=== PATIENT | female | born 1965 | race African-American/Black ===

== ENCOUNTER 2016-04-24 17:46 | Inpatient (IN) ==
[2016-04-24] MEDS ORDERED: methylPREDNISolone SOD SUC 125 MG/2 ML VIAL ONE (19:14)
[2016-04-24] MEDS ORDERED: MORPHINE 2 MG/1 ML SYRINGE IV STA (19:46)
[2016-04-24] MEDS ORDERED: cefTRIAXone 1,000 MG in SODIUM CHLORIDE 0.9% 100 ML IV STA (19:46)
[2016-04-24] MEDS ORDERED: methylPREDNISolone SOD SUC 125 MG/2 ML VIAL IV STA (19:46)
[2016-04-24] MEDS ORDERED: FUROSEMIDE 100 MG/10 ML VIAL IV STA (19:46)
[2016-04-24] MEDS ORDERED: ONDANSETRON 4 MG/2 ML VIAL IV STA (19:46)
--- NOTE | 2016-04-24 19:50 | Emergency Department Note ---
Henrique Velazquez [place], am scribing for, and in the presence of, Carlo Panda MD 19:44. Farzad Velazquez Charles R, MD, personally performed the services described in this documentation, ascribed by Levon Duenas in my presence, and it is both accurate and complete [id number] . Arrival - Arrival Chief Complaint: Shortness of Breath Stated Complaint: cough congestion wheezing ED Nursing Triage Note: Onset of SOB and wheezing today. Produtive cough. Mode of Arrival: Ambulatory Limitations: No Limitations Source: Patient Time Seen by Provider: 04/24/16 19:29 - History of Present Illness HPI Narrative: Pt is a 51 y/o black female presenting to the ED with c/o SOB and wheezing that onset suddenly over the course of 2 days. Pt states she does use home oxygen. She has had fever and emesis containing white frothy substance. Her PCP is Dr. Shin. She is currently taking Lasix . Pt denies chills, diarrhea, abdominal pain, back pain, and chest pain. Her PMHx consist of asthma, bronchitis, HTN, and sarcoidosis. Consistency: constant Severity: moderate Allergies/Adverse Reactions: Allergies Allergy/AdvReac Type Severity Reaction Status Date / Time No Known Allergies Allergy Verified 07/20/14 09:05 Home Medications: Home Medications Medication Instructions Recorded Confirmed Type Budesonide/Formoterol 160-4.5 2 puff INH DAILY 12/17/15 04/24/16 History [Symbicort 160-4.5] Eszopiclone [Lunesta] 3 mg PO BEDTIME 12/17/15 04/24/16 History Fluticasone/Salmeterol 500-50 1 puff INH BID 12/17/15 04/24/16 History [Advair 500-50] Furosemide Tab [Lasix Tab] 20 mg PO BID DIURETIC 12/17/15 04/24/16 History Gabapentin Cap/Tab [Neurontin 600 mg PO QID 12/17/15 04/24/16 History Cap/Tab] HYDROcodone/ACETAMIN 10-325 [[place] 1 tablet PO QID 12/17/15 04/24/16 History 10-325] Ibuprofen Tab [Motrin Tab] 800 mg PO TID 12/17/15 04/24/16 History Levalbuterol Neb [Xopenex Neb] 1.25 mg RESP TX QID 12/17/15 04/24/16 History Meloxicam [Mobic] 15 mg PO DAILY 12/17/15 04/24/16 History Methotrexate Tab 17.5 mg PO TH 12/17/15 04/24/16 History Montelukast Tab [Singulair Tab] 10 mg PO DAILY 12/17/15 04/24/16 History Norethindrone [Ortho Micronor] 0.35 mg PO DAILY 12/17/15 04/24/16 History Paroxetine HCl [Paxil] 30 mg PO BID 12/17/15 04/24/16 History Promethazine Tab [Phenergan Tab] 25 mg PO Q6H 12/17/15 04/24/16 History Tizanidine HCl [Zanaflex] 4 mg PO QID 12/17/15 04/24/16 History Verapamil HCl [Verapamil Tab] 120 mg PO TID 12/17/15 04/24/16 History buPROPion XL [Wellbutrin Xl] 300 mg PO DAILY 12/17/15 04/24/16 History clonazePAM [Klonopin] 1 mg PO TID 12/17/15 04/24/16 History traMADol TAB [Ultram] 50 mg PO BID 12/17/15 04/24/16 History Review of System - Review of System 12 point system: reviewed and no additional remarkable complaints except as stated - Review of System Constitutional: Present: fever. Absent: chills, weakness Eyes: Absent: vision change Head/Ears/Nose/Throat: Absent: earache, nasal drainage, sore throat Respiratory: Present: cough (prodcuctive ), respiratory distress (mild ), wheezing Cardiovascular: Present: dyspnea on exertion. Absent: chest pain, syncope Gastrointestinal: Absent: abdominal pain, nausea, vomiting, diarrhea Genitourinary female: Absent: dysuria Musculoskeletal: Absent: arm pain, back pain, leg pain, neck pain Skin: Absent: rash Neurological: Absent: headache, weakness, confusion, abnormal gait, vertigo Psychiatric: Absent: anxiety Endocrine: Absent: fatigue Hematological/Lymphatic: Absent: easy bleeding Allergic/Immunologic: Absent: facial swelling Medical,Surgical,& Family Hx - Medical History Cardio: History of: Hypertension Respiratory: History of: Asthma, Bronchitis, Respiratory Problems (sarcoidosis) Musculoskeletal: History of: Back/Neck Problems (chronic back pain) Other: History of: Miscellaneous Medical Problems (Sarcoid) - Social History Smoking Status: Never smoker Frequency of Alcohol Use: None Type of Drug Use: None Exam Vital Signs: Vital Signs Temperature 98.7 F 04/24/16 18:20 Pulse Rate 103 H 04/24/16 19:19 Respiratory Rate 34 H 04/24/16 20:23 Blood Pressure 144/99 04/24/16 18:20 O2 Sat by Pulse Oximetry 98 04/24/16 19:19 - General General appearance: alert, in distress (mild respiratory distress ) - Head Head exam: Present: atraumatic, normocephalic, normal inspection - Eye Eye exam: Present: normal appearance, PERRL, EOMI - ENT ENT exam: Present: normal exam, normal oropharynx, mucous membranes moist, TM's normal bilaterally, normal external ear exam - Neck Neck exam: Present: normal inspection, full ROM, trachea midline. Absent: tenderness - Chest Chest inspection: Present: normal inspection, symmetric chest wall rise. Absent : tenderness - Respiratory Respiratory exam: Present: accessory muscle use, rales (bilaterally), respiratory distress (mild ), wheezes (bilaterally ) - Cardiovascular Cardiovascular exam: Present: regular rate, normal rhythm, normal heart sounds - Abdominal Exam Abdominal exam: Present: soft, normal bowel sounds. Absent: distention, tenderness - Extremities Exam Extremities exam: Present: normal inspection, full ROM, normal capillary refill , pedal edema (+2 pitting ). Absent: tenderness, calf tenderness - Back Exam Back exam: Present: normal inspection, full ROM. Absent: tenderness - Neurological Exam Neurological exam: Present: alert, oriented X3, CN II-XII intact, normal gait, reflexes normal - Psychiatric Psychiatric exam: Present: normal affect, normal mood - Skin Skin exam: Present: warm, dry, intact, normal color. Absent: rash Course - Reevaluation(s) Reevaluation #1: Patient still wheezing in both sides her chest but better Time: 21:07 - Consultations Consultation #1: Dr. Maldonado will admit patient Time: 21:03 Results - Labs CBC & BMP: 04/24/16 19:55 04/24/16 19:55 Disposition Clinical Impression: Asthma with exacerbation Case discussed with: patient, patient's family Disposition: Still a Patient Condition: Guarded Time of Disposition: 21:08
[2016-04-24] MEDS ORDERED: FUROSEMIDE 40 MG/4 ML VIAL ONE (19:56)
[2016-04-24] MEDS ORDERED: ONDANSETRON 4 MG/2 ML VIAL ONE (19:56)
[2016-04-24] MEDS ORDERED: MORPHINE 2 MG/1 ML SYRINGE ONE (19:57)
[2016-04-24] MEDS ORDERED: cefTRIAXone 1,000 MG VIAL ONE (19:57)
[2016-04-24] MEDS ORDERED: FUROSEMIDE 20 MG/2 ML VIAL ONE (19:57)
[2016-04-24] MEDS ORDERED: ALBUTEROL/IPRATROPIUM 3 ML NEB RESP TX STA (19:58)
[2016-04-24] MEDS ORDERED: ALBUTEROL 2.5 MG/3 ML NEB RESP TX SCH (20:00)
--- NOTE | 2016-04-24 20:10 | XRay Report ---
Exam: XR chest 1V portable Date: 04/24/2016 7:47 PM Indication: Shortness of breath Comparison: 08/03/2015 Technical:AP semierect portable Findings: The heart is normal in size. Calcified nodes scarring are present in the perihilar regions with ASVD. No obvious consolidating infiltrate or effusion. Small cortical anchor screw right humeral head. No obvious pneumothorax. Impression: 1. Calcified nodes in the perihilar regions 2. Mild scarring in the perihilar regions and right midlung zone 3. Previous cortical anchor screw over the right humeral head suggests prior rotator cuff surgery PROCEDURE INTERPRETED AT [facility] DEPARTMENT OF RADIOLOGY Final Report Signed by: Dr. Dimas Vidal
[2016-04-24 20:11] LABS: Basophils % 0.9 % (0.0-0.8); Eosinophils # 0.1 10*3/uL (0.0-0.87); Eosinophils % 1.8 % (0.00-10.9); Hematocrit 37.8 VOL% (35.7-47.0); Hemoglobin 11.7 GM/DL (12.0-16.0); Immature Granulocytes % 0.2 %; Immature Granulocytes Absolute 0.01 #; Lymphocytes # 1.1 10*3/uL (1.4-4.0); Lymphocytes % 25.7 % (21.3-54.2); Mean Corpuscular Hemoglobin 29 PG (27-34); Mean Corpuscular Volume 92.2 FL (87-102); Mean Platelet Volume 9.3 FL (9.6-12.0); Monocytes # 0.5 10*3/uL (0.11-0.8); Monocytes % 10.4 % (1.7-12.7); Neutrophils # 2.7 10*3/uL (1.4-7.4); Platelet Count 222 10*3/uL (130-400); Red Cell Distribution Width 13.7 % (9.3-17.3); White Blood Count 4.4 10*3/uL (4.5-13.71)
[2016-04-24 20:23] LABS: Apearance,Urine CLOUDY (Clear); Bacteria,Urine Few /HPF (Few); Bilirubin,Urine Negative (Negative); Blood, Urine Negative (Negative); Glucose,Urine (UA) Negative (Negative); Ketones,Urine Negative (Negative); Mucus,Urine Few /LPF (Occasional); Nitrite,Urine Negative (Negative); Protein,Urine Negative; RBC,Urine 1 /HPF (0-4); Squamous Epithelial Cell,Urine Few /HPF (0-10); Urine Color Yellow (Yellow); Urine Specific Gravity 1.008 (1.001-1.035); Urine Urobilinogen < 2.0 EU/DL (0.2-1.0); WBC,Urine 4 /HPF (0-6)
[2016-04-24 20:24] LABS: ABG Base Excess 0.9 MMOL/L (-2.5-2.5); ABG HCO3 25.3 MMOL/L (20-26); ABG Oxygen Saturation 99.7 % (95-100); ABG PCO2 42.9 MM HG (35-48); ABG PH 7.392 (7.35-7.45); ABG TCO2 22.9 MMOL/L (23-27); Allen Test Positive
[2016-04-24 20:24] LABS: D-Dimer 1.9 MG/L FEU; INR 1.2; PT Patient Result 12.6 SECS
[2016-04-24 20:40] LABS: Alanine Aminotransferase 22 U/L (13-56); Alkaline Phosphatase 87 U/L (45-117); Aspartate Amino Transferase 20 U/L (0-37); Bilirubin,Total < 0.39 MG/DL (0.2-1.0); Blood Urea Nitrogen 4 MG/DL (7-18); Calcium 8.3 MG/DL (8.5-10.1); Glucose 87 MG/DL (74-106); Osmolality,Calculated 281.8 MOS/KG (273-304); Sodium 144 MMOL/L (136-145); Total Protein 7.4 G/DL (6.4-8.3); Troponin I Only < 0.015 NG/ML (0.00-0.045)
--- NOTE | 2016-04-24 20:41 | EKG Report ---
Stationary ECG Study [facility] ER Test Date: 04/24/2016 8:40:15 PM Pat Name: HAKEEM BURDICK Department: Room: Gender: F Occupational Ther: SR : 1965 Requested by: Carlo Stewart Order Number: [id number] Mary MD: YANETH SOLER Intervals [place] Rate: 110 P: 63 [place]: 154 QRS: 66 QRSD: 90 T: 44 QT: 272 QTc: 337 Interpretive Statements SINUS TACHYCARDIA NONSPECIFIC T-WAVE ABNORMALITY ABNORMAL RHYTHM ECG Electronically Signed On 04-26-16 09:45:51 PROGRAM PROJECT ANALYST by YANETH SOLER [email or web address]
[2016-04-24] MEDS ORDERED: POTASSIUM CHLORIDE 20 MEQ TABLET PO STA (20:43)
[2016-04-24] MEDS ORDERED: POTASSIUM CHLORIDE 20 MEQ TABLET PO ONE (21:42)
--- NOTE | 2016-04-24 22:00 | Hospitalist History & Physical ---
Assessment and Plan (1) Asthma with exacerbation Status: Acute Assessment and plan: The patient is minimal hospital with acute shortness of breath and wheezing. She'll be hospitalized and given IV steroid and inhaled beta agonist breathing therapy. We will obtain pulmonary consultation the morning. We will check Doppler of lower extremities to rule out deep vein thrombosis. We will continue the patient's usual home medications. Current Visit: Yes Qualifiers: Asthma severity: moderate persistent Qualified Code(s): J45.41 - Moderate persistent asthma with (acute) exacerbation (2) Sarcoidosis of lung Status: Acute Current Visit: Yes (3) Chronic back pain greater than 3 months duration Status: Acute Current Visit: Yes History of Present Illness Chief complaint: shortness of breath History of present illness: Ms. Weston is a 51 year old female with history of sarcoidosis and asthma. The patient was last admitted to the hospital for shortness of breath about [address] Torres. The patient is treated by Dr. López with injections and oral medication for back pain. The patient states that she was in her usual state of health until about 48 hours ago when she had acute onset of shortness of breath associated with wheezing. The patient's symptom is moderate, continuous, and had minimal improvement in the emergency room with standard treatment. She has not had sputum production. She has not had fever. The patient has not had angina. The patient's previous sleep test 4 years ago revealed significant episodes of hypoxemia which were not associated with obstruction. The patient has diagnosis of sarcoidosis and also asthma. She is now admitted to hospital with wheezing and shortness of breath. Home Medications Medication Instructions Recorded Confirmed Type Budesonide/Formoterol 160-4.5 2 puff INH DAILY 12/17/15 04/24/16 History [Symbicort 160-4.5] Eszopiclone [Lunesta] 3 mg PO BEDTIME 12/17/15 04/24/16 History Fluticasone/Salmeterol 500-50 1 puff INH BID 12/17/15 04/24/16 History [Advair 500-50] Furosemide Tab [Lasix Tab] 20 mg PO BID DIURETIC 12/17/15 04/24/16 History Gabapentin Cap/Tab [Neurontin 600 mg PO QID 12/17/15 04/24/16 History Cap/Tab] HYDROcodone/ACETAMIN 10-325 [[place] 1 tablet PO QID 12/17/15 04/24/16 History 10-325] Ibuprofen Tab [Motrin Tab] 800 mg PO TID 12/17/15 04/24/16 History Levalbuterol Neb [Xopenex Neb] 1.25 mg RESP TX QID 12/17/15 04/24/16 History Meloxicam [Mobic] 15 mg PO DAILY 12/17/15 04/24/16 History Methotrexate Tab 17.5 mg PO TH 12/17/15 04/24/16 History Montelukast Tab [Singulair Tab] 10 mg PO DAILY 12/17/15 04/24/16 History Norethindrone [Ortho Micronor] 0.35 mg PO DAILY 12/17/15 04/24/16 History Paroxetine HCl [Paxil] 30 mg PO BID 12/17/15 04/24/16 History Promethazine Tab [Phenergan Tab] 25 mg PO Q6H 12/17/15 04/24/16 History Tizanidine HCl [Zanaflex] 4 mg PO QID 12/17/15 04/24/16 History Verapamil HCl [Verapamil Tab] 120 mg PO TID 12/17/15 04/24/16 History buPROPion XL [Wellbutrin Xl] 300 mg PO DAILY 12/17/15 04/24/16 History clonazePAM [Klonopin] 1 mg PO TID 12/17/15 04/24/16 History traMADol TAB [Ultram] 50 mg PO BID 12/17/15 04/24/16 History Allergies Allergy/AdvReac Type Severity Reaction Status Date / Time No Known Allergies Allergy Verified 07/20/14 09:05 Medical,Surgical,& Family Hx - Medical History Cardio: History of: Hypertension Respiratory: History of: Asthma, Bronchitis, Respiratory Problems (sarcoidosis) Musculoskeletal: History of: Back/Neck Problems (chronic back pain) Other: History of: Miscellaneous Medical Problems (Sarcoid) - Family History Family History: Reports;: Family Hypertension - Social History Smoking Status: Never smoker Frequency of Alcohol Use: None Type of Drug Use: None Marital Status: Lives With:: Alone Functional capacity: independent ambulation 12 point system: reviewed and no additional remarkable complaints except as stated Exam - Constitutional Vitals: Period Temp Pulse Resp BP Sys/Valerio Pulse Ox Last 24 Hr 98.7 F 103-109 20-34 144/99 95-98 Exam: Constitutional System: Moderate distress on account of wheezing and dyspnea. No tremulousness. The patient has significant morbid obesity Head: Normocephalic, atraumatic. Ears, Nose and Throat System: No evidence of Otitis or Mastoiditis. No epistaxis or discharge Eyes System: Pupils equal, round, and reactive. Extraocular muscles intact. Neck: Supple, without adenopathy, No jugular venous distention. No thyromegaly , neck mass, or prior surgery apparent. Respiratory System: Chest moderate wheezing to auscultation. Cardiovascular System: Heart with regular rate and rhythm. No murmur. GI System: Abdomen soft, nontender. Normoactive bowel sounds present. Musculoskeletal System: limbs with trace pedal edema. Full distal pulses. Neurological System: No discernable sensory deficit. No aphasia Psychiatric System: Conversation is rational Results - Labs CBC & BMP: 04/24/16 19:55 04/24/16 19:55 Lab Results: I have reviewed the past 24 hour labs - Diagnostic Findings Procedure: Chest x-ray: image reviewed by me (no infiltrate apparent)
--- NOTE | 2016-04-24 22:42 | Ultrasound Report ---
Exam: US venous doppler LE BI Indication: Dyspnea Date: 04/24/2016 10:04 PM Findings: Grayscale color flow duplex/Doppler imaging and spectral analysis waveform imaging was performed with real-time ultrasound with image stored and captured. The right common femoral, superficial femoral, popliteal saphenous veins are patent with normal augmentation and compression. There is no evidence of popliteal or Granados's cyst. Normal wave form analysis present. Normal color flow The left common femoral, superficial femoral, popliteal saphenous veins are patent with normal augmentation and compression. There is no evidence of popliteal or Granados's cyst. Normal wave form analysis present. Normal color flow Impression: 1. No DVT PROCEDURE INTERPRETED AT [facility] DEPARTMENT OF RADIOLOGY Final Report Signed by: Dr. Dimas Vidal
[2016-04-24] MEDS ORDERED: ALBUTEROL 2.5 MG/3 ML NEB RESP TX PRN (23:20)
[2016-04-24] MEDS ORDERED: ESZOPICLONE 1 MG TABLET PO SCH (23:20)
[2016-04-25] MEDS: ALBUTEROL 2.5 MG/3 ML NEB RESP TX SCH ×4 (00:01→19:36)
[2016-04-25] MEDS: SODIUM CHLORIDE 0.9% 1,000 ML IV SCH ×2 (00:15→14:22)
[2016-04-25] MEDS: traMADol 50 MG TABLET PO SCH ×3 (00:16→21:37)
[2016-04-25] MEDS: POTASSIUM CHLORIDE 20 MEQ TABLET PO SCH ×3 (00:16→06:31)
[2016-04-25] MEDS: PROMETHAZINE 25 MG TABLET PO SCH ×4 (00:16→17:57)
[2016-04-25] MEDS: ENOXAPARIN 40 MG/0.4 ML SYRINGE SUBCUT SCH (00:17)
[2016-04-25] MEDS ORDERED: INFLUENZA VIRUS VACCINE 0.5 ML SYRINGE IM ONE (00:59)
[2016-04-25] MEDS: ZALEPLON 5 MG CAPSULE PO SCH ×2 (02:23→21:40)
[2016-04-25] MEDS: methylPREDNISolone SOD SUC 125 MG/2 ML VIAL IV SCH ×3 (03:05→17:57)
[2016-04-25 06:17] LABS: Basophils % 0.2 % (0.0-0.8); Hematocrit 37.1 VOL% (35.7-47.0); Hemoglobin 11.3 GM/DL (12.0-16.0); Immature Granulocytes % 0.2 %; Immature Granulocytes Absolute 0.01 #; Lymphocytes # 0.5 10*3/uL (1.4-4.0); Lymphocytes % 11.5 % (21.3-54.2); Mean Corpuscular HGB Conc 30.5 GM/DL (32-36); Mean Corpuscular Hemoglobin 28 PG (27-34); Mean Platelet Volume 9.3 FL (9.6-12.0); Monocytes % 0.7 % (1.7-12.7); Neutrophils # 3.6 10*3/uL (1.4-7.4); Neutrophils % 87.4 % (38.7-73.9); Platelet Count 208 10*3/uL (130-400); Red Blood Count 3.99 10*6/uL (3.8-5.5); Red Cell Distribution Width 13.9 % (9.3-17.3); White Blood Count 4.2 10*3/uL (4.5-13.71)
[2016-04-25 06:45] LABS: Hypochromasia 1+; Platelet Estimate Normal
[2016-04-25 06:53] LABS: Blood Urea Nitrogen 5 MG/DL (7-18); Calcium 8.4 MG/DL (8.5-10.1); Glucose 213 MG/DL (74-106); Magnesium 2.2 MG/DL (1.8-2.4); Osmolality,Calculated 290.7 MOS/KG (273-304); Potassium 3.9 MMOL/L (3.5-5.1); Sodium 145 MMOL/L (136-145); Troponin I Only < 0.015 NG/ML (0.00-0.045)
[2016-04-25] MEDS: LEVALBUTEROL 1.25 MG/3 ML NEB RESP TX SCH ×4 (07:19→19:36)
--- NOTE | 2016-04-25 07:22 | XRay Report ---
Portable chest. Indication: Shortness of breath. Dyspnea. Comparison: April 24, 2016. The heart is normal in size. There is uncoiling of the thoracic aorta. Bullous disease is suggested at the right lung apex. Interstitial fibrotic changes are noted bilaterally. The hilar regions are prominent bilaterally. When compared to yesterday's exam, no significant interval change. When compared to more remote exams, the hilar prominence remains stable. Lung volumes are decreasing and fibrotic changes are increasing. Impression: Progressive chronic lung changes. PROCEDURE INTERPRETED AT [facility] DEPARTMENT OF RADIOLOGY Final Report Signed by: Dr. Bel Page
--- NOTE | 2016-04-25 08:48 | EKG Report ---
Stationary ECG Study [facility] Test Date: 04/25/2016 8:47:30 AM Pat Name: HAKEEM BURDICK Department: Room: 538 Gender: F [employer] Member: : 1965 Requested by: Adelso Maldonado Order Number: [id number] Reading MD: YANETH SOLER Intervals [place] Rate: 99 P: 63 AL: 156 QRS: 77 QRSD: 88 T: 55 QT: 359 QTc: 415 Interpretive Statements SINUS RHYTHM LOW QRS VOLTAGE IN PRECORDIAL LEADS Electronically Signed On 04-26-16 09:50:29 TABLE RUNNER by YANETH SOLER [id number]
[2016-04-25] MEDS ORDERED: NORETHINDRONE 0.35 MG PO SCH (09:00)
--- NOTE | 2016-04-25 09:01 | Pulmonology Consult Note ---
Assessment and Plan (1) Asthma with exacerbation Status: Acute Assessment and plan: The patient has probably developed a URI and comes in with an asthma exacerbation. She looks reasonably comfortable after starting treatment. Current Visit: Yes Qualifiers: Asthma severity: moderate persistent Qualified Code(s): J45.41 - Moderate persistent asthma with (acute) exacerbation (2) Chronic back pain greater than 3 months duration Status: Acute Assessment and plan: She apparently has some chronic back pain problems. She is followed by the pain clinic. Current Visit: Yes (3) Sarcoidosis of lung Status: Acute Assessment and plan: Her chest x-ray does suggest some chronic interstitial lung disease. Current Visit: Yes History of Present Illness Chief complaint: shortness of breath History of present illness: Ms. Weston is a 51 year old black female that came in because of shortness of breath and asthma exacerbation. I have seen her in the past but has been quite some time. She has a history of sarcoid and asthma and apparently has been on methotrexate. She has inhalers at home but says she only uses them as needed. She says she's not had any recent flareups. She felt like she had a cold and some sinus congestion and then started coughing and wheezing. She has been started on IV antibiotics and steroids. Home Medications Medication Instructions Recorded Confirmed Type Budesonide/Formoterol 160-4.5 2 puff INH DAILY 12/17/15 04/24/16 History [Symbicort 160-4.5] Eszopiclone [Lunesta] 3 mg PO BEDTIME 12/17/15 04/24/16 History Fluticasone/Salmeterol 500-50 1 puff INH BID 12/17/15 04/24/16 History [Advair 500-50] Furosemide Tab [Lasix Tab] 20 mg PO BID DIURETIC 12/17/15 04/24/16 History Gabapentin Cap/Tab [Neurontin 600 mg PO QID 12/17/15 04/24/16 History Cap/Tab] HYDROcodone/ACETAMIN 10-325 [[place] 1 tablet PO QID 12/17/15 04/24/16 History 10-325] Ibuprofen Tab [Motrin Tab] 800 mg PO TID 12/17/15 04/24/16 History Levalbuterol Neb [Xopenex Neb] 1.25 mg RESP TX QID 12/17/15 04/24/16 History Meloxicam [Mobic] 15 mg PO DAILY 12/17/15 04/24/16 History Methotrexate Tab 17.5 mg PO TH 12/17/15 04/24/16 History Montelukast Tab [Singulair Tab] 10 mg PO DAILY 12/17/15 04/24/16 History Norethindrone [Ortho Micronor] 0.35 mg PO DAILY 12/17/15 04/24/16 History Paroxetine HCl [Paxil] 30 mg PO BID 12/17/15 04/24/16 History Promethazine Tab [Phenergan Tab] 25 mg PO Q6H 12/17/15 04/24/16 History Tizanidine HCl [Zanaflex] 4 mg PO QID 12/17/15 04/24/16 History Verapamil HCl [Verapamil Tab] 120 mg PO TID 12/17/15 04/24/16 History buPROPion XL [Wellbutrin Xl] 300 mg PO DAILY 12/17/15 04/24/16 History clonazePAM [Klonopin] 1 mg PO TID 12/17/15 04/24/16 History traMADol TAB [Ultram] 50 mg PO BID 12/17/15 04/24/16 History Allergies Allergy/AdvReac Type Severity Reaction Status Date / Time No Known Allergies Allergy Verified 07/20/14 09:05 - Constitutional Constitutional: Present: fatigue, weight gain. Absent: chills, fever(s) - EENT Eyes: Absent: loss of vision Ears: Absent: decreased hearing Nose, mouth and throat: Absent: dysphagia, headache(s), sinus pressure - Cardiovascular Cardiovascular: Present: dyspnea. Absent: chest pain at rest, edema, orthopnea , palpitations, PND - Respiratory Respiratory: Present: cough, dyspnea, wheezing, change in phlegm color. Absent : hemoptysis, pain on inspiration - Gastrointestinal Gastrointestinal: Absent: abdominal pain, change in bowel habits, dysphagia, nausea, vomiting - Genitourinary Genitourinary: Absent: dysuria, hematuria, urinary frequency - Musculoskeletal Musculoskeletal: Present: arthralgias - Neurological Neurological: Absent: abnormal speech, confusion, focal weakness Exam (Pulmonay) H&P - Constitutional Vitals: Period Temp Pulse Resp BP Sys/Valerio Pulse Ox Last 24 Hr 97.1 F-97.8 F 98-115 18-22 129-160/73-94 93-100 General appearance: no acute distress, over weight - Head Head exam: Present: normal inspection, normocephalic - Eye Eye exam: Present: EOMI. Absent: scleral icterus Pupils: Present: ZOEY - ENT ENT exam: Present: normal exam - Neck Neck exam: Present: normal inspection, other (she does have swelling of the back of her neck consistent with cushingoid features.). Absent: lymphadenopathy , thyromegaly - Respiratory Respiratory exam: Present: rales, rhonchi, other (she has fairly good breath sounds bilaterally with mild rales and rhonchi.). Absent: accessory muscle use - Cardiovascular Cardiovascular exam: Present: regular rate and rhythm. Absent: gallop, systolic murmur - GI/Abdominal GI/Abdominal exam: Present: normal bowel sounds, soft. Absent: organomegaly, tenderness - Extremities Exam Extremities exam: Absent: calf tenderness, edema - Neurological Exam Neurological exam: Present: alert, oriented X3, CN II-XII intact - Psychiatric Psychiatric exam: Present: normal affect - Skin Skin exam: Present: warm, dry Medical,Surgical,& Family Hx - Medical History Cardio: History of: Hypertension HEENT: History of: Ear Problem (inner pain) Respiratory: History of: Asthma, Bronchitis, Respiratory Problems (sarcoidosis) Musculoskeletal: History of: Back/Neck Problems (chronic back pain) Other: History of: Miscellaneous Medical Problems (Sarcoid) - Family History Family History: Reports;: Family Hypertension - Social History Smoking Status: Never smoker Frequency of Alcohol Use: None Type of Drug Use: None Results - Labs CBC & BMP: 04/25/16 06:09 04/25/16 06:09 Labs: Her ABGs show PO2 224 with a PCO2 of 42 and a pH is 7.39 on 50% O2. - Diagnostic Findings Procedure: Chest x-ray: image reviewed by me, report reviewed by me (chest x- ray does show bilateral hilar calcification and mild interstitial infiltrates.) Quality Measures - Stroke Symptom Onset Unknown: No
[2016-04-25] MEDS: PANTOPRAZOLE 40 MG TABLET PO SCH (09:12)
[2016-04-25] MEDS: FUROSEMIDE 20 MG TABLET PO SCH ×2 (09:12→14:21)
[2016-04-25] MEDS: IBUPROFEN 800 MG TABLET PO SCH ×3 (09:12→21:38)
[2016-04-25] MEDS: PARoxetine 20 MG TABLET PO SCH ×2 (09:12→21:38)
[2016-04-25] MEDS: tiZANidine 4 MG TABLET PO SCH ×4 (09:12→21:38)
[2016-04-25] MEDS: MELOXICAM 7.5 MG TABLET PO SCH (09:12)
[2016-04-25] MEDS: clonazePAM 0.5 MG TABLET PO SCH ×3 (09:12→21:37)
[2016-04-25] MEDS: FLUTICASONE/SALMETEROL 500-50 DISKUS 14 DOSE INH SCH ×2 (09:12→21:39)
[2016-04-25] MEDS: MONTELUKAST 10 MG TABLET PO SCH (09:12)
[2016-04-25] MEDS: GABAPENTIN 600 MG TABLET PO SCH ×4 (09:12→21:38)
[2016-04-25] MEDS: BUDESONIDE/FORMOTEROL 160-4.5 INHALER 6 GM INH SCH (09:14)
[2016-04-25] MEDS: VERAPAMIL 120 MG TABLET PO SCH ×3 (09:14→21:38)
--- NOTE | 2016-04-25 10:41 | Hospitalist Progress Note ---
Assessment and Plan (1) Asthma with exacerbation Status: Acute Assessment and plan: The patient is admitted to hospital with acute shortness of breath and wheezing. She'll be hospitalized and given IV steroid and inhaled beta agonist breathing therapy. Antibiotic is admitted now . Brian's consult is greatly appreciated. We will check Doppler of lower extremities to rule out deep vein thrombosis. We will continue the patient's usual home medications. Current Visit: Yes Qualifiers: Asthma severity: moderate persistent Qualified Code(s): J45.41 - Moderate persistent asthma with (acute) exacerbation (2) Sarcoidosis of lung Status: Acute Current Visit: Yes (3) Chronic back pain greater than 3 months duration Status: Acute Current Visit: Yes Hospitalist: Subjective Interval history: The patient is resting quietly in bed today. She has mild respiratory distress but less than in the emergency room last night. The patient has more cough and last night but less upper airway congestion and less wheezing Exam - Constitutional Vitals: Period Temp Pulse Resp BP Sys/Valerio Pulse Ox Last 24 Hr 97.1 F-97.8 F 98-115 18-22 129-160/73-94 93-100 Exam: Constitutional System: Mild distress on account of wheezing and dyspnea. No tremulousness. The patient has significant morbid obesity Head: Normocephalic, atraumatic. Ears, Nose and Throat System: No evidence of Otitis or Mastoiditis. No epistaxis or discharge Eyes System: Pupils equal, round, and reactive. Extraocular muscles intact. Neck: Supple, without adenopathy, No jugular venous distention. No thyromegaly , neck mass, or prior surgery apparent. Respiratory System: Chest mild wheezing to auscultation. The patient has upper airway congestion with coughing Cardiovascular System: Heart with regular rate and rhythm. No murmur. GI System: Abdomen soft, nontender. Normoactive bowel sounds present. Musculoskeletal System: limbs with trace pedal edema. Full distal pulses. Neurological System: No discernable sensory deficit. No aphasia Psychiatric System: Conversation is rational Results - Labs CBC & BMP: 04/25/16 06:09 04/25/16 06:09 Lab Results: I have reviewed the past 24 hour labs Quality Measures - Stroke Symptom Onset Unknown: No
[2016-04-25] MEDS: cefTRIAXone 1,000 MG in SODIUM CHLORIDE 0.9% 100 ML IV SCH (21:37)
[2016-04-26] MEDS: ALBUTEROL 2.5 MG/3 ML NEB RESP TX SCH ×4 (00:15→20:15)
[2016-04-26] MEDS: PROMETHAZINE 25 MG TABLET PO SCH ×5 (00:27→22:40)
[2016-04-26] MEDS: ENOXAPARIN 40 MG/0.4 ML SYRINGE SUBCUT SCH ×2 (00:27→22:40)
[2016-04-26] MEDS: SODIUM CHLORIDE 0.9% 1,000 ML IV SCH ×2 (02:28→16:08)
[2016-04-26] MEDS: methylPREDNISolone SOD SUC 125 MG/2 ML VIAL IV SCH ×3 (02:28→18:06)
[2016-04-26] MEDS: MORPHINE 2 MG/1 ML SYRINGE IV PRN ×2 (02:32→06:46)
--- NOTE | 2016-04-26 06:59 | Physician Query Form ---
CLICK EDIT DOCUMENT TO SELECT QUERY ANSWER --> OK --> SIGN Clairsa Curry RN, CCDS Certified Clinical Fitter [employer] W) [phone] (f) [phone] [email or web address]: Make your selection(s) from the choices in EACH section by typing an "x" and enter comments in the comment section. Please use your independent medical judgment in providing your response. This request does not imply that any particular answer is desired or expected. CLINICAL INDICATORS: (Providers should not edit this section) The medical record indicates that the patient was admitted with asthma exacerbation, HX of sarcoidosis, respirations of 34#, "accessory muscle use, rales (bilaterally), respiratory distress (mild ), wheezes (bilaterally )", " does use home oxygen", and the patient was placed on 2 liters per NC. Based on the above, could you clarify the appropriate diagnosis, if significant , that supports the above abnormalities and additional evaluation, monitoring, and/or treatment rendered: (X ) patient is being monitored or treated for chronic respiratory failure ( ) patient is not being monitored or treated for chronic respiratory failure ( ) Other, please specify: ( ) Clinically unable to determine COMMENTS: Use of terms such as suspected, likely, or probable (associated with a specific diagnosis that is being evaluated, monitored, or treated as if it exists) are acceptable and can be restated in the discharge summary if not ruled out. MTDD
[2016-04-26] MEDS: LEVALBUTEROL 1.25 MG/3 ML NEB RESP TX SCH ×4 (07:28→20:15)
[2016-04-26] MEDS: GABAPENTIN 600 MG TABLET PO SCH ×4 (09:49→22:37)
[2016-04-26] MEDS: clonazePAM 0.5 MG TABLET PO SCH ×3 (09:49→22:36)
[2016-04-26] MEDS: PARoxetine 20 MG TABLET PO SCH ×2 (09:49→22:37)
[2016-04-26] MEDS: MELOXICAM 7.5 MG TABLET PO SCH (09:49)
[2016-04-26] MEDS: MONTELUKAST 10 MG TABLET PO SCH (09:50)
[2016-04-26] MEDS: tiZANidine 4 MG TABLET PO SCH ×4 (09:50→22:38)
[2016-04-26] MEDS: IBUPROFEN 800 MG TABLET PO SCH ×3 (09:50→22:37)
[2016-04-26] MEDS: traMADol 50 MG TABLET PO SCH ×2 (09:50→22:37)
[2016-04-26] MEDS: FUROSEMIDE 20 MG TABLET PO SCH ×2 (09:50→16:05)
[2016-04-26] MEDS: VERAPAMIL 120 MG TABLET PO SCH ×3 (09:50→22:38)
[2016-04-26] MEDS: BUDESONIDE/FORMOTEROL 160-4.5 INHALER 6 GM INH SCH (09:51)
[2016-04-26] MEDS: FLUTICASONE/SALMETEROL 500-50 DISKUS 14 DOSE INH SCH ×2 (09:51→22:38)
[2016-04-26] MEDS: PANTOPRAZOLE 40 MG TABLET PO SCH (09:52)
--- NOTE | 2016-04-26 10:59 | Pulmonology Progress Note ---
Pulmonary - PN: Subj Interval history: Patient is a 51-year-old black lady that has a history of sarcoidosis and mild interstitial fibrosis. She also has some chronic asthma. She has been on methotrexate for significant arthritis. She has been off prednisone for quite some time. She comes in now for a flareup of her breathing. She been coughing up some thick sputum and wheezing more than usual. She is comfortable on low- flow oxygen. She says she feels a little better today. Exam (Progress Note) - Constitutional Vitals: Period Temp Pulse Resp BP Sys/Valerio Pulse Ox Last 24 Hr 96.8 F-98.0 F 79-108 16-25 106-158/60-88 95-100 Exam: General appearance: no acute distress, over weight, she looks comfortable sitting up in bed. - Head Head exam: Present: normal inspection, normocephalic - Eye Eye exam: Present: EOMI. Absent: scleral icterus Pupils: Present: ZOEY - ENT ENT exam: Present: normal exam - Neck Neck exam: Present: normal inspection, other (she does have swelling of the back of her neck consistent with cushingoid features.). Absent: lymphadenopathy , thyromegaly - Respiratory Respiratory exam: Present: She has good breath sounds bilaterally with some slight inspiratory crackles in the bases. She still has some mild wheezing. - Cardiovascular Cardiovascular exam: Present: regular rate and rhythm. Absent: gallop, systolic murmur - GI/Abdominal GI/Abdominal exam: Present: normal bowel sounds, soft. Absent: organomegaly, tenderness - Extremities Exam Extremities exam: Absent: calf tenderness, edema - Neurological Exam Neurological exam: Present: alert, oriented X3, CN II-XII intact - Psychiatric Psychiatric exam: Present: normal affect - Skin Skin exam: Present: warm, dry Results - Labs CBC & BMP: 04/25/16 06:09 04/25/16 06:09 Assessment and Plan (1) Asthma with exacerbation Status: Acute Assessment and plan: The patient has probably developed a URI and comes in with an asthma exacerbation. She looks reasonably comfortable after starting treatment. She looks like she is feeling better and tolerating her treatment okay. Current Visit: Yes Qualifiers: Asthma severity: moderate persistent Qualified Code(s): J45.41 - Moderate persistent asthma with (acute) exacerbation (2) Chronic back pain greater than 3 months duration Status: Acute Assessment and plan: She apparently has some chronic back pain problems. She is followed by the pain clinic. Current Visit: Yes (3) Sarcoidosis of lung Status: Acute Assessment and plan: Her chest x-ray does suggest some chronic interstitial lung disease. Her sarcoid has not been very active in the past recent years. Current Visit: Yes
--- NOTE | 2016-04-26 11:10 | Hospitalist Progress Note ---
Assessment and Plan (1) Asthma with exacerbation Status: Acute Assessment and plan: The patient is admitted to hospital with acute shortness of breath and wheezing. She'll be hospitalized and given IV steroid and inhaled beta agonist breathing therapy. The patient's asthma is persistent and likely on account of her upper respiratory viral infection. We will continue present care for now and anticipate improvement over the next couple of days. Current Visit: Yes Qualifiers: Asthma severity: moderate persistent Qualified Code(s): J45.41 - Moderate persistent asthma with (acute) exacerbation (2) Sarcoidosis of lung Status: Acute Current Visit: Yes (3) Chronic back pain greater than 3 months duration Status: Acute Current Visit: Yes Hospitalist: Subjective Interval history: The patient is comfortable on present care. She still has moderate wheezing and moderate air trapping. I coordinate care with Dr. Torres and agree with his findings concerning the patient's upper respiratory tract infection Exam - Constitutional Vitals: Period Temp Pulse Resp BP Sys/Valerio Pulse Ox Last 24 Hr 97.0 F-98.0 F 79-108 16-25 106-158/60-88 95-100 Exam: Constitutional System: Mild distress on account of wheezing and dyspnea. No tremulousness. The patient has significant morbid obesity Head: Normocephalic, atraumatic. Ears, Nose and Throat System: No evidence of Otitis or Mastoiditis. No epistaxis or discharge Eyes System: Pupils equal, round, and reactive. Extraocular muscles intact. Neck: Supple, without adenopathy, No jugular venous distention. No thyromegaly , neck mass, or prior surgery apparent. Respiratory System: Chest mild wheezing to auscultation. The patient has upper airway congestion with coughing Cardiovascular System: Heart with regular rate and rhythm. No murmur. GI System: Abdomen soft, nontender. Normoactive bowel sounds present. Musculoskeletal System: limbs with trace pedal edema. Full distal pulses. Neurological System: No discernable sensory deficit. No aphasia Psychiatric System: Conversation is rational Results - Labs CBC & BMP: 04/25/16 06:09 04/25/16 06:09 Lab Results: I have reviewed the past 24 hour labs Quality Measures - Stroke Symptom Onset Unknown: No
[2016-04-26] MEDS: ZALEPLON 5 MG CAPSULE PO SCH (22:37)
[2016-04-26] MEDS: METHOTREXATE 2.5 MG TABLET PO SCH (22:39)
[2016-04-26] MEDS: cefTRIAXone 1,000 MG in SODIUM CHLORIDE 0.9% 100 ML IV SCH (22:39)
[2016-04-27] MEDS: ALBUTEROL 2.5 MG/3 ML NEB RESP TX SCH ×4 (00:16→20:12)
[2016-04-27] MEDS: methylPREDNISolone SOD SUC 125 MG/2 ML VIAL IV SCH ×3 (03:47→18:14)
[2016-04-27] MEDS: MORPHINE 2 MG/1 ML SYRINGE IV PRN ×4 (03:47→23:13)
[2016-04-27] MEDS: SODIUM CHLORIDE 0.9% 1,000 ML IV SCH ×2 (05:41→18:14)
[2016-04-27] MEDS: PROMETHAZINE 25 MG TABLET PO SCH ×4 (05:41→23:11)
[2016-04-27] MEDS: LEVALBUTEROL 1.25 MG/3 ML NEB RESP TX SCH ×4 (07:12→20:12)
[2016-04-27] MEDS: GABAPENTIN 600 MG TABLET PO SCH ×4 (08:37→20:58)
[2016-04-27] MEDS: tiZANidine 4 MG TABLET PO SCH ×4 (08:37→21:02)
[2016-04-27] MEDS: PANTOPRAZOLE 40 MG TABLET PO SCH (08:37)
[2016-04-27] MEDS: MELOXICAM 7.5 MG TABLET PO SCH (08:37)
[2016-04-27] MEDS: traMADol 50 MG TABLET PO SCH ×2 (08:38→21:01)
[2016-04-27] MEDS: MONTELUKAST 10 MG TABLET PO SCH (08:38)
[2016-04-27] MEDS: PARoxetine 20 MG TABLET PO SCH ×2 (08:38→20:59)
[2016-04-27] MEDS: IBUPROFEN 800 MG TABLET PO SCH ×3 (08:38→20:57)
[2016-04-27] MEDS: clonazePAM 0.5 MG TABLET PO SCH ×3 (08:39→20:56)
[2016-04-27] MEDS: FUROSEMIDE 20 MG TABLET PO SCH ×2 (08:39→16:22)
[2016-04-27] MEDS: VERAPAMIL 120 MG TABLET PO SCH ×3 (08:39→20:55)
[2016-04-27] MEDS: BUDESONIDE/FORMOTEROL 160-4.5 INHALER 6 GM INH SCH (08:40)
[2016-04-27] MEDS: FLUTICASONE/SALMETEROL 500-50 DISKUS 14 DOSE INH SCH ×2 (08:40→20:55)
--- NOTE | 2016-04-27 09:39 | Pulmonology Progress Note ---
Pulmonary - PN: Subj Interval history: Patient is a 51-year-old black lady that has a history of sarcoidosis and mild interstitial fibrosis. She also has some chronic asthma. She has been on methotrexate for significant arthritis. She has been off prednisone for quite some time. She comes in now for a flareup of her breathing. She been coughing up some thick sputum and wheezing more than usual. She feels like her breathing is better but she still having some cough. She had a fairly good night. She still has minimal wheeze on exam. She is better and should be able to go home in a day or 2. Exam (Progress Note) - Constitutional Vitals: Period Temp Pulse Resp BP Sys/Valerio Pulse Ox Last 24 Hr 97.3 F-98.2 F 77-110 16-20 133-143/69-87 96-99 Exam: General appearance: no acute distress, over weight, she looks comfortable sitting up in bed. - Head Head exam: Present: normal inspection, normocephalic - Eye Eye exam: Present: EOMI. Absent: scleral icterus Pupils: Present: ZOEY - ENT ENT exam: Present: normal exam - Neck Neck exam: Present: normal inspection, other (she does have swelling of the back of her neck consistent with cushingoid features.). Absent: lymphadenopathy , thyromegaly - Respiratory Respiratory exam: Present: She has fairly good breath sounds bilaterally with very mild wheezing on expiration. - Cardiovascular Cardiovascular exam: Present: regular rate and rhythm. Absent: gallop, systolic murmur - GI/Abdominal GI/Abdominal exam: Present: normal bowel sounds, soft. Absent: organomegaly, tenderness - Extremities Exam Extremities exam: Absent: calf tenderness, edema - Neurological Exam Neurological exam: Present: alert, oriented X3, CN II-XII intact - Psychiatric Psychiatric exam: Present: normal affect - Skin Skin exam: Present: warm, dry Results - Labs CBC & BMP: 04/25/16 06:09 04/25/16 06:09 Assessment and Plan (1) Asthma with exacerbation Status: Acute Assessment and plan: The patient has probably developed a URI and comes in with an asthma exacerbation. She looks reasonably comfortable after starting treatment. She continues to improve and is having less shortness of breath. She still has some coughing spells. She still has mild wheezing. She seems to be tolerating therapy. Hopefully she can go home in a day or 2. Current Visit: Yes Qualifiers: Asthma severity: moderate persistent Qualified Code(s): J45.41 - Moderate persistent asthma with (acute) exacerbation (2) Chronic back pain greater than 3 months duration Status: Acute Assessment and plan: She apparently has some chronic back pain problems. She is followed by the pain clinic. Current Visit: Yes (3) Sarcoidosis of lung Status: Acute Assessment and plan: Her chest x-ray does suggest some chronic interstitial lung disease. Her sarcoid has been very inactive lately. Current Visit: Yes
--- NOTE | 2016-04-27 17:48 | Hospitalist Progress Note ---
Assessment and Plan (1) Asthma with exacerbation Status: Acute Assessment and plan: The patient is admitted to hospital with acute shortness of breath and wheezing. She'll be hospitalized and given IV steroid and inhaled beta agonist breathing therapy. The patient's asthma is persistent and likely on account of her upper respiratory viral infection. We will continue present care for now and anticipate improvement over the next couple of days. Current Visit: Yes Qualifiers: Asthma severity: moderate persistent Qualified Code(s): J45.41 - Moderate persistent asthma with (acute) exacerbation (2) Sarcoidosis of lung Status: Acute Current Visit: Yes (3) Chronic back pain greater than 3 months duration Status: Acute Current Visit: Yes Hospitalist: Subjective Interval history: The patient is making incremental progress. At the time I arrived for her assessment the patient was having significant wheezing. Exam - Constitutional Vitals: Period Temp Pulse Resp BP Sys/Valerio Pulse Ox Last 24 Hr 97.3 F-97.9 F 85-104 16-101 133-143/74-87 88-100 Exam: Constitutional System: Mild distress on account of wheezing and dyspnea. No tremulousness. The patient has significant morbid obesity Head: Normocephalic, atraumatic. Ears, Nose and Throat System: No evidence of Otitis or Mastoiditis. No epistaxis or discharge Eyes System: Pupils equal, round, and reactive. Extraocular muscles intact. Neck: Supple, without adenopathy, No jugular venous distention. No thyromegaly , neck mass, or prior surgery apparent. Respiratory System: Chest mild wheezing to auscultation. The patient has upper airway congestion with coughing Cardiovascular System: Heart with regular rate and rhythm. No murmur. GI System: Abdomen soft, nontender. Normoactive bowel sounds present. Musculoskeletal System: limbs with trace pedal edema. Full distal pulses. Neurological System: No discernable sensory deficit. No aphasia Psychiatric System: Conversation is rational Results - Labs CBC & BMP: 04/25/16 06:09 04/25/16 06:09 Lab Results: I have reviewed the past 24 hour labs Quality Measures - Stroke Symptom Onset Unknown: No
[2016-04-27] MEDS: ZALEPLON 5 MG CAPSULE PO SCH (21:01)
[2016-04-27] MEDS: cefTRIAXone 1,000 MG in SODIUM CHLORIDE 0.9% 100 ML IV SCH (21:03)
[2016-04-27] MEDS: ENOXAPARIN 40 MG/0.4 ML SYRINGE SUBCUT SCH (23:11)
[2016-04-28] MEDS: ALBUTEROL 2.5 MG/3 ML NEB RESP TX SCH ×4 (01:01→19:57)
[2016-04-28] MEDS: methylPREDNISolone SOD SUC 125 MG/2 ML VIAL IV SCH ×3 (03:52→18:15)
[2016-04-28] MEDS: MORPHINE 2 MG/1 ML SYRINGE IV PRN ×3 (03:58→18:15)
[2016-04-28] MEDS: LEVALBUTEROL 1.25 MG/3 ML NEB RESP TX SCH ×4 (07:14→19:58)
[2016-04-28] MEDS: PROMETHAZINE 25 MG TABLET PO SCH ×3 (07:27→16:47)
[2016-04-28] MEDS: SODIUM CHLORIDE 0.9% 1,000 ML IV SCH (07:29)
[2016-04-28] MEDS: IBUPROFEN 800 MG TABLET PO SCH ×3 (09:05→20:42)
[2016-04-28] MEDS: MELOXICAM 7.5 MG TABLET PO SCH (09:05)
[2016-04-28] MEDS: FUROSEMIDE 20 MG TABLET PO SCH ×2 (09:06→16:46)
[2016-04-28] MEDS: traMADol 50 MG TABLET PO SCH ×2 (09:06→20:41)
[2016-04-28] MEDS: PARoxetine 20 MG TABLET PO SCH ×2 (09:06→20:41)
[2016-04-28] MEDS: PANTOPRAZOLE 40 MG TABLET PO SCH (09:06)
[2016-04-28] MEDS: tiZANidine 4 MG TABLET PO SCH ×4 (09:06→20:42)
[2016-04-28] MEDS: GABAPENTIN 600 MG TABLET PO SCH ×4 (09:06→20:41)
[2016-04-28] MEDS: clonazePAM 0.5 MG TABLET PO SCH ×3 (09:07→20:41)
[2016-04-28] MEDS: MONTELUKAST 10 MG TABLET PO SCH (09:07)
[2016-04-28] MEDS: VERAPAMIL 120 MG TABLET PO SCH ×3 (09:07→20:41)
[2016-04-28] MEDS: BUDESONIDE/FORMOTEROL 160-4.5 INHALER 6 GM INH SCH (09:08)
[2016-04-28] MEDS: FLUTICASONE/SALMETEROL 500-50 DISKUS 14 DOSE INH SCH ×2 (09:08→20:42)
--- NOTE | 2016-04-28 10:07 | Pulmonology Progress Note ---
Pulmonary - PN: Subj Interval history: This 51-year-old white female has asthma with acute bronchitis and bronchospasm. She feels a little better but still wheezing a good bit. She is continuing with bronchodilators antibiotics and steroids. Exam (Progress Note) - Constitutional Vitals: Period Temp Pulse Resp BP Sys/Valerio Pulse Ox Last 24 Hr 97.6 F-98.8 F 85-104 18-101 128-165/74-100 88-100 Exam: She is alert oriented. Vital signs normal. He was react to light throat clear neck supple no bruits. Chest reveals some expiratory wheezes bilaterally. She' s not tight. Heart normal rate rhythm no murmurs or rubs no gallops. Abdomen soft nontender no masses. Extremities no clubbing cyanosis or edema. Calves nontender. Results - Labs CBC & BMP: 04/25/16 06:09 04/25/16 06:09 Lab Results: I have reviewed the past 24 hour labs Assessment and Plan (1) Asthma with exacerbation Status: Acute Assessment and plan: She is better with current medications. I do not think we can taper steroids yet though it she is still having some wheezing. Current Visit: Yes Qualifiers: Asthma severity: moderate persistent Qualified Code(s): J45.41 - Moderate persistent asthma with (acute) exacerbation (2) Sarcoidosis of lung Status: Acute Assessment and plan: This appears to be stable. Current Visit: Yes
--- NOTE | 2016-04-28 17:47 | Hospitalist Progress Note ---
Assessment and Plan (1) Asthma with exacerbation Status: Acute Assessment and plan: The patient is admitted to hospital with acute shortness of breath and wheezing. She'll be hospitalized and given IV steroid and inhaled beta agonist breathing therapy. The patient's asthma is persistent and likely on account of her upper respiratory viral infection. We will continue present care for now and anticipate improvement over the next couple of days. Current Visit: Yes Qualifiers: Asthma severity: moderate persistent Qualified Code(s): J45.41 - Moderate persistent asthma with (acute) exacerbation (2) Sarcoidosis of lung Status: Acute Current Visit: Yes (3) Chronic back pain greater than 3 months duration Status: Acute Current Visit: Yes Hospitalist: Subjective Interval history: The patient has shortness of breath and wheezing today. She is making incremental progress but not yet ready for discharge. The patient's appetite is good. She does not have any fever. Exam - Constitutional Vitals: Period Temp Pulse Resp BP Sys/Valerio Pulse Ox Last 24 Hr 96.6 F-98.8 F 85-110 16-24 128-165/80-100 90-100 Exam: Constitutional System: Mild distress on account of wheezing and dyspnea. No tremulousness. The patient has significant morbid obesity Head: Normocephalic, atraumatic. Ears, Nose and Throat System: No evidence of Otitis or Mastoiditis. No epistaxis or discharge Eyes System: Pupils equal, round, and reactive. Extraocular muscles intact. Neck: Supple, without adenopathy, No jugular venous distention. No thyromegaly , neck mass, or prior surgery apparent. Respiratory System: Chest mild wheezing to auscultation. The patient has upper airway congestion with coughing Cardiovascular System: Heart with regular rate and rhythm. No murmur. GI System: Abdomen soft, nontender. Normoactive bowel sounds present. Musculoskeletal System: limbs with trace pedal edema. Full distal pulses. Neurological System: No discernable sensory deficit. No aphasia Psychiatric System: Conversation is rational Results - Labs CBC & BMP: 04/25/16 06:09 04/25/16 06:09 Lab Results: I have reviewed the past 24 hour labs Quality Measures - Stroke Symptom Onset Unknown: No
[2016-04-28] MEDS: ZALEPLON 5 MG CAPSULE PO SCH (20:41)
[2016-04-28] MEDS: cefTRIAXone 1,000 MG in SODIUM CHLORIDE 0.9% 100 ML IV SCH (20:42)
[2016-04-29] MEDS: PROMETHAZINE 25 MG TABLET PO SCH ×4 (00:18→16:55)
[2016-04-29] MEDS: ENOXAPARIN 40 MG/0.4 ML SYRINGE SUBCUT SCH (00:18)
[2016-04-29] MEDS: ALBUTEROL 2.5 MG/3 ML NEB RESP TX SCH ×4 (01:13→19:12)
[2016-04-29] MEDS: ONDANSETRON 4 MG/2 ML VIAL IV PRN (01:59)
[2016-04-29] MEDS: MORPHINE 2 MG/1 ML SYRINGE IV PRN ×3 (01:59→14:41)
[2016-04-29] MEDS: methylPREDNISolone SOD SUC 125 MG/2 ML VIAL IV SCH ×3 (02:32→20:30)
[2016-04-29] MEDS: LEVALBUTEROL 1.25 MG/3 ML NEB RESP TX SCH ×4 (07:07→19:12)
[2016-04-29] MEDS: IBUPROFEN 800 MG TABLET PO SCH ×3 (08:42→20:30)
[2016-04-29] MEDS: VERAPAMIL 120 MG TABLET PO SCH ×3 (08:42→20:30)
[2016-04-29] MEDS: MELOXICAM 7.5 MG TABLET PO SCH (08:42)
[2016-04-29] MEDS: clonazePAM 0.5 MG TABLET PO SCH ×3 (08:42→20:29)
[2016-04-29] MEDS: PANTOPRAZOLE 40 MG TABLET PO SCH (08:43)
[2016-04-29] MEDS: MONTELUKAST 10 MG TABLET PO SCH (08:43)
[2016-04-29] MEDS: GABAPENTIN 600 MG TABLET PO SCH ×4 (08:43→20:30)
[2016-04-29] MEDS: PARoxetine 20 MG TABLET PO SCH ×2 (08:43→20:29)
[2016-04-29] MEDS: traMADol 50 MG TABLET PO SCH ×2 (08:43→20:29)
[2016-04-29] MEDS: FUROSEMIDE 20 MG TABLET PO SCH ×2 (08:43→16:18)
[2016-04-29] MEDS: tiZANidine 4 MG TABLET PO SCH ×4 (08:43→20:30)
[2016-04-29] MEDS: FLUTICASONE/SALMETEROL 500-50 DISKUS 14 DOSE INH SCH ×2 (08:46→21:08)
[2016-04-29] MEDS: BUDESONIDE/FORMOTEROL 160-4.5 INHALER 6 GM INH SCH (08:46)
--- NOTE | 2016-04-29 10:19 | Pulmonology Progress Note ---
Pulmonary - PN: Subj Interval history: This 51-year-old white female has asthma with acute bronchitis and bronchospasm. She feels a little better but still wheezing a good bit. She is continuing with bronchodilators antibiotics and steroids. 04/29/2016 patient still with a fair amount of wheezing but sounds a little better than yesterday. Asking for cough medicine normally takes codeine with cough medicine at home. I have ordered Robitussin-AC. Exam (Progress Note) - Constitutional Vitals: Period Temp Pulse Resp BP Sys/Valerio Pulse Ox Last 24 Hr 96.6 F-98.9 F 78-113 16-24 138-160/80-99 90-100 Exam: She is alert oriented. Vital signs normal. He was react to light throat clear neck supple no bruits. Chest reveals some expiratory wheezes bilaterally. She' s not tight. Heart normal rate rhythm no murmurs or rubs no gallops. Abdomen soft nontender no masses. Extremities no clubbing cyanosis or edema. Calves nontender. Sounds a little better than yesterday. Results - Labs CBC & BMP: 04/25/16 06:09 04/25/16 06:09 Lab Results: I have reviewed the past 24 hour labs Assessment and Plan (1) Asthma with exacerbation Status: Acute Assessment and plan: She is better with current medications. I do not think we can taper steroids yet though it she is still having some wheezing. 04/29/2016 continue current dosing of Solu-Medrol. Hopefully can start reducing tomorrow Current Visit: Yes Qualifiers: Asthma severity: moderate persistent Qualified Code(s): J45.41 - Moderate persistent asthma with (acute) exacerbation (2) Sarcoidosis of lung Status: Acute Assessment and plan: This appears to be stable. Current Visit: Yes
[2016-04-29] MEDS: WITCH HAZEL PADS 100/JAR TOP PRN (11:59)
[2016-04-29] MEDS: guaiFENesin/CODEINE 5 ML LIQUID PO PRN (12:00)
--- NOTE | 2016-04-29 16:39 | Hospitalist Progress Note ---
Assessment and Plan (1) Asthma with exacerbation Status: Acute Assessment and plan: The patient is admitted to hospital with acute shortness of breath and wheezing. She'll be hospitalized and given IV steroid and inhaled beta agonist breathing therapy. The patient's asthma is persistent and likely on account of her upper respiratory viral infection. We will continue present care for now and anticipate improvement over the next couple of days. Current Visit: Yes Qualifiers: Asthma severity: moderate persistent Qualified Code(s): J45.41 - Moderate persistent asthma with (acute) exacerbation (2) Sarcoidosis of lung Status: Acute Current Visit: Yes (3) Chronic back pain greater than 3 months duration Status: Acute Current Visit: Yes Hospitalist: Subjective Interval history: The patient's wheezing is improving very slowly. She has worsened cough today. Air-trapping is moderate and improving. Exam - Constitutional Vitals: Period Temp Pulse Resp BP Sys/Valerio Pulse Ox Last 24 Hr 97.5 F-98.9 F 78-113 16-24 138-160/84-99 92-100 Exam: Constitutional System: Mild distress on account of wheezing and dyspnea. No tremulousness. The patient has significant morbid obesity Head: Normocephalic, atraumatic. Ears, Nose and Throat System: No evidence of Otitis or Mastoiditis. No epistaxis or discharge Eyes System: Pupils equal, round, and reactive. Extraocular muscles intact. Neck: Supple, without adenopathy, No jugular venous distention. No thyromegaly , neck mass, or prior surgery apparent. Respiratory System: Chest mild wheezing to auscultation. The patient has upper airway congestion with coughing Cardiovascular System: Heart with regular rate and rhythm. No murmur. GI System: Abdomen soft, nontender. Normoactive bowel sounds present. Musculoskeletal System: limbs with trace pedal edema. Full distal pulses. Neurological System: No discernable sensory deficit. No aphasia Psychiatric System: Conversation is rational Results - Labs CBC & BMP: 04/25/16 06:09 04/25/16 06:09 Lab Results: I have reviewed the past 24 hour labs Quality Measures - Stroke Symptom Onset Unknown: No
[2016-04-29] MEDS: ZALEPLON 5 MG CAPSULE PO SCH (20:29)
[2016-04-29] MEDS: cefTRIAXone 1,000 MG in SODIUM CHLORIDE 0.9% 100 ML IV SCH (20:30)
[2016-04-30] MEDS: PROMETHAZINE 25 MG TABLET PO SCH ×4 (00:14→16:30)
[2016-04-30] MEDS: ENOXAPARIN 40 MG/0.4 ML SYRINGE SUBCUT SCH ×2 (00:14→23:00)
[2016-04-30] MEDS: ALBUTEROL 2.5 MG/3 ML NEB RESP TX SCH ×4 (00:22→19:50)
[2016-04-30] MEDS: MORPHINE 2 MG/1 ML SYRINGE IV PRN ×2 (00:58→05:06)
[2016-04-30] MEDS: ONDANSETRON 4 MG/2 ML VIAL IV PRN (01:00)
[2016-04-30] MEDS: methylPREDNISolone SOD SUC 125 MG/2 ML VIAL IV SCH ×3 (05:05→21:19)
[2016-04-30] MEDS: LEVALBUTEROL 1.25 MG/3 ML NEB RESP TX SCH ×4 (07:40→19:50)
[2016-04-30] MEDS ORDERED: FUROSEMIDE 40 MG/4 ML VIAL IV ONE (09:22)
--- NOTE | 2016-04-30 09:22 | Pulmonology Progress Note ---
Pulmonary - PN: Subj Interval history: Patient is a 51-year-old black lady that has a history of sarcoidosis and mild interstitial fibrosis. She also has some chronic asthma. She has been on methotrexate for significant arthritis. She has been off prednisone for quite some time. She comes in now for a flareup of her breathing. She been coughing up some thick sputum and wheezing more than usual. She had a fairly good weekend but is still coughing and wheezing a good bit. She still doesn't feel like she is breathing very well. Exam (Progress Note) - Constitutional Vitals: Period Temp Pulse Resp BP Sys/Valerio Pulse Ox Last 24 Hr 97.6 F-98.5 F 80-98 14-22 122-161/76-88 92-99 Exam: General appearance: no acute distress, over weight, she looks comfortable sitting up in bed. She still has a fairly harsh cough. - Head Head exam: Present: normal inspection, normocephalic - Eye Eye exam: Present: EOMI. Absent: scleral icterus Pupils: Present: ZOEY - ENT ENT exam: Present: normal exam - Neck Neck exam: Present: normal inspection, other (she does have swelling of the back of her neck consistent with cushingoid features.). Absent: lymphadenopathy , thyromegaly - Respiratory Respiratory exam: Present: She has fairly good breath sounds bilaterally and she still has some wheezing and rhonchi present. - Cardiovascular Cardiovascular exam: Present: regular rate and rhythm. Absent: gallop, systolic murmur - GI/Abdominal GI/Abdominal exam: Present: normal bowel sounds, soft. Absent: organomegaly, tenderness - Extremities Exam Extremities exam: Absent: calf tenderness, edema - Neurological Exam Neurological exam: Present: alert, oriented X3, CN II-XII intact - Psychiatric Psychiatric exam: Present: normal affect - Skin Skin exam: Present: warm, dry Results - Labs CBC & BMP: 04/25/16 06:09 04/25/16 06:09 Assessment and Plan (1) Asthma with exacerbation Status: Acute Assessment and plan: The patient has probably developed a URI and comes in with an asthma exacerbation. She is better but is hard to clear up. We will try to diurese a little and check another chest x-ray. Current Visit: Yes Qualifiers: Asthma severity: moderate persistent Qualified Code(s): J45.41 - Moderate persistent asthma with (acute) exacerbation (2) Chronic back pain greater than 3 months duration Status: Acute Assessment and plan: She apparently has some chronic back pain problems. She is followed by the pain clinic. Current Visit: Yes (3) Sarcoidosis of lung Status: Acute Assessment and plan: Her chest x-ray does suggest some chronic interstitial lung disease. Her sarcoid has been very inactive lately. Current Visit: Yes
[2016-04-30] MEDS: GABAPENTIN 600 MG TABLET PO SCH ×4 (10:21→21:17)
[2016-04-30] MEDS: MELOXICAM 7.5 MG TABLET PO SCH (10:21)
[2016-04-30] MEDS: tiZANidine 4 MG TABLET PO SCH ×4 (10:22→21:17)
[2016-04-30] MEDS: PARoxetine 20 MG TABLET PO SCH ×2 (10:22→21:22)
[2016-04-30] MEDS: FUROSEMIDE 20 MG TABLET PO SCH ×2 (10:22→16:30)
[2016-04-30] MEDS: traMADol 50 MG TABLET PO SCH ×2 (10:23→21:18)
[2016-04-30] MEDS: PANTOPRAZOLE 40 MG TABLET PO SCH (10:24)
[2016-04-30] MEDS: MONTELUKAST 10 MG TABLET PO SCH (10:24)
[2016-04-30] MEDS: VERAPAMIL 120 MG TABLET PO SCH ×3 (10:24→21:16)
[2016-04-30] MEDS: clonazePAM 0.5 MG TABLET PO SCH ×3 (10:24→21:17)
[2016-04-30] MEDS: IBUPROFEN 800 MG TABLET PO SCH ×3 (10:27→21:15)
[2016-04-30] MEDS: FLUTICASONE/SALMETEROL 500-50 DISKUS 14 DOSE INH SCH ×2 (10:28→21:22)
[2016-04-30] MEDS: BUDESONIDE/FORMOTEROL 160-4.5 INHALER 6 GM INH SCH (10:28)
--- NOTE | 2016-04-30 13:51 | Hospitalist Progress Note ---
Assessment and Plan (1) Asthma with exacerbation Status: Acute Assessment and plan: The patient is admitted to hospital with acute shortness of breath and wheezing. She'll be hospitalized and given IV steroid and inhaled beta agonist breathing therapy. The patient's asthma is persistent and likely on account of her upper respiratory viral infection. We will continue present care for now and anticipate improvement over the next couple of days. Current Visit: Yes Qualifiers: Asthma severity: moderate persistent Qualified Code(s): J45.41 - Moderate persistent asthma with (acute) exacerbation (2) Sarcoidosis of lung Status: Acute Current Visit: Yes (3) Chronic back pain greater than 3 months duration Status: Acute Current Visit: Yes Hospitalist: Subjective Interval history: 51-year-old black lady that has a history of sarcoidosis and mild interstitial fibrosis. She also has some chronic asthma. She has been on methotrexate for significant arthritis. She has been off prednisone for quite some time. She comes in now for a flareup of her breathing. She been coughing up some thick sputum and wheezing more than usual. She had a fairly good weekend but is still coughing and wheezing a good bit. The patient continues on therapy for asthma and we hope to see improvement by midweek. Exam - Constitutional Vitals: Period Temp Pulse Resp BP Sys/Valerio Pulse Ox Last 24 Hr 97.6 F-99.0 F 80-120 12-22 104-161/56-88 89-99 Exam: Constitutional System: Mild distress on account of wheezing and dyspnea. No tremulousness. The patient has significant morbid obesity Head: Normocephalic, atraumatic. Ears, Nose and Throat System: No evidence of Otitis or Mastoiditis. No epistaxis or discharge Eyes System: Pupils equal, round, and reactive. Extraocular muscles intact. Neck: Supple, without adenopathy, No jugular venous distention. No thyromegaly , neck mass, or prior surgery apparent. Respiratory System: Chest mild wheezing to auscultation. The patient has upper airway congestion with coughing Cardiovascular System: Heart with regular rate and rhythm. No murmur. GI System: Abdomen soft, nontender. Normoactive bowel sounds present. Musculoskeletal System: limbs with trace pedal edema. Full distal pulses. Neurological System: No discernable sensory deficit. No aphasia Psychiatric System: Conversation is rational Results - Labs CBC & BMP: 04/25/16 06:09 04/25/16 06:09 Lab Results: I have reviewed the past 24 hour labs Quality Measures - Stroke Symptom Onset Unknown: No
[2016-04-30] MEDS: guaiFENesin/CODEINE 5 ML LIQUID PO PRN (15:38)
[2016-04-30] MEDS: ZALEPLON 5 MG CAPSULE PO SCH (21:15)
[2016-04-30] MEDS: cefTRIAXone 1,000 MG in SODIUM CHLORIDE 0.9% 100 ML IV SCH (21:21)
[2016-05-01] MEDS: ALBUTEROL 2.5 MG/3 ML NEB RESP TX SCH ×2 (00:40→07:58)
[2016-05-01] MEDS: guaiFENesin/CODEINE 5 ML LIQUID PO PRN (00:57)
[2016-05-01] MEDS: PROMETHAZINE 25 MG TABLET PO SCH ×5 (00:57→22:20)
[2016-05-01] MEDS: methylPREDNISolone SOD SUC 125 MG/2 ML VIAL IV SCH (05:08)
--- NOTE | 2016-05-01 07:29 | XRay Report ---
Referring Physician: Rene Torres Exam: XR chest 1V portable Date: May 01, 2016 at 5:32 AM Reason: Shortness of breath Comparison: Chest 2 views April 25, 2016 Findings: The cardiac silhouette is normal in size, but there is scattered calcified plaque at the thoracic aorta. There are mild scattered opacities within both lungs, mainly within the lower lung zones. This likely represents fibrosis and atelectasis. Superimposed minimal pulmonary edema or an infectious process is difficult to exclude, but these findings appear chronic. Prominent emphysema is present, mainly at the upper lung zones. No pneumothorax is identified, but there may be minimal right pleural fluid. The osseous structures appear stable. Impression: There is slight improved aeration of both lungs. The study is otherwise similar to before. PROCEDURE INTERPRETED AT [facility] DEPARTMENT OF RADIOLOGY Final Report Signed by: Dr. Antonella Dubon
[2016-05-01] MEDS: LEVALBUTEROL 1.25 MG/3 ML NEB RESP TX SCH ×4 (07:59→20:10)
--- NOTE | 2016-05-01 08:31 | Pulmonology Progress Note ---
Pulmonary - PN: Subj Interval history: Patient is a 51-year-old black lady that has a history of sarcoidosis and mild interstitial fibrosis. She also has some chronic asthma. She has been on methotrexate for significant arthritis. She has been off prednisone for quite some time. She comes in now for a flareup of her breathing. She been coughing up some thick sputum and wheezing more than usual. She had a fairly good weekend but is still coughing and wheezing a good bit. She is taking a lot of pain medicines and nerve pills now. She has a tendency to do this. Her breathing seems to be relatively stable and her chest x-ray looks okay. She did diurese fairly well yesterday. Exam (Progress Note) - Constitutional Vitals: Period Temp Pulse Resp BP Sys/Valerio Pulse Ox Last 24 Hr 96.7 F-99.0 F 69-120 12-20 104-161/56-76 89-100 Exam: General appearance: no acute distress, over weight, she looks comfortable sitting up in bed. She still has a fairly harsh cough. - Head Head exam: Present: normal inspection, normocephalic - Eye Eye exam: Present: EOMI. Absent: scleral icterus Pupils: Present: ZOEY - ENT ENT exam: Present: normal exam - Neck Neck exam: Present: normal inspection, other (she does have swelling of the back of her neck consistent with cushingoid features.). Absent: lymphadenopathy , thyromegaly - Respiratory Respiratory exam: Present: She has fairly good breath sounds bilaterally and her lungs sound a little better with just some mild crackles and rhonchi. - Cardiovascular Cardiovascular exam: Present: regular rate and rhythm. Absent: gallop, systolic murmur - GI/Abdominal GI/Abdominal exam: Present: normal bowel sounds, soft. Absent: organomegaly, tenderness - Extremities Exam Extremities exam: Absent: calf tenderness, edema - Neurological Exam Neurological exam: Present: alert, oriented X3, CN II-XII intact - Psychiatric Psychiatric exam: Present: normal affect - Skin Skin exam: Present: warm, dry Results - Labs CBC & BMP: 04/25/16 06:09 04/25/16 06:09 - Diagnostic Findings Procedure: Chest x-ray: image reviewed by me, report reviewed by me (chest x- ray shows mild bilateral scarring.) Assessment and Plan (1) Asthma with exacerbation Status: Acute Assessment and plan: The patient has probably developed a URI and comes in with an asthma exacerbation. Her breathing is little better and she needs to move around more. Current Visit: Yes Qualifiers: Asthma severity: moderate persistent Qualified Code(s): J45.41 - Moderate persistent asthma with (acute) exacerbation (2) Chronic back pain greater than 3 months duration Status: Acute Assessment and plan: She apparently has some chronic back pain problems. She is followed by the pain clinic. She is taking a lot of medicines Current Visit: Yes (3) Sarcoidosis of lung Status: Acute Assessment and plan: Her chest x-ray does suggest some chronic interstitial lung disease. Her sarcoid has been very inactive lately. Current Visit: Yes
[2016-05-01] MEDS: GABAPENTIN 600 MG TABLET PO SCH ×4 (09:45→22:19)
[2016-05-01] MEDS: BUDESONIDE/FORMOTEROL 160-4.5 INHALER 6 GM INH SCH (09:45)
[2016-05-01] MEDS: MELOXICAM 7.5 MG TABLET PO SCH (09:45)
[2016-05-01] MEDS: PARoxetine 20 MG TABLET PO SCH ×2 (09:45→22:16)
[2016-05-01] MEDS: methylPREDNISolone SOD SUC 40 MG/1 ML VIAL IV SCH ×2 (09:45→22:16)
[2016-05-01] MEDS: IBUPROFEN 800 MG TABLET PO SCH ×3 (09:45→22:18)
[2016-05-01] MEDS: MONTELUKAST 10 MG TABLET PO SCH (09:45)
[2016-05-01] MEDS: FLUTICASONE/SALMETEROL 500-50 DISKUS 14 DOSE INH SCH ×2 (09:45→22:20)
[2016-05-01] MEDS: VERAPAMIL 120 MG TABLET PO SCH ×3 (09:46→22:19)
[2016-05-01] MEDS: traMADol 50 MG TABLET PO SCH ×2 (09:46→22:17)
[2016-05-01] MEDS: clonazePAM 0.5 MG TABLET PO SCH ×3 (09:46→22:16)
[2016-05-01] MEDS: FUROSEMIDE 20 MG TABLET PO SCH ×2 (09:47→16:25)
[2016-05-01] MEDS: PANTOPRAZOLE 40 MG TABLET PO SCH (09:47)
[2016-05-01] MEDS: tiZANidine 4 MG TABLET PO SCH ×4 (09:47→22:16)
--- NOTE | 2016-05-01 10:39 | Hospitalist Progress Note ---
Assessment and Plan (1) Asthma with exacerbation Status: Acute Assessment and plan: 05/01/16: she still has significant amount of wheezing with poor air movement. We'll continue with steroids and scheduled DuoNebs. Current Visit: Yes Qualifiers: Asthma severity: moderate persistent Qualified Code(s): J45.41 - Moderate persistent asthma with (acute) exacerbation (2) Sarcoidosis of lung Status: Acute Current Visit: Yes (3) Chronic back pain greater than 3 months duration Status: Acute Current Visit: Yes Hospitalist: Subjective Interval history: 51-year-old female with history of sarcoidosis and some interstitial fibrosis who presented complaining of respiratory distress. Clinically she still appears to be tight and she does have underlying asthma. There are no new complaints she is still requesting IV pain medication as this meniscus which she has reached her pain contract if she is on several oral narcotic medications. Per the nursing staff she is normally very lethargic as well as time for medications. I explained to her that she needs to get up and attempt to ambulate. I'm wondering if this is likely her baseline and she has chronic wheezing. Exam - Constitutional Vitals: Period Temp Pulse Resp BP Sys/Valerio Pulse Ox Last 24 Hr 96.7 F-99.0 F 69-104 12-20 104-161/56-85 91-100 General appearance: morbidly obese - Head Head exam: Present: normocephalic, atraumatic - Eye Eye exam: Present: EOMI Pupils: Present: ZOEY - Respiratory Respiratory exam: Present: wheezes - Cardiovascular Cardiovascular exam: Present: regular rate and rhythm - GI/Abdominal GI/Abdominal exam: Present: normal bowel sounds, soft - Extremities Exam Extremities exam: Present: full ROM - Neurological Exam Neurological exam: Present: alert, oriented X3, CN II-XII intact - Psychiatric Psychiatric exam: Present: normal affect, normal mood - Skin Skin exam: Present: warm, intact Results - Labs CBC & BMP: 04/25/16 06:09 04/25/16 06:09 Quality Measures - Stroke Symptom Onset Unknown: No
[2016-05-01] MEDS: cefTRIAXone 1,000 MG in SODIUM CHLORIDE 0.9% 100 ML IV SCH (22:18)
[2016-05-01] MEDS: ZALEPLON 5 MG CAPSULE PO SCH (22:20)
[2016-05-01] MEDS: ENOXAPARIN 40 MG/0.4 ML SYRINGE SUBCUT SCH (22:20)
[2016-05-01] MEDS: WITCH HAZEL PADS 100/JAR TOP PRN (22:26)
[2016-05-02] MEDS: PROMETHAZINE 25 MG TABLET PO SCH ×4 (05:32→22:55)
[2016-05-02] MEDS: guaiFENesin/CODEINE 5 ML LIQUID PO PRN ×3 (05:33→22:15)
[2016-05-02] MEDS: LEVALBUTEROL 1.25 MG/3 ML NEB RESP TX SCH ×4 (07:15→19:43)
--- NOTE | 2016-05-02 09:04 | Pulmonology Progress Note ---
Pulmonary - PN: Subj Interval history: Patient is a 51-year-old black lady that has a history of sarcoidosis and mild interstitial fibrosis. She also has some chronic asthma. She has been on methotrexate for significant arthritis. She has been off prednisone for quite some time. She comes in now for a flareup of her breathing. She been coughing up some thick sputum and wheezing more than usual. She had a fairly good weekend but is still coughing and wheezing a good bit. She is taking a lot of pain medicines and nerve pills now. She has a tendency to do this. She says she had a better night and looks like her breathing is little better today. Her chest x-ray is fairly stable and she looks like she is breathing comfortably now. Exam (Progress Note) - Constitutional Vitals: Period Temp Pulse Resp BP Sys/Valerio Pulse Ox Last 24 Hr 96.5 F-99.4 F 73-96 16-20 119-147/56-85 91-99 Exam: General appearance: no acute distress, over weight, she looks comfortable sitting up in bed. She looks like she is breathing better today. - Head Head exam: Present: normal inspection, normocephalic - Eye Eye exam: Present: EOMI. Absent: scleral icterus Pupils: Present: ZOEY - ENT ENT exam: Present: normal exam - Neck Neck exam: Present: normal inspection, other (she does have swelling of the back of her neck consistent with cushingoid features.). Absent: lymphadenopathy , thyromegaly - Respiratory Respiratory exam: Present: She has fairly good breath sounds bilaterally and her lungs sound a little better with very mild crackles present. - Cardiovascular Cardiovascular exam: Present: regular rate and rhythm. Absent: gallop, systolic murmur - GI/Abdominal GI/Abdominal exam: Present: normal bowel sounds, soft. Absent: organomegaly, tenderness - Extremities Exam Extremities exam: Absent: calf tenderness, edema - Neurological Exam Neurological exam: Present: alert, oriented X3, CN II-XII intact - Psychiatric Psychiatric exam: Present: normal affect - Skin Skin exam: Present: warm, dry Results - Labs CBC & BMP: 04/25/16 06:09 04/25/16 06:09 Assessment and Plan (1) Asthma with exacerbation Status: Acute Assessment and plan: The patient has probably developed a URI and comes in with an asthma exacerbation. Bronchospasm is better and she is moving air okay. She can probably go to oral medicines now. Current Visit: Yes Qualifiers: Asthma severity: moderate persistent Qualified Code(s): J45.41 - Moderate persistent asthma with (acute) exacerbation (2) Chronic back pain greater than 3 months duration Status: Acute Assessment and plan: She apparently has some chronic back pain problems. She is followed by the pain clinic. She is taking a lot of medicines Current Visit: Yes (3) Sarcoidosis of lung Status: Acute Assessment and plan: Her chest x-ray looks stable with mild chronic changes. She has no new infiltrates now. Current Visit: Yes
[2016-05-02] MEDS: clonazePAM 0.5 MG TABLET PO SCH ×3 (09:32→20:19)
[2016-05-02] MEDS: PANTOPRAZOLE 40 MG TABLET PO SCH (09:32)
[2016-05-02] MEDS: traMADol 50 MG TABLET PO SCH ×2 (09:32→20:13)
[2016-05-02] MEDS: VERAPAMIL 120 MG TABLET PO SCH ×3 (09:32→20:13)
[2016-05-02] MEDS: MELOXICAM 7.5 MG TABLET PO SCH (09:32)
[2016-05-02] MEDS: GABAPENTIN 600 MG TABLET PO SCH ×4 (09:32→20:13)
[2016-05-02] MEDS: MONTELUKAST 10 MG TABLET PO SCH (09:32)
[2016-05-02] MEDS: tiZANidine 4 MG TABLET PO SCH ×4 (09:33→20:13)
[2016-05-02] MEDS: FUROSEMIDE 20 MG TABLET PO SCH ×2 (09:33→16:43)
[2016-05-02] MEDS: PARoxetine 20 MG TABLET PO SCH ×2 (09:33→20:13)
[2016-05-02] MEDS: IBUPROFEN 800 MG TABLET PO SCH ×3 (09:34→20:12)
[2016-05-02] MEDS: FLUTICASONE/SALMETEROL 500-50 DISKUS 14 DOSE INH SCH ×2 (09:35→20:14)
[2016-05-02] MEDS: BUDESONIDE/FORMOTEROL 160-4.5 INHALER 6 GM INH SCH (09:35)
[2016-05-02] MEDS: predniSONE 20 MG TABLET PO SCH (09:40)
[2016-05-02] MEDS: methylPREDNISolone SOD SUC 40 MG/1 ML VIAL IV SCH (11:21)
--- NOTE | 2016-05-02 12:27 | Hospitalist Progress Note ---
Assessment and Plan (1) Asthma with exacerbation Status: Acute Assessment and plan: 05/01/16: she still has significant amount of wheezing with poor air movement. We'll continue with steroids and scheduled DuoNebs. Current Visit: Yes Qualifiers: Asthma severity: moderate persistent Qualified Code(s): J45.41 - Moderate persistent asthma with (acute) exacerbation (2) Sarcoidosis of lung Status: Acute Current Visit: Yes (3) Chronic back pain greater than 3 months duration Status: Acute Current Visit: Yes Hospitalist: Subjective Interval history: Patient is sleeping but she is arousable she has no new issues. From a pulmonology standpoint she is improving and they recommended changing her medications to oral. Exam - Constitutional Vitals: Period Temp Pulse Resp BP Sys/Valerio Pulse Ox Last 24 Hr 96.5 F-99.4 F 73-93 16-20 122-147/65-85 96-99 General appearance: morbidly obese - Head Head exam: Present: normocephalic, atraumatic - Eye Eye exam: Present: EOMI Pupils: Present: ZOEY - Respiratory Respiratory exam: Present: wheezes - Cardiovascular Cardiovascular exam: Present: regular rate and rhythm - GI/Abdominal GI/Abdominal exam: Present: normal bowel sounds, soft - Extremities Exam Extremities exam: Present: full ROM - Neurological Exam Neurological exam: Present: alert - Psychiatric Psychiatric exam: Present: normal affect, normal mood - Skin Skin exam: Present: warm, dry Results - Labs CBC & BMP: 04/25/16 06:09 04/25/16 06:09 Quality Measures - Stroke Symptom Onset Unknown: No
[2016-05-02] MEDS: ZALEPLON 5 MG CAPSULE PO SCH (20:13)
[2016-05-02] MEDS: cefTRIAXone 1,000 MG in SODIUM CHLORIDE 0.9% 100 ML IV SCH (20:14)
[2016-05-02] MEDS: ENOXAPARIN 40 MG/0.4 ML SYRINGE SUBCUT SCH (22:55)
[2016-05-03] MEDS: PROMETHAZINE 25 MG TABLET PO SCH ×5 (04:57→22:52)
[2016-05-03] MEDS: guaiFENesin/CODEINE 5 ML LIQUID PO PRN (05:49)
[2016-05-03 06:17] LABS: Basophils % 0.1 % (0.0-0.8); Eosinophils % 0.4 % (0.00-10.9); Hematocrit 37.4 VOL% (35.7-47.0); Hemoglobin 11.6 GM/DL (12.0-16.0); Immature Granulocytes % 2.2 %; Immature Granulocytes Absolute 0.18 #; Lymphocytes # 2.3 10*3/uL (1.4-4.0); Mean Corpuscular Hemoglobin 29 PG (27-34); Mean Corpuscular Volume 93.3 FL (87-102); Monocytes # 0.7 10*3/uL (0.11-0.8); Monocytes % 8.4 % (1.7-12.7); NRBC # 0.02 10*3/uL; Neutrophils # 5.1 10*3/uL (1.4-7.4); Neutrophils % 60.9 % (38.7-73.9); Platelet Count 150 T/CUMM (130-400); Red Blood Count 4.01 MC/CUMM (3.8-5.5); Red Cell Distribution Width 14.4 % (9.3-17.3); White Blood Count 8.4 T/CUMM (4-12)
[2016-05-03 06:45] LABS: Calcium 7.7 MG/DL (8.5-10.1); Osmolality,Calculated 294.1 MOS/KG (273-304); Potassium 3.3 MMOL/L (3.5-5.1)
[2016-05-03] MEDS: LEVALBUTEROL 1.25 MG/3 ML NEB RESP TX SCH ×2 (07:59→11:25)
[2016-05-03] MEDS: MELOXICAM 7.5 MG TABLET PO SCH (08:55)
[2016-05-03] MEDS: tiZANidine 4 MG TABLET PO SCH ×5 (08:55→20:23)
[2016-05-03] MEDS: PARoxetine 20 MG TABLET PO SCH ×2 (08:56→20:19)
[2016-05-03] MEDS: MONTELUKAST 10 MG TABLET PO SCH (08:56)
[2016-05-03] MEDS: FUROSEMIDE 20 MG TABLET PO SCH ×2 (08:56→15:52)
[2016-05-03] MEDS: GABAPENTIN 600 MG TABLET PO SCH ×5 (08:56→20:19)
[2016-05-03] MEDS: predniSONE 20 MG TABLET PO SCH (08:56)
[2016-05-03] MEDS: VERAPAMIL 120 MG TABLET PO SCH ×3 (08:56→20:19)
[2016-05-03] MEDS: traMADol 50 MG TABLET PO SCH ×2 (08:56→20:20)
[2016-05-03] MEDS: IBUPROFEN 800 MG TABLET PO SCH ×3 (08:56→20:19)
[2016-05-03] MEDS: PANTOPRAZOLE 40 MG TABLET PO SCH (08:57)
[2016-05-03] MEDS: clonazePAM 0.5 MG TABLET PO SCH ×3 (08:57→20:19)
[2016-05-03] MEDS: BUDESONIDE/FORMOTEROL 160-4.5 INHALER 6 GM INH SCH ×2 (08:59→20:21)
[2016-05-03] MEDS: FLUTICASONE/SALMETEROL 500-50 DISKUS 14 DOSE INH SCH (08:59)
--- NOTE | 2016-05-03 13:23 | Pulmonology Progress Note ---
Pulmonary - PN: Subj Interval history: Patient is a 51-year-old black lady that has a history of sarcoidosis and mild interstitial fibrosis. She also has some chronic asthma. She has been on methotrexate for significant arthritis. She has been off prednisone for quite some time. She comes in now for a flareup of her breathing. She been coughing up some thick sputum and wheezing more than usual. She says she had a bad night and feels worse today. She continues to cough and have trouble clearing secretions. She says she still very short of breath. We will plan a therapeutic bronchoscopy tomorrow and see if this will help. Exam (Progress Note) - Constitutional Vitals: Period Temp Pulse Resp BP Sys/Valerio Pulse Ox Last 24 Hr 97.4 F-99.2 F 78-99 16-22 117-147/57-88 94-99 Exam: General appearance: no acute distress, over weight, she is still coughing and wheezing a good bit. - Head Head exam: Present: normal inspection, normocephalic - Eye Eye exam: Present: EOMI. Absent: scleral icterus Pupils: Present: ZOEY - ENT ENT exam: Present: normal exam - Neck Neck exam: Present: normal inspection, other (she does have swelling of the back of her neck consistent with cushingoid features.). Absent: lymphadenopathy , thyromegaly - Respiratory Respiratory exam: Present: She has coarse breath sounds in bilateral rhonchi now. - Cardiovascular Cardiovascular exam: Present: regular rate and rhythm. Absent: gallop, systolic murmur - GI/Abdominal GI/Abdominal exam: Present: normal bowel sounds, soft. Absent: organomegaly, tenderness - Extremities Exam Extremities exam: Absent: calf tenderness, edema - Neurological Exam Neurological exam: Present: alert, oriented X3, CN II-XII intact - Psychiatric Psychiatric exam: Present: normal affect - Skin Skin exam: Present: warm, dry Results - Labs CBC & BMP: 05/03/16 06:00 05/03/16 06:00 Assessment and Plan (1) Asthma with exacerbation Status: Acute Assessment and plan: The patient has probably developed a URI and comes in with an asthma exacerbation. She continues to cough and wheeze and does not feel very well. We will try to increase her medicines and plan a therapeutic bronchoscopy tomorrow. Current Visit: Yes Qualifiers: Asthma severity: moderate persistent Qualified Code(s): Jens45.41 - Moderate persistent asthma with (acute) exacerbation (2) Chronic back pain greater than 3 months duration Status: Acute Assessment and plan: She apparently has some chronic back pain problems. She is followed by the pain clinic. She is taking a lot of medicines Current Visit: Yes (3) Sarcoidosis of lung Status: Acute Assessment and plan: Her chest x-ray looks stable with mild chronic changes. She has no new infiltrates now. Current Visit: Yes
--- NOTE | 2016-05-03 14:57 | Hospitalist Progress Note ---
Assessment and Plan (1) Asthma with exacerbation Status: Acute Assessment and plan: 05/01/16: she still has significant amount of wheezing with poor air movement. We'll continue with steroids and scheduled DuoNebs. 05/03/16: Still has a lot of wheezing in decreased breath sounds. Plan is for therapeutic bronchoscopy tomorrow. Current Visit: Yes Qualifiers: Asthma severity: moderate persistent Qualified Code(s): J45.41 - Moderate persistent asthma with (acute) exacerbation (2) Sarcoidosis of lung Status: Acute Current Visit: Yes (3) Chronic back pain greater than 3 months duration Status: Acute Current Visit: Yes Hospitalist: Subjective Interval history: Patient is drowsy but is arousable she is on several sedating medications. She is still having significant amount of wheezing otherwise no new complaints. Exam - Constitutional Vitals: Period Temp Pulse Resp BP Sys/Valerio Pulse Ox Last 24 Hr 97.4 F-99.2 F 79-99 15-22 117-147/57-88 94-99 General appearance: morbidly obese - Head Head exam: Present: normocephalic - Eye Eye exam: Present: EOMI Pupils: Present: ZOEY - ENT ENT exam: Present: normal exam - Respiratory Respiratory exam: Present: wheezes - Cardiovascular Cardiovascular exam: Present: regular rate and rhythm - GI/Abdominal GI/Abdominal exam: Present: normal bowel sounds, soft - Neurological Exam Neurological exam: Present: alert, oriented X3, CN II-XII intact - Psychiatric Psychiatric exam: Present: normal affect, normal mood - Skin Skin exam: Present: warm, intact Results - Labs CBC & BMP: 05/03/16 06:00 05/03/16 06:00 Quality Measures - Stroke Symptom Onset Unknown: No
[2016-05-03] MEDS: THEOPHYLLINE ER (24 HR) 400 MG CAPSULE PO SCH (15:51)
[2016-05-03] MEDS: ALBUTEROL 1.25 MG/3 ML NEB RESP TX SCH (20:05)
[2016-05-03] MEDS: ZALEPLON 5 MG CAPSULE PO SCH (20:19)
[2016-05-03] MEDS: METHOTREXATE 2.5 MG TABLET PO SCH ×2 (20:20→22:42)
[2016-05-03] MEDS: cefTRIAXone 1,000 MG in SODIUM CHLORIDE 0.9% 100 ML IV SCH (20:20)
[2016-05-03] MEDS: ENOXAPARIN 40 MG/0.4 ML SYRINGE SUBCUT SCH (22:51)
[2016-05-04] MEDS: ALBUTEROL 1.25 MG/3 ML NEB RESP TX SCH ×4 (01:13→20:44)
[2016-05-04] MEDS: PROMETHAZINE 25 MG TABLET PO SCH ×4 (05:32→22:55)
[2016-05-04] MEDS ORDERED: MEPERIDINE 50 MG/1 ML VIAL IM ONE (07:30)
[2016-05-04] MEDS ORDERED: PROMETHAZINE 25 MG/1 ML VIAL IM ONE (07:30)
[2016-05-04] MEDS ORDERED: MIDAZOLAM 2 MG/2 ML VIAL ONE ×2 (07:35→08:36)
[2016-05-04] MEDS ORDERED: LIDOCAINE 1% 20 ML VIAL MISC INJ ONE (08:00)
[2016-05-04] MEDS ORDERED: MIDAZOLAM 2 MG/2 ML VIAL IV ONE (08:00)
[2016-05-04] MEDS ORDERED: LIDOCAINE 2% VISCOUS 100 ML BOTTLE SWISH/SPIT ONE (08:00)
[2016-05-04] MEDS ORDERED: LIDOCAINE 4% TOP SOLN 50 ML BOTTLE RESP TX ONE (08:00)
--- NOTE | 2016-05-04 08:34 | Pulmonology Progress Note ---
Pulmonary - PN: Subj Interval history: Patient is a 51-year-old black lady that has a history of sarcoidosis and mild interstitial fibrosis. She also has some chronic asthma. She has been on methotrexate for significant arthritis. She has been off prednisone for quite some time. She comes in now for a flareup of her breathing. She been coughing up some thick sputum and wheezing more than usual. She has been hard to clear up so we will go ahead with a therapeutic bronchoscopy today. She feels like she is breathing a little better today. Exam (Progress Note) - Constitutional Vitals: Period Temp Pulse Resp BP Sys/Valerio Pulse Ox Last 24 Hr 97.1 F-98.3 F 81-105 12-22 87-165/43-98 92-100 Exam: General appearance: no acute distress, over weight, she is still coughing and wheezing a good bit. She is breathing comfortably at present. - Head Head exam: Present: normal inspection, normocephalic - Eye Eye exam: Present: EOMI. Absent: scleral icterus Pupils: Present: ZOEY - ENT ENT exam: Present: normal exam - Neck Neck exam: Present: normal inspection, other (she does have swelling of the back of her neck consistent with cushingoid features.). Absent: lymphadenopathy , thyromegaly - Respiratory Respiratory exam: Present: She has coarse breath sounds in bilateral rhonchi now. She does have fairly good breath sounds bilaterally. - Cardiovascular Cardiovascular exam: Present: regular rate and rhythm. Absent: gallop, systolic murmur - GI/Abdominal GI/Abdominal exam: Present: normal bowel sounds, soft. Absent: organomegaly, tenderness - Extremities Exam Extremities exam: Absent: calf tenderness, edema - Neurological Exam Neurological exam: Present: alert, oriented X3, CN II-XII intact - Psychiatric Psychiatric exam: Present: normal affect - Skin Skin exam: Present: warm, dry Results - Labs CBC & BMP: 05/03/16 06:00 05/03/16 06:00 Assessment and Plan (1) Asthma with exacerbation Status: Acute Assessment and plan: The patient has probably developed a URI and comes in with an asthma exacerbation. She is breathing a little better but is still coughing a lot. We 'll proceed with a therapeutic bronchoscopy. Current Visit: Yes Qualifiers: Asthma severity: moderate persistent Qualified Code(s): J45.41 - Moderate persistent asthma with (acute) exacerbation (2) Chronic back pain greater than 3 months duration Status: Acute Assessment and plan: She apparently has some chronic back pain problems. She is followed by the pain clinic. She is taking a lot of medicines Current Visit: Yes (3) Sarcoidosis of lung Status: Acute Assessment and plan: Her chest x-ray looks stable with mild chronic changes. She has no new infiltrates now. Her breathing is stable at present. Current Visit: Yes
--- NOTE | 2016-05-04 08:39 | Operative Note ---
Date of procedure: 05/04/16 Pre-op diagnosis: asthmatic bronchitis with retained secretions Post-op diagnosis: same Procedure: The patient is a 51-year-old that comes in coughing and wheezing and has been hard to clear up. She has sarcoidosis with some interstitial lung disease. A bronchoscopy will be done to assess his airways and clear airways. She was taken to the bronchoscopy room and a timeout was done. Demerol 50 mg and Phenergan 25 mg IM was used for preop. Versed 6 mg IV push and Doppler lidocaine was used for anesthesia. Procedure: The fiberoptic bronchoscope was passed transnasally through the vocal cords into the lungs. The bronchopulmonary segments were identified and specimens obtained. Findings: The vocal cords, trachea, endocrine are all unremarkable. There is marked bronchitis with some thick retained secretions present bilaterally. These were washed and cleared and sent for culture. The mucosa bled easily. There were no endobronchial lesions seen. The right upper lobe, right middle lobe, and right lower lobe were all open. The left upper lobe, lingula, and left lower lobe were open. There is considerable bronchitis present. Once airways were cleared the procedure was stopped. Impression: Marked bronchitis with retained secretions. Plan: We'll continue bronchodilators and steroids and adjust antibiotics. Anesthesia: conscious sedation Surgeon / Physician: Rene Torres Estimated blood loss: none Specimens: other (bronchial washings were sent for culture) Condition: stable Disposition: floor Results - Labs CBC & BMP: 05/03/16 06:00 05/03/16 06:00 Discharge Plan - Discharge Medications No Action Levalbuterol Neb [Xopenex Neb] 1.25 mg RESP TX QID Fluticasone/Salmeterol 500-50 [Advair 500-50] 1 puff INH BID Budesonide/Formoterol 160-4.5 [Symbicort 160-4.5] 2 puff INH DAILY Montelukast Tab [Singulair Tab] 10 mg PO DAILY Methotrexate Tab 17.5 mg PO TH Meloxicam [Mobic] 15 mg PO DAILY traMADol TAB [Ultram] 50 mg PO BID Tizanidine HCl [Zanaflex] 4 mg PO QID HYDROcodone/ACETAMIN 10-325 [[place] 10-325] 1 tablet PO QID Gabapentin Cap/Tab [Neurontin Cap/Tab] 600 mg PO QID Verapamil HCl [Verapamil Tab] 120 mg PO TID Promethazine Tab [Phenergan Tab] 25 mg PO Q6H Ibuprofen Tab [Motrin Tab] 800 mg PO TID clonazePAM [Klonopin] 1 mg PO TID buPROPion XL [Wellbutrin Xl] 300 mg PO DAILY Paroxetine HCl [Paxil] 30 mg PO BID Furosemide Tab [Lasix Tab] 20 mg PO BID DIURETIC Eszopiclone [Lunesta] 3 mg PO BEDTIME Norethindrone [Ortho Micronor] 0.35 mg PO DAILY - Follow Up or Referral - Forms/Instructions
[2016-05-04] MEDS: FLUCONAZOLE INJ 200 MG in PREMIX 1 EACH IV SCH (10:12)
[2016-05-04] MEDS: traMADol 50 MG TABLET PO SCH ×3 (10:13→22:55)
[2016-05-04] MEDS: MONTELUKAST 10 MG TABLET PO SCH (10:13)
[2016-05-04] MEDS: predniSONE 20 MG TABLET PO SCH (10:15)
[2016-05-04] MEDS: GABAPENTIN 600 MG TABLET PO SCH ×5 (10:15→22:55)
[2016-05-04] MEDS: clonazePAM 0.5 MG TABLET PO SCH ×4 (10:16→22:56)
[2016-05-04] MEDS: THEOPHYLLINE ER (24 HR) 400 MG CAPSULE PO SCH (10:16)
[2016-05-04] MEDS: PARoxetine 20 MG TABLET PO SCH ×3 (10:17→22:55)
[2016-05-04] MEDS: IBUPROFEN 800 MG TABLET PO SCH ×4 (10:18→22:56)
[2016-05-04] MEDS: tiZANidine 4 MG TABLET PO SCH ×5 (10:18→22:55)
[2016-05-04] MEDS: VERAPAMIL 120 MG TABLET PO SCH ×4 (10:19→22:56)
[2016-05-04] MEDS: FUROSEMIDE 20 MG TABLET PO SCH ×2 (10:19→18:16)
[2016-05-04] MEDS: PANTOPRAZOLE 40 MG TABLET PO SCH (10:20)
[2016-05-04] MEDS: MELOXICAM 7.5 MG TABLET PO SCH (10:22)
[2016-05-04] MEDS: BUDESONIDE/FORMOTEROL 160-4.5 INHALER 6 GM INH SCH ×3 (10:23→23:50)
--- NOTE | 2016-05-04 11:39 | Hospitalist Progress Note ---
Assessment and Plan (1) Asthma with exacerbation Status: Acute Assessment and plan: 05/01/16: she still has significant amount of wheezing with poor air movement. We'll continue with steroids and scheduled DuoNebs. 05/03/16: Still has a lot of wheezing in decreased breath sounds. Plan is for therapeutic bronchoscopy tomorrow. 05/04/16: Have a bronchoscopy this morning. According to reports she has pretty significant bronchitis. Will continue with steroids and nebs and I did see Dr. Torres felt like the mucosa appeared to be infected with possible fungal. We 've added antifungal regimen. Bronchial washings were taken and sent will await final identification. Current Visit: Yes Qualifiers: Asthma severity: moderate persistent Qualified Code(s): J45.41 - Moderate persistent asthma with (acute) exacerbation (2) Sarcoidosis of lung Status: Acute Current Visit: Yes (3) Chronic back pain greater than 3 months duration Status: Acute Current Visit: Yes Hospitalist: Subjective Interval history: Been admitted for acute exacerbation just really has not been improving. She did have a bronchoscopy done today and see Dr. Torres's operative report for details. She has no new complaints this morning. Exam - Constitutional Vitals: Period Temp Pulse Resp BP Sys/Valerio Pulse Ox Last 24 Hr 97.1 F-98.3 F 81-108 12-22 87-168/43-98 92-100 General appearance: morbidly obese - Head Head exam: Present: normocephalic, atraumatic - Eye Eye exam: Present: EOMI Pupils: Present: ZOEY - Respiratory Respiratory exam: Present: wheezes - Cardiovascular Cardiovascular exam: Present: regular rate and rhythm - GI/Abdominal GI/Abdominal exam: Present: normal bowel sounds, soft - Extremities Exam Extremities exam: Present: full ROM - Neurological Exam Neurological exam: Present: alert, oriented X3, CN II-XII intact - Psychiatric Psychiatric exam: Present: normal affect, normal mood - Skin Skin exam: Present: warm, intact Results - Labs CBC & BMP: 05/03/16 06:00 05/03/16 06:00 Quality Measures - Stroke Symptom Onset Unknown: No
[2016-05-04] MEDS: ZALEPLON 5 MG CAPSULE PO SCH ×2 (22:21→22:56)
[2016-05-04] MEDS: ENOXAPARIN 40 MG/0.4 ML SYRINGE SUBCUT SCH (22:56)
[2016-05-04] MEDS: cefTRIAXone 1,000 MG in SODIUM CHLORIDE 0.9% 100 ML IV SCH (22:57)
[2016-05-05] MEDS: ALBUTEROL 1.25 MG/3 ML NEB RESP TX SCH ×4 (01:25→19:47)
[2016-05-05] MEDS: PROMETHAZINE 25 MG TABLET PO SCH ×4 (04:38→23:30)
[2016-05-05] MEDS: FUROSEMIDE 20 MG TABLET PO SCH ×2 (09:46→17:56)
[2016-05-05] MEDS: VERAPAMIL 120 MG TABLET PO SCH ×3 (09:46→22:17)
[2016-05-05] MEDS: clonazePAM 0.5 MG TABLET PO SCH ×3 (09:47→22:17)
[2016-05-05] MEDS: BUDESONIDE/FORMOTEROL 160-4.5 INHALER 6 GM INH SCH ×2 (09:47→22:24)
[2016-05-05] MEDS: PANTOPRAZOLE 40 MG TABLET PO SCH (09:47)
[2016-05-05] MEDS: IBUPROFEN 800 MG TABLET PO SCH (09:47)
[2016-05-05] MEDS: GABAPENTIN 600 MG TABLET PO SCH ×4 (09:47→22:18)
[2016-05-05] MEDS: PARoxetine 20 MG TABLET PO SCH ×2 (09:47→22:20)
[2016-05-05] MEDS: predniSONE 20 MG TABLET PO SCH (09:47)
[2016-05-05] MEDS: MELOXICAM 7.5 MG TABLET PO SCH (09:47)
[2016-05-05] MEDS: FLUCONAZOLE INJ 200 MG in PREMIX 1 EACH IV SCH (09:47)
[2016-05-05] MEDS: MONTELUKAST 10 MG TABLET PO SCH (09:47)
[2016-05-05] MEDS: traMADol 50 MG TABLET PO SCH ×2 (09:48→22:22)
[2016-05-05] MEDS: tiZANidine 4 MG TABLET PO SCH ×4 (09:48→22:33)
[2016-05-05] MEDS: guaiFENesin/CODEINE 5 ML LIQUID PO PRN ×4 (09:48→22:26)
[2016-05-05] MEDS: THEOPHYLLINE ER (24 HR) 400 MG CAPSULE PO SCH (09:48)
--- NOTE | 2016-05-05 11:17 | Pulmonology Progress Note ---
Pulmonary - PN: Subj Interval history: Patient is a 51-year-old black lady that has a history of sarcoidosis and mild interstitial fibrosis. She also has some chronic asthma. She has been on methotrexate for significant arthritis. She has been off prednisone for quite some time. She comes in now for a flareup of her breathing. She been coughing up some thick sputum and wheezing more than usual. Yesterday we did a therapeutic bronchoscopy and she does have considerable bronchitis. She says she's coughing up some blood-tinged sputum today and her airways did bleed easily. She feels like she swelling a little but otherwise her breathing is better. Exam (Progress Note) - Constitutional Vitals: Period Temp Pulse Resp BP Sys/Valerio Pulse Ox Last 24 Hr 96.6 F-99 F 69-89 18-22 99-123/60-85 4-100 Exam: General appearance: no acute distress, over weight, she looks a little more comfortable today. - Head Head exam: Present: normal inspection, normocephalic - Eye Eye exam: Present: EOMI. Absent: scleral icterus Pupils: Present: ZOEY - ENT ENT exam: Present: normal exam - Neck Neck exam: Present: normal inspection, other (she does have swelling of the back of her neck consistent with cushingoid features.). Absent: lymphadenopathy , thyromegaly - Respiratory Respiratory exam: Present: She has coarse breath sounds in bilateral rhonchi now. She does have fairly good breath sounds bilaterally. Her lungs do sound a little better. - Cardiovascular Cardiovascular exam: Present: regular rate and rhythm. Absent: gallop, systolic murmur - GI/Abdominal GI/Abdominal exam: Present: normal bowel sounds, soft. Absent: organomegaly, tenderness - Extremities Exam Extremities exam: Absent: calf tenderness, she does have trace edema today. - Neurological Exam Neurological exam: Present: alert, oriented X3, CN II-XII intact - Psychiatric Psychiatric exam: Present: normal affect - Skin Skin exam: Present: warm, dry Results - Labs CBC & BMP: 05/03/16 06:00 05/03/16 06:00 Assessment and Plan (1) Asthma with exacerbation Status: Acute Assessment and plan: The patient has probably developed a URI and comes in with an asthma exacerbation. She has been hard to clear up but may be a little better now. Hopefully she'll be able to go home soon. Current Visit: Yes Qualifiers: Asthma severity: moderate persistent Qualified Code(s): J45.41 - Moderate persistent asthma with (acute) exacerbation (2) Chronic back pain greater than 3 months duration Status: Acute Assessment and plan: She apparently has some chronic back pain problems. She is followed by the pain clinic. She is taking a lot of medicines Current Visit: Yes (3) Sarcoidosis of lung Status: Acute Assessment and plan: Her chest x-ray looks stable with mild chronic changes. She has no new infiltrates now. Her breathing is stable at present. Current Visit: Yes
[2016-05-05] MEDS ORDERED: FUROSEMIDE 40 MG/4 ML VIAL IV ONE (11:18)
--- NOTE | 2016-05-05 13:15 | Hospitalist Progress Note ---
Assessment and Plan (1) Asthma with exacerbation Status: Acute Assessment and plan: Pulmonology service on board, improving, BDT Current Visit: Yes Qualifiers: Asthma severity: moderate persistent Qualified Code(s): J45.41 - Moderate persistent asthma with (acute) exacerbation (2) Sarcoidosis of lung Status: Acute Assessment and plan: Pulmonology service following, status post bronchoscopy results pending Current Visit: Yes (3) Hypokalemia Status: Acute Assessment and plan: Replace and check magnesium Current Visit: Yes (4) DENILSON (obstructive sleep apnea) Status: Acute Assessment and plan: Not on CPAP and patient does not have CPAP at home recommended to follow with differential repairer or PCP to review sleep study and get CPAP accordingly Current Visit: Yes (5) Morbid obesity with BMI of 40.0-44.9, adult Status: Acute Current Visit: Yes (6) Chronic back pain greater than 3 months duration Status: Acute Current Visit: Yes Hospitalist: Subjective Interval history: Patient stating shortness of breath improving. Patient denies chest pain or palpitation of or nausea or vomiting or abdominal pain or blurred vision or headache. Patient did state that she was diagnosed before with DENILSON and is not on CPAP and does not have CPAP at home. Patient has about more pain medication. Exam - Constitutional Vitals: Period Temp Pulse Resp BP Sys/Valerio Pulse Ox Last 24 Hr 96.6 F-99 F 69-89 18-24 99-123/60-85 4-100 Exam: Gen: a&o, NAD neck: Increased soft tissue around the neck,supple heart: RRR, distant s1s2 lung: Dispersed expiratory mild wheezing more on the left than the right posteriorly abd: Soft, nondistended, nontender, large habitus EXt: no edema or cyanosis skin: warm, drr HEENT: perrl psych: cooperative Results - Labs CBC & BMP: 05/03/16 06:00 05/03/16 06:00 Quality Measures - Stroke Symptom Onset Unknown: No
[2016-05-05] MEDS ORDERED: POTASSIUM CHLORIDE 20 MEQ TABLET PO ONE (13:20)
[2016-05-05] MEDS: cefTRIAXone 1,000 MG in SODIUM CHLORIDE 0.9% 100 ML IV SCH (22:25)
[2016-05-05] MEDS: ENOXAPARIN 40 MG/0.4 ML SYRINGE SUBCUT SCH (23:30)
[2016-05-06] MEDS: ALBUTEROL 1.25 MG/3 ML NEB RESP TX SCH ×3 (00:22→13:36)
[2016-05-06] MEDS: ZALEPLON 5 MG CAPSULE PO PRN ×2 (01:53→23:29)
[2016-05-06] MEDS: PROMETHAZINE 25 MG TABLET PO SCH ×4 (05:55→23:29)
[2016-05-06] MEDS: predniSONE 20 MG TABLET PO SCH (09:00)
[2016-05-06] MEDS: MELOXICAM 7.5 MG TABLET PO SCH (09:00)
[2016-05-06] MEDS: tiZANidine 4 MG TABLET PO SCH ×4 (09:01→21:23)
[2016-05-06] MEDS: GABAPENTIN 600 MG TABLET PO SCH ×4 (09:01→21:20)
[2016-05-06] MEDS: VERAPAMIL 120 MG TABLET PO SCH ×3 (09:01→21:19)
[2016-05-06] MEDS: traMADol 50 MG TABLET PO SCH ×2 (09:01→21:23)
[2016-05-06] MEDS: THEOPHYLLINE ER (24 HR) 400 MG CAPSULE PO SCH (09:01)
[2016-05-06] MEDS: MONTELUKAST 10 MG TABLET PO SCH (09:02)
[2016-05-06] MEDS: FUROSEMIDE 20 MG TABLET PO SCH ×2 (09:02→16:28)
[2016-05-06] MEDS: PANTOPRAZOLE 40 MG TABLET PO SCH (09:02)
[2016-05-06] MEDS: PARoxetine 20 MG TABLET PO SCH ×2 (09:02→21:22)
[2016-05-06] MEDS: clonazePAM 0.5 MG TABLET PO SCH ×3 (09:03→21:19)
[2016-05-06] MEDS: BUDESONIDE/FORMOTEROL 160-4.5 INHALER 6 GM INH SCH ×2 (09:04→21:49)
[2016-05-06] MEDS: guaiFENesin/CODEINE 5 ML LIQUID PO PRN (09:04)
[2016-05-06] MEDS: FLUCONAZOLE INJ 200 MG in PREMIX 1 EACH IV SCH (09:04)
--- NOTE | 2016-05-06 09:29 | Hospitalist Progress Note ---
Assessment and Plan (1) Asthma with exacerbation Status: Acute Assessment and plan: Pulmonology service on board, improving, BDT and steroid. Current Visit: Yes Qualifiers: Asthma severity: moderate persistent Qualified Code(s): J45.41 - Moderate persistent asthma with (acute) exacerbation (2) Sarcoidosis of lung Status: Acute Assessment and plan: Pulmonology service following, status post bronchoscopy, c/w meds Current Visit: Yes (3) Hypokalemia Status: Acute Assessment and plan: Replace Current Visit: Yes (4) DENILSON (obstructive sleep apnea) Status: Acute Assessment and plan: Not on CPAP and patient does not have CPAP at home recommended to follow with gas engine operator generators or PCP to review sleep study and get CPAP accordingly Current Visit: Yes (5) Morbid obesity with BMI of 40.0-44.9, adult Status: Acute Current Visit: Yes (6) Chronic back pain greater than 3 months duration Status: Acute Current Visit: Yes Hospitalist: Subjective Interval history: Patient stating shortness of breath improving. Patient denies chest pain or nausea or vomiting or fever or chills or hemoptysis or diarrhea or hematemesis or blurred vision already. Patient sitting up on bed and chair next to bed and increasing activity as possible. Exam - Constitutional Vitals: Period Temp Pulse Resp BP Sys/Valerio Pulse Ox Last 24 Hr 97.1 F-99.9 F 70-95 16-22 106-133/67-85 98-100 Exam: Gen: a&ox3, NAD neck: Increased soft tissue around the neck,supple heart: RRR, distant s1s2 lung: Dispersed expiratory mild wheezing more on the left than the right posteriorly; improved compared to yesterday abd: Soft, nondistended, nontender, large habitus EXt: no edema or cyanosis skin: warm, drr HEENT: perrl psych: cooperative Results - Labs CBC & BMP: 05/03/16 06:00 05/03/16 06:00 Quality Measures - Stroke Symptom Onset Unknown: No
[2016-05-06 10:07] LABS: Basophils % 0.1 % (0.0-0.8); Eosinophils # 0.1 10*3/uL (0.0-0.87); Eosinophils % 0.6 % (0.00-10.9); Hematocrit 38.4 VOL% (35.7-47.0); Hemoglobin 11.6 GM/DL (12.0-16.0); Immature Granulocytes % 1.2 %; Immature Granulocytes Absolute 0.15 #; Lymphocytes # 2.3 10*3/uL (1.4-4.0); Lymphocytes % 17.9 % (21.3-54.2); Mean Corpuscular HGB Conc 30.2 GM/DL (32-36); Mean Corpuscular Hemoglobin 29 PG (27-34); Mean Corpuscular Volume 95.8 FL (87-102); Monocytes # 0.9 10*3/uL (0.11-0.8); Monocytes % 7.4 % (1.7-12.7); Neutrophils # 9.3 10*3/uL (1.4-7.4); Neutrophils % 72.8 % (38.7-73.9); Platelet Count 110 T/CUMM (130-400); Red Blood Count 4.01 MC/CUMM (3.8-5.5); Red Cell Distribution Width 14.7 % (9.3-17.3); White Blood Count 12.7 T/CUMM (4-12)
[2016-05-06 10:35] LABS: Calcium 8.1 MG/DL (8.5-10.1); Osmolality,Calculated 286.7 MOS/KG (273-304); Potassium 3.2 MMOL/L (3.5-5.1)
--- NOTE | 2016-05-06 11:06 | Pulmonology Progress Note ---
Pulmonary - PN: Subj Interval history: Patient is a 51-year-old black lady that has a history of sarcoidosis and mild interstitial fibrosis. She also has some chronic asthma. She has been on methotrexate for significant arthritis. She has been off prednisone for quite some time. She comes in now for a flareup of her breathing. She been coughing up some thick sputum and wheezing more than usual. She has diuresed fairly well and today she is breathing a little better. She always has some aches and pains. She looks reasonably comfortable at present. Exam (Progress Note) - Constitutional Vitals: Period Temp Pulse Resp BP Sys/Valerio Pulse Ox Last 24 Hr 97.1 F-99.9 F 70-101 16-22 106-160/67-91 95-100 Exam: General appearance: no acute distress, over weight, she looks a little more comfortable today. She seems to be breathing okay. - Head Head exam: Present: normal inspection, normocephalic - Eye Eye exam: Present: EOMI. Absent: scleral icterus Pupils: Present: ZOEY - ENT ENT exam: Present: normal exam - Neck Neck exam: Present: normal inspection, other (she does have swelling of the back of her neck consistent with cushingoid features.). Absent: lymphadenopathy , thyromegaly - Respiratory Respiratory exam: Present: She has better breath sounds and is moving air okay with just some minimal rhonchi. - Cardiovascular Cardiovascular exam: Present: regular rate and rhythm. Absent: gallop, systolic murmur - GI/Abdominal GI/Abdominal exam: Present: normal bowel sounds, soft. Absent: organomegaly, tenderness - Extremities Exam Extremities exam: Absent: calf tenderness, she does have trace edema today. - Neurological Exam Neurological exam: Present: alert, oriented X3, CN II-XII intact - Psychiatric Psychiatric exam: Present: normal affect - Skin Skin exam: Present: warm, dry Results - Labs CBC & BMP: 05/06/16 09:46 05/06/16 09:46 Assessment and Plan (1) Asthma with exacerbation Status: Acute Assessment and plan: The patient has probably developed a URI and comes in with an asthma exacerbation. She has been hard to clear up but may be a little better now. She still is aching in her chest but her breathing is better. She needs to get up and move around little more. Current Visit: Yes Qualifiers: Asthma severity: moderate persistent Qualified Code(s): J45.41 - Moderate persistent asthma with (acute) exacerbation (2) Chronic back pain greater than 3 months duration Status: Acute Assessment and plan: She apparently has some chronic back pain problems. She is followed by the pain clinic. She continues to take a lot of pain medicines. Current Visit: Yes (3) Sarcoidosis of lung Status: Acute Assessment and plan: Her chest x-ray looks stable with mild chronic changes. She has no new infiltrates now. Her breathing is stable at present. Current Visit: Yes
[2016-05-06] MEDS: cefTRIAXone 1,000 MG in SODIUM CHLORIDE 0.9% 100 ML IV SCH (21:23)
[2016-05-06] MEDS: ENOXAPARIN 40 MG/0.4 ML SYRINGE SUBCUT SCH (23:33)
[2016-05-07] MEDS: ALBUTEROL 1.25 MG/3 ML NEB RESP TX SCH ×5 (00:10→20:20)
[2016-05-07] MEDS: PROMETHAZINE 25 MG TABLET PO SCH ×3 (06:45→17:47)
[2016-05-07] MEDS: THEOPHYLLINE ER (24 HR) 400 MG CAPSULE PO SCH (09:06)
[2016-05-07] MEDS: PARoxetine 20 MG TABLET PO SCH ×2 (09:07→21:33)
[2016-05-07] MEDS: tiZANidine 4 MG TABLET PO SCH ×4 (09:07→21:34)
[2016-05-07] MEDS: predniSONE 20 MG TABLET PO SCH (09:09)
[2016-05-07] MEDS: GABAPENTIN 600 MG TABLET PO SCH ×4 (09:10→21:50)
[2016-05-07] MEDS: clonazePAM 0.5 MG TABLET PO SCH ×4 (09:10→21:33)
[2016-05-07] MEDS: traMADol 50 MG TABLET PO SCH ×2 (09:11→21:34)
[2016-05-07] MEDS: MONTELUKAST 10 MG TABLET PO SCH (09:11)
[2016-05-07] MEDS: PANTOPRAZOLE 40 MG TABLET PO SCH (09:11)
[2016-05-07] MEDS: VERAPAMIL 120 MG TABLET PO SCH ×4 (09:11→21:33)
[2016-05-07] MEDS: FUROSEMIDE 20 MG TABLET PO SCH ×3 (09:12→17:46)
[2016-05-07] MEDS: FLUCONAZOLE INJ 200 MG in PREMIX 1 EACH IV SCH (09:13)
[2016-05-07] MEDS: MELOXICAM 7.5 MG TABLET PO SCH (09:15)
[2016-05-07] MEDS: BUDESONIDE/FORMOTEROL 160-4.5 INHALER 6 GM INH SCH ×2 (09:15→21:37)
[2016-05-07 11:40] LABS: Basophils % 0.1 % (0.0-0.8); Eosinophils # 0.1 10*3/uL (0.0-0.87); Eosinophils % 0.4 % (0.00-10.9); Hematocrit 33.9 VOL% (35.7-47.0); Hemoglobin 10.4 GM/DL (12.0-16.0); Immature Granulocytes % 1.1 %; Immature Granulocytes Absolute 0.13 #; Lymphocytes # 2.1 10*3/uL (1.4-4.0); Lymphocytes % 17.4 % (21.3-54.2); Mean Corpuscular HGB Conc 30.7 GM/DL (32-36); Mean Corpuscular Hemoglobin 29 PG (27-34); Mean Corpuscular Volume 94.4 FL (87-102); Mean Platelet Volume 9.7 FL (9.6-12.0); Monocytes # 1.2 10*3/uL (0.11-0.8); Monocytes % 9.6 % (1.7-12.7); Neutrophils # 8.6 10*3/uL (1.4-7.4); Neutrophils % 71.4 % (38.7-73.9); Platelet Count 122 T/CUMM (130-400); Red Blood Count 3.59 MC/CUMM (3.8-5.5)
[2016-05-07 12:18] LABS: Calcium 7.8 MG/DL (8.5-10.1); Osmolality,Calculated 292.3 MOS/KG (273-304); Potassium 3.4 MMOL/L (3.5-5.1)
--- NOTE | 2016-05-07 13:26 | Pulmonology Progress Note ---
Pulmonary - PN: Subj Interval history: Patient is a 51-year-old black lady that has a history of sarcoidosis and mild interstitial fibrosis. She also has some chronic asthma. She has been on methotrexate for significant arthritis. She has been off prednisone for quite some time. She comes in now for a flareup of her breathing. She been coughing up some thick sputum and wheezing more than usual. She has diuresed fairly well and today she is breathing a little better. She always has some aches and pains. Today she is sitting up eating breakfast and she looks like she is breathing better. Her cough and congestion are better. She looks like she may be close to baseline now. Exam (Progress Note) - Constitutional Vitals: Period Temp Pulse Resp BP Sys/Valerio Pulse Ox Last 24 Hr 97.3 F-98.8 F 72-102 18-100 114-170/67-92 96-100 Exam: General appearance: no acute distress, over weight, she looks a little more comfortable today. She looks like she is breathing better today. - Head Head exam: Present: normal inspection, normocephalic - Eye Eye exam: Present: EOMI. Absent: scleral icterus Pupils: Present: ZOEY - ENT ENT exam: Present: normal exam - Neck Neck exam: Present: normal inspection, other (she does have swelling of the back of her neck consistent with cushingoid features.). Absent: lymphadenopathy , thyromegaly - Respiratory Respiratory exam: Present: She has better breath sounds and is moving air okay with just some minimal rhonchi. - Cardiovascular Cardiovascular exam: Present: regular rate and rhythm. Absent: gallop, systolic murmur - GI/Abdominal GI/Abdominal exam: Present: normal bowel sounds, soft. Absent: organomegaly, tenderness - Extremities Exam Extremities exam: Absent: calf tenderness, she does have trace edema today. - Neurological Exam Neurological exam: Present: alert, oriented X3, CN II-XII intact - Psychiatric Psychiatric exam: Present: normal affect - Skin Skin exam: Present: warm, dry Results - Labs CBC & BMP: 05/07/16 11:16 05/07/16 11:16 Assessment and Plan (1) Asthma with exacerbation Status: Acute Assessment and plan: The patient has probably developed a URI and comes in with an asthma exacerbation. She has been hard to clear up but may be a little better now. She still is aching in her chest but her breathing is better. She needs to get up and move around little more. She looks like she is probably close to baseline now. Current Visit: Yes Qualifiers: Asthma severity: moderate persistent Qualified Code(s): J45.41 - Moderate persistent asthma with (acute) exacerbation (2) Chronic back pain greater than 3 months duration Status: Acute Assessment and plan: She apparently has some chronic back pain problems. She is followed by the pain clinic. She continues to take a lot of pain medicines. Current Visit: Yes (3) Sarcoidosis of lung Status: Acute Assessment and plan: Her chest x-ray looks stable with mild chronic changes. She has no new infiltrates now. Her breathing is stable at present. She seems to be doing okay at present. Current Visit: Yes
--- NOTE | 2016-05-07 14:52 | Hospitalist Progress Note ---
Assessment and Plan (1) Asthma with exacerbation Problem details: Could be secondary to upper respiratory tract infection Status: Acute Assessment and plan: Pulmonology service on board, improving, BDT and steroid. Doesn't appear to be at her baseline as of yet Current Visit: Yes Qualifiers: Asthma severity: moderate persistent Qualified Code(s): J45.41 - Moderate persistent asthma with (acute) exacerbation (2) Sarcoidosis of lung Status: Acute Assessment and plan: Pulmonology service following, status post bronchoscopy, c/w meds Current Visit: Yes (3) Hypokalemia Status: Acute Assessment and plan: Replace, Mg normal Current Visit: Yes (4) DENILSON (obstructive sleep apnea) Status: Acute Assessment and plan: Not on CPAP and patient does not have CPAP at home recommended to follow with morphologist or PCP to review sleep study and get CPAP accordingly Current Visit: Yes (5) Morbid obesity with BMI of 40.0-44.9, adult Status: Acute Current Visit: Yes (6) Chronic back pain greater than 3 months duration Status: Acute Assessment and plan: Reportedly patient follows with pain clinic. I discussed with the patient the plan to reduce her pain medications and benzodiazepine because of the risk and potential adverse effect on her lung disease and breathing states Current Visit: Yes (7) Thrombocytopenia Status: Acute Assessment and plan: Platelets 112K. No S/S of active bleed Current Visit: Yes (8) Chronic respiratory failure Status: Acute Assessment and plan: Patient reports she uses oxygen at home 3-4 L NC Current Visit: Yes Hospitalist: Subjective Interval history: Patient stating yesterday she did not sleep well because of her pain. Patient feels her breathing is improving but she still doesn't feel like she is ready to go home. Patient denies chest pain or nausea or vomiting or fever or chills or weakness. Patient does have some coughing on and off dry cough. Exam - Constitutional Vitals: Period Temp Pulse Resp BP Sys/Valerio Pulse Ox Last 24 Hr 97.3 F-98.8 F 81-102 18-100 114-170/67-92 96-100 Exam: Gen: a&ox3, NAD neck: Increased soft tissue around the neck,supple heart: RRR, distant s1s2 lung: Dispersed expiratory mild wheezing b/l Lt>Rt ; improved compared to yesterday abd: Soft, nondistended, nontender, large habitus EXt: no edema or cyanosis skin: warm, drr HEENT: perrl psych: cooperative Results - Labs CBC & BMP: 05/07/16 11:16 05/07/16 11:16 Quality Measures - Stroke Symptom Onset Unknown: No
[2016-05-07] MEDS: cefTRIAXone 1,000 MG in SODIUM CHLORIDE 0.9% 100 ML IV SCH (21:32)
[2016-05-07] MEDS: GABAPENTIN 300 MG CAPSULE PO SCH (21:48)
[2016-05-08] MEDS: PROMETHAZINE 25 MG TABLET PO SCH ×3 (00:06→10:42)
[2016-05-08] MEDS: ENOXAPARIN 40 MG/0.4 ML SYRINGE SUBCUT SCH (00:06)
[2016-05-08] MEDS: ALBUTEROL 1.25 MG/3 ML NEB RESP TX SCH ×3 (00:40→14:49)
[2016-05-08 06:54] LABS: Basophils % 0.1 % (0.0-0.8); Eosinophils % 0.3 % (0.00-10.9); Hematocrit 34.7 VOL% (35.7-47.0); Hemoglobin 10.3 GM/DL (12.0-16.0); Immature Granulocytes % 1.2 %; Immature Granulocytes Absolute 0.14 #; Lymphocytes # 2.6 10*3/uL (1.4-4.0); Lymphocytes % 22.5 % (21.3-54.2); Mean Corpuscular HGB Conc 29.7 GM/DL (32-36); Mean Corpuscular Hemoglobin 29 PG (27-34); Mean Corpuscular Volume 97.7 FL (87-102); Mean Platelet Volume 9.6 FL (9.6-12.0); Monocytes % 8.9 % (1.7-12.7); Neutrophils # 7.7 10*3/uL (1.4-7.4); Platelet Count 121 T/CUMM (130-400); Red Blood Count 3.55 MC/CUMM (3.8-5.5); Red Cell Distribution Width 14.8 % (9.3-17.3); White Blood Count 11.5 T/CUMM (4-12)
[2016-05-08 07:16] LABS: Calcium 7.8 MG/DL (8.5-10.1); Osmolality,Calculated 290.4 MOS/KG (273-304); Potassium 3.4 MMOL/L (3.5-5.1)
--- NOTE | 2016-05-08 07:52 | Pulmonology Progress Note ---
Pulmonary - PN: Subj Interval history: Patient is a 51-year-old black lady that has a history of sarcoidosis and mild interstitial fibrosis. She also has some chronic asthma. She has been on methotrexate for significant arthritis. She has been off prednisone for quite some time. She comes in now for a flareup of her breathing. She been coughing up some thick sputum and wheezing more than usual. She has diuresed fairly well and today she is breathing a little better. She always has some aches and pains. She looks like she is resting well now and not having any breathing difficulties. Her cough and congestion have improved. Exam (Progress Note) - Constitutional Vitals: Period Temp Pulse Resp BP Sys/Valerio Pulse Ox Last 24 Hr 97.8 F-98.8 F 73-102 16-20 129-148/20-88 94-100 Exam: General appearance: no acute distress, over weight, she looks a little more comfortable today. She looks like she is breathing comfortably and is resting well. - Head Head exam: Present: normal inspection, normocephalic - Eye Eye exam: Present: EOMI. Absent: scleral icterus Pupils: Present: ZOEY - ENT ENT exam: Present: normal exam - Neck Neck exam: Present: normal inspection, other (she does have swelling of the back of her neck consistent with cushingoid features.). Absent: lymphadenopathy , thyromegaly - Respiratory Respiratory exam: Present: She has better breath sounds and is moving air okay with just some minimal rhonchi. She still has some crackles toward the bases. - Cardiovascular Cardiovascular exam: Present: regular rate and rhythm. Absent: gallop, systolic murmur - GI/Abdominal GI/Abdominal exam: Present: normal bowel sounds, soft. Absent: organomegaly, tenderness - Extremities Exam Extremities exam: Absent: calf tenderness, she does have trace edema today. - Neurological Exam Neurological exam: Present: alert, oriented X3, CN II-XII intact - Psychiatric Psychiatric exam: Present: normal affect - Skin Skin exam: Present: warm, dry Results - Labs CBC & BMP: 05/08/16 06:31 05/08/16 06:31 Assessment and Plan (1) Asthma with exacerbation Problem details: Could be secondary to upper respiratory tract infection Status: Acute Assessment and plan: The patient has probably developed a URI and comes in with an asthma exacerbation. She has been hard to clear up but may be a little better now. She only had yeast on her bronchial washings. Overall her breathing seems to be a little better. She can probably go home at any time. Current Visit: Yes Qualifiers: Asthma severity: moderate persistent Qualified Code(s): J45.41 - Moderate persistent asthma with (acute) exacerbation (2) Chronic back pain greater than 3 months duration Status: Acute Assessment and plan: She apparently has some chronic back pain problems. She is followed by the pain clinic. She continues to take a lot of pain medicines. Current Visit: Yes (3) Sarcoidosis of lung Status: Acute Assessment and plan: Her chest x-ray looks stable with mild chronic changes. She has no new infiltrates now. Her breathing is stable at present. She seems to be doing okay at present. Current Visit: Yes
[2016-05-08 08:00] VITALS: BP 140/82
[2016-05-08] MEDS ORDERED: FLUCONAZOLE 100 MG TABLET PO SCH (09:00)
[2016-05-08] MEDS: predniSONE 20 MG TABLET PO SCH (09:02)
[2016-05-08] MEDS: GABAPENTIN 300 MG CAPSULE PO SCH ×2 (09:03→13:15)
[2016-05-08] MEDS: PARoxetine 20 MG TABLET PO SCH (09:04)
[2016-05-08] MEDS: PANTOPRAZOLE 40 MG TABLET PO SCH (09:04)
[2016-05-08] MEDS: VERAPAMIL 120 MG TABLET PO SCH (09:06)
[2016-05-08] MEDS: THEOPHYLLINE ER (24 HR) 400 MG CAPSULE PO SCH (09:06)
[2016-05-08] MEDS: tiZANidine 4 MG TABLET PO SCH ×2 (09:06→13:15)
[2016-05-08] MEDS: FUROSEMIDE 20 MG TABLET PO SCH (09:06)
[2016-05-08] MEDS: MONTELUKAST 10 MG TABLET PO SCH (09:06)
[2016-05-08] MEDS: BUDESONIDE/FORMOTEROL 160-4.5 INHALER 6 GM INH SCH (09:08)
[2016-05-08] MEDS: MELOXICAM 7.5 MG TABLET PO SCH (09:08)
--- NOTE | 2016-05-08 09:59 | Discharge Summary ---
Hospital Course - Hospital Course Hospital Course: Mrs. Orona is a 51-year-old female with history of sarcoidosis and asthma who presented with acute exacerbation. She did exhibit some upper respiratory symptoms. She was admitted to regular medicine floor she was started on antibiotics and steroids. She also received [id number] DuoNeb treatments. Pulmonology was consulted and agree with current medical management. Patient does have chronic pain and she does see pain management and did require a lot of narcotic pain medications. Her IV have been tapered and she is taking her oral medications. Because he was slow to improve he did have a bronchoscopy which revealed chronic inflammatory changes of her bronchioles and per pulmonology he was concerned that she could have a little [place]. His steroids have been tapered down and she was started on anti-fungal medications. Her bronchial washings did return positive with neal albicans. Clinically she is improved and now she is stable to be discharged home. - Time spent with patient Time with patient DS: Less than 30 minutes Diagnosis - Discharge Diagnosis (1) Asthma with exacerbation Status: Acute (2) Sarcoidosis of lung Status: Acute (3) Chronic back pain greater than 3 months duration Status: Acute Discharge Plan - Discharge Data Disposition: Disch To Home/Self Care Condition at Discharge: Stable Discharge Diet: advance to your usual diet Activity: resume usual activities as tolerated Contact your physician if you experience:: Shortness of breath - Discharge Medications New Fluconazole Tab [Diflucan Tab] 100 mg PO DAILY #5 tablet Theophylline ER Cap (24 Hr) [Anish-24] 400 mg PO DAILY #30 capsule predniSONE TAB [PredniSONE] 40 mg PO DAILY #28 tablet Continue Levalbuterol Neb [Xopenex Neb] 1.25 mg RESP TX QID Fluticasone/Salmeterol 500-50 [Advair 500-50] 1 puff INH BID Budesonide/Formoterol 160-4.5 [Symbicort 160-4.5] 2 puff INH DAILY Montelukast Tab [Singulair Tab] 10 mg PO DAILY Methotrexate Tab 17.5 mg PO TH Meloxicam [Mobic] 15 mg PO DAILY traMADol TAB [Ultram] 50 mg PO BID Tizanidine HCl [Zanaflex] 4 mg PO QID Gabapentin Cap/Tab [Neurontin Cap/Tab] 600 mg PO QID Verapamil HCl [Verapamil Tab] 120 mg PO TID Promethazine Tab [Phenergan Tab] 25 mg PO Q6H clonazePAM [Klonopin] 1 mg PO TID buPROPion XL [Wellbutrin Xl] 300 mg PO DAILY Paroxetine HCl [Paxil] 30 mg PO BID Furosemide Tab [Lasix Tab] 20 mg PO BID DIURETIC Eszopiclone [Lunesta] 3 mg PO BEDTIME Norethindrone [Ortho Micronor] 0.35 mg PO DAILY HYDROcodone/ACETAMIN 10-325 [[place] 10-325] 1 tablet PO QID #20 tablet Discontinued Ibuprofen Tab [Motrin Tab] 800 mg PO TID - Follow Up or Referral - Forms/Instructions Additional Discharge Instructions: follow up with PCP in 5-7days Exam - Constitutional Vitals: Period Temp Pulse Resp BP Sys/Valerio Pulse Ox Last 24 Hr 97.8 F-99.2 F 73-103 16-20 129-148/20-88 94-100 General appearance: morbidly obese - Head Head exam: Present: normocephalic, atraumatic - Eye Eye exam: Present: EOMI Pupils: Present: ZOEY - ENT ENT exam: Present: normal exam - Respiratory Respiratory exam: Present: clear to auscultation bilaterally - Cardiovascular Cardiovascular exam: Present: regular rate and rhythm - GI/Abdominal GI/Abdominal exam: Present: normal bowel sounds, soft - Extremities Exam Extremities exam: Present: full ROM - Neurological Exam Neurological exam: Present: alert, oriented X3, CN II-XII intact - Psychiatric Psychiatric exam: Present: normal affect, normal mood - Skin Skin exam: Present: warm, intact Discharge Results Procedures and tests throughout hospitalization: Pending Orders 05/04/16 AFB Culture/Smears Routine Fungal Culture w/ Prep Routine 05/09/16 04:00 BMP [Basic Metabolic Panel] IN AM Comp Blood Count Auto Diff IN AM Labs on day of discharge: Labs from last 24 hours 05/08/16 05/08/16 05/07/16 06:31 06:31 11:16 WBC 11.5 12.0 RBC 3.55 L 3.59 L Hgb 10.3 L 10.4 L Hct 34.7 L 33.9 L MCV 97.7 94.4 MCH 29 29 MCHC 29.7 L 30.7 L RDW 14.8 15.0 Plt Count 121 L 122 L MPV 9.6 9.7 Neut % (Auto) 67.0 71.4 Lymph % (Auto) 22.5 17.4 L [place] % (Auto) 8.9 9.6 Eos % (Auto) 0.3 0.4 Baso % (Auto) 0.1 0.1 Neut # (Auto) 7.7 H 8.6 H Lymph # (Auto) 2.6 2.1 [place] # (Auto) 1.0 H 1.2 H Eos # (Auto) 0.0 0.1 Baso # (Auto) 0.0 0.0 Immature Gran % 1.2 1.1 Nucleated RBC % 0.0 0.0 Immature Gran # 0.14 0.13 Nucleated RBCs # 0.00 0.00 Sodium 147 H Potassium 3.4 L Chloride 107 Carbon Dioxide 29 Anion Gap 14.4 BUN 10 Creatinine 0.80 GFR Calculation 126 BUN/Creatinine Ratio 12.00 Glucose 101 Calculated Osmolality 290.4 Calcium 7.8 L 05/07/16 11:16 WBC RBC Hgb Hct MCV MCH MCHC RDW Plt Count MPV Neut % (Auto) Lymph % (Auto) [place] % (Auto) Eos % (Auto) Baso % (Auto) Neut # (Auto) Lymph # (Auto) [place] # (Auto) Eos # (Auto) Baso # (Auto) Immature Gran % Nucleated RBC % Immature Gran # Nucleated RBCs # Sodium 148 H Potassium 3.4 L Chloride 109 H Carbon Dioxide 30 Anion Gap 12.4 BUN 8 Creatinine 0.80 GFR Calculation 126 BUN/Creatinine Ratio 10.00 Glucose 117 H Calculated Osmolality 292.3 Calcium 7.8 L DS: Provider Date of admission: 04/24/16 21:47 Primary care physician: Tanya Claudio MD Attending physician on admission: Adelso Maldonado MD Consults: 04/24/16 23:20 Consult to Physician [CONS] Routine Comment: asthma, sarcoid with exac Consulting Provider: Rene Torres Person Notified: aware Date Notified: 04/25/16 Time Notified: 08:00 Discharging clinician: Francheska Monreal MD Expected date of discharge: 05/08/16
--- NOTE | 2016-05-15 10:17 | Physician Query Form ---
CLICK EDIT DOCUMENT TO SELECT QUERY ANSWER --> OK --> SIGN Clarisa Curry RN, CCDS Certified Clinical Head Cook W) [phone] (f) [phone] [email or web address] PROVIDERS: Make your selection(s) from the choices in EACH section by typing an "x" and enter comments in the comment section. Please use your independent medical judgment in providing your response. This request does not imply that any particular answer is desired or expected. CLINICAL INDICATORS: (Providers should not edit this section) The medical record indicates that the patient was admitted with asthma exacerbation, HX of sarcoidosis, AND the patient later had a bronch done: [In your clinical opinion can you please clarify the site of the bronchial washings that was sent for culture] Based on the above, could you clarify the location and type biopsy, if done? TYPE BIOPSY: ( ) Transbronchial needle aspiration ( ) Cell or tissue sample ( x) Fluid sample ( ) Other, please specify ( ) Clinically unable to determine BRONCHIAL: ( x) Bilateral Bronchi, all lobes ( ) Left Main Bronchus ( ) Right Main Bronchus ( ) Left Lower Lobe Bronchus ( ) Left Upper Lobe Bronchus ( ) Right Lower Lobe Bronchus ( ) Right Middle Lobe Bronchus ( ) Right Upper Lobe Bronchus ( ) Bronchial Lingula LUNG: ( ) Bilateral Lungs, all lobes ( ) Left Lung ( ) Right Lung ( ) Left Lower Lobe Lung ( ) Left Upper Lobe Lung ( ) Right Lower Lobe Lung ( ) Right Middle Lobe Lung ( ) Right Upper Lobe Lung ( ) Lung Lingula ( ) Other, please specify: ( ) Clinically unable to determine COMMENTS: Use of terms such as suspected, likely, or probable (associated with a specific diagnosis that is being evaluated, monitored, or treated as if it exists) are acceptable and can be restated in the discharge summary if not ruled out. MTDD
== END 2016-05-08 13:15 | disposition home or self-care (01) | DRG 141 ==
LOC: N.ED 17:46 → N.EDINP 21:47 → SUATTDRO 21:47 → N.EDINP 22:44 → N.5E 23:19
PROVIDERS: ADMIT Internal Medicine; ATTEND Family Medicine

== ENCOUNTER 2017-01-07 15:18 | Inpatient (IN) ==
[2017-01-07] MEDS ORDERED: ALBUTEROL/IPRATROPIUM 3 ML NEB RESP TX STA (15:26)
[2017-01-07] MEDS ORDERED: MAGNESIUM SULF RIDER 2 GM in PREMIX 1 EACH IV STA (16:21)
[2017-01-07] MEDS ORDERED: methylPREDNISolone SOD SUC 125 MG/2 ML VIAL IV STA (16:21)
[2017-01-07] MEDS ORDERED: AZITHROMYCIN INJ 500 MG in SODIUM CHLORIDE 0.9% 250 ML IV STA (16:21)
[2017-01-07] MEDS ORDERED: ALBUTEROL 2.5 MG/3 ML NEB RESP TX SCH (16:30)
[2017-01-07 17:12] LABS: Basophils # 0.1 10*3/uL (0.0-0.2); Basophils % 0.3 % (0.0-0.8); Eosinophils # 0.1 10*3/uL (0.0-0.87); Eosinophils % 0.4 % (0.00-10.9); Hematocrit 40.2 VOL% (35.7-47.0); Hemoglobin 12.7 GM/DL (12.0-16.0); Immature Granulocytes % 0.9 %; Immature Granulocytes Absolute 0.15 #; Mean Corpuscular HGB Conc 31.6 GM/DL (32-36); Mean Corpuscular Hemoglobin 30 PG (27-34); Mean Corpuscular Volume 94.1 FL (87-102); Monocytes # 1.1 10*3/uL (0.11-0.8); Monocytes % 6.8 % (1.7-12.7); Neutrophils # 10.2 10*3/uL (1.4-7.4); Neutrophils % 61.6 % (38.7-73.9); Platelet Count 221 T/CUMM (130-400); Red Blood Count 4.27 MC/CUMM (3.8-5.5); Red Cell Distribution Width 15.9 % (9.3-17.3); White Blood Count 16.5 T/CUMM (4-12)
[2017-01-07] MEDS ORDERED: cefTRIAXone 1,000 MG in SODIUM CHLORIDE 0.9% 100 ML IV STA (17:27)
[2017-01-07 17:29] LABS: INR 1.3; PT Patient Result 13.1 SECS; Partial Thromboplastin Time < 21.0 SECS (0-40)
[2017-01-07 17:31] LABS: Albumin 3.4 G/DL (3.4-5.0); Bilirubin,Total 0.5 MG/DL (0.2-1.0); Calcium 8.6 MG/DL (8.5-10.1); Potassium 3.9 MMOL/L (3.5-5.1); Total Protein 6.9 G/DL (6.4-8.3)
[2017-01-07 17:35] LABS: Troponin I Only < 0.015 NG/ML (0.00-0.045)
[2017-01-07] MEDS ORDERED: cefTRIAXone 1,000 MG VIAL ONE (17:56)
[2017-01-07] MEDS ORDERED: methylPREDNISolone SOD SUC 125 MG/2 ML VIAL ONE (17:56)
[2017-01-07] MEDS ORDERED: TERBUTALINE 1 MG/1 ML VIAL SUBCUT ONE (17:57)
[2017-01-07] MEDS: TERBUTALINE 1 MG/1 ML VIAL SUBCUT SCH ×5 (18:03→23:17)
[2017-01-07] MEDS ORDERED: MAGNESIUM SULF RIDER 50 ML IV ONE (18:05)
[2017-01-07] MEDS ORDERED: AZITHROMYCIN 500 MG VIAL IV ONE (18:42)
[2017-01-07] MEDS ORDERED: SODIUM CHLORIDE 0.9% 100 ML IV ONE (18:43)
[2017-01-07] MEDS ORDERED: MORPHINE 2 MG/1 ML SYRINGE IV PRN (19:02)
[2017-01-07] MEDS ORDERED: LACTULOSE 20 GM/30 ML UDCUP PO PRN (19:02)
[2017-01-07] MEDS ORDERED: ALBUTEROL 2.5 MG/3 ML NEB RESP TX PRN (19:02)
[2017-01-07] MEDS ORDERED: ACETAMINOPHEN 325 MG TABLET PO PRN (19:02)
[2017-01-07] MEDS ORDERED: methylPREDNISolone SOD SUC 125 MG/2 ML VIAL IV SCH (19:30)
[2017-01-07] MEDS ORDERED: INFLUENZA VIRUS VACCINE 0.5 ML SYRINGE IM ONE (19:44)
[2017-01-07] MEDS: FUROSEMIDE 40 MG/4 ML VIAL IV SCH (21:08)
[2017-01-07 21:20] LABS: ABG Base Excess 0.3 MMOL/L (-2.5-2.5); ABG HCO3 24.6 MMOL/L (20-26); ABG Oxygen Saturation 97.7 % (95-100); ABG PCO2 47.6 MM HG (35-48); ABG PH 7.351 (7.35-7.45); ABG TCO2 23.5 MMOL/L (23-27); Allen Test Positive
[2017-01-08] MEDS: methylPREDNISolone SOD SUC 125 MG/2 ML VIAL IV SCH ×5 (00:22→23:32)
[2017-01-08 06:30] LABS: Basophils % 0.1 % (0.0-0.8); Hematocrit 39.6 VOL% (35.7-47.0); Hemoglobin 12.2 GM/DL (12.0-16.0); Immature Granulocytes % 1.1 %; Immature Granulocytes Absolute 0.18 #; Lymphocytes # 1.4 10*3/uL (1.4-4.0); Lymphocytes % 8.1 % (21.3-54.2); Mean Corpuscular HGB Conc 30.8 GM/DL (32-36); Mean Corpuscular Hemoglobin 29 PG (27-34); Mean Corpuscular Volume 94.7 FL (87-102); Mean Platelet Volume 9.9 FL (9.6-12.0); Monocytes # 0.2 10*3/uL (0.11-0.8); Monocytes % 1.1 % (1.7-12.7); Neutrophils # 15.2 10*3/uL (1.4-7.4); Neutrophils % 89.6 % (38.7-73.9); Platelet Count 222 T/CUMM (130-400); Red Blood Count 4.18 MC/CUMM (3.8-5.5); Red Cell Distribution Width 15.7 % (9.3-17.3); White Blood Count 16.9 T/CUMM (4-12)
[2017-01-08 07:07] LABS: Calcium 8.9 MG/DL (8.5-10.1); Magnesium 2.9 MG/DL (1.8-2.4); Osmolality,Calculated 287.3 MOS/KG (273-304); Potassium 4.4 MMOL/L (3.5-5.1); Risk Ratio 2.76; VLDL CHOLESTEROL 7.6 MG/DL
[2017-01-08] MEDS: FUROSEMIDE 40 MG/4 ML VIAL IV SCH ×2 (08:43→15:27)
[2017-01-08] MEDS: PANTOPRAZOLE 40 MG TABLET PO SCH (08:43)
[2017-01-08] MEDS ORDERED: CODEINE PO PRN (08:49)
[2017-01-08] MEDS ORDERED: [UNRECOGNIZED DRUG - OTHER] PO PRN (08:49)
[2017-01-08] MEDS ORDERED: IBUPROFEN 800 MG TABLET PO PRN (08:49)
[2017-01-08] MEDS ORDERED: PROMETHAZINE HCL PO PRN (08:49)
[2017-01-08] MEDS ORDERED: FLUTICASONE/SALMETEROL 500-50 DISKUS 14 DOSE INH SCH (09:00)
[2017-01-08] MEDS: GABAPENTIN 600 MG TABLET PO SCH ×4 (09:59→20:27)
[2017-01-08] MEDS: MONTELUKAST 10 MG TABLET PO SCH (09:59)
[2017-01-08] MEDS: PARoxetine 20 MG TABLET PO SCH ×2 (10:00→20:28)
[2017-01-08] MEDS: tiZANidine 4 MG TABLET PO SCH ×4 (10:00→20:29)
[2017-01-08] MEDS: clonazePAM 0.5 MG TABLET PO SCH ×3 (10:00→20:28)
[2017-01-08] MEDS: VERAPAMIL 120 MG TABLET PO SCH ×3 (10:00→20:29)
[2017-01-08] MEDS: LEVOFLOXACIN INJ 750 MG in PREMIX 1 EACH IV SCH (10:01)
[2017-01-08] MEDS: BUDESONIDE/FORMOTEROL 160-4.5 INHALER 6 GM INH SCH ×2 (11:30→20:27)
[2017-01-08] MEDS: ALBUTEROL 2.5 MG/3 ML NEB RESP TX SCH ×4 (11:55→23:45)
[2017-01-08] MEDS: ZALEPLON 5 MG CAPSULE PO SCH (20:28)
[2017-01-08] MEDS: DOCUSATE SODIUM 100 MG CAPSULE PO PRN (20:28)
[2017-01-08] MEDS ORDERED: LEVOFLOXACIN INJ 750 MG in PREMIX 1 EACH IV SCH (21:00)
[2017-01-08] MEDS: ONDANSETRON 4 MG/2 ML VIAL IV PRN (23:39)
[2017-01-09] MEDS: ALBUTEROL 2.5 MG/3 ML NEB RESP TX SCH ×6 (03:15→23:47)
[2017-01-09] MEDS: methylPREDNISolone SOD SUC 125 MG/2 ML VIAL IV SCH ×3 (06:00→18:52)
[2017-01-09 06:43] LABS: Calcium 8.7 MG/DL (8.5-10.1); Osmolality,Calculated 288.4 MOS/KG (273-304); Potassium 4.3 MMOL/L (3.5-5.1)
[2017-01-09] MEDS: FUROSEMIDE 40 MG/4 ML VIAL IV SCH ×2 (07:59→16:45)
[2017-01-09] MEDS: GABAPENTIN 600 MG TABLET PO SCH ×4 (08:13→22:42)
[2017-01-09] MEDS: VERAPAMIL 120 MG TABLET PO SCH ×3 (08:14→22:42)
[2017-01-09] MEDS: PANTOPRAZOLE 40 MG TABLET PO SCH (08:14)
[2017-01-09] MEDS: PARoxetine 20 MG TABLET PO SCH ×2 (08:14→22:44)
[2017-01-09] MEDS: tiZANidine 4 MG TABLET PO SCH ×4 (08:14→22:43)
[2017-01-09] MEDS: clonazePAM 0.5 MG TABLET PO SCH ×3 (08:17→22:43)
[2017-01-09] MEDS: MONTELUKAST 10 MG TABLET PO SCH (08:18)
[2017-01-09] MEDS: BUDESONIDE/FORMOTEROL 160-4.5 INHALER 6 GM INH SCH ×2 (08:18→22:49)
[2017-01-09] MEDS: LEVOFLOXACIN INJ 750 MG in PREMIX 1 EACH IV SCH (08:27)
[2017-01-09] MEDS: ONDANSETRON 4 MG/2 ML VIAL IV PRN ×2 (09:28→19:04)
[2017-01-09 09:39] LABS: Basophils % 0.1 % (0.0-0.8); Hematocrit 40.1 VOL% (35.7-47.0); Hemoglobin 12.6 GM/DL (12.0-16.0); Immature Granulocytes % 1.7 %; Immature Granulocytes Absolute 0.38 #; Lymphocytes # 0.9 10*3/uL (1.4-4.0); Lymphocytes % 4.1 % (21.3-54.2); Mean Corpuscular HGB Conc 31.4 GM/DL (32-36); Mean Corpuscular Hemoglobin 29 PG (27-34); Mean Platelet Volume 9.7 FL (9.6-12.0); Monocytes # 0.8 10*3/uL (0.11-0.8); Monocytes % 3.7 % (1.7-12.7); NRBC # 0.02 10*3/uL; Neutrophils # 20.4 10*3/uL (1.4-7.4); Neutrophils % 90.4 % (38.7-73.9); Platelet Count 242 T/CUMM (130-400); Red Blood Count 4.31 MC/CUMM (3.8-5.5); Red Cell Distribution Width 15.9 % (9.3-17.3); White Blood Count 22.6 T/CUMM (4-12)
[2017-01-09 10:08] LABS: Band Neutrophils 1 % (0-10); Lymphocytes 7 % (20-55); Myelocytes 1 %; Segmented Neutrophils 87 % (50-85); Total Cells Counted 100
[2017-01-09 10:09] LABS: Hypochromasia 1+; Microcytosis Slight; Platelet Estimate Normal
[2017-01-09] MEDS: ZALEPLON 5 MG CAPSULE PO SCH (22:43)
[2017-01-10] MEDS: methylPREDNISolone SOD SUC 125 MG/2 ML VIAL IV SCH ×4 (00:58→18:40)
[2017-01-10] MEDS: ALBUTEROL 2.5 MG/3 ML NEB RESP TX SCH ×6 (03:00→23:20)
[2017-01-10 03:38] LABS: Basophils % 0.1 % (0.0-0.8); Hematocrit 38.5 VOL% (35.7-47.0); Hemoglobin 11.9 GM/DL (12.0-16.0); Immature Granulocytes % 1.4 %; Immature Granulocytes Absolute 0.21 #; Lymphocytes # 0.8 10*3/uL (1.4-4.0); Lymphocytes % 4.9 % (21.3-54.2); Mean Corpuscular HGB Conc 30.9 GM/DL (32-36); Mean Corpuscular Hemoglobin 29 PG (27-34); Mean Corpuscular Volume 94.8 FL (87-102); Mean Platelet Volume 10.5 FL (9.6-12.0); Monocytes # 0.6 10*3/uL (0.11-0.8); Monocytes % 3.8 % (1.7-12.7); Neutrophils # 13.8 10*3/uL (1.4-7.4); Neutrophils % 89.8 % (38.7-73.9); Platelet Count 174 T/CUMM (130-400); Red Blood Count 4.06 MC/CUMM (3.8-5.5); Red Cell Distribution Width 15.9 % (9.3-17.3); White Blood Count 15.4 T/CUMM (4-12)
[2017-01-10 04:04] LABS: Calcium 8.3 MG/DL (8.5-10.1); Osmolality,Calculated 284.7 MOS/KG (273-304)
[2017-01-10 05:21] LABS: Band Neutrophils 1 % (0-10); Hypochromasia 1+; Lymphocytes 5 % (20-55); Platelet Estimate Normal; Segmented Neutrophils 91 % (50-85); Total Cells Counted 100
[2017-01-10 05:22] LABS: Giant Platelets Few; Microcytosis Slight
[2017-01-10] MEDS: FUROSEMIDE 40 MG/4 ML VIAL IV SCH ×2 (08:58→15:49)
[2017-01-10] MEDS ORDERED: METHOTREXATE 2.5 MG TABLET PO SCH ×2 (09:00→21:00)
[2017-01-10] MEDS: tiZANidine 4 MG TABLET PO SCH ×4 (09:31→21:56)
[2017-01-10] MEDS: PANTOPRAZOLE 40 MG TABLET PO SCH (09:31)
[2017-01-10] MEDS: clonazePAM 0.5 MG TABLET PO SCH ×3 (09:31→21:55)
[2017-01-10] MEDS: MONTELUKAST 10 MG TABLET PO SCH (09:31)
[2017-01-10] MEDS: VERAPAMIL 120 MG TABLET PO SCH ×3 (09:31→21:56)
[2017-01-10] MEDS: GABAPENTIN 600 MG TABLET PO SCH ×4 (09:31→21:55)
[2017-01-10] MEDS: PARoxetine 20 MG TABLET PO SCH ×2 (09:32→21:54)
[2017-01-10] MEDS: LEVOFLOXACIN INJ 750 MG in PREMIX 1 EACH IV SCH (09:38)
[2017-01-10] MEDS: BUDESONIDE/FORMOTEROL 160-4.5 INHALER 6 GM INH SCH ×2 (09:39→22:07)
[2017-01-10] MEDS: ONDANSETRON 4 MG/2 ML VIAL IV PRN (09:53)
[2017-01-10] MEDS: ZALEPLON 5 MG CAPSULE PO SCH (21:54)
[2017-01-10] MEDS: DOCUSATE SODIUM 100 MG CAPSULE PO PRN (21:55)
[2017-01-11] MEDS: methylPREDNISolone SOD SUC 125 MG/2 ML VIAL IV SCH ×2 (00:01→06:54)
[2017-01-11] MEDS: ALBUTEROL 2.5 MG/3 ML NEB RESP TX SCH ×5 (02:01→20:11)
[2017-01-11] MEDS: GABAPENTIN 600 MG TABLET PO SCH ×4 (12:00→23:53)
[2017-01-11] MEDS: clonazePAM 0.5 MG TABLET PO SCH ×3 (12:01→21:16)
[2017-01-11] MEDS: PANTOPRAZOLE 40 MG TABLET PO SCH (12:01)
[2017-01-11] MEDS: LEVOFLOXACIN 500 MG TABLET PO SCH (12:05)
[2017-01-11] MEDS: DOCUSATE SODIUM 100 MG CAPSULE PO PRN (12:05)
[2017-01-11] MEDS: PARoxetine 20 MG TABLET PO SCH ×2 (12:06→21:17)
[2017-01-11] MEDS: VERAPAMIL 120 MG TABLET PO SCH ×3 (12:07→21:17)
[2017-01-11] MEDS: MONTELUKAST 10 MG TABLET PO SCH (12:07)
[2017-01-11] MEDS: tiZANidine 4 MG TABLET PO SCH ×4 (12:08→23:59)
[2017-01-11] MEDS: BUDESONIDE/FORMOTEROL 160-4.5 INHALER 6 GM INH SCH ×2 (12:08→21:16)
[2017-01-11] MEDS: ONDANSETRON 4 MG/2 ML VIAL IV PRN (13:08)
[2017-01-11] MEDS: FUROSEMIDE 40 MG/4 ML VIAL IV SCH ×2 (13:18→18:19)
[2017-01-11] MEDS: methylPREDNISolone SOD SUC 40 MG/1 ML VIAL IV SCH (21:16)
[2017-01-11] MEDS: ZALEPLON 5 MG CAPSULE PO SCH (21:16)
[2017-01-12] MEDS: ONDANSETRON 4 MG/2 ML VIAL IV PRN (00:12)
[2017-01-12] MEDS: ALBUTEROL 2.5 MG/3 ML NEB RESP TX SCH ×6 (00:26→20:00)
[2017-01-12] MEDS: LEVOFLOXACIN INJ 750 MG in PREMIX 1 EACH IV SCH (04:52)
[2017-01-12] MEDS: NORETHINDRONE 0.35 MG PO SCH ×2 (04:53→10:16)
[2017-01-12] MEDS: DOCUSATE SODIUM 100 MG CAPSULE PO PRN (10:09)
[2017-01-12] MEDS: PARoxetine 20 MG TABLET PO SCH ×2 (10:10→21:41)
[2017-01-12] MEDS: tiZANidine 4 MG TABLET PO SCH ×4 (10:10→21:41)
[2017-01-12] MEDS: clonazePAM 0.5 MG TABLET PO SCH ×3 (10:11→21:41)
[2017-01-12] MEDS: MONTELUKAST 10 MG TABLET PO SCH (10:13)
[2017-01-12] MEDS: PANTOPRAZOLE 40 MG TABLET PO SCH (10:13)
[2017-01-12] MEDS: GABAPENTIN 600 MG TABLET PO SCH ×4 (10:13→21:40)
[2017-01-12] MEDS: LEVOFLOXACIN 500 MG TABLET PO SCH (10:13)
[2017-01-12] MEDS: VERAPAMIL 120 MG TABLET PO SCH ×3 (10:14→21:41)
[2017-01-12] MEDS: BUDESONIDE/FORMOTEROL 160-4.5 INHALER 6 GM INH SCH ×2 (10:16→22:11)
[2017-01-12] MEDS: PROMETHAZINE 25 MG TABLET PO PRN (13:02)
[2017-01-12] MEDS: predniSONE 20 MG TABLET PO SCH (15:03)
[2017-01-12] MEDS: FUROSEMIDE 40 MG TABLET PO SCH (15:25)
[2017-01-12] MEDS: ZALEPLON 5 MG CAPSULE PO SCH (21:41)
[2017-01-13] MEDS: ALBUTEROL 2.5 MG/3 ML NEB RESP TX SCH ×7 (00:26→23:07)
[2017-01-13] MEDS: FUROSEMIDE 40 MG/4 ML VIAL IV SCH (03:17)
[2017-01-13] MEDS: methylPREDNISolone SOD SUC 40 MG/1 ML VIAL IV SCH (03:17)
[2017-01-13] MEDS: LEVOFLOXACIN 500 MG TABLET PO SCH (09:43)
[2017-01-13] MEDS: GABAPENTIN 600 MG TABLET PO SCH ×4 (09:44→20:56)
[2017-01-13] MEDS: FUROSEMIDE 40 MG TABLET PO SCH ×2 (09:44→17:03)
[2017-01-13] MEDS: PARoxetine 20 MG TABLET PO SCH ×2 (09:45→20:56)
[2017-01-13] MEDS: predniSONE 20 MG TABLET PO SCH (09:45)
[2017-01-13] MEDS: tiZANidine 4 MG TABLET PO SCH ×4 (09:46→20:57)
[2017-01-13] MEDS: PANTOPRAZOLE 40 MG TABLET PO SCH (09:46)
[2017-01-13] MEDS: VERAPAMIL 120 MG TABLET PO SCH ×3 (09:46→20:56)
[2017-01-13] MEDS: MONTELUKAST 10 MG TABLET PO SCH (09:46)
[2017-01-13] MEDS: clonazePAM 0.5 MG TABLET PO SCH ×3 (09:47→20:55)
[2017-01-13] MEDS: NORETHINDRONE 0.35 MG PO SCH (09:48)
[2017-01-13] MEDS: BUDESONIDE/FORMOTEROL 160-4.5 INHALER 6 GM INH SCH ×2 (09:48→20:57)
[2017-01-13] MEDS: ZALEPLON 5 MG CAPSULE PO SCH (20:56)
[2017-01-14] MEDS: ALBUTEROL 2.5 MG/3 ML NEB RESP TX SCH ×6 (03:31→23:18)
[2017-01-14] MEDS: FUROSEMIDE 40 MG TABLET PO SCH ×2 (08:46→19:50)
[2017-01-14] MEDS: PROMETHAZINE 25 MG TABLET PO PRN (10:39)
[2017-01-14] MEDS: PANTOPRAZOLE 40 MG TABLET PO SCH (10:39)
[2017-01-14] MEDS: LEVOFLOXACIN 500 MG TABLET PO SCH (10:39)
[2017-01-14] MEDS: PARoxetine 20 MG TABLET PO SCH ×2 (10:39→23:32)
[2017-01-14] MEDS: GABAPENTIN 600 MG TABLET PO SCH ×4 (10:41→23:31)
[2017-01-14] MEDS: tiZANidine 4 MG TABLET PO SCH ×4 (10:41→23:34)
[2017-01-14] MEDS: VERAPAMIL 120 MG TABLET PO SCH ×3 (10:41→23:30)
[2017-01-14] MEDS: MONTELUKAST 10 MG TABLET PO SCH (10:41)
[2017-01-14] MEDS: clonazePAM 0.5 MG TABLET PO SCH ×3 (10:41→23:31)
[2017-01-14] MEDS: predniSONE 20 MG TABLET PO SCH (10:42)
[2017-01-14] MEDS: BUDESONIDE/FORMOTEROL 160-4.5 INHALER 6 GM INH SCH ×2 (10:42→23:34)
[2017-01-14] MEDS: NORETHINDRONE 0.35 MG PO SCH (10:44)
[2017-01-14] MEDS: ZALEPLON 5 MG CAPSULE PO SCH (23:30)
[2017-01-14] MEDS: DOCUSATE SODIUM 100 MG CAPSULE PO PRN (23:30)
[2017-01-15] MEDS: ALBUTEROL 2.5 MG/3 ML NEB RESP TX SCH ×5 (02:34→19:31)
[2017-01-15] MEDS: BUDESONIDE/FORMOTEROL 160-4.5 INHALER 6 GM INH SCH ×2 (09:18→22:56)
[2017-01-15] MEDS: predniSONE 20 MG TABLET PO SCH (09:19)
[2017-01-15] MEDS: VERAPAMIL 120 MG TABLET PO SCH ×3 (09:19→22:58)
[2017-01-15] MEDS: PARoxetine 20 MG TABLET PO SCH ×2 (09:19→23:00)
[2017-01-15] MEDS: FUROSEMIDE 40 MG TABLET PO SCH ×2 (09:20→16:41)
[2017-01-15] MEDS: MONTELUKAST 10 MG TABLET PO SCH (09:20)
[2017-01-15] MEDS: GABAPENTIN 600 MG TABLET PO SCH ×4 (09:20→22:57)
[2017-01-15] MEDS: LEVOFLOXACIN 500 MG TABLET PO SCH (09:20)
[2017-01-15] MEDS: tiZANidine 4 MG TABLET PO SCH ×4 (09:20→22:58)
[2017-01-15] MEDS: PANTOPRAZOLE 40 MG TABLET PO SCH (09:21)
[2017-01-15] MEDS: clonazePAM 0.5 MG TABLET PO SCH ×3 (09:21→22:57)
[2017-01-15] MEDS: PROMETHAZINE 25 MG TABLET PO PRN ×2 (09:27→18:16)
[2017-01-15] MEDS: NYSTATIN 500,000 UNIT/5 ML UDCUP SWISH/SWAL SCH ×3 (14:02→23:00)
[2017-01-15] MEDS: NORETHINDRONE 0.35 MG PO SCH (14:05)
[2017-01-15] MEDS: ZALEPLON 5 MG CAPSULE PO SCH (22:59)
[2017-01-15] MEDS: DOCUSATE SODIUM 100 MG CAPSULE PO PRN (23:00)
[2017-01-16] MEDS: ALBUTEROL 2.5 MG/3 ML NEB RESP TX SCH ×5 (00:35→15:06)
[2017-01-16] MEDS: FUROSEMIDE 40 MG TABLET PO SCH (10:50)
[2017-01-16] MEDS: PROMETHAZINE 25 MG TABLET PO PRN (10:50)
[2017-01-16] MEDS: GABAPENTIN 600 MG TABLET PO SCH (10:50)
[2017-01-16] MEDS: MONTELUKAST 10 MG TABLET PO SCH (10:51)
[2017-01-16] MEDS: VERAPAMIL 120 MG TABLET PO SCH (10:51)
[2017-01-16] MEDS: NORETHINDRONE 0.35 MG PO SCH (10:53)
[2017-01-16] MEDS: tiZANidine 4 MG TABLET PO SCH (10:54)
[2017-01-16] MEDS: DOCUSATE SODIUM 100 MG CAPSULE PO PRN (10:54)
[2017-01-16] MEDS: clonazePAM 0.5 MG TABLET PO SCH (10:54)
[2017-01-16] MEDS: PANTOPRAZOLE 40 MG TABLET PO SCH (10:54)
[2017-01-16] MEDS: LEVOFLOXACIN 500 MG TABLET PO SCH (10:54)
[2017-01-16] MEDS: predniSONE 20 MG TABLET PO SCH (10:55)
[2017-01-16] MEDS: PARoxetine 20 MG TABLET PO SCH (10:56)
[2017-01-16] MEDS: BUDESONIDE/FORMOTEROL 160-4.5 INHALER 6 GM INH SCH (10:57)
[2017-01-16] MEDS: NYSTATIN 500,000 UNIT/5 ML UDCUP SWISH/SWAL SCH (11:16)
[2017-01-16 12:08] VITALS: BP 148/85
== END 2017-01-16 13:25 | disposition home or self-care (01) | DRG 141 ==
LOC: N.ED 15:18 → N.EDINP 18:06 → SUATTDRO 18:06 → N.EDINP 19:12 → N.2E 19:28
PROVIDERS: ADMIT Hospitalist; ATTEND Internal Medicine

== ENCOUNTER 2017-07-15 11:31 | Inpatient (IN) ==
[2017-07-15] MEDS ORDERED: ALBUTEROL 2.5 MG/3 ML NEB RESP TX STA (12:14)
[2017-07-15] MEDS ORDERED: methylPREDNISolone SOD SUC 125 MG/2 ML VIAL IV STA (12:14)
[2017-07-15 13:28] LABS: Basophils # 0.1 10*3/uL (0.0-0.2); Basophils % 0.5 % (0.0-0.8); Eosinophils # 0.2 10*3/uL (0.0-0.87); Hematocrit 34.6 VOL% (35.7-47.0); Hemoglobin 10.8 GM/DL (12.0-16.0); Immature Granulocytes % 0.9 %; Immature Granulocytes Absolute 0.13 #; Lymphocytes # 4.1 10*3/uL (1.4-4.0); Lymphocytes % 27.7 % (21.3-54.2); Mean Corpuscular HGB Conc 31.2 GM/DL (32-36); Mean Corpuscular Hemoglobin 29 PG (27-34); Mean Platelet Volume 9.6 FL (9.6-12.0); Monocytes # 0.9 10*3/uL (0.11-0.8); Monocytes % 6.1 % (1.7-12.7); Neutrophils # 9.5 10*3/uL (1.4-7.4); Neutrophils % 63.8 % (38.7-73.9); Platelet Count 320 T/CUMM (130-400); Red Blood Count 3.72 MC/CUMM (3.8-5.5); Red Cell Distribution Width 15.6 % (9.3-17.3); White Blood Count 14.9 T/CUMM (4-12)
[2017-07-15] MEDS ORDERED: methylPREDNISolone SOD SUC 125 MG/2 ML VIAL ONE (13:33)
[2017-07-15 13:48] LABS: Partial Thromboplastin Time 23.5 SECS (0-40)
[2017-07-15 13:58] LABS: Apearance,Urine CLEAR (Clear); Bacteria,Urine Occasional /HPF (Few); Bilirubin,Urine Negative (Negative); Blood, Urine Negative (Negative); Glucose,Urine (UA) Negative (Negative); Ketones,Urine Negative (Negative); Mucus,Urine Occasional /LPF (Occasional); Nitrite,Urine Negative (Negative); Protein,Urine Negative; RBC,Urine 1 /HPF (0-4); Squamous Epithelial Cell,Urine Occasional /HPF (0-10); Urine Color Yellow (Yellow); Urine Specific Gravity 1.014 (1.001-1.035); Urine Urobilinogen < 2.0 EU/DL (0.2-1.0); WBC,Urine 5 /HPF (0-6)
[2017-07-15 14:00] LABS: Alanine Aminotransferase 18 U/L (13-56); Albumin 3.1 G/DL (3.4-5.0); Alkaline Phosphatase 91 U/L (45-117); Aspartate Amino Transferase 15 U/L (0-37); Bilirubin,Total < 0.39 MG/DL (0.2-1.0); Blood Urea Nitrogen 17 MG/DL (7-18); Glucose 94 MG/DL (74-106); Potassium 3.7 MMOL/L (3.5-5.1); Sodium 143 MMOL/L (136-145); Total Protein 6.5 G/DL (6.4-8.3)
[2017-07-15] MEDS ORDERED: PIPERACILLIN/TAZOBACTAM 3,375 MG in SODIUM CHLORIDE 0.9% 100 ML IV STA (14:17)
[2017-07-15] MEDS ORDERED: PIPERACILLIN/TAZOBACTAM 3,375 MG VIAL IV ONE (15:14)
[2017-07-15] MEDS ORDERED: ALBUTEROL 2.5 MG/3 ML NEB RESP TX PRN (16:08)
[2017-07-15] MEDS ORDERED: LEVOFLOXACIN INJ 750 MG in PREMIX 1 EACH IV SCH (16:30)
[2017-07-15] MEDS: GABAPENTIN 600 MG TABLET PO SCH ×2 (17:50→21:08)
[2017-07-15] MEDS: tiZANidine 4 MG TABLET PO PRN ×2 (18:00→22:39)
[2017-07-15] MEDS: ALBUTEROL 2.5 MG/3 ML NEB RESP TX SCH ×2 (19:10→22:50)
[2017-07-15] MEDS: BUDESONIDE/FORMOTEROL 160-4.5 INHALER 6 GM INH SCH (21:08)
[2017-07-15] MEDS: traMADol 50 MG TABLET PO SCH (21:09)
[2017-07-15] MEDS: ONDANSETRON 4 MG/2 ML VIAL IV PRN (21:25)
[2017-07-15] MEDS: ZALEPLON 5 MG CAPSULE PO SCH (22:39)
[2017-07-15] MEDS: OLANZapine 5 MG TABLET PO SCH (22:39)
[2017-07-16] MEDS: methylPREDNISolone SOD SUC 40 MG/1 ML VIAL IV SCH ×2 (02:19→17:19)
[2017-07-16] MEDS: ALBUTEROL 2.5 MG/3 ML NEB RESP TX SCH ×6 (04:38→23:06)
[2017-07-16] MEDS: ONDANSETRON 4 MG/2 ML VIAL IV PRN ×2 (05:12→21:32)
[2017-07-16 05:50] LABS: Basophils % 0.2 % (0.0-0.8); Hemoglobin 11.6 GM/DL (12.0-16.0); Immature Granulocytes % 1.3 %; Immature Granulocytes Absolute 0.18 #; Lymphocytes # 1.4 10*3/uL (1.4-4.0); Lymphocytes % 10.3 % (21.3-54.2); Mean Corpuscular HGB Conc 30.5 GM/DL (32-36); Mean Corpuscular Hemoglobin 29 PG (27-34); Mean Corpuscular Volume 93.6 FL (87-102); Mean Platelet Volume 9.6 FL (9.6-12.0); Monocytes # 0.2 10*3/uL (0.11-0.8); Monocytes % 1.5 % (1.7-12.7); NRBC # 0.02 10*3/uL; Neutrophils # 11.7 10*3/uL (1.4-7.4); Neutrophils % 86.7 % (38.7-73.9); Platelet Count 327 T/CUMM (130-400); Red Blood Count 4.06 MC/CUMM (3.8-5.5); Red Cell Distribution Width 15.8 % (9.3-17.3); White Blood Count 13.5 T/CUMM (4-12)
[2017-07-16 06:09] LABS: Osmolality,Calculated 289.1 MOS/KG (273-304); Potassium 4.7 MMOL/L (3.5-5.1)
[2017-07-16] MEDS: cefTRIAXone 1,000 MG in SYRINGE 1 EACH IV SCH (09:28)
[2017-07-16] MEDS: FUROSEMIDE 40 MG/4 ML VIAL IV SCH (09:28)
[2017-07-16] MEDS: VERAPAMIL 120 MG TABLET PO SCH (09:30)
[2017-07-16] MEDS: tiZANidine 4 MG TABLET PO PRN ×3 (09:30→16:41)
[2017-07-16] MEDS: GABAPENTIN 600 MG TABLET PO SCH ×4 (09:30→21:23)
[2017-07-16] MEDS: traMADol 50 MG TABLET PO SCH ×2 (09:31→21:23)
[2017-07-16] MEDS: clonazePAM 0.5 MG TABLET PO SCH ×3 (09:31→21:22)
[2017-07-16] MEDS: PARoxetine 10 MG TABLET PO SCH (09:31)
[2017-07-16] MEDS: MONTELUKAST 10 MG TABLET PO SCH (09:32)
[2017-07-16] MEDS: PANTOPRAZOLE 40 MG TABLET PO SCH (09:32)
[2017-07-16] MEDS: BUDESONIDE/FORMOTEROL 160-4.5 INHALER 6 GM INH SCH ×2 (09:32→21:24)
[2017-07-16] MEDS: SAPHRIS SL SCH ×2 (09:44→21:22)
[2017-07-16] MEDS: ZALEPLON 5 MG CAPSULE PO SCH (21:23)
[2017-07-16] MEDS: OLANZapine 5 MG TABLET PO SCH (21:23)
[2017-07-17] MEDS: tiZANidine 4 MG TABLET PO PRN ×5 (00:31→21:15)
[2017-07-17] MEDS: ALBUTEROL 2.5 MG/3 ML NEB RESP TX SCH ×6 (03:23→22:55)
[2017-07-17] MEDS: ONDANSETRON 4 MG/2 ML VIAL IV PRN ×5 (04:11→22:33)
[2017-07-17] MEDS: IBUPROFEN 800 MG TABLET PO PRN (04:12)
[2017-07-17 04:14] LABS: Basophils % 0.1 % (0.0-0.8); Hematocrit 35.4 VOL% (35.7-47.0); Immature Granulocytes % 1.2 %; Immature Granulocytes Absolute 0.17 #; Lymphocytes # 1.5 10*3/uL (1.4-4.0); Lymphocytes % 9.9 % (21.3-54.2); Mean Corpuscular HGB Conc 31.1 GM/DL (32-36); Mean Corpuscular Hemoglobin 29 PG (27-34); Mean Corpuscular Volume 93.2 FL (87-102); Mean Platelet Volume 9.9 FL (9.6-12.0); Monocytes # 0.8 10*3/uL (0.11-0.8); Monocytes % 5.7 % (1.7-12.7); Neutrophils # 12.3 10*3/uL (1.4-7.4); Neutrophils % 83.1 % (38.7-73.9); Platelet Count 313 T/CUMM (130-400); White Blood Count 14.8 T/CUMM (4-12)
[2017-07-17 04:37] LABS: Albumin 3.3 G/DL (3.4-5.0); Bilirubin,Total 0.4 MG/DL (0.2-1.0); Calcium 8.2 MG/DL (8.5-10.1); Osmolality,Calculated 287.3 MOS/KG (273-304); Potassium 4.6 MMOL/L (3.5-5.1); Total Protein 6.6 G/DL (6.4-8.3)
[2017-07-17] MEDS: GABAPENTIN 600 MG TABLET PO SCH ×4 (09:23→21:15)
[2017-07-17] MEDS: traMADol 50 MG TABLET PO SCH ×2 (09:23→21:15)
[2017-07-17] MEDS: methylPREDNISolone SOD SUC 40 MG/1 ML VIAL IV SCH ×2 (09:24→20:59)
[2017-07-17] MEDS: MONTELUKAST 10 MG TABLET PO SCH (09:24)
[2017-07-17] MEDS: PARoxetine 10 MG TABLET PO SCH (09:24)
[2017-07-17] MEDS: PANTOPRAZOLE 40 MG TABLET PO SCH (09:24)
[2017-07-17] MEDS: clonazePAM 0.5 MG TABLET PO SCH ×3 (09:24→21:16)
[2017-07-17] MEDS: FUROSEMIDE 40 MG/4 ML VIAL IV SCH (09:25)
[2017-07-17] MEDS: cefTRIAXone 1,000 MG in SYRINGE 1 EACH IV SCH (09:25)
[2017-07-17] MEDS: BUDESONIDE/FORMOTEROL 160-4.5 INHALER 6 GM INH SCH ×2 (09:28→21:22)
[2017-07-17] MEDS: VERAPAMIL 120 MG TABLET PO SCH (09:28)
[2017-07-17] MEDS: SAPHRIS SL SCH ×2 (09:29→21:17)
[2017-07-17] MEDS: ZALEPLON 5 MG CAPSULE PO SCH (21:16)
[2017-07-17] MEDS: OLANZapine 5 MG TABLET PO SCH (21:17)
[2017-07-18] MEDS: ALBUTEROL 2.5 MG/3 ML NEB RESP TX SCH ×5 (03:16→19:36)
[2017-07-18] MEDS ORDERED: hydrALAZINE 20 MG/1 ML VIAL IV PRN (05:00)
[2017-07-18] MEDS: ONDANSETRON 4 MG/2 ML VIAL IV PRN ×4 (05:25→21:32)
[2017-07-18] MEDS: BUDESONIDE/FORMOTEROL 160-4.5 INHALER 6 GM INH SCH ×2 (09:09→20:57)
[2017-07-18] MEDS: traMADol 50 MG TABLET PO SCH ×2 (09:10→20:52)
[2017-07-18] MEDS: clonazePAM 0.5 MG TABLET PO SCH ×3 (09:10→20:53)
[2017-07-18] MEDS: MONTELUKAST 10 MG TABLET PO SCH (09:10)
[2017-07-18] MEDS: GABAPENTIN 600 MG TABLET PO SCH ×4 (09:11→20:53)
[2017-07-18] MEDS: tiZANidine 4 MG TABLET PO PRN ×4 (09:11→23:50)
[2017-07-18] MEDS: PANTOPRAZOLE 40 MG TABLET PO SCH (09:12)
[2017-07-18] MEDS: FUROSEMIDE 40 MG/4 ML VIAL IV SCH (09:12)
[2017-07-18] MEDS: PARoxetine 10 MG TABLET PO SCH (09:12)
[2017-07-18] MEDS: SAPHRIS SL SCH ×2 (09:14→20:53)
[2017-07-18] MEDS: VERAPAMIL SR 180 MG TABLET PO SCH (09:23)
[2017-07-18] MEDS: CEFUROXIME 500 MG TABLET PO SCH ×2 (09:24→20:52)
[2017-07-18] MEDS: predniSONE 20 MG TABLET PO SCH (09:24)
[2017-07-18 09:34] LABS: Basophils % 0.2 % (0.0-0.8); Hematocrit 38.5 VOL% (35.7-47.0); Hemoglobin 11.6 GM/DL (12.0-16.0); Immature Granulocytes % 2.9 %; Immature Granulocytes Absolute 0.49 #; Lymphocytes # 2.5 10*3/uL (1.4-4.0); Lymphocytes % 15.2 % (21.3-54.2); Mean Corpuscular HGB Conc 30.1 GM/DL (32-36); Mean Corpuscular Hemoglobin 28 PG (27-34); Mean Corpuscular Volume 94.4 FL (87-102); Mean Platelet Volume 9.7 FL (9.6-12.0); Monocytes # 1.3 10*3/uL (0.11-0.8); Monocytes % 7.7 % (1.7-12.7); NRBC # 0.03 10*3/uL; Neutrophils # 12.4 10*3/uL (1.4-7.4); Platelet Count 363 T/CUMM (130-400); Red Blood Count 4.08 MC/CUMM (3.8-5.5); Red Cell Distribution Width 16.2 % (9.3-17.3); White Blood Count 16.7 T/CUMM (4-12)
[2017-07-18 10:04] LABS: Alanine Aminotransferase 28 U/L (13-56); Albumin 3.7 G/DL (3.4-5.0); Alkaline Phosphatase 103 U/L (45-117); Aspartate Amino Transferase 17 U/L (0-37); Bilirubin,Total < 0.39 MG/DL (0.2-1.0); Blood Urea Nitrogen 17 MG/DL (7-18); Calcium 8.5 MG/DL (8.5-10.1); Glucose 114 MG/DL (74-106); Osmolality,Calculated 281.4 MOS/KG (273-304); Sodium 140 MMOL/L (136-145); Total Protein 7.1 G/DL (6.4-8.3)
[2017-07-18] MEDS ORDERED: METHOTREXATE 2.5 MG TABLET PO SCH (16:08)
[2017-07-18] MEDS: IBUPROFEN 800 MG TABLET PO PRN (20:14)
[2017-07-18] MEDS: OLANZapine 5 MG TABLET PO SCH (20:52)
[2017-07-18] MEDS: ZALEPLON 5 MG CAPSULE PO SCH (20:53)
[2017-07-19] MEDS: ALBUTEROL 2.5 MG/3 ML NEB RESP TX SCH ×3 (00:25→07:01)
[2017-07-19] MEDS: ONDANSETRON 4 MG/2 ML VIAL IV PRN ×2 (04:34→09:10)
[2017-07-19 05:03] LABS: Basophils % 0.1 % (0.0-0.8); Eosinophils % 0.1 % (0.00-10.9); Hematocrit 35.6 VOL% (35.7-47.0); Hemoglobin 10.6 GM/DL (12.0-16.0); Immature Granulocytes % 1.9 %; Immature Granulocytes Absolute 0.27 #; Lymphocytes # 3.6 10*3/uL (1.4-4.0); Lymphocytes % 25.1 % (21.3-54.2); Mean Corpuscular HGB Conc 29.8 GM/DL (32-36); Mean Corpuscular Hemoglobin 29 PG (27-34); Mean Corpuscular Volume 95.7 FL (87-102); Mean Platelet Volume 10.4 FL (9.6-12.0); Monocytes # 1.4 10*3/uL (0.11-0.8); Monocytes % 9.9 % (1.7-12.7); NRBC # 0.02 10*3/uL; Neutrophils % 62.9 % (38.7-73.9); Platelet Count 251 T/CUMM (130-400); Red Blood Count 3.72 MC/CUMM (3.8-5.5); Red Cell Distribution Width 16.4 % (9.3-17.3); White Blood Count 14.3 T/CUMM (4-12)
[2017-07-19 05:48] LABS: Alanine Aminotransferase 29 U/L (13-56); Albumin 3.1 G/DL (3.4-5.0); Alkaline Phosphatase 83 U/L (45-117); Aspartate Amino Transferase 8 U/L (0-37); Bilirubin,Direct < 0.100 MG/DL (0.0-0.20); Bilirubin,Indirect 0.6 MG/DL (0.0-1.0); Blood Urea Nitrogen 19 MG/DL (7-18); Calcium 7.9 MG/DL (8.5-10.1); Glucose 97 MG/DL (74-106); Osmolality,Calculated 287.8 MOS/KG (273-304); Potassium 3.6 MMOL/L (3.5-5.1); Sodium 144 MMOL/L (136-145); Total Protein 5.9 G/DL (6.4-8.3)
[2017-07-19 07:39] VITALS: BP 159/72
[2017-07-19] MEDS: clonazePAM 0.5 MG TABLET PO SCH (09:07)
[2017-07-19] MEDS: CEFUROXIME 500 MG TABLET PO SCH (09:07)
[2017-07-19] MEDS: VERAPAMIL SR 180 MG TABLET PO SCH (09:07)
[2017-07-19] MEDS: traMADol 50 MG TABLET PO SCH (09:08)
[2017-07-19] MEDS: GABAPENTIN 600 MG TABLET PO SCH (09:08)
[2017-07-19] MEDS: PARoxetine 10 MG TABLET PO SCH (09:08)
[2017-07-19] MEDS: PANTOPRAZOLE 40 MG TABLET PO SCH (09:09)
[2017-07-19] MEDS: predniSONE 20 MG TABLET PO SCH (09:09)
[2017-07-19] MEDS: FUROSEMIDE 40 MG/4 ML VIAL IV SCH (09:09)
[2017-07-19] MEDS: SAPHRIS SL SCH (09:10)
[2017-07-19] MEDS: MONTELUKAST 10 MG TABLET PO SCH (09:10)
[2017-07-19] MEDS: BUDESONIDE/FORMOTEROL 160-4.5 INHALER 6 GM INH SCH (09:19)
== END 2017-07-19 11:38 | disposition home or self-care (01) | DRG 141 ==
LOC: N.ED 11:31 → N.EDINP 15:08 → N.2E 15:49

== ENCOUNTER 2017-08-20 16:46 | Inpatient (IN) ==
[2017-08-20] MEDS ORDERED: ASPIRIN 325 MG TABLET PO STA (17:48)
[2017-08-20] MEDS ORDERED: ALBUTEROL/IPRATROPIUM 3 ML NEB RESP TX STA (17:48)
[2017-08-20 17:56] LABS: Basophils # 0.1 10*3/uL (0.0-0.2); Basophils % 0.5 % (0.0-0.8); Eosinophils # 0.1 10*3/uL (0.0-0.87); Eosinophils % 1.2 % (0.00-10.9); Hematocrit 37.5 VOL% (35.7-47.0); Hemoglobin 11.6 GM/DL (12.0-16.0); Immature Granulocytes % 1.3 %; Immature Granulocytes Absolute 0.14 #; Lymphocytes # 2.9 10*3/uL (1.4-4.0); Lymphocytes % 26.2 % (21.3-54.2); Mean Corpuscular HGB Conc 30.9 GM/DL (32-36); Mean Corpuscular Hemoglobin 29 PG (27-34); Mean Corpuscular Volume 94.7 FL (87-102); Mean Platelet Volume 9.8 FL (9.6-12.0); Monocytes # 0.8 10*3/uL (0.11-0.8); Monocytes % 7.2 % (1.7-12.7); Neutrophils # 7.1 10*3/uL (1.4-7.4); Neutrophils % 63.6 % (38.7-73.9); Platelet Count 266 T/CUMM (130-400); Red Blood Count 3.96 MC/CUMM (3.8-5.5); Red Cell Distribution Width 16.1 % (9.3-17.3); White Blood Count 11.1 T/CUMM (4-12)
[2017-08-20 18:09] LABS: Alanine Aminotransferase 22 U/L (13-56); Albumin 3.2 G/DL (3.4-5.0); Alkaline Phosphatase 100 U/L (45-117); Aspartate Amino Transferase 15 U/L (0-37); Bilirubin,Total < 0.39 MG/DL (0.2-1.0); Blood Urea Nitrogen 9 MG/DL (7-18); Calcium 8.5 MG/DL (8.5-10.1); Glucose 92 MG/DL (74-106); Osmolality,Calculated 277.4 MOS/KG (273-304); Potassium 3.7 MMOL/L (3.5-5.1); Sodium 140 MMOL/L (136-145); Total Protein 7.1 G/DL (6.4-8.3)
[2017-08-20] MEDS ORDERED: MORPHINE 4 MG/1 ML VIAL IV STA (19:19)
[2017-08-20] MEDS ORDERED: ONDANSETRON 4 MG/2 ML VIAL IV STA (19:19)
[2017-08-20] MEDS ORDERED: methylPREDNISolone SOD SUC 125 MG/2 ML VIAL IV STA (19:30)
[2017-08-20] MEDS ORDERED: PROMETHAZINE 25 MG TABLET PO PRN (20:10)
[2017-08-20] MEDS ORDERED: ALBUTEROL 2.5 MG/3 ML NEB RESP TX PRN (20:10)
[2017-08-20] MEDS ORDERED: NORETHINDRONE 0.35 MG PO SCH (21:00)
[2017-08-20] MEDS: BUDESONIDE/FORMOTEROL 160-4.5 INHALER 6 GM INH SCH (21:20)
[2017-08-20] MEDS: FLUTICASONE/SALMETEROL 500-50 DISKUS 14 DOSE INH SCH (21:20)
[2017-08-20] MEDS: GABAPENTIN 300 MG CAPSULE PO SCH (21:22)
[2017-08-20] MEDS: MONTELUKAST 10 MG TABLET PO SCH (21:22)
[2017-08-20] MEDS: tiZANidine 4 MG TABLET PO SCH (21:22)
[2017-08-20] MEDS: QUEtiapine 100 MG TABLET PO SCH (21:22)
[2017-08-20] MEDS: traMADol 50 MG TABLET PO SCH (21:22)
[2017-08-20] MEDS: HydrOXYzine PAMOATE 25 MG CAPSULE PO SCH (21:22)
[2017-08-20] MEDS: LEVOFLOXACIN INJ 750 MG in PREMIX 1 EACH IV SCH (21:30)
[2017-08-20] MEDS: ENOXAPARIN 40 MG/0.4 ML SYRINGE SUBCUT SCH (21:30)
[2017-08-20] MEDS: ONDANSETRON 4 MG/2 ML VIAL IV PRN (21:57)
[2017-08-21] MEDS: ONDANSETRON 4 MG/2 ML VIAL IV PRN ×3 (00:07→21:15)
[2017-08-21] MEDS: ALBUTEROL/IPRATROPIUM 3 ML NEB RESP TX SCH ×4 (00:30→19:35)
[2017-08-21 01:40] LABS: Basophils % 0.2 % (0.0-0.8); Hematocrit 36.5 VOL% (35.7-47.0); Hemoglobin 11.1 GM/DL (12.0-16.0); Immature Granulocytes % 2.2 %; Immature Granulocytes Absolute 0.27 #; Lymphocytes # 0.8 10*3/uL (1.4-4.0); Lymphocytes % 6.8 % (21.3-54.2); Mean Corpuscular HGB Conc 30.4 GM/DL (32-36); Mean Corpuscular Hemoglobin 29 PG (27-34); Mean Corpuscular Volume 95.5 FL (87-102); Mean Platelet Volume 9.2 FL (9.6-12.0); Monocytes # 0.1 10*3/uL (0.11-0.8); Monocytes % 0.5 % (1.7-12.7); Neutrophils # 10.9 10*3/uL (1.4-7.4); Neutrophils % 90.3 % (38.7-73.9); Platelet Count 233 T/CUMM (130-400); Red Blood Count 3.82 MC/CUMM (3.8-5.5); Red Cell Distribution Width 16.2 % (9.3-17.3); White Blood Count 12.1 T/CUMM (4-12)
[2017-08-21 02:09] LABS: Calcium 8.4 MG/DL (8.5-10.1); Osmolality,Calculated 283.7 MOS/KG (273-304); Potassium 3.6 MMOL/L (3.5-5.1); Risk Ratio 4.11; VLDL CHOLESTEROL 13.2 MG/DL
[2017-08-21 02:19] LABS: Lymphocytes 3 % (20-55); Platelet Estimate Normal; Polychromasia Few; Segmented Neutrophils 96 % (50-85); Total Cells Counted 100
[2017-08-21 02:20] LABS: Hypochromasia Slight
[2017-08-21] MEDS: methylPREDNISolone SOD SUC 40 MG/1 ML VIAL IV SCH ×3 (03:35→21:08)
[2017-08-21] MEDS: IBUPROFEN 800 MG TABLET PO PRN ×3 (04:26→21:07)
[2017-08-21] MEDS: VERAPAMIL 120 MG TABLET PO SCH (09:46)
[2017-08-21] MEDS: CYANOCOBALAMIN 500 MCG TABLET PO SCH (09:46)
[2017-08-21] MEDS: PANTOPRAZOLE 40 MG TABLET PO SCH (09:47)
[2017-08-21] MEDS: PARoxetine 20 MG TABLET PO SCH (09:47)
[2017-08-21] MEDS: GABAPENTIN 300 MG CAPSULE PO SCH ×4 (09:47→21:06)
[2017-08-21] MEDS: traMADol 50 MG TABLET PO SCH ×2 (09:48→21:06)
[2017-08-21] MEDS: tiZANidine 4 MG TABLET PO SCH ×4 (09:48→21:07)
[2017-08-21] MEDS: QUEtiapine 100 MG TABLET PO SCH ×2 (09:48→21:06)
[2017-08-21] MEDS: HydrOXYzine PAMOATE 25 MG CAPSULE PO SCH ×3 (09:48→21:07)
[2017-08-21] MEDS: POTASSIUM CHLORIDE 20 MEQ TABLET PO SCH (09:48)
[2017-08-21] MEDS: FUROSEMIDE 20 MG/2 ML VIAL IV SCH (09:50)
[2017-08-21] MEDS: FLUTICASONE/SALMETEROL 500-50 DISKUS 14 DOSE INH SCH ×2 (09:56→21:08)
[2017-08-21] MEDS: BUDESONIDE/FORMOTEROL 160-4.5 INHALER 6 GM INH SCH ×2 (09:57→21:07)
[2017-08-21] MEDS: ENOXAPARIN 40 MG/0.4 ML SYRINGE SUBCUT SCH (21:11)
[2017-08-21] MEDS: MONTELUKAST 10 MG TABLET PO SCH (21:15)
[2017-08-21] MEDS: LEVOFLOXACIN INJ 750 MG in PREMIX 1 EACH IV SCH (21:17)
[2017-08-22] MEDS: ALBUTEROL/IPRATROPIUM 3 ML NEB RESP TX SCH ×4 (00:54→19:17)
[2017-08-22] MEDS: ONDANSETRON 4 MG/2 ML VIAL IV PRN ×3 (01:31→21:19)
[2017-08-22] MEDS: ZALEPLON 5 MG CAPSULE PO PRN ×2 (01:31→21:19)
[2017-08-22] MEDS: methylPREDNISolone SOD SUC 40 MG/1 ML VIAL IV SCH (03:45)
[2017-08-22] MEDS: CYANOCOBALAMIN 500 MCG TABLET PO SCH (08:34)
[2017-08-22] MEDS: traMADol 50 MG TABLET PO SCH ×2 (08:34→20:55)
[2017-08-22] MEDS: PANTOPRAZOLE 40 MG TABLET PO SCH (08:34)
[2017-08-22] MEDS: tiZANidine 4 MG TABLET PO SCH ×4 (08:36→20:55)
[2017-08-22] MEDS: QUEtiapine 100 MG TABLET PO SCH ×2 (08:36→20:54)
[2017-08-22] MEDS: PARoxetine 20 MG TABLET PO SCH (08:36)
[2017-08-22] MEDS: GABAPENTIN 300 MG CAPSULE PO SCH ×4 (08:36→20:54)
[2017-08-22] MEDS: POTASSIUM CHLORIDE 20 MEQ TABLET PO SCH (08:36)
[2017-08-22] MEDS: FUROSEMIDE 20 MG/2 ML VIAL IV SCH (08:37)
[2017-08-22] MEDS: FLUTICASONE/SALMETEROL 500-50 DISKUS 14 DOSE INH SCH ×2 (08:47→20:54)
[2017-08-22] MEDS: BUDESONIDE/FORMOTEROL 160-4.5 INHALER 6 GM INH SCH ×2 (08:47→20:55)
[2017-08-22] MEDS: HydrOXYzine PAMOATE 25 MG CAPSULE PO SCH ×3 (09:27→20:55)
[2017-08-22] MEDS: predniSONE 20 MG TABLET PO SCH (12:15)
[2017-08-22] MEDS: VERAPAMIL 120 MG TABLET PO SCH (12:15)
[2017-08-22] MEDS ORDERED: METHOTREXATE 2.5 MG TABLET PO SCH (20:10)
[2017-08-22] MEDS: ENOXAPARIN 40 MG/0.4 ML SYRINGE SUBCUT SCH (20:54)
[2017-08-22] MEDS: MONTELUKAST 10 MG TABLET PO SCH (20:55)
[2017-08-22] MEDS: IBUPROFEN 800 MG TABLET PO PRN (21:19)
[2017-08-23] MEDS: ALBUTEROL/IPRATROPIUM 3 ML NEB RESP TX SCH ×4 (01:00→19:44)
[2017-08-23] MEDS: ONDANSETRON 4 MG/2 ML VIAL IV PRN ×2 (05:46→11:10)
[2017-08-23 06:36] LABS: Calcium 8.6 MG/DL (8.5-10.1); Osmolality,Calculated 287.1 MOS/KG (273-304); Potassium 4.2 MMOL/L (3.5-5.1)
[2017-08-23] MEDS: LEVOFLOXACIN 500 MG TABLET PO SCH (08:17)
[2017-08-23] MEDS: GABAPENTIN 300 MG CAPSULE PO SCH ×4 (08:17→21:02)
[2017-08-23] MEDS: PARoxetine 20 MG TABLET PO SCH (08:17)
[2017-08-23] MEDS: CYANOCOBALAMIN 500 MCG TABLET PO SCH (08:17)
[2017-08-23] MEDS: HydrOXYzine PAMOATE 25 MG CAPSULE PO SCH ×3 (08:17→21:03)
[2017-08-23] MEDS: POTASSIUM CHLORIDE 20 MEQ TABLET PO SCH (08:18)
[2017-08-23] MEDS: traMADol 50 MG TABLET PO SCH ×2 (08:18→21:02)
[2017-08-23] MEDS: PANTOPRAZOLE 40 MG TABLET PO SCH (08:19)
[2017-08-23] MEDS: tiZANidine 4 MG TABLET PO SCH ×4 (08:19→21:01)
[2017-08-23] MEDS: FUROSEMIDE 20 MG TABLET PO SCH (08:19)
[2017-08-23] MEDS: VERAPAMIL 120 MG TABLET PO SCH (08:19)
[2017-08-23] MEDS: predniSONE 20 MG TABLET PO SCH (08:19)
[2017-08-23] MEDS: BUDESONIDE/FORMOTEROL 160-4.5 INHALER 6 GM INH SCH ×2 (08:20→21:03)
[2017-08-23] MEDS: FLUTICASONE/SALMETEROL 500-50 DISKUS 14 DOSE INH SCH ×2 (08:20→21:03)
[2017-08-23] MEDS: QUEtiapine 100 MG TABLET PO SCH ×2 (08:40→21:02)
[2017-08-23] MEDS: MONTELUKAST 10 MG TABLET PO SCH (21:02)
[2017-08-23] MEDS: ENOXAPARIN 40 MG/0.4 ML SYRINGE SUBCUT SCH (21:03)
[2017-08-24] MEDS: ALBUTEROL/IPRATROPIUM 3 ML NEB RESP TX SCH ×4 (00:30→19:44)
[2017-08-24] MEDS: ONDANSETRON 4 MG/2 ML VIAL IV PRN ×3 (05:11→15:47)
[2017-08-24] MEDS: LEVOFLOXACIN 500 MG TABLET PO SCH (09:37)
[2017-08-24] MEDS: tiZANidine 4 MG TABLET PO SCH ×4 (09:38→21:11)
[2017-08-24] MEDS: PARoxetine 20 MG TABLET PO SCH (09:38)
[2017-08-24] MEDS: POTASSIUM CHLORIDE 20 MEQ TABLET PO SCH (09:38)
[2017-08-24] MEDS: PANTOPRAZOLE 40 MG TABLET PO SCH (09:38)
[2017-08-24] MEDS: FUROSEMIDE 20 MG TABLET PO SCH (09:38)
[2017-08-24] MEDS: QUEtiapine 100 MG TABLET PO SCH ×2 (09:38→21:11)
[2017-08-24] MEDS: HydrOXYzine PAMOATE 25 MG CAPSULE PO SCH ×3 (09:39→21:10)
[2017-08-24] MEDS: CYANOCOBALAMIN 500 MCG TABLET PO SCH (09:39)
[2017-08-24] MEDS: VERAPAMIL 120 MG TABLET PO SCH (09:39)
[2017-08-24] MEDS: GABAPENTIN 300 MG CAPSULE PO SCH ×4 (09:39→21:10)
[2017-08-24] MEDS: predniSONE 20 MG TABLET PO SCH (09:39)
[2017-08-24] MEDS: traMADol 50 MG TABLET PO SCH ×2 (09:40→21:10)
[2017-08-24] MEDS: BUDESONIDE/FORMOTEROL 160-4.5 INHALER 6 GM INH SCH ×2 (09:40→21:13)
[2017-08-24] MEDS: FLUTICASONE/SALMETEROL 500-50 DISKUS 14 DOSE INH SCH ×2 (09:44→21:14)
[2017-08-24] MEDS: MONTELUKAST 10 MG TABLET PO SCH (21:11)
[2017-08-24] MEDS: ENOXAPARIN 40 MG/0.4 ML SYRINGE SUBCUT SCH (21:11)
[2017-08-25] MEDS: ALBUTEROL/IPRATROPIUM 3 ML NEB RESP TX SCH ×3 (00:46→12:13)
[2017-08-25] MEDS: ONDANSETRON 4 MG/2 ML VIAL IV PRN ×2 (06:38→11:12)
[2017-08-25] MEDS ORDERED: FLUCONAZOLE 100 MG TABLET PO SCH (09:30)
[2017-08-25] MEDS: CYANOCOBALAMIN 500 MCG TABLET PO SCH (11:03)
[2017-08-25] MEDS: PANTOPRAZOLE 40 MG TABLET PO SCH (11:03)
[2017-08-25] MEDS: GABAPENTIN 300 MG CAPSULE PO SCH (11:03)
[2017-08-25] MEDS: predniSONE 20 MG TABLET PO SCH (11:04)
[2017-08-25] MEDS: tiZANidine 4 MG TABLET PO SCH (11:04)
[2017-08-25] MEDS: PARoxetine 20 MG TABLET PO SCH (11:04)
[2017-08-25] MEDS: VERAPAMIL 120 MG TABLET PO SCH (11:04)
[2017-08-25] MEDS: FUROSEMIDE 20 MG TABLET PO SCH (11:05)
[2017-08-25] MEDS: QUEtiapine 100 MG TABLET PO SCH (11:05)
[2017-08-25] MEDS: traMADol 50 MG TABLET PO SCH (11:05)
[2017-08-25] MEDS: POTASSIUM CHLORIDE 20 MEQ TABLET PO SCH (11:06)
[2017-08-25] MEDS: FLUTICASONE/SALMETEROL 500-50 DISKUS 14 DOSE INH SCH (11:06)
[2017-08-25] MEDS: LEVOFLOXACIN 500 MG TABLET PO SCH (11:06)
[2017-08-25] MEDS: HydrOXYzine PAMOATE 25 MG CAPSULE PO SCH (11:06)
[2017-08-25] MEDS: BUDESONIDE/FORMOTEROL 160-4.5 INHALER 6 GM INH SCH (11:06)
[2017-08-25 14:56] VITALS: BP 105/77
== END 2017-08-25 14:55 | disposition home or self-care (01) | DRG 140 ==
LOC: N.ED 16:46 → N.EDINP 20:02 → SUATTDRO 20:02 → N.TELEN 22:17 → N.4E 08-21 19:04
PROVIDERS: ADMIT Internal Medicine; ATTEND Internal Medicine

== ENCOUNTER 2017-11-13 13:39 | Observation (INO) ==
[2017-11-13 15:22] LABS: Apearance,Urine CLEAR (Clear); Bilirubin,Urine Negative (Negative); Blood, Urine Negative (Negative); Glucose,Urine (UA) Negative (Negative); Ketones,Urine Negative (Negative); Nitrite,Urine Negative (Negative); Protein,Urine Negative; RBC,Urine <1 /HPF (0-4); Squamous Epithelial Cell,Urine Occasional /HPF (0-10); Urine Color Straw (Yellow); Urine Specific Gravity 1.004 (1.001-1.035); Urine Urobilinogen < 2.0 EU/DL (0.2-1.0); WBC,Urine <1 /HPF (0-6)
[2017-11-13 15:27] LABS: Basophils # 0.1 10*3/uL (0.0-0.2); Basophils % 0.9 % (0.0-0.8); Eosinophils # 0.1 10*3/uL (0.0-0.87); Eosinophils % 1.5 % (0.00-10.9); Hematocrit 38.2 VOL% (35.7-47.0); Hemoglobin 12.1 GM/DL (12.0-16.0); Immature Granulocytes % 0.9 %; Immature Granulocytes Absolute 0.08 #; Lymphocytes # 1.9 10*3/uL (1.4-4.0); Lymphocytes % 22.7 % (21.3-54.2); Mean Corpuscular HGB Conc 31.7 GM/DL (32-36); Mean Corpuscular Hemoglobin 30 PG (27-34); Mean Corpuscular Volume 93.2 FL (87-102); Mean Platelet Volume 8.9 FL (9.6-12.0); Monocytes # 0.5 10*3/uL (0.11-0.8); Monocytes % 6.2 % (1.7-12.7); Neutrophils # 5.7 10*3/uL (1.4-7.4); Neutrophils % 67.8 % (38.7-73.9); Platelet Count 243 T/CUMM (130-400); Red Cell Distribution Width 15.1 % (9.3-17.3); White Blood Count 8.4 T/CUMM (4-12)
[2017-11-13 15:40] LABS: INR 1.1; PT Patient Result 11.1 SECS; Partial Thromboplastin Time 25.8 SECS (0-40)
[2017-11-13 15:47] LABS: Albumin 3.3 G/DL (3.4-5.0); Bilirubin,Total 0.4 MG/DL (0.2-1.0); Calcium 8.4 MG/DL (8.5-10.1); Osmolality,Calculated 280.3 MOS/KG (273-304); Potassium 3.8 MMOL/L (3.5-5.1); Total Protein 6.8 G/DL (6.4-8.3)
[2017-11-13] MEDS ORDERED: methylPREDNISolone SOD SUC 125 MG/2 ML VIAL IV STA (16:19)
[2017-11-13] MEDS ORDERED: ALBUTEROL 2.5 MG/3 ML NEB RESP TX STA (16:38)
[2017-11-13] MEDS ORDERED: ACETAMINOPHEN 325 MG TABLET PO PRN (16:47)
[2017-11-13] MEDS ORDERED: FUROSEMIDE 20 MG TABLET PO PRN (16:54)
[2017-11-13] MEDS ORDERED: ALBUTEROL 2.5 MG/3 ML NEB RESP TX PRN (16:54)
[2017-11-13] MEDS ORDERED: MORPHINE 4 MG/1 ML VIAL IV ONE (17:56)
[2017-11-13] MEDS: tiZANidine 4 MG TABLET PO SCH ×2 (18:14→21:18)
[2017-11-13] MEDS ORDERED: NORETHINDRONE 0.35 MG PO SCH (21:00)
[2017-11-13] MEDS: QUEtiapine XR 50 MG TABLET PO SCH (21:16)
[2017-11-13] MEDS: PARoxetine 20 MG TABLET PO SCH (21:17)
[2017-11-13] MEDS: VERAPAMIL 120 MG TABLET PO SCH (21:18)
[2017-11-13] MEDS: MONTELUKAST 10 MG TABLET PO SCH (21:18)
[2017-11-13] MEDS: BUDESONIDE/FORMOTEROL 160-4.5 INHALER 6 GM INH SCH (21:18)
[2017-11-13] MEDS: GABAPENTIN 600 MG TABLET PO SCH (21:18)
[2017-11-13] MEDS: FLUTICASONE/SALMETEROL 500-50 DISKUS 14 DOSE INH SCH (21:18)
[2017-11-13] MEDS: ONDANSETRON 4 MG/2 ML VIAL IV PRN (21:19)
[2017-11-14] MEDS: ONDANSETRON 4 MG/2 ML VIAL IV PRN ×5 (01:25→20:32)
[2017-11-14 05:08] LABS: Calcium 8.4 MG/DL (8.5-10.1); Osmolality,Calculated 283.7 MOS/KG (273-304); Potassium 4.4 MMOL/L (3.5-5.1)
[2017-11-14 05:53] LABS: Basophils % 0.3 % (0.0-0.8); Hematocrit 36.6 VOL% (35.7-47.0); Hemoglobin 11.3 GM/DL (12.0-16.0); Immature Granulocytes % 1.5 %; Immature Granulocytes Absolute 0.18 #; Lymphocytes # 1.2 10*3/uL (1.4-4.0); Lymphocytes % 10.3 % (21.3-54.2); Mean Corpuscular HGB Conc 30.9 GM/DL (32-36); Mean Corpuscular Hemoglobin 29 PG (27-34); Mean Corpuscular Volume 95.1 FL (87-102); Mean Platelet Volume 9.2 FL (9.6-12.0); Monocytes # 0.2 10*3/uL (0.11-0.8); Monocytes % 1.7 % (1.7-12.7); Neutrophils % 86.2 % (38.7-73.9); Platelet Count 243 T/CUMM (130-400); Red Blood Count 3.85 MC/CUMM (3.8-5.5); Red Cell Distribution Width 15.3 % (9.3-17.3); White Blood Count 11.6 T/CUMM (4-12)
[2017-11-14] MEDS: VERAPAMIL 120 MG TABLET PO SCH ×3 (09:27→20:32)
[2017-11-14] MEDS: CYANOCOBALAMIN 500 MCG TABLET PO SCH (09:28)
[2017-11-14] MEDS: PANTOPRAZOLE 40 MG TABLET PO SCH (09:28)
[2017-11-14] MEDS: tiZANidine 4 MG TABLET PO SCH ×4 (09:28→20:32)
[2017-11-14] MEDS: BUDESONIDE/FORMOTEROL 160-4.5 INHALER 6 GM INH SCH ×2 (09:36→20:32)
[2017-11-14] MEDS: PARoxetine 20 MG TABLET PO SCH ×2 (09:36→20:31)
[2017-11-14] MEDS: methylPREDNISolone SOD SUC 40 MG/1 ML VIAL IV SCH ×2 (09:36→20:29)
[2017-11-14] MEDS: FLUTICASONE/SALMETEROL 500-50 DISKUS 14 DOSE INH SCH ×2 (09:36→20:32)
[2017-11-14] MEDS: QUEtiapine XR 50 MG TABLET PO SCH ×2 (09:36→20:30)
[2017-11-14] MEDS: KETOROLAC 30 MG/1 ML VIAL IV SCH ×2 (12:59→18:12)
[2017-11-14] MEDS ORDERED: METHOTREXATE 2.5 MG TABLET PO SCH (16:54)
[2017-11-14] MEDS ORDERED: MAGNESIUM HYDROXIDE SUSP 30 ML UDCUP PO PRN (20:15)
[2017-11-14] MEDS ORDERED: SIMETHICONE CHEW 125 MG TABLET PO PRN (20:15)
[2017-11-14] MEDS: MONTELUKAST 10 MG TABLET PO SCH (20:30)
[2017-11-14] MEDS: GABAPENTIN 600 MG TABLET PO SCH (20:30)
[2017-11-15] MEDS: ONDANSETRON 4 MG/2 ML VIAL IV PRN ×2 (01:00→13:01)
[2017-11-15] MEDS: KETOROLAC 30 MG/1 ML VIAL IV SCH ×2 (01:00→06:45)
[2017-11-15 06:43] LABS: Basophils % 0.1 % (0.0-0.8); Hematocrit 39.3 VOL% (35.7-47.0); Hemoglobin 12.3 GM/DL (12.0-16.0); Immature Granulocytes % 1.2 %; Immature Granulocytes Absolute 0.21 #; Lymphocytes # 1.3 10*3/uL (1.4-4.0); Lymphocytes % 7.8 % (21.3-54.2); Mean Corpuscular HGB Conc 31.3 GM/DL (32-36); Mean Corpuscular Hemoglobin 29 PG (27-34); Mean Corpuscular Volume 93.6 FL (87-102); Mean Platelet Volume 9.8 FL (9.6-12.0); Monocytes % 6.1 % (1.7-12.7); Neutrophils # 14.5 10*3/uL (1.4-7.4); Neutrophils % 84.8 % (38.7-73.9); Platelet Count 249 T/CUMM (130-400); Red Cell Distribution Width 15.5 % (9.3-17.3); White Blood Count 17.1 T/CUMM (4-12)
[2017-11-15 07:12] LABS: Calcium 8.7 MG/DL (8.5-10.1); Osmolality,Calculated 285.4 MOS/KG (273-304); Potassium 4.1 MMOL/L (3.5-5.1)
[2017-11-15 07:35] LABS: Risk Ratio 3.14
[2017-11-15] MEDS ORDERED: REGADENOSON 0.4 MG/5 ML SYRINGE IV ONE (08:01)
[2017-11-15] MEDS ORDERED: ASPIRIN EC 81 MG TABLET PO SCH (09:00)
[2017-11-15] MEDS: FLUTICASONE/SALMETEROL 500-50 DISKUS 14 DOSE INH SCH (09:47)
[2017-11-15] MEDS: QUEtiapine XR 50 MG TABLET PO SCH (09:47)
[2017-11-15] MEDS: PANTOPRAZOLE 40 MG TABLET PO SCH (09:48)
[2017-11-15] MEDS: PARoxetine 20 MG TABLET PO SCH (09:48)
[2017-11-15] MEDS: VERAPAMIL 120 MG TABLET PO SCH (09:48)
[2017-11-15] MEDS: tiZANidine 4 MG TABLET PO SCH ×2 (09:48→12:31)
[2017-11-15] MEDS: CYANOCOBALAMIN 500 MCG TABLET PO SCH (09:49)
[2017-11-15] MEDS: BUDESONIDE/FORMOTEROL 160-4.5 INHALER 6 GM INH SCH (09:50)
[2017-11-15] MEDS: methylPREDNISolone SOD SUC 40 MG/1 ML VIAL IV SCH (09:51)
[2017-11-15 11:38] VITALS: BP 103/66
[2017-11-15] MEDS ORDERED: ATORVASTATIN 20 MG TABLET PO SCH (21:00)
== END 2017-11-15 15:28 | disposition home or self-care (01) ==
LOC: N.ED 13:39 → N.EDINP 13:39 → N.2E 17:29
PROVIDERS: ADMIT Family Medicine; ATTEND Family Medicine

== ENCOUNTER 2018-01-04 17:36 | Inpatient (IN) ==
[2018-01-04 18:11] LABS: Basophils # 0.1 10*3/uL (0.0-0.2); Basophils % 0.7 % (0.0-0.8); Eosinophils # 0.2 10*3/uL (0.0-0.87); Eosinophils % 2.2 % (0.00-10.9); Hemoglobin 10.5 GM/DL (12.0-16.0); Immature Granulocytes % 0.5 %; Immature Granulocytes Absolute 0.04 #; Lymphocytes # 1.9 10*3/uL (1.4-4.0); Lymphocytes % 23.1 % (21.3-54.2); Mean Corpuscular HGB Conc 31.8 GM/DL (32-36); Mean Corpuscular Hemoglobin 29 PG (27-34); Mean Corpuscular Volume 92.4 FL (87-102); Mean Platelet Volume 9.3 FL (9.6-12.0); Monocytes # 0.4 10*3/uL (0.11-0.8); Monocytes % 5.3 % (1.7-12.7); Neutrophils # 5.6 10*3/uL (1.4-7.4); Neutrophils % 68.2 % (38.7-73.9); Platelet Count 282 T/CUMM (130-400); Red Blood Count 3.57 MC/CUMM (3.8-5.5); Red Cell Distribution Width 14.4 % (9.3-17.3); White Blood Count 8.2 T/CUMM (4-12)
[2018-01-04] MEDS ORDERED: methylPREDNISolone SOD SUC 125 MG/2 ML VIAL IV STA (18:25)
[2018-01-04] MEDS ORDERED: ALBUTEROL/IPRATROPIUM 3 ML NEB RESP TX STA (18:25)
[2018-01-04 18:28] LABS: Lactic Acid 1.1 MMOL/L (0.4-2.0)
[2018-01-04 18:33] LABS: Alanine Aminotransferase 19 U/L (13-56); Albumin 2.8 G/DL (3.4-5.0); Alkaline Phosphatase 83 U/L (45-117); Aspartate Amino Transferase 13 U/L (0-37); Bilirubin,Total < 0.39 MG/DL (0.2-1.0); Blood Urea Nitrogen 7 MG/DL (7-18); Calcium 8.3 MG/DL (8.5-10.1); Glucose 160 MG/DL (74-106); Osmolality,Calculated 283.1 MOS/KG (273-304); Potassium 3.5 MMOL/L (3.5-5.1); Sodium 142 MMOL/L (136-145); Total Protein 6.3 G/DL (6.4-8.3)
[2018-01-04] MEDS ORDERED: KETOROLAC 30 MG/1 ML VIAL IV STA (19:09)
[2018-01-04] MEDS ORDERED: ONDANSETRON 4 MG/2 ML VIAL IV ONE (19:09)
[2018-01-04 20:36] LABS: ABG Base Excess 2.4 MMOL/L (-2.5-2.5); ABG HCO3 26.5 MMOL/L (20-26); ABG Oxygen Saturation 96.2 % (95-100); ABG PCO2 42.2 MM HG (35-48); ABG PH 7.417 (7.35-7.45); ABG TCO2 24.3 MMOL/L (23-27)
[2018-01-04] MEDS ORDERED: SODIUM CHLORIDE 0.9% 1,000 ML IV ONE (22:20)
[2018-01-04] MEDS ORDERED: ACETAMINOPHEN 325 MG TABLET PO PRN (22:20)
[2018-01-04] MEDS: ALBUTEROL 1.25 MG/3 ML NEB RESP TX SCH (22:37)
[2018-01-04] MEDS ORDERED: ALBUTEROL 2.5 MG/3 ML NEB RESP TX PRN (23:00)
[2018-01-04] MEDS: GABAPENTIN 600 MG TABLET PO SCH (23:13)
[2018-01-04] MEDS: ZALEPLON 5 MG CAPSULE PO SCH (23:13)
[2018-01-04] MEDS: QUEtiapine 100 MG TABLET PO SCH (23:13)
[2018-01-04] MEDS: PARoxetine 10 MG TABLET PO SCH (23:14)
[2018-01-04] MEDS: MONTELUKAST 10 MG TABLET PO SCH (23:14)
[2018-01-04] MEDS: HydrOXYzine PAMOATE 25 MG CAPSULE PO SCH (23:14)
[2018-01-04] MEDS: tiZANidine 4 MG TABLET PO SCH (23:14)
[2018-01-04] MEDS: LEVOFLOXACIN INJ 750 MG in PREMIX 1 EACH IV SCH (23:14)
[2018-01-04] MEDS: ONDANSETRON 4 MG/2 ML VIAL IV PRN (23:15)
[2018-01-04] MEDS: BUDESONIDE/FORMOTEROL 160-4.5 INHALER 6 GM INH SCH (23:30)
[2018-01-04 23:39] LABS: Thyroid Stimulating Hormone 0.264 uIU/ml (0.358-3.74)
[2018-01-05] MEDS: methylPREDNISolone SOD SUC 40 MG/1 ML VIAL IV SCH ×4 (02:10→18:00)
[2018-01-05] MEDS: ALBUTEROL 1.25 MG/3 ML NEB RESP TX SCH ×6 (02:44→22:58)
[2018-01-05] MEDS ORDERED: INFLUENZA VIRUS VACCINE 0.5 ML SYRINGE IM ONE (03:06)
[2018-01-05 04:01] LABS: Basophils % 0.3 % (0.0-0.8); Hematocrit 34.8 VOL% (35.7-47.0); Hemoglobin 10.5 GM/DL (12.0-16.0); Immature Granulocytes % 0.5 %; Immature Granulocytes Absolute 0.04 #; Lymphocytes # 0.7 10*3/uL (1.4-4.0); Lymphocytes % 9.6 % (21.3-54.2); Mean Corpuscular HGB Conc 30.2 GM/DL (32-36); Mean Corpuscular Hemoglobin 28 PG (27-34); Mean Platelet Volume 9.6 FL (9.6-12.0); Monocytes % 0.3 % (1.7-12.7); Neutrophils # 6.9 10*3/uL (1.4-7.4); Neutrophils % 89.3 % (38.7-73.9); Platelet Count 309 T/CUMM (130-400); Red Blood Count 3.74 MC/CUMM (3.8-5.5); Red Cell Distribution Width 14.3 % (9.3-17.3); White Blood Count 7.7 T/CUMM (4-12)
[2018-01-05 04:25] LABS: Calcium 8.7 MG/DL (8.5-10.1); Osmolality,Calculated 286.5 MOS/KG (273-304); Potassium 3.9 MMOL/L (3.5-5.1); Risk Ratio 4.44
[2018-01-05 06:46] LABS: Apearance,Urine CLEAR (Clear); Bacteria,Urine Occasional /HPF (Few); Bilirubin,Urine Negative (Negative); Blood, Urine Negative (Negative); Glucose,Urine (UA) >=500 mg/dL (Negative); Ketones,Urine Negative (Negative); Nitrite,Urine Negative (Negative); Protein,Urine Negative; RBC,Urine 1 /HPF (0-4); Urine Color Yellow (Yellow); Urine Specific Gravity 1.012 (1.001-1.035); Urine Urobilinogen < 2.0 EU/DL (0.2-1.0); WBC,Urine 1 /HPF (0-6)
[2018-01-05] MEDS: ONDANSETRON 4 MG/2 ML VIAL IV PRN ×3 (07:38→20:17)
[2018-01-05] MEDS: CYANOCOBALAMIN 500 MCG TABLET PO SCH (09:06)
[2018-01-05] MEDS: ASPIRIN EC 81 MG TABLET PO SCH (09:07)
[2018-01-05] MEDS: PARoxetine 10 MG TABLET PO SCH ×2 (09:07→21:51)
[2018-01-05] MEDS: tiZANidine 4 MG TABLET PO SCH ×4 (09:07→21:51)
[2018-01-05] MEDS: PANTOPRAZOLE 40 MG TABLET PO SCH (09:07)
[2018-01-05] MEDS: QUEtiapine 100 MG TABLET PO SCH ×2 (09:07→21:51)
[2018-01-05] MEDS: ENOXAPARIN 40 MG/0.4 ML SYRINGE SUBCUT SCH (09:07)
[2018-01-05] MEDS: HydrOXYzine PAMOATE 25 MG CAPSULE PO SCH ×3 (09:07→21:51)
[2018-01-05] MEDS: BUDESONIDE/FORMOTEROL 160-4.5 INHALER 6 GM INH SCH ×2 (11:43→22:08)
[2018-01-05] MEDS ORDERED: guaiFENesin 200 MG/10 ML UDCUP PO PRN (12:34)
[2018-01-05] MEDS: MAGNESIUM HYDROXIDE SUSP 30 ML UDCUP PO PRN (17:49)
[2018-01-05] MEDS: ZALEPLON 5 MG CAPSULE PO SCH (21:51)
[2018-01-05] MEDS: GABAPENTIN 600 MG TABLET PO SCH (21:51)
[2018-01-05] MEDS: MONTELUKAST 10 MG TABLET PO SCH (21:51)
[2018-01-05] MEDS: LEVOFLOXACIN INJ 750 MG in PREMIX 1 EACH IV SCH (23:36)
[2018-01-06] MEDS: methylPREDNISolone SOD SUC 40 MG/1 ML VIAL IV SCH ×4 (01:20→17:48)
[2018-01-06] MEDS: ALBUTEROL 1.25 MG/3 ML NEB RESP TX SCH ×6 (03:44→23:10)
[2018-01-06 04:42] LABS: Basophils % 0.1 % (0.0-0.8); Hematocrit 35.6 VOL% (35.7-47.0); Hemoglobin 10.9 GM/DL (12.0-16.0); Immature Granulocytes % 0.6 %; Immature Granulocytes Absolute 0.11 #; Lymphocytes # 1.1 10*3/uL (1.4-4.0); Lymphocytes % 6.4 % (21.3-54.2); Mean Corpuscular HGB Conc 30.6 GM/DL (32-36); Mean Corpuscular Hemoglobin 28 PG (27-34); Mean Corpuscular Volume 92.7 FL (87-102); Mean Platelet Volume 9.5 FL (9.6-12.0); Monocytes # 0.5 10*3/uL (0.11-0.8); Monocytes % 2.7 % (1.7-12.7); Neutrophils # 15.8 10*3/uL (1.4-7.4); Neutrophils % 90.2 % (38.7-73.9); Platelet Count 302 T/CUMM (130-400); Red Blood Count 3.84 MC/CUMM (3.8-5.5); Red Cell Distribution Width 14.3 % (9.3-17.3); White Blood Count 17.5 T/CUMM (4-12)
[2018-01-06 05:08] LABS: Calcium 8.8 MG/DL (8.5-10.1); Osmolality,Calculated 284.1 MOS/KG (273-304); Potassium 4.3 MMOL/L (3.5-5.1)
[2018-01-06] MEDS ORDERED: PROMETHAZINE 25 MG TABLET PO PRN (08:45)
[2018-01-06] MEDS ORDERED: PROMETHAZINE HCL PO PRN (08:45)
[2018-01-06] MEDS ORDERED: CODEINE PO PRN (08:45)
[2018-01-06] MEDS ORDERED: ALBUTEROL 2.5 MG/3 ML NEB RESP TX PRN (08:45)
[2018-01-06] MEDS: CYANOCOBALAMIN 500 MCG TABLET PO SCH (08:58)
[2018-01-06] MEDS: ENOXAPARIN 40 MG/0.4 ML SYRINGE SUBCUT SCH (08:58)
[2018-01-06] MEDS: PARoxetine 10 MG TABLET PO SCH ×2 (08:58→20:39)
[2018-01-06] MEDS: QUEtiapine 100 MG TABLET PO SCH ×2 (08:58→20:39)
[2018-01-06] MEDS: tiZANidine 4 MG TABLET PO SCH ×4 (08:59→20:40)
[2018-01-06] MEDS: ASPIRIN EC 81 MG TABLET PO SCH (08:59)
[2018-01-06] MEDS: PANTOPRAZOLE 40 MG TABLET PO SCH (08:59)
[2018-01-06] MEDS: HydrOXYzine PAMOATE 25 MG CAPSULE PO SCH ×3 (08:59→20:40)
[2018-01-06] MEDS: ONDANSETRON 4 MG/2 ML VIAL IV PRN ×2 (09:12→20:45)
[2018-01-06] MEDS: FUROSEMIDE 20 MG TABLET PO SCH (09:12)
[2018-01-06] MEDS: MAGNESIUM HYDROXIDE SUSP 30 ML UDCUP PO PRN (09:29)
[2018-01-06] MEDS: VERAPAMIL 120 MG TABLET PO SCH ×3 (11:50→20:41)
[2018-01-06] MEDS: FLUTICASONE/SALMETEROL 500-50 DISKUS 14 DOSE INH SCH (11:51)
[2018-01-06] MEDS: BUDESONIDE/FORMOTEROL 160-4.5 INHALER 6 GM INH SCH (12:58)
[2018-01-06] MEDS ORDERED: BISACODYL 5 MG TABLET PO PRN (16:05)
[2018-01-06] MEDS ORDERED: CALCIUM CARBONATE CHEW 500 MG TABLET PO PRN (17:38)
[2018-01-06] MEDS ORDERED: WITCH HAZEL PADS 100/JAR TOP PRN (17:51)
[2018-01-06] MEDS: MONTELUKAST 10 MG TABLET PO SCH (20:39)
[2018-01-06] MEDS: DOCUSATE SODIUM 100 MG CAPSULE PO SCH (20:40)
[2018-01-06] MEDS: ZALEPLON 5 MG CAPSULE PO SCH (20:40)
[2018-01-06] MEDS: GABAPENTIN 600 MG TABLET PO SCH (20:40)
[2018-01-06] MEDS: NORETHINDRONE 0.35 MG PO SCH (20:44)
[2018-01-06] MEDS: LEVOFLOXACIN INJ 750 MG in PREMIX 1 EACH IV SCH (22:32)
[2018-01-07] MEDS: methylPREDNISolone SOD SUC 40 MG/1 ML VIAL IV SCH ×4 (01:51→18:08)
[2018-01-07] MEDS: ALBUTEROL 1.25 MG/3 ML NEB RESP TX SCH ×6 (03:10→22:58)
[2018-01-07 03:38] LABS: Basophils % 0.1 % (0.0-0.8); Hematocrit 34.6 VOL% (35.7-47.0); Hemoglobin 10.3 GM/DL (12.0-16.0); Immature Granulocytes % 1.5 %; Immature Granulocytes Absolute 0.24 #; Lymphocytes # 1.2 10*3/uL (1.4-4.0); Lymphocytes % 7.6 % (21.3-54.2); Mean Corpuscular HGB Conc 29.8 GM/DL (32-36); Mean Corpuscular Hemoglobin 28 PG (27-34); Mean Corpuscular Volume 94.3 FL (87-102); Mean Platelet Volume 9.4 FL (9.6-12.0); Monocytes # 0.4 10*3/uL (0.11-0.8); Monocytes % 2.4 % (1.7-12.7); Neutrophils # 14.4 10*3/uL (1.4-7.4); Neutrophils % 88.4 % (38.7-73.9); Platelet Count 289 T/CUMM (130-400); Red Blood Count 3.67 MC/CUMM (3.8-5.5); Red Cell Distribution Width 14.5 % (9.3-17.3); White Blood Count 16.3 T/CUMM (4-12)
[2018-01-07 04:00] LABS: Calcium 8.6 MG/DL (8.5-10.1); Osmolality,Calculated 286.3 MOS/KG (273-304); Potassium 4.5 MMOL/L (3.5-5.1)
[2018-01-07 08:36] LABS: Troponin I < 0.015 NG/ML (0.00-0.045)
[2018-01-07] MEDS: QUEtiapine 100 MG TABLET PO SCH ×2 (08:54→20:56)
[2018-01-07] MEDS: ENOXAPARIN 40 MG/0.4 ML SYRINGE SUBCUT SCH (08:54)
[2018-01-07] MEDS: CYANOCOBALAMIN 500 MCG TABLET PO SCH (08:54)
[2018-01-07] MEDS: ASPIRIN EC 81 MG TABLET PO SCH (08:55)
[2018-01-07] MEDS: PARoxetine 10 MG TABLET PO SCH ×2 (08:55→20:55)
[2018-01-07] MEDS: PANTOPRAZOLE 40 MG TABLET PO SCH (08:55)
[2018-01-07] MEDS: VERAPAMIL 120 MG TABLET PO SCH ×3 (08:55→20:55)
[2018-01-07] MEDS: FUROSEMIDE 20 MG TABLET PO SCH (08:55)
[2018-01-07] MEDS: DOCUSATE SODIUM 100 MG CAPSULE PO SCH (08:55)
[2018-01-07] MEDS: FLUTICASONE/SALMETEROL 500-50 DISKUS 14 DOSE INH SCH (08:55)
[2018-01-07] MEDS: tiZANidine 4 MG TABLET PO SCH ×4 (08:55→20:56)
[2018-01-07] MEDS: BUDESONIDE/FORMOTEROL 160-4.5 INHALER 6 GM INH SCH (08:56)
[2018-01-07] MEDS: ONDANSETRON 4 MG/2 ML VIAL IV PRN ×2 (09:00→14:56)
[2018-01-07] MEDS: HydrOXYzine PAMOATE 25 MG CAPSULE PO SCH ×3 (10:37→20:56)
[2018-01-07] MEDS ORDERED: LACTULOSE 20 GM/30 ML UDCUP PO PRN (12:07)
[2018-01-07] MEDS ORDERED: BISACODYL 10 MG SUPP RECTAL PRN (12:08)
[2018-01-07] MEDS: GABAPENTIN 600 MG TABLET PO SCH (20:55)
[2018-01-07] MEDS: ZALEPLON 5 MG CAPSULE PO SCH (20:55)
[2018-01-07] MEDS: MONTELUKAST 10 MG TABLET PO SCH (20:55)
[2018-01-07] MEDS: DOCUSATE/SENNA 50-8.6 MG TABLET PO SCH (20:56)
[2018-01-07] MEDS: NORETHINDRONE 0.35 MG PO SCH (20:59)
[2018-01-07] MEDS: LEVOFLOXACIN INJ 750 MG in PREMIX 1 EACH IV SCH (22:31)
[2018-01-08] MEDS: methylPREDNISolone SOD SUC 40 MG/1 ML VIAL IV SCH ×4 (00:30→18:13)
[2018-01-08] MEDS: ALBUTEROL 1.25 MG/3 ML NEB RESP TX SCH ×5 (03:45→20:09)
[2018-01-08] MEDS: PARoxetine 10 MG TABLET PO SCH ×2 (09:41→20:55)
[2018-01-08] MEDS: VERAPAMIL 120 MG TABLET PO SCH ×3 (09:42→20:55)
[2018-01-08] MEDS: QUEtiapine 100 MG TABLET PO SCH ×2 (09:42→20:55)
[2018-01-08] MEDS: HydrOXYzine PAMOATE 25 MG CAPSULE PO SCH ×3 (09:42→20:56)
[2018-01-08] MEDS: DOCUSATE/SENNA 50-8.6 MG TABLET PO SCH ×2 (09:42→20:56)
[2018-01-08] MEDS: CYANOCOBALAMIN 500 MCG TABLET PO SCH (09:42)
[2018-01-08] MEDS: PANTOPRAZOLE 40 MG TABLET PO SCH (09:42)
[2018-01-08] MEDS: tiZANidine 4 MG TABLET PO SCH ×4 (09:43→20:56)
[2018-01-08] MEDS: ASPIRIN EC 81 MG TABLET PO SCH (09:43)
[2018-01-08] MEDS: FUROSEMIDE 20 MG TABLET PO SCH (09:43)
[2018-01-08] MEDS: ENOXAPARIN 40 MG/0.4 ML SYRINGE SUBCUT SCH (09:43)
[2018-01-08] MEDS: ONDANSETRON 4 MG/2 ML VIAL IV PRN ×3 (09:44→21:04)
[2018-01-08] MEDS: BUDESONIDE/FORMOTEROL 160-4.5 INHALER 6 GM INH SCH (09:47)
[2018-01-08] MEDS: FLUTICASONE/SALMETEROL 500-50 DISKUS 14 DOSE INH SCH (09:47)
[2018-01-08] MEDS: traMADol 50 MG TABLET PO PRN ×2 (12:04→18:17)
[2018-01-08] MEDS: POLYETHYLENE GLYCOL POWDER 17 GM PACK PO SCH (12:05)
[2018-01-08] MEDS: MONTELUKAST 10 MG TABLET PO SCH (20:55)
[2018-01-08] MEDS: GABAPENTIN 600 MG TABLET PO SCH (20:56)
[2018-01-08] MEDS: ZALEPLON 5 MG CAPSULE PO SCH (20:56)
[2018-01-08] MEDS: NORETHINDRONE 0.35 MG PO SCH (21:15)
[2018-01-09] MEDS: ALBUTEROL 1.25 MG/3 ML NEB RESP TX SCH ×7 (00:42→23:52)
[2018-01-09] MEDS: methylPREDNISolone SOD SUC 40 MG/1 ML VIAL IV SCH ×4 (01:10→20:38)
[2018-01-09 05:42] LABS: Basophils % 0.2 % (0.0-0.8); Hematocrit 35.2 VOL% (35.7-47.0); Hemoglobin 10.6 GM/DL (12.0-16.0); Immature Granulocytes % 5.1 %; Immature Granulocytes Absolute 0.74 #; Lymphocytes # 1.4 10*3/uL (1.4-4.0); Lymphocytes % 9.9 % (21.3-54.2); Mean Corpuscular HGB Conc 30.1 GM/DL (32-36); Mean Corpuscular Hemoglobin 28 PG (27-34); Mean Corpuscular Volume 93.6 FL (87-102); Mean Platelet Volume 9.3 FL (9.6-12.0); Monocytes # 0.6 10*3/uL (0.11-0.8); Monocytes % 4.2 % (1.7-12.7); NRBC # 0.02 10*3/uL; Neutrophils # 11.6 10*3/uL (1.4-7.4); Neutrophils % 80.6 % (38.7-73.9); Platelet Count 252 T/CUMM (130-400); Red Blood Count 3.76 MC/CUMM (3.8-5.5); Red Cell Distribution Width 14.7 % (9.3-17.3); White Blood Count 14.4 T/CUMM (4-12)
[2018-01-09 06:03] LABS: Hypochromasia 1+; Lymphocytes 8 % (20-55); Platelet Estimate Adequate; Segmented Neutrophils 88 % (50-85); Total Cells Counted 100
[2018-01-09] MEDS: traMADol 50 MG TABLET PO PRN (06:05)
[2018-01-09 06:15] LABS: Calcium 8.3 MG/DL (8.5-10.1); Osmolality,Calculated 285.4 MOS/KG (273-304); Potassium 4.5 MMOL/L (3.5-5.1)
[2018-01-09] MEDS ORDERED: METHOTREXATE 2.5 MG TABLET PO SCH ×2 (09:00→21:00)
[2018-01-09] MEDS: ONDANSETRON 4 MG/2 ML VIAL IV PRN ×3 (09:18→20:36)
[2018-01-09] MEDS: PANTOPRAZOLE 40 MG TABLET PO SCH (09:19)
[2018-01-09] MEDS: IBUPROFEN 800 MG TABLET PO PRN (09:19)
[2018-01-09] MEDS: CYANOCOBALAMIN 500 MCG TABLET PO SCH (09:19)
[2018-01-09] MEDS: PARoxetine 10 MG TABLET PO SCH ×2 (09:19→20:35)
[2018-01-09] MEDS: FUROSEMIDE 20 MG TABLET PO SCH (09:20)
[2018-01-09] MEDS: HydrOXYzine PAMOATE 25 MG CAPSULE PO SCH ×3 (09:20→20:35)
[2018-01-09] MEDS: QUEtiapine 100 MG TABLET PO SCH ×2 (09:20→20:35)
[2018-01-09] MEDS: VERAPAMIL 120 MG TABLET PO SCH ×3 (09:20→20:35)
[2018-01-09] MEDS: tiZANidine 4 MG TABLET PO SCH ×4 (09:20→20:36)
[2018-01-09] MEDS: ASPIRIN EC 81 MG TABLET PO SCH (09:20)
[2018-01-09] MEDS: DOCUSATE/SENNA 50-8.6 MG TABLET PO SCH ×2 (09:20→20:35)
[2018-01-09] MEDS: POLYETHYLENE GLYCOL POWDER 17 GM PACK PO SCH (09:21)
[2018-01-09] MEDS: ENOXAPARIN 40 MG/0.4 ML SYRINGE SUBCUT SCH (09:21)
[2018-01-09] MEDS: FLUTICASONE/SALMETEROL 500-50 DISKUS 14 DOSE INH SCH (09:21)
[2018-01-09] MEDS: BUDESONIDE/FORMOTEROL 160-4.5 INHALER 6 GM INH SCH (09:21)
[2018-01-09] MEDS: LEVOFLOXACIN 750 MG TABLET PO SCH (15:19)
[2018-01-09] MEDS: GABAPENTIN 600 MG TABLET PO SCH (20:35)
[2018-01-09] MEDS: MONTELUKAST 10 MG TABLET PO SCH (20:35)
[2018-01-09] MEDS: ZALEPLON 5 MG CAPSULE PO SCH (20:35)
[2018-01-09] MEDS: NORETHINDRONE 0.35 MG PO SCH (21:44)
[2018-01-10] MEDS: ALBUTEROL 1.25 MG/3 ML NEB RESP TX SCH ×2 (03:19→08:12)
[2018-01-10] MEDS: methylPREDNISolone SOD SUC 40 MG/1 ML VIAL IV SCH ×2 (03:54→09:31)
[2018-01-10] MEDS: BUDESONIDE/FORMOTEROL 160-4.5 INHALER 6 GM INH SCH (09:31)
[2018-01-10] MEDS: FLUTICASONE/SALMETEROL 500-50 DISKUS 14 DOSE INH SCH (09:31)
[2018-01-10] MEDS: ASPIRIN EC 81 MG TABLET PO SCH (09:32)
[2018-01-10] MEDS: FUROSEMIDE 20 MG TABLET PO SCH (09:32)
[2018-01-10] MEDS: tiZANidine 4 MG TABLET PO SCH (09:32)
[2018-01-10] MEDS: LEVOFLOXACIN 750 MG TABLET PO SCH (09:32)
[2018-01-10] MEDS: IBUPROFEN 800 MG TABLET PO PRN (09:32)
[2018-01-10] MEDS: PARoxetine 10 MG TABLET PO SCH (09:32)
[2018-01-10] MEDS: QUEtiapine 100 MG TABLET PO SCH (09:32)
[2018-01-10] MEDS: DOCUSATE/SENNA 50-8.6 MG TABLET PO SCH (09:32)
[2018-01-10] MEDS: HydrOXYzine PAMOATE 25 MG CAPSULE PO SCH (09:32)
[2018-01-10] MEDS: VERAPAMIL 120 MG TABLET PO SCH (09:32)
[2018-01-10] MEDS: POLYETHYLENE GLYCOL POWDER 17 GM PACK PO SCH (09:33)
[2018-01-10] MEDS: ENOXAPARIN 40 MG/0.4 ML SYRINGE SUBCUT SCH (09:33)
[2018-01-10] MEDS: PANTOPRAZOLE 40 MG TABLET PO SCH (09:33)
[2018-01-10] MEDS: CYANOCOBALAMIN 500 MCG TABLET PO SCH (09:33)
[2018-01-10] MEDS: ONDANSETRON 4 MG/2 ML VIAL IV PRN (09:37)
[2018-01-10 12:54] VITALS: BP 158/90
== END 2018-01-10 13:24 | disposition home or self-care (01) | DRG 139 ==
LOC: N.ED 17:36 → SUATTDRO 19:35 → N.EDINP 19:35 → N.5E 21:14
PROVIDERS: ATTEND Internal Medicine

== ENCOUNTER 2019-05-12 04:29 | Inpatient (IN) ==
[2019-05-12] MEDS ORDERED: methylPREDNISolone SOD SUC 125 MG/2 ML VIAL IV STA (05:05)
[2019-05-12] MEDS ORDERED: SODIUM CHLORIDE 0.9% 1,000 ML IV STA (05:05)
[2019-05-12] MEDS ORDERED: ALBUTEROL/IPRATROPIUM 3 ML NEB RESP TX STA (05:05)
[2019-05-12] MEDS ORDERED: ONDANSETRON 4 MG/2 ML VIAL ONE ×2 (05:29→19:32)
[2019-05-12] MEDS ORDERED: ONDANSETRON 4 MG/2 ML VIAL IV ONE (05:29)
[2019-05-12 05:33] LABS: Allen Test Positive
[2019-05-12 05:34] LABS: Basophils # 0.1 10*3/uL (0.0-0.2); Basophils % 0.5 % (0.0-0.8); Eosinophils # 0.2 10*3/uL (0.0-0.87); Eosinophils % 1.3 % (0.00-10.9); Hematocrit 36.6 VOL% (35.7-47.0); Hemoglobin 11.3 GM/DL (12.0-16.0); Immature Granulocytes % 0.4 %; Immature Granulocytes Absolute 0.05 #; Lymphocytes # 0.8 10*3/uL (1.4-4.0); Lymphocytes % 6.4 % (21.3-54.2); Mean Corpuscular HGB Conc 30.9 GM/DL (32-36); Mean Corpuscular Volume 92.2 FL (87-102); Mean Platelet Volume 9.7 FL (9.6-12.0); Neutrophils % 87.4 % (38.7-73.9); Platelet Count 181 T/CUMM (130-400); Red Blood Count 3.97 MC/CUMM (3.8-5.5); Red Cell Distribution Width 15.9 % (9.3-17.3); White Blood Count 11.8 T/CUMM (4-12)
[2019-05-12 05:35] LABS: ABG Base Excess -0.5 MMOL/L (-2.5-2.5); ABG HCO3 23.9 MMOL/L (20-26); ABG PCO2 42.4 MM HG (35-48); ABG PH 7.375 (7.35-7.45); ABG PO2 58.2 MM HG (80-95); ABG TCO2 22.3 MMOL/L (23-27)
[2019-05-12] MEDS ORDERED: NITROGLYCERIN SL 0.4 MG TABLET SL ONE (05:35)
[2019-05-12] MEDS ORDERED: NITROGLYCERIN SL 0.4 MG TABLET SL STA (05:36)
[2019-05-12 05:56] LABS: Band Neutrophils 3 % (0-10); Eosinophils 2 % (0-10); Lymphocytes 9 % (20-55); Platelet Estimate Adequate; Segmented Neutrophils 81 % (50-85); Total Cells Counted 100
[2019-05-12 05:57] LABS: Hypochromasia 1+
[2019-05-12 06:02] LABS: Albumin 2.8 G/DL (3.4-5.0); Bilirubin,Total 0.8 MG/DL (0.2-1.0); Calcium 8.3 MG/DL (8.5-10.1); Osmolality,Calculated 277.7 MOS/KG (273-304)
[2019-05-12 06:06] LABS: INR 1.2; PT Patient Result 12.8 SECS (9.6-12.2)
[2019-05-12] MEDS ORDERED: LEVOFLOXACIN INJ 500 MG in PREMIX 1 EACH IV STA (06:59)
[2019-05-12] MEDS ORDERED: ALBUTEROL 2.5 MG/3 ML NEB RESP TX STA (08:21)
[2019-05-12] MEDS: PANTOPRAZOLE 40 MG TABLET PO SCH (09:38)
[2019-05-12] MEDS: ENOXAPARIN 40 MG/0.4 ML SYRINGE SUBCUT SCH (09:43)
[2019-05-12] MEDS ORDERED: ALBUTEROL 0.63 MG/3 ML NEB RESP TX PRN (12:12)
[2019-05-12] MEDS: methylPREDNISolone SOD SUC 40 MG/1 ML VIAL IV SCH ×2 (12:34→20:07)
[2019-05-12] MEDS: ALBUTEROL 0.63 MG/3 ML NEB RESP TX SCH ×3 (15:53→23:56)
[2019-05-12] MEDS ORDERED: FUROSEMIDE 40 MG/4 ML VIAL IV ONE (16:10)
[2019-05-12] MEDS ORDERED: PNEUMOCOCCAL VACCINE (23 VALENT) 0.5 ML VIAL IM ONE (16:26)
[2019-05-12] MEDS: cefTRIAXone 1,000 MG in SYRINGE 1 EACH IV SCH (16:27)
[2019-05-12] MEDS ORDERED: MORPHINE 4 MG/1 ML VIAL IV ONE (16:45)
[2019-05-12 17:22] LABS: Apearance,Urine CLEAR (Clear); Bacteria,Urine Occasional /HPF (Few); Bilirubin,Urine Negative (Negative); Blood, Urine Small mg/dL (Negative); Glucose,Urine (UA) >=500 mg/dL (Negative); Ketones,Urine Negative (Negative); Nitrite,Urine Negative (Negative); Protein,Urine Negative; Urine Color Straw (Yellow); Urine Urobilinogen < 2.0 EU/DL (0.2-1.0); WBC,Urine <1 /HPF (0-6)
[2019-05-12] MEDS: POTASSIUM CHLORIDE 20 MEQ TABLET PO PRN ×2 (18:35→20:06)
[2019-05-12] MEDS: ONDANSETRON 4 MG/2 ML VIAL IV PRN (19:35)
[2019-05-12] MEDS ORDERED: CLORAZEPATE 3.75 MG TABLET PO ONE (19:52)
[2019-05-12] MEDS: VERAPAMIL 120 MG TABLET PO SCH (20:06)
[2019-05-12] MEDS: GABAPENTIN 100 MG CAPSULE PO SCH (20:06)
[2019-05-12] MEDS: PAROXETINE HCL 30 MG PO SCH (20:06)
[2019-05-12] MEDS: MONTELUKAST 10 MG TABLET PO SCH (20:06)
[2019-05-12] MEDS: QUEtiapine XR 50 MG TABLET PO SCH (20:07)
[2019-05-12] MEDS ORDERED: guaiFENesin 200 MG/10 ML UDCUP PO PRN (23:14)
[2019-05-13] MEDS: ALBUTEROL 0.63 MG/3 ML NEB RESP TX SCH ×6 (03:32→23:20)
[2019-05-13 05:03] LABS: Basophils % 0.2 % (0.0-0.8); Eosinophils % 0.1 % (0.00-10.9); Hematocrit 39.6 VOL% (35.7-47.0); Hemoglobin 12.1 GM/DL (12.0-16.0); Immature Granulocytes % 0.4 %; Immature Granulocytes Absolute 0.07 #; Lymphocytes % 5.1 % (21.3-54.2); Mean Corpuscular HGB Conc 30.6 GM/DL (32-36); Mean Corpuscular Volume 93.8 FL (87-102); Mean Platelet Volume 10.7 FL (9.6-12.0); Monocytes % 4.7 % (1.7-12.7); Neutrophils % 89.5 % (38.7-73.9); Platelet Count 203 T/CUMM (130-400); Red Blood Count 4.22 MC/CUMM (3.8-5.5); Red Cell Distribution Width 16.1 % (9.3-17.3); White Blood Count 19.4 T/CUMM (4-12)
[2019-05-13 05:39] LABS: Calcium 8.4 MG/DL (8.5-10.1); Osmolality,Calculated 273.1 MOS/KG (273-304); Risk Ratio 3.1; Thyroid Stimulating Hormone 0.202 uIU/ml (0.358-3.74); VLDL CHOLESTEROL 13.2 MG/DL
[2019-05-13 05:49] LABS: Band Neutrophils 4 % (0-10); Hypochromasia 2+; Lymphocytes 10 % (20-55); Nucleated Red Blood Cells 1 (0-5); Platelet Estimate Normal; Segmented Neutrophils 82 % (50-85); Total Cells Counted 100
[2019-05-13] MEDS: methylPREDNISolone SOD SUC 40 MG/1 ML VIAL IV SCH ×3 (07:01→20:22)
[2019-05-13] MEDS ORDERED: FUROSEMIDE 40 MG/4 ML VIAL IV ONE (07:30)
[2019-05-13] MEDS: VERAPAMIL 120 MG TABLET PO SCH ×3 (09:13→20:22)
[2019-05-13] MEDS: PANTOPRAZOLE 40 MG TABLET PO SCH (09:13)
[2019-05-13] MEDS: PAROXETINE HCL 30 MG PO SCH ×2 (09:14→20:21)
[2019-05-13] MEDS: ENOXAPARIN 40 MG/0.4 ML SYRINGE SUBCUT SCH (09:14)
[2019-05-13] MEDS: CHOLECALCIFEROL 1,000 UNIT TABLET PO SCH (09:14)
[2019-05-13] MEDS: ASPIRIN EC 81 MG TABLET PO SCH (09:14)
[2019-05-13] MEDS: guaiFENesin/CODEINE 5 ML LIQUID PO PRN ×2 (09:14→16:48)
[2019-05-13] MEDS: GABAPENTIN 100 MG CAPSULE PO SCH ×2 (09:16→20:22)
[2019-05-13] MEDS: QUEtiapine XR 50 MG TABLET PO SCH ×2 (09:35→20:23)
[2019-05-13] MEDS: ONDANSETRON 4 MG/2 ML VIAL IV PRN ×2 (10:41→20:30)
[2019-05-13] MEDS: cefTRIAXone 1,000 MG in SYRINGE 1 EACH IV SCH (16:48)
[2019-05-13] MEDS: MONTELUKAST 10 MG TABLET PO SCH (20:22)
[2019-05-14] MEDS: ALBUTEROL 0.63 MG/3 ML NEB RESP TX SCH ×6 (03:59→23:33)
[2019-05-14 04:46] LABS: Basophils # 0.1 10*3/uL (0.0-0.2); Basophils % 0.4 % (0.0-0.8); Hematocrit 36.2 VOL% (35.7-47.0); Hemoglobin 11.3 GM/DL (12.0-16.0); Immature Granulocytes % 2.9 %; Immature Granulocytes Absolute 0.37 #; Lymphocytes % 7.8 % (21.3-54.2); Mean Corpuscular HGB Conc 31.2 GM/DL (32-36); Mean Corpuscular Volume 91.9 FL (87-102); Mean Platelet Volume 10.4 FL (9.6-12.0); Monocytes % 7.4 % (1.7-12.7); NRBC # 0.13 10*3/uL; Neutrophils % 81.5 % (38.7-73.9); Platelet Count 213 T/CUMM (130-400); Red Blood Count 3.94 MC/CUMM (3.8-5.5); White Blood Count 12.9 T/CUMM (4-12)
[2019-05-14] MEDS: methylPREDNISolone SOD SUC 40 MG/1 ML VIAL IV SCH ×3 (04:47→20:02)
[2019-05-14 05:21] LABS: Calcium 8.8 MG/DL (8.5-10.1); Osmolality,Calculated 286.5 MOS/KG (273-304)
[2019-05-14 05:30] LABS: Lymphocytes 9 % (20-55); Segmented Neutrophils 84 % (50-85); Total Cells Counted 100
[2019-05-14 05:31] LABS: Hypochromasia 1+; Ovalocytes 1+; Platelet Estimate Normal
[2019-05-14] MEDS: CHOLECALCIFEROL 1,000 UNIT TABLET PO SCH (08:40)
[2019-05-14] MEDS: ASPIRIN EC 81 MG TABLET PO SCH (08:40)
[2019-05-14] MEDS: PAROXETINE HCL 30 MG PO SCH ×2 (08:40→20:03)
[2019-05-14] MEDS: QUEtiapine XR 50 MG TABLET PO SCH ×2 (08:41→20:02)
[2019-05-14] MEDS: PANTOPRAZOLE 40 MG TABLET PO SCH (08:41)
[2019-05-14] MEDS: guaiFENesin/CODEINE 5 ML LIQUID PO PRN ×2 (08:41→16:19)
[2019-05-14] MEDS: VERAPAMIL 120 MG TABLET PO SCH ×3 (08:41→20:02)
[2019-05-14] MEDS: GABAPENTIN 100 MG CAPSULE PO SCH ×2 (08:41→20:02)
[2019-05-14] MEDS: ENOXAPARIN 40 MG/0.4 ML SYRINGE SUBCUT SCH (08:41)
[2019-05-14] MEDS: ONDANSETRON 4 MG/2 ML VIAL IV PRN ×3 (08:55→21:26)
[2019-05-14] MEDS: cefTRIAXone 1,000 MG in SYRINGE 1 EACH IV SCH (16:19)
[2019-05-14] MEDS ORDERED: METHOTREXATE 2.5 MG TABLET PO SCH (16:57)
[2019-05-14] MEDS: MONTELUKAST 10 MG TABLET PO SCH (20:02)
[2019-05-14] MEDS: ACETAMINOPHEN 325 MG TABLET PO PRN (20:03)
[2019-05-15] MEDS: ALBUTEROL 0.63 MG/3 ML NEB RESP TX SCH ×6 (01:55→23:30)
[2019-05-15] MEDS: methylPREDNISolone SOD SUC 40 MG/1 ML VIAL IV SCH ×3 (04:41→21:20)
[2019-05-15 05:50] LABS: Basophils # 0.1 10*3/uL (0.0-0.2); Basophils % 0.4 % (0.0-0.8); Hematocrit 36.3 VOL% (35.7-47.0); Hemoglobin 11.4 GM/DL (12.0-16.0); Immature Granulocytes % 9.1 %; Immature Granulocytes Absolute 1.01 #; Lymphocytes # 1.3 10*3/uL (1.4-4.0); Lymphocytes % 11.8 % (21.3-54.2); Mean Corpuscular HGB Conc 31.4 GM/DL (32-36); Mean Corpuscular Volume 90.1 FL (87-102); Mean Platelet Volume 10.2 FL (9.6-12.0); Monocytes % 8.6 % (1.7-12.7); NRBC # 0.21 10*3/uL; Neutrophils % 70.1 % (38.7-73.9); Platelet Count 211 T/CUMM (130-400); Red Blood Count 4.03 MC/CUMM (3.8-5.5); Red Cell Distribution Width 16.4 % (9.3-17.3); White Blood Count 11.2 T/CUMM (4-12)
[2019-05-15 06:21] LABS: Calcium 8.5 MG/DL (8.5-10.1); Osmolality,Calculated 286.7 MOS/KG (273-304)
[2019-05-15 06:29] LABS: Lymphocytes 14 % (20-55); Nucleated Red Blood Cells 1 (0-5); Platelet Estimate Normal; Segmented Neutrophils 78 % (50-85); Total Cells Counted 100
[2019-05-15 06:30] LABS: Anisocytosis 1+; Hypochromasia Slight; Microcytosis Slight; Target Cells Few
[2019-05-15] MEDS: QUEtiapine XR 50 MG TABLET PO SCH ×2 (09:16→21:21)
[2019-05-15] MEDS: ENOXAPARIN 40 MG/0.4 ML SYRINGE SUBCUT SCH (09:16)
[2019-05-15] MEDS: VERAPAMIL 120 MG TABLET PO SCH ×3 (09:17→21:21)
[2019-05-15] MEDS: CHOLECALCIFEROL 1,000 UNIT TABLET PO SCH (09:18)
[2019-05-15] MEDS: PANTOPRAZOLE 40 MG TABLET PO SCH (09:18)
[2019-05-15] MEDS: ASPIRIN EC 81 MG TABLET PO SCH (09:18)
[2019-05-15] MEDS: GABAPENTIN 100 MG CAPSULE PO SCH ×2 (09:18→21:21)
[2019-05-15] MEDS: PAROXETINE HCL 30 MG PO SCH ×2 (09:18→21:22)
[2019-05-15] MEDS: ONDANSETRON 4 MG/2 ML VIAL IV PRN ×2 (09:24→21:24)
[2019-05-15] MEDS ORDERED: FUROSEMIDE 40 MG/4 ML VIAL IV ONE (09:29)
[2019-05-15] MEDS: PIPERACILLIN/TAZOBACTAM 3,375 MG in SODIUM CHLORIDE 0.9% 100 ML IV SCH (15:38)
[2019-05-15] MEDS: FUROSEMIDE 40 MG/4 ML VIAL IV SCH (15:39)
[2019-05-15] MEDS: hydrALAZINE 25 MG TABLET PO SCH ×2 (15:43→21:21)
[2019-05-15] MEDS: MONTELUKAST 10 MG TABLET PO SCH (21:21)
[2019-05-15] MEDS: guaiFENesin/CODEINE 5 ML LIQUID PO PRN (21:22)
[2019-05-16] MEDS: PIPERACILLIN/TAZOBACTAM 3,375 MG in SODIUM CHLORIDE 0.9% 100 ML IV SCH ×4 (00:13→23:19)
[2019-05-16] MEDS: ALBUTEROL 0.63 MG/3 ML NEB RESP TX SCH ×6 (03:15→22:44)
[2019-05-16 05:24] LABS: Basophils % 0.3 % (0.0-0.8); Hematocrit 37.9 VOL% (35.7-47.0); Hemoglobin 11.9 GM/DL (12.0-16.0); Immature Granulocytes % 4.3 %; Immature Granulocytes Absolute 0.57 #; Lymphocytes % 7.5 % (21.3-54.2); Mean Corpuscular HGB Conc 31.4 GM/DL (32-36); Mean Corpuscular Volume 90.5 FL (87-102); Mean Platelet Volume 10.3 FL (9.6-12.0); Monocytes % 5.1 % (1.7-12.7); NRBC # 0.02 10*3/uL; Neutrophils % 82.8 % (38.7-73.9); Platelet Count 218 T/CUMM (130-400); Red Blood Count 4.19 MC/CUMM (3.8-5.5); Red Cell Distribution Width 16.5 % (9.3-17.3); White Blood Count 13.4 T/CUMM (4-12)
[2019-05-16 05:38] LABS: Calcium 8.2 MG/DL (8.5-10.1); Osmolality,Calculated 292.3 MOS/KG (273-304)
[2019-05-16] MEDS: methylPREDNISolone SOD SUC 40 MG/1 ML VIAL IV SCH ×3 (05:45→20:40)
[2019-05-16 06:35] LABS: Anisocytosis 1+; Band Neutrophils 1 % (0-10); Lymphocytes 9 % (20-55); Platelet Estimate Adequate; Segmented Neutrophils 84 % (50-85); Total Cells Counted 100
[2019-05-16] MEDS: FUROSEMIDE 40 MG/4 ML VIAL IV SCH (09:37)
[2019-05-16] MEDS: ASPIRIN EC 81 MG TABLET PO SCH (09:37)
[2019-05-16] MEDS: PAROXETINE HCL 30 MG PO SCH ×2 (09:37→20:41)
[2019-05-16] MEDS: ENOXAPARIN 40 MG/0.4 ML SYRINGE SUBCUT SCH (09:37)
[2019-05-16] MEDS: CHOLECALCIFEROL 1,000 UNIT TABLET PO SCH (09:38)
[2019-05-16] MEDS: QUEtiapine XR 50 MG TABLET PO SCH ×2 (09:38→20:41)
[2019-05-16] MEDS: GABAPENTIN 100 MG CAPSULE PO SCH ×2 (09:38→20:42)
[2019-05-16] MEDS: hydrALAZINE 25 MG TABLET PO SCH ×3 (09:38→20:41)
[2019-05-16] MEDS: VERAPAMIL 120 MG TABLET PO SCH ×3 (09:38→20:41)
[2019-05-16] MEDS: PANTOPRAZOLE 40 MG TABLET PO SCH (09:38)
[2019-05-16] MEDS: ONDANSETRON 4 MG/2 ML VIAL IV PRN ×3 (10:01→21:11)
[2019-05-16] MEDS: guaiFENesin/CODEINE 5 ML LIQUID PO PRN ×2 (10:01→20:42)
[2019-05-16] MEDS: NYSTATIN 500,000 UNIT/5 ML UDCUP SWISH/SWAL SCH ×3 (13:31→20:42)
[2019-05-16] MEDS: MORPHINE 4 MG/1 ML VIAL IV PRN ×2 (14:27→21:11)
[2019-05-16] MEDS: busPIRone 5 MG TABLET PO SCH ×2 (14:37→20:41)
[2019-05-16] MEDS: MONTELUKAST 10 MG TABLET PO SCH (20:41)
[2019-05-17] MEDS: ALBUTEROL 0.63 MG/3 ML NEB RESP TX SCH ×6 (03:17→23:06)
[2019-05-17] MEDS: methylPREDNISolone SOD SUC 40 MG/1 ML VIAL IV SCH ×3 (04:10→21:19)
[2019-05-17 06:07] LABS: Calcium 8.4 MG/DL (8.5-10.1); Osmolality,Calculated 283.5 MOS/KG (273-304)
[2019-05-17 06:14] LABS: Basophils % 0.2 % (0.0-0.8); Hematocrit 41.8 VOL% (35.7-47.0); Hemoglobin 12.9 GM/DL (12.0-16.0); Immature Granulocytes % 4.7 %; Immature Granulocytes Absolute 0.61 #; Lymphocytes # 1.1 10*3/uL (1.4-4.0); Lymphocytes % 8.6 % (21.3-54.2); Mean Corpuscular HGB Conc 30.9 GM/DL (32-36); Mean Corpuscular Volume 92.1 FL (87-102); Mean Platelet Volume 10.1 FL (9.6-12.0); Monocytes % 1.3 % (1.7-12.7); Neutrophils % 85.2 % (38.7-73.9); Platelet Count 204 T/CUMM (130-400); Red Blood Count 4.54 MC/CUMM (3.8-5.5); Red Cell Distribution Width 16.6 % (9.3-17.3); White Blood Count 12.9 T/CUMM (4-12)
[2019-05-17 06:51] LABS: Anisocytosis 2+; Band Neutrophils 4 % (0-10); Lymphocytes 12 % (20-55); Macrocytosis 2+; Platelet Estimate Normal; Segmented Neutrophils 82 % (50-85); Total Cells Counted 100
[2019-05-17 06:52] LABS: Target Cells Few
[2019-05-17] MEDS: PIPERACILLIN/TAZOBACTAM 3,375 MG in SODIUM CHLORIDE 0.9% 100 ML IV SCH ×3 (07:51→23:43)
[2019-05-17] MEDS ORDERED: FUROSEMIDE 40 MG/4 ML VIAL IV SCH (09:00)
[2019-05-17] MEDS: ASPIRIN EC 81 MG TABLET PO SCH (09:06)
[2019-05-17] MEDS: QUEtiapine XR 50 MG TABLET PO SCH ×2 (09:06→21:25)
[2019-05-17] MEDS: GABAPENTIN 100 MG CAPSULE PO SCH ×2 (09:07→21:25)
[2019-05-17] MEDS: hydrALAZINE 25 MG TABLET PO SCH ×3 (09:07→21:24)
[2019-05-17] MEDS: NYSTATIN 500,000 UNIT/5 ML UDCUP SWISH/SWAL SCH ×4 (09:07→21:25)
[2019-05-17] MEDS: CHOLECALCIFEROL 1,000 UNIT TABLET PO SCH (09:07)
[2019-05-17] MEDS: PAROXETINE HCL 30 MG PO SCH ×2 (09:07→21:24)
[2019-05-17] MEDS: busPIRone 5 MG TABLET PO SCH ×3 (09:07→21:25)
[2019-05-17] MEDS: PANTOPRAZOLE 40 MG TABLET PO SCH (09:07)
[2019-05-17] MEDS: VERAPAMIL 120 MG TABLET PO SCH ×3 (09:07→21:25)
[2019-05-17] MEDS: ENOXAPARIN 40 MG/0.4 ML SYRINGE SUBCUT SCH (09:07)
[2019-05-17] MEDS: ONDANSETRON 4 MG/2 ML VIAL IV PRN ×2 (09:35→21:19)
[2019-05-17 09:44] LABS: ABG HCO3 28.8 MMOL/L (20-26); ABG Oxygen Saturation 85.2 % (95-100); ABG PCO2 43.9 MM HG (35-48); ABG PH 7.435 (7.35-7.45); ABG PO2 51.3 MM HG (80-95); ABG TCO2 30.2 MMOL/L (23-27); Allen Test Positive; Pt O2 Delivery Device Other
[2019-05-17] MEDS: methIMAzole 5 MG TABLET PO SCH ×2 (17:31→21:25)
[2019-05-17] MEDS: MORPHINE 4 MG/1 ML VIAL IV PRN (21:19)
[2019-05-17] MEDS: MONTELUKAST 10 MG TABLET PO SCH (21:24)
[2019-05-17] MEDS: guaiFENesin/CODEINE 5 ML LIQUID PO PRN (21:25)
[2019-05-18] MEDS: ALBUTEROL 0.63 MG/3 ML NEB RESP TX SCH ×6 (02:56→22:46)
[2019-05-18] MEDS: methylPREDNISolone SOD SUC 40 MG/1 ML VIAL IV SCH ×3 (04:47→19:30)
[2019-05-18 05:08] LABS: Basophils # 0.1 10*3/uL (0.0-0.2); Basophils % 0.3 % (0.0-0.8); Eosinophils % 0.1 % (0.00-10.9); Hematocrit 40.7 VOL% (35.7-47.0); Hemoglobin 12.7 GM/DL (12.0-16.0); Immature Granulocytes % 4.2 %; Lymphocytes # 1.1 10*3/uL (1.4-4.0); Lymphocytes % 7.8 % (21.3-54.2); Mean Corpuscular HGB Conc 31.2 GM/DL (32-36); Mean Corpuscular Volume 91.9 FL (87-102); Mean Platelet Volume 9.7 FL (9.6-12.0); Monocytes % 0.9 % (1.7-12.7); Neutrophils % 86.7 % (38.7-73.9); Platelet Count 206 T/CUMM (130-400); Red Blood Count 4.43 MC/CUMM (3.8-5.5); Red Cell Distribution Width 16.4 % (9.3-17.3); White Blood Count 14.4 T/CUMM (4-12)
[2019-05-18 05:26] LABS: Calcium 7.7 MG/DL (8.5-10.1); Osmolality,Calculated 281.5 MOS/KG (273-304)
[2019-05-18 05:34] LABS: Eosinophils 1 % (0-10); Hypochromasia 1+; Lymphocytes 8 % (20-55); Microcytosis 1+; Segmented Neutrophils 90 % (50-85); Total Cells Counted 100
[2019-05-18] MEDS: MORPHINE 4 MG/1 ML VIAL IV PRN ×2 (06:45→20:23)
[2019-05-18] MEDS: ONDANSETRON 4 MG/2 ML VIAL IV PRN ×3 (06:45→20:21)
[2019-05-18] MEDS: PIPERACILLIN/TAZOBACTAM 3,375 MG in SODIUM CHLORIDE 0.9% 100 ML IV SCH ×3 (06:48→23:10)
[2019-05-18] MEDS ORDERED: FUROSEMIDE 40 MG/4 ML VIAL IV ONE ×2 (07:19→15:00)
[2019-05-18] MEDS: ENOXAPARIN 40 MG/0.4 ML SYRINGE SUBCUT SCH (07:45)
[2019-05-18] MEDS: methIMAzole 5 MG TABLET PO SCH ×3 (09:33→20:23)
[2019-05-18] MEDS: ASPIRIN EC 81 MG TABLET PO SCH (09:33)
[2019-05-18] MEDS: PAROXETINE HCL 30 MG PO SCH ×2 (09:33→20:22)
[2019-05-18] MEDS: busPIRone 5 MG TABLET PO SCH ×3 (09:33→20:22)
[2019-05-18] MEDS: QUEtiapine XR 50 MG TABLET PO SCH ×2 (09:33→20:21)
[2019-05-18] MEDS: NYSTATIN 500,000 UNIT/5 ML UDCUP SWISH/SWAL SCH ×4 (09:34→20:22)
[2019-05-18] MEDS: hydrALAZINE 25 MG TABLET PO SCH ×3 (09:34→20:22)
[2019-05-18] MEDS: PANTOPRAZOLE 40 MG TABLET PO SCH (09:34)
[2019-05-18] MEDS: GABAPENTIN 100 MG CAPSULE PO SCH ×2 (09:34→20:22)
[2019-05-18] MEDS: CHOLECALCIFEROL 1,000 UNIT TABLET PO SCH (09:34)
[2019-05-18] MEDS: VERAPAMIL 120 MG TABLET PO SCH ×3 (09:34→20:23)
[2019-05-18] MEDS: MONTELUKAST 10 MG TABLET PO SCH (20:23)
[2019-05-18] MEDS: guaiFENesin/CODEINE 5 ML LIQUID PO PRN (20:31)
[2019-05-19] MEDS: ALBUTEROL 0.63 MG/3 ML NEB RESP TX SCH ×6 (02:54→22:29)
[2019-05-19] MEDS: methylPREDNISolone SOD SUC 40 MG/1 ML VIAL IV SCH ×3 (03:47→21:50)
[2019-05-19 06:27] LABS: Basophils # 0.1 10*3/uL (0.0-0.2); Basophils % 0.4 % (0.0-0.8); Eosinophils % 0.1 % (0.00-10.9); Hematocrit 42.5 VOL% (35.7-47.0); Hemoglobin 13.1 GM/DL (12.0-16.0); Immature Granulocytes % 5.6 %; Immature Granulocytes Absolute 0.75 #; Lymphocytes # 1.2 10*3/uL (1.4-4.0); Mean Corpuscular HGB Conc 30.8 GM/DL (32-36); Mean Corpuscular Volume 92.4 FL (87-102); Monocytes % 2.2 % (1.7-12.7); Neutrophils % 82.7 % (38.7-73.9); Platelet Count 174 T/CUMM (130-400); Red Cell Distribution Width 16.5 % (9.3-17.3); White Blood Count 13.5 T/CUMM (4-12)
[2019-05-19 06:41] LABS: Calcium 7.8 MG/DL (8.5-10.1)
[2019-05-19 06:49] LABS: Hypochromasia 1+; Lymphocytes 7 % (20-55); Nucleated Red Blood Cells 1 (0-5); Platelet Estimate Adequate; Segmented Neutrophils 91 % (50-85); Total Cells Counted 100
[2019-05-19 06:51] LABS: Microcytosis 1+
[2019-05-19] MEDS: busPIRone 5 MG TABLET PO SCH ×3 (08:53→21:51)
[2019-05-19] MEDS: GABAPENTIN 100 MG CAPSULE PO SCH ×2 (08:53→21:51)
[2019-05-19] MEDS: methIMAzole 5 MG TABLET PO SCH ×3 (08:53→21:51)
[2019-05-19] MEDS: VERAPAMIL 120 MG TABLET PO SCH ×3 (08:53→21:51)
[2019-05-19] MEDS: hydrALAZINE 25 MG TABLET PO SCH ×3 (08:53→21:51)
[2019-05-19] MEDS: PIPERACILLIN/TAZOBACTAM 3,375 MG in SODIUM CHLORIDE 0.9% 100 ML IV SCH ×2 (08:53→17:46)
[2019-05-19] MEDS: PAROXETINE HCL 30 MG PO SCH ×2 (08:53→21:51)
[2019-05-19] MEDS: ENOXAPARIN 40 MG/0.4 ML SYRINGE SUBCUT SCH (08:53)
[2019-05-19] MEDS: CHOLECALCIFEROL 1,000 UNIT TABLET PO SCH (08:54)
[2019-05-19] MEDS: ASPIRIN EC 81 MG TABLET PO SCH (08:54)
[2019-05-19] MEDS: PANTOPRAZOLE 40 MG TABLET PO SCH (09:02)
[2019-05-19] MEDS: QUEtiapine XR 50 MG TABLET PO SCH ×2 (09:02→21:50)
[2019-05-19] MEDS: ONDANSETRON 4 MG/2 ML VIAL IV PRN ×4 (09:24→21:52)
[2019-05-19] MEDS: MORPHINE 4 MG/1 ML VIAL IV PRN ×4 (09:26→21:51)
[2019-05-19] MEDS: NYSTATIN 500,000 UNIT/5 ML UDCUP SWISH/SWAL SCH ×4 (09:26→21:49)
[2019-05-19] MEDS: guaiFENesin/CODEINE 5 ML LIQUID PO PRN ×2 (09:33→17:46)
[2019-05-19] MEDS: MONTELUKAST 10 MG TABLET PO SCH (21:51)
[2019-05-20] MEDS: guaiFENesin/CODEINE 5 ML LIQUID PO PRN ×4 (00:19→21:34)
[2019-05-20] MEDS: PIPERACILLIN/TAZOBACTAM 3,375 MG in SODIUM CHLORIDE 0.9% 100 ML IV SCH ×3 (00:20→15:46)
[2019-05-20] MEDS: ALBUTEROL 0.63 MG/3 ML NEB RESP TX SCH ×5 (02:45→19:05)
[2019-05-20] MEDS: methylPREDNISolone SOD SUC 40 MG/1 ML VIAL IV SCH ×3 (04:21→21:33)
[2019-05-20 05:51] LABS: Calcium 8.3 MG/DL (8.5-10.1); Osmolality,Calculated 278.8 MOS/KG (273-304)
[2019-05-20] MEDS: ENOXAPARIN 40 MG/0.4 ML SYRINGE SUBCUT SCH (07:46)
[2019-05-20] MEDS: ONDANSETRON 4 MG/2 ML VIAL IV PRN ×4 (08:32→21:36)
[2019-05-20] MEDS: NYSTATIN 500,000 UNIT/5 ML UDCUP SWISH/SWAL SCH ×4 (08:34→21:34)
[2019-05-20] MEDS: ASPIRIN EC 81 MG TABLET PO SCH (08:34)
[2019-05-20] MEDS: GABAPENTIN 100 MG CAPSULE PO SCH ×2 (08:34→21:36)
[2019-05-20] MEDS: QUEtiapine XR 50 MG TABLET PO SCH ×2 (08:34→21:35)
[2019-05-20] MEDS: hydrALAZINE 25 MG TABLET PO SCH ×3 (08:35→21:36)
[2019-05-20] MEDS: CHOLECALCIFEROL 1,000 UNIT TABLET PO SCH (08:35)
[2019-05-20] MEDS: busPIRone 5 MG TABLET PO SCH ×3 (08:35→21:38)
[2019-05-20] MEDS: PANTOPRAZOLE 40 MG TABLET PO SCH (08:35)
[2019-05-20] MEDS: PAROXETINE HCL 30 MG PO SCH ×2 (08:35→21:38)
[2019-05-20] MEDS: VERAPAMIL 120 MG TABLET PO SCH ×3 (08:35→21:39)
[2019-05-20] MEDS: methIMAzole 5 MG TABLET PO SCH ×3 (08:35→21:36)
[2019-05-20] MEDS: MORPHINE 4 MG/1 ML VIAL IV PRN ×4 (08:40→21:42)
[2019-05-20] MEDS ORDERED: FUROSEMIDE 40 MG/4 ML VIAL IV ONE (09:04)
[2019-05-20 10:22] LABS: Apearance,Urine CLEAR (Clear); Bilirubin,Urine Negative (Negative); Blood, Urine Negative (Negative); Glucose,Urine (UA) >=500 mg/dL (Negative); Ketones,Urine Negative (Negative); Mucus,Urine Occasional /LPF (Occasional); Nitrite,Urine Negative (Negative); Protein,Urine Negative; RBC,Urine 8 /HPF (0-4); Squamous Epithelial Cell,Urine Occasional /HPF (0-10); Urine Color Yellow (Yellow); Urine Specific Gravity 1.025 (1.001-1.035); WBC,Urine <1 /HPF (0-6)
[2019-05-20] MEDS: MONTELUKAST 10 MG TABLET PO SCH (21:36)
[2019-05-21] MEDS: PIPERACILLIN/TAZOBACTAM 3,375 MG in SODIUM CHLORIDE 0.9% 100 ML IV SCH ×3 (00:11→15:58)
[2019-05-21] MEDS: ALBUTEROL 0.63 MG/3 ML NEB RESP TX SCH ×7 (00:24→23:53)
[2019-05-21 06:09] LABS: Calcium 7.9 MG/DL (8.5-10.1); Osmolality,Calculated 278.8 MOS/KG (273-304)
[2019-05-21] MEDS: guaiFENesin/CODEINE 5 ML LIQUID PO PRN ×3 (08:46→22:10)
[2019-05-21] MEDS: ASPIRIN EC 81 MG TABLET PO SCH (08:47)
[2019-05-21] MEDS: methylPREDNISolone SOD SUC 40 MG/1 ML VIAL IV SCH ×2 (08:47→21:47)
[2019-05-21] MEDS: ENOXAPARIN 40 MG/0.4 ML SYRINGE SUBCUT SCH (08:47)
[2019-05-21] MEDS: hydrALAZINE 25 MG TABLET PO SCH ×3 (08:47→21:50)
[2019-05-21] MEDS: VERAPAMIL 120 MG TABLET PO SCH ×3 (08:47→21:50)
[2019-05-21] MEDS: GABAPENTIN 100 MG CAPSULE PO SCH ×2 (08:47→21:50)
[2019-05-21] MEDS: busPIRone 5 MG TABLET PO SCH ×3 (08:47→21:50)
[2019-05-21] MEDS: CHOLECALCIFEROL 1,000 UNIT TABLET PO SCH (08:47)
[2019-05-21] MEDS: NYSTATIN 500,000 UNIT/5 ML UDCUP SWISH/SWAL SCH ×4 (08:48→21:50)
[2019-05-21] MEDS: methIMAzole 5 MG TABLET PO SCH ×3 (08:48→21:50)
[2019-05-21] MEDS: PANTOPRAZOLE 40 MG TABLET PO SCH (08:48)
[2019-05-21] MEDS ORDERED: FUROSEMIDE 40 MG/4 ML VIAL IV ONE (09:00)
[2019-05-21] MEDS: QUEtiapine XR 50 MG TABLET PO SCH ×2 (09:12→21:53)
[2019-05-21] MEDS: MORPHINE 4 MG/1 ML VIAL IV PRN ×3 (09:12→21:55)
[2019-05-21] MEDS: ONDANSETRON 4 MG/2 ML VIAL IV PRN ×3 (09:13→21:51)
[2019-05-21] MEDS: PAROXETINE HCL 30 MG PO SCH ×2 (13:33→21:50)
[2019-05-21] MEDS: MONTELUKAST 10 MG TABLET PO SCH (21:50)
[2019-05-22] MEDS: PIPERACILLIN/TAZOBACTAM 3,375 MG in SODIUM CHLORIDE 0.9% 100 ML IV SCH ×3 (00:22→15:26)
[2019-05-22] MEDS: ALBUTEROL 0.63 MG/3 ML NEB RESP TX SCH ×6 (03:18→23:02)
[2019-05-22 05:52] LABS: Calcium 7.9 MG/DL (8.5-10.1); Osmolality,Calculated 282.5 MOS/KG (273-304)
[2019-05-22] MEDS: guaiFENesin/CODEINE 5 ML LIQUID PO PRN ×2 (09:11→21:17)
[2019-05-22] MEDS: NYSTATIN 500,000 UNIT/5 ML UDCUP SWISH/SWAL SCH ×4 (09:12→21:00)
[2019-05-22] MEDS: GABAPENTIN 100 MG CAPSULE PO SCH ×2 (09:12→20:59)
[2019-05-22] MEDS: hydrALAZINE 25 MG TABLET PO SCH ×3 (09:13→21:07)
[2019-05-22] MEDS: methIMAzole 5 MG TABLET PO SCH ×3 (09:13→20:59)
[2019-05-22] MEDS: methylPREDNISolone SOD SUC 40 MG/1 ML VIAL IV SCH ×2 (09:13→21:02)
[2019-05-22] MEDS: VERAPAMIL 120 MG TABLET PO SCH ×3 (09:13→21:00)
[2019-05-22] MEDS: PAROXETINE HCL 30 MG PO SCH ×2 (09:13→21:00)
[2019-05-22] MEDS: ENOXAPARIN 40 MG/0.4 ML SYRINGE SUBCUT SCH (09:13)
[2019-05-22] MEDS: busPIRone 5 MG TABLET PO SCH ×3 (09:13→20:59)
[2019-05-22] MEDS: PANTOPRAZOLE 40 MG TABLET PO SCH (09:13)
[2019-05-22] MEDS: CHOLECALCIFEROL 1,000 UNIT TABLET PO SCH (09:13)
[2019-05-22] MEDS: QUEtiapine XR 50 MG TABLET PO SCH ×2 (09:13→20:58)
[2019-05-22] MEDS: ASPIRIN EC 81 MG TABLET PO SCH (09:13)
[2019-05-22] MEDS: MORPHINE 4 MG/1 ML VIAL IV PRN ×2 (09:33→21:12)
[2019-05-22] MEDS: ONDANSETRON 4 MG/2 ML VIAL IV PRN ×2 (09:33→21:13)
[2019-05-22] MEDS: MONTELUKAST 10 MG TABLET PO SCH (20:59)
[2019-05-23] MEDS: PIPERACILLIN/TAZOBACTAM 3,375 MG in SODIUM CHLORIDE 0.9% 100 ML IV SCH (00:48)
[2019-05-23] MEDS: ALBUTEROL 0.63 MG/3 ML NEB RESP TX SCH ×6 (02:26→23:10)
[2019-05-23 06:39] LABS: Calcium 8.2 MG/DL (8.5-10.1); Osmolality,Calculated 280.5 MOS/KG (273-304)
[2019-05-23] MEDS: NYSTATIN 500,000 UNIT/5 ML UDCUP SWISH/SWAL SCH ×4 (08:01→20:56)
[2019-05-23] MEDS: ENOXAPARIN 40 MG/0.4 ML SYRINGE SUBCUT SCH (08:02)
[2019-05-23] MEDS: CHOLECALCIFEROL 1,000 UNIT TABLET PO SCH (08:02)
[2019-05-23] MEDS: GABAPENTIN 100 MG CAPSULE PO SCH ×2 (08:02→20:58)
[2019-05-23] MEDS: VERAPAMIL 120 MG TABLET PO SCH ×3 (08:02→20:56)
[2019-05-23] MEDS: hydrALAZINE 25 MG TABLET PO SCH ×3 (08:02→20:58)
[2019-05-23] MEDS: busPIRone 5 MG TABLET PO SCH ×3 (08:02→20:56)
[2019-05-23] MEDS: PANTOPRAZOLE 40 MG TABLET PO SCH (08:02)
[2019-05-23] MEDS: methylPREDNISolone SOD SUC 40 MG/1 ML VIAL IV SCH ×2 (08:02→20:55)
[2019-05-23] MEDS: ASPIRIN EC 81 MG TABLET PO SCH (08:02)
[2019-05-23] MEDS: methIMAzole 5 MG TABLET PO SCH ×3 (08:02→20:58)
[2019-05-23] MEDS: QUEtiapine XR 50 MG TABLET PO SCH ×2 (08:03→20:56)
[2019-05-23] MEDS: ONDANSETRON 4 MG/2 ML VIAL IV PRN ×2 (08:12→17:58)
[2019-05-23] MEDS: guaiFENesin/CODEINE 5 ML LIQUID PO PRN ×2 (08:12→17:55)
[2019-05-23] MEDS: MORPHINE 4 MG/1 ML VIAL IV PRN ×2 (08:15→17:55)
[2019-05-23] MEDS: PAROXETINE HCL 30 MG PO SCH ×2 (09:29→20:56)
[2019-05-23] MEDS ORDERED: SODIUM PHOSPHATE ENEMA 133 ML BOTTLE RECTAL ONE (10:37)
[2019-05-23] MEDS: MONTELUKAST 10 MG TABLET PO SCH (20:58)
[2019-05-24] MEDS: ALBUTEROL 0.63 MG/3 ML NEB RESP TX SCH ×6 (03:10→23:48)
[2019-05-24 08:45] LABS: Basophils % 0.2 % (0.0-0.8); Eosinophils # 0.1 10*3/uL (0.0-0.87); Eosinophils % 0.3 % (0.00-10.9); Hematocrit 41.8 VOL% (35.7-47.0); Hemoglobin 12.6 GM/DL (12.0-16.0); Immature Granulocytes % 1.1 %; Lymphocytes # 1.5 10*3/uL (1.4-4.0); Lymphocytes % 8.8 % (21.3-54.2); Mean Corpuscular HGB Conc 30.1 GM/DL (32-36); Mean Corpuscular Volume 94.6 FL (87-102); Mean Platelet Volume 10.7 FL (9.6-12.0); Neutrophils % 80.6 % (38.7-73.9); Platelet Count 146 T/CUMM (130-400); Red Blood Count 4.42 MC/CUMM (3.8-5.5); White Blood Count 17.6 T/CUMM (4-12)
[2019-05-24] MEDS: guaiFENesin/CODEINE 5 ML LIQUID PO PRN ×2 (09:00→21:01)
[2019-05-24] MEDS: MORPHINE 4 MG/1 ML VIAL IV PRN (09:00)
[2019-05-24] MEDS: methIMAzole 5 MG TABLET PO SCH ×3 (09:01→20:52)
[2019-05-24] MEDS: NYSTATIN 500,000 UNIT/5 ML UDCUP SWISH/SWAL SCH ×4 (09:01→20:53)
[2019-05-24] MEDS: CHOLECALCIFEROL 1,000 UNIT TABLET PO SCH (09:01)
[2019-05-24] MEDS: ENOXAPARIN 40 MG/0.4 ML SYRINGE SUBCUT SCH (09:01)
[2019-05-24] MEDS: GABAPENTIN 100 MG CAPSULE PO SCH ×2 (09:01→20:51)
[2019-05-24] MEDS: busPIRone 5 MG TABLET PO SCH ×3 (09:01→20:51)
[2019-05-24] MEDS: ASPIRIN EC 81 MG TABLET PO SCH (09:01)
[2019-05-24] MEDS: PANTOPRAZOLE 40 MG TABLET PO SCH (09:01)
[2019-05-24] MEDS: hydrALAZINE 25 MG TABLET PO SCH ×3 (09:01→20:50)
[2019-05-24] MEDS: VERAPAMIL 120 MG TABLET PO SCH ×3 (09:01→20:52)
[2019-05-24 09:03] LABS: Calcium 8.4 MG/DL (8.5-10.1); Osmolality,Calculated 279.5 MOS/KG (273-304)
[2019-05-24] MEDS: methylPREDNISolone SOD SUC 40 MG/1 ML VIAL IV SCH ×2 (09:03→20:53)
[2019-05-24] MEDS: QUEtiapine XR 50 MG TABLET PO SCH ×2 (09:04→20:51)
[2019-05-24] MEDS: ONDANSETRON 4 MG/2 ML VIAL IV PRN ×2 (09:06→21:00)
[2019-05-24] MEDS: PAROXETINE HCL 30 MG PO SCH ×2 (12:03→20:52)
[2019-05-24] MEDS: MONTELUKAST 10 MG TABLET PO SCH (20:52)
[2019-05-25] MEDS: ALBUTEROL 0.63 MG/3 ML NEB RESP TX SCH ×6 (02:39→23:15)
[2019-05-25] MEDS: MORPHINE 4 MG/1 ML VIAL IV PRN ×2 (05:24→14:23)
[2019-05-25] MEDS: hydrALAZINE 25 MG TABLET PO SCH ×3 (09:56→21:03)
[2019-05-25] MEDS: ASPIRIN EC 81 MG TABLET PO SCH (09:56)
[2019-05-25] MEDS: VERAPAMIL 120 MG TABLET PO SCH ×3 (09:56→21:03)
[2019-05-25] MEDS: CHOLECALCIFEROL 1,000 UNIT TABLET PO SCH (09:56)
[2019-05-25] MEDS: methIMAzole 5 MG TABLET PO SCH ×3 (09:56→21:03)
[2019-05-25] MEDS: methylPREDNISolone SOD SUC 40 MG/1 ML VIAL IV SCH ×2 (09:56→21:04)
[2019-05-25] MEDS: PAROXETINE HCL 30 MG PO SCH ×2 (09:56→21:02)
[2019-05-25] MEDS: GABAPENTIN 100 MG CAPSULE PO SCH ×2 (09:56→21:03)
[2019-05-25] MEDS: busPIRone 5 MG TABLET PO SCH ×3 (09:56→21:02)
[2019-05-25] MEDS: ENOXAPARIN 40 MG/0.4 ML SYRINGE SUBCUT SCH (09:57)
[2019-05-25] MEDS: PANTOPRAZOLE 40 MG TABLET PO SCH (09:57)
[2019-05-25] MEDS: NYSTATIN 500,000 UNIT/5 ML UDCUP SWISH/SWAL SCH ×4 (09:57→21:02)
[2019-05-25] MEDS: QUEtiapine XR 50 MG TABLET PO SCH ×2 (09:58→21:03)
[2019-05-25] MEDS: guaiFENesin/CODEINE 5 ML LIQUID PO PRN ×2 (09:58→17:00)
[2019-05-25 13:17] LABS: Basophils % 0.1 % (0.0-0.8); Eosinophils % 0.2 % (0.00-10.9); Hematocrit 41.8 VOL% (35.7-47.0); Hemoglobin 12.9 GM/DL (12.0-16.0); Immature Granulocytes % 1.1 %; Immature Granulocytes Absolute 0.21 #; Lymphocytes # 0.8 10*3/uL (1.4-4.0); Lymphocytes % 3.8 % (21.3-54.2); Mean Corpuscular HGB Conc 30.9 GM/DL (32-36); Mean Corpuscular Volume 93.1 FL (87-102); Monocytes % 8.1 % (1.7-12.7); Neutrophils % 86.7 % (38.7-73.9); Platelet Count 173 T/CUMM (130-400); Red Blood Count 4.49 MC/CUMM (3.8-5.5); Red Cell Distribution Width 17.2 % (9.3-17.3); White Blood Count 19.6 T/CUMM (4-12)
[2019-05-25 13:27] LABS: Calcium 8.5 MG/DL (8.5-10.1); Osmolality,Calculated 279.5 MOS/KG (273-304)
[2019-05-25 13:52] LABS: Eosinophils 1 % (0-10); Lymphocytes 4 % (20-55); Segmented Neutrophils 92 % (50-85); Total Cells Counted 100
[2019-05-25] MEDS: FUROSEMIDE 40 MG/4 ML VIAL IV SCH (16:58)
[2019-05-25] MEDS: MEROPENEM 500 MG in SODIUM CHLORIDE 0.9% 100 ML IV SCH ×2 (16:59→21:04)
[2019-05-25] MEDS: MONTELUKAST 10 MG TABLET PO SCH (21:02)
[2019-05-26] MEDS: ALBUTEROL 0.63 MG/3 ML NEB RESP TX SCH ×6 (03:25→23:00)
[2019-05-26] MEDS: MEROPENEM 500 MG in SODIUM CHLORIDE 0.9% 100 ML IV SCH ×4 (04:17→21:48)
[2019-05-26] MEDS: MORPHINE 4 MG/1 ML VIAL IV PRN ×3 (04:59→22:01)
[2019-05-26 06:15] LABS: Calcium 8.1 MG/DL (8.5-10.1); Osmolality,Calculated 283.5 MOS/KG (273-304)
[2019-05-26 07:10] LABS: Basophils % 0.1 % (0.0-0.8); Hematocrit 42.7 VOL% (35.7-47.0); Immature Granulocytes % 0.9 %; Immature Granulocytes Absolute 0.15 #; Lymphocytes # 0.6 10*3/uL (1.4-4.0); Lymphocytes % 3.8 % (21.3-54.2); Mean Corpuscular HGB Conc 30.2 GM/DL (32-36); Mean Corpuscular Volume 93.8 FL (87-102); Mean Platelet Volume 10.9 FL (9.6-12.0); Monocytes % 6.8 % (1.7-12.7); Neutrophils % 88.4 % (38.7-73.9); Platelet Count 179 T/CUMM (130-400); Red Blood Count 4.55 MC/CUMM (3.8-5.5); Red Cell Distribution Width 17.4 % (9.3-17.3); White Blood Count 15.9 T/CUMM (4-12)
[2019-05-26 07:12] LABS: Hemoglobin 12.9 GM/DL (12.0-16.0)
[2019-05-26 07:16] LABS: Band Neutrophils 2 % (0-10); Lymphocytes 4 % (20-55); Platelet Estimate Normal; Segmented Neutrophils 86 % (50-85); Total Cells Counted 100
[2019-05-26] MEDS: methIMAzole 5 MG TABLET PO SCH ×3 (08:23→21:47)
[2019-05-26] MEDS: NYSTATIN 500,000 UNIT/5 ML UDCUP SWISH/SWAL SCH ×4 (08:23→21:47)
[2019-05-26] MEDS: VERAPAMIL 120 MG TABLET PO SCH ×3 (08:23→21:47)
[2019-05-26] MEDS: PAROXETINE HCL 30 MG PO SCH ×2 (08:23→21:46)
[2019-05-26] MEDS: FUROSEMIDE 40 MG/4 ML VIAL IV SCH ×2 (08:24→16:21)
[2019-05-26] MEDS: busPIRone 5 MG TABLET PO SCH ×3 (08:24→21:46)
[2019-05-26] MEDS: methylPREDNISolone SOD SUC 40 MG/1 ML VIAL IV SCH ×2 (08:24→21:48)
[2019-05-26] MEDS: PANTOPRAZOLE 40 MG TABLET PO SCH (08:25)
[2019-05-26] MEDS: GABAPENTIN 100 MG CAPSULE PO SCH ×2 (08:25→21:46)
[2019-05-26] MEDS: ENOXAPARIN 40 MG/0.4 ML SYRINGE SUBCUT SCH (08:25)
[2019-05-26] MEDS: CHOLECALCIFEROL 1,000 UNIT TABLET PO SCH (08:25)
[2019-05-26] MEDS: hydrALAZINE 25 MG TABLET PO SCH ×3 (08:25→21:47)
[2019-05-26] MEDS: ASPIRIN EC 81 MG TABLET PO SCH (08:25)
[2019-05-26] MEDS: ACETAMINOPHEN 325 MG TABLET PO PRN (08:45)
[2019-05-26] MEDS: guaiFENesin/CODEINE 5 ML LIQUID PO PRN (08:46)
[2019-05-26] MEDS: ONDANSETRON 4 MG/2 ML VIAL IV PRN (08:46)
[2019-05-26] MEDS: QUEtiapine XR 50 MG TABLET PO SCH ×2 (08:47→21:47)
[2019-05-26] MEDS: MONTELUKAST 10 MG TABLET PO SCH (21:47)
[2019-05-27] MEDS: ALBUTEROL 0.63 MG/3 ML NEB RESP TX SCH ×6 (03:10→23:25)
[2019-05-27] MEDS: MEROPENEM 500 MG in SODIUM CHLORIDE 0.9% 100 ML IV SCH ×4 (04:16→21:56)
[2019-05-27 05:10] LABS: Basophils % 0.1 % (0.0-0.8); Eosinophils % 0.1 % (0.00-10.9); Hematocrit 41.1 VOL% (35.7-47.0); Hemoglobin 12.7 GM/DL (12.0-16.0); Immature Granulocytes % 0.7 %; Immature Granulocytes Absolute 0.12 #; Lymphocytes # 0.7 10*3/uL (1.4-4.0); Lymphocytes % 3.7 % (21.3-54.2); Mean Corpuscular HGB Conc 30.9 GM/DL (32-36); Mean Platelet Volume 10.7 FL (9.6-12.0); Monocytes % 4.6 % (1.7-12.7); Neutrophils % 90.8 % (38.7-73.9); Platelet Count 229 T/CUMM (130-400); Red Blood Count 4.42 MC/CUMM (3.8-5.5); Red Cell Distribution Width 17.5 % (9.3-17.3); White Blood Count 17.7 T/CUMM (4-12)
[2019-05-27 05:34] LABS: Calcium 8.3 MG/DL (8.5-10.1); Osmolality,Calculated 290.3 MOS/KG (273-304)
[2019-05-27 05:41] LABS: Lymphocytes 2 % (20-55); Platelet Estimate Adequate; Segmented Neutrophils 95 % (50-85); Total Cells Counted 100
[2019-05-27] MEDS: ACETAMINOPHEN 325 MG TABLET PO PRN (07:39)
[2019-05-27] MEDS: FUROSEMIDE 40 MG/4 ML VIAL IV SCH ×2 (07:39→16:02)
[2019-05-27] MEDS: ENOXAPARIN 40 MG/0.4 ML SYRINGE SUBCUT SCH (07:40)
[2019-05-27] MEDS: VERAPAMIL 120 MG TABLET PO SCH ×3 (08:53→20:50)
[2019-05-27] MEDS: guaiFENesin/CODEINE 5 ML LIQUID PO PRN ×2 (08:53→16:03)
[2019-05-27] MEDS: QUEtiapine XR 50 MG TABLET PO SCH ×2 (08:53→20:48)
[2019-05-27] MEDS: hydrALAZINE 25 MG TABLET PO SCH ×3 (08:53→20:50)
[2019-05-27] MEDS: PAROXETINE HCL 30 MG PO SCH ×2 (08:53→20:49)
[2019-05-27] MEDS: methIMAzole 5 MG TABLET PO SCH ×3 (08:53→20:50)
[2019-05-27] MEDS: busPIRone 5 MG TABLET PO SCH ×3 (08:53→20:50)
[2019-05-27] MEDS: NYSTATIN 500,000 UNIT/5 ML UDCUP SWISH/SWAL SCH ×4 (08:53→20:49)
[2019-05-27] MEDS: GABAPENTIN 100 MG CAPSULE PO SCH ×2 (08:54→20:50)
[2019-05-27] MEDS: methylPREDNISolone SOD SUC 40 MG/1 ML VIAL IV SCH ×2 (08:54→20:48)
[2019-05-27] MEDS: ASPIRIN EC 81 MG TABLET PO SCH (08:54)
[2019-05-27] MEDS: CHOLECALCIFEROL 1,000 UNIT TABLET PO SCH (08:54)
[2019-05-27] MEDS: PANTOPRAZOLE 40 MG TABLET PO SCH (08:54)
[2019-05-27] MEDS: ONDANSETRON 4 MG/2 ML VIAL IV PRN ×3 (09:07→17:29)
[2019-05-27] MEDS: MORPHINE 4 MG/1 ML VIAL IV PRN ×4 (09:07→22:01)
[2019-05-27] MEDS: HydrOXYzine PAMOATE 50 MG CAPSULE PO PRN (17:45)
[2019-05-27] MEDS: MONTELUKAST 10 MG TABLET PO SCH (20:50)
[2019-05-28] MEDS ORDERED: LORazepam 2 MG/1 ML VIAL IV ONE ×2 (01:30→01:49)
[2019-05-28] MEDS ORDERED: LORazepam 2 MG/1 ML VIAL ONE (01:48)
[2019-05-28] MEDS: MORPHINE 4 MG/1 ML VIAL IV PRN ×2 (02:05→09:15)
[2019-05-28 02:06] LABS: ABG Base Excess 9.3 MMOL/L (-2.5-2.5); ABG HCO3 32.6 MMOL/L (20-26); ABG Oxygen Saturation 79.4 % (95-100); ABG PH 7.339 (7.35-7.45); ABG PO2 49.7 MM HG (80-95); ABG TCO2 34.1 MMOL/L (23-27); Allen Test Positive; Pt O2 Delivery Device Other
[2019-05-28 02:07] LABS: ABG PCO2 71.5 MM HG (35-48)
[2019-05-28] MEDS: ALBUTEROL 0.63 MG/3 ML NEB RESP TX SCH ×7 (02:18→23:19)
[2019-05-28 03:15] LABS: ABG Base Excess 7.3 MMOL/L (-2.5-2.5); ABG HCO3 31.1 MMOL/L (20-26); ABG Oxygen Saturation 97.3 % (95-100); ABG PH 7.274 (7.35-7.45); ABG TCO2 33.8 MMOL/L (23-27); Allen Test Positive; Pt O2 Delivery Device BIPAP
[2019-05-28 03:19] LABS: ABG PCO2 82.2 MM HG (35-48)
[2019-05-28] MEDS ORDERED: ETOMIDATE 20 MG/10 ML VIAL IV ONE (03:30)
[2019-05-28] MEDS ORDERED: VECURONIUM 10 MG VIAL IV ONE ×3 (03:30→08:09)
[2019-05-28] MEDS: MEROPENEM 500 MG in SODIUM CHLORIDE 0.9% 100 ML IV SCH ×4 (04:38→22:30)
[2019-05-28] MEDS: FUROSEMIDE 40 MG/4 ML VIAL IV SCH ×2 (07:20→16:00)
[2019-05-28] MEDS: methylPREDNISolone SOD SUC 40 MG/1 ML VIAL IV SCH ×2 (07:20→21:10)
[2019-05-28] MEDS: ENOXAPARIN 40 MG/0.4 ML SYRINGE SUBCUT SCH (07:25)
[2019-05-28] MEDS ORDERED: propofoL 200 MG/20 ML VIAL IV ONE (07:47)
[2019-05-28] MEDS ORDERED: SUCCINYLCHOLINE 200 MG/10 ML VIAL ONE (07:48)
[2019-05-28] MEDS ORDERED: ETOMIDATE 40 MG/20 ML VIAL IV ONE (07:48)
[2019-05-28] MEDS: QUEtiapine XR 50 MG TABLET PO SCH (09:00)
[2019-05-28] MEDS: methIMAzole 5 MG TABLET PO SCH ×3 (09:40→21:10)
[2019-05-28] MEDS: hydrALAZINE 25 MG TABLET PO SCH (09:40)
[2019-05-28] MEDS: GABAPENTIN 100 MG CAPSULE PO SCH ×2 (09:40→21:09)
[2019-05-28] MEDS: NYSTATIN 500,000 UNIT/5 ML UDCUP SWISH/SWAL SCH ×4 (09:40→21:10)
[2019-05-28] MEDS: ASPIRIN EC 81 MG TABLET PO SCH (09:40)
[2019-05-28] MEDS: VERAPAMIL 120 MG TABLET PO SCH ×3 (09:40→21:19)
[2019-05-28] MEDS: PANTOPRAZOLE 40 MG VIAL IV SCH (09:40)
[2019-05-28] MEDS: PAROXETINE HCL 30 MG PO SCH ×2 (09:40→21:18)
[2019-05-28] MEDS: busPIRone 5 MG TABLET PO SCH ×3 (09:40→21:09)
[2019-05-28] MEDS: CHOLECALCIFEROL 1,000 UNIT TABLET PO SCH (09:40)
[2019-05-28] MEDS: SULFAMETH/TRIMETH INJ 160 MG in DEXTROSE 5% 250 ML IV SCH ×3 (11:20→23:04)
[2019-05-28] MEDS: MULTIVITAMIN LIQUID (CENTRUM) 60 ML BOTTLE PO SCH (13:10)
[2019-05-28] MEDS: fentaNYL INJ 1,250 MCG in SODIUM CHLORIDE 0.9% 225 ML IV PRN ×2 (17:35→21:45)
[2019-05-28 18:28] LABS: ABG Base Excess 10.3 MMOL/L (-2.5-2.5); ABG Oxygen Saturation 97.4 % (95-100); ABG PH 7.353 (7.35-7.45); ABG PO2 98.1 MM HG (80-95); Allen Test Positive; Pt O2 Delivery Device Ventilator
[2019-05-28 18:30] LABS: ABG PCO2 70.1 MM HG (35-48); ABG TCO2 34.8 MMOL/L (23-27)
[2019-05-28] MEDS: MONTELUKAST 10 MG TABLET PO SCH (21:09)
[2019-05-28] MEDS: QUEtiapine 100 MG TABLET PO SCH (21:09)
[2019-05-29] MEDS: fentaNYL INJ 1,250 MCG in SODIUM CHLORIDE 0.9% 225 ML IV PRN ×2 (01:21→04:04)
[2019-05-29 03:16] LABS: ABG Base Excess 10.9 MMOL/L (-2.5-2.5); ABG HCO3 34.6 MMOL/L (20-26); ABG PH 7.361 (7.35-7.45); ABG PO2 92.5 MM HG (80-95); ABG TCO2 35.3 MMOL/L (23-27); Allen Test Positive; Pt O2 Delivery Device Ventilator
[2019-05-29 03:20] LABS: ABG PCO2 69.1 MM HG (35-48)
[2019-05-29] MEDS: ALBUTEROL 0.63 MG/3 ML NEB RESP TX SCH ×5 (03:27→20:41)
[2019-05-29] MEDS: MEROPENEM 500 MG in SODIUM CHLORIDE 0.9% 100 ML IV SCH ×4 (04:03→22:06)
[2019-05-29] MEDS: SULFAMETH/TRIMETH INJ 160 MG in DEXTROSE 5% 250 ML IV SCH ×4 (04:37→22:06)
[2019-05-29 05:39] LABS: Osmolality,Calculated 289.5 MOS/KG (273-304)
[2019-05-29 05:40] LABS: Basophils % 0.1 % (0.0-0.8); Eosinophils # 0.4 10*3/uL (0.0-0.87); Hemoglobin 10.6 GM/DL (12.0-16.0); Immature Granulocytes % 1.1 %; Immature Granulocytes Absolute 0.17 #; Lymphocytes # 1.3 10*3/uL (1.4-4.0); Lymphocytes % 8.7 % (21.3-54.2); Mean Corpuscular HGB Conc 30.3 GM/DL (32-36); Mean Corpuscular Volume 96.2 FL (87-102); Mean Platelet Volume 10.7 FL (9.6-12.0); Monocytes % 6.3 % (1.7-12.7); Neutrophils % 80.8 % (38.7-73.9); Platelet Count 164 T/CUMM (130-400); Red Blood Count 3.64 MC/CUMM (3.8-5.5); Red Cell Distribution Width 16.7 % (9.3-17.3); White Blood Count 14.9 T/CUMM (4-12)
[2019-05-29] MEDS ORDERED: VECURONIUM 10 MG VIAL IV ONE (06:15)
[2019-05-29] MEDS: fentaNYL INJ 2,500 MCG in SODIUM CHLORIDE 0.9% 450 ML IV PRN ×2 (08:03→15:01)
[2019-05-29] MEDS ORDERED: BISACODYL 10 MG SUPP RECTAL ONE (09:00)
[2019-05-29] MEDS: ENOXAPARIN 40 MG/0.4 ML SYRINGE SUBCUT SCH (10:13)
[2019-05-29] MEDS: GABAPENTIN 100 MG CAPSULE PO SCH ×2 (10:14→22:02)
[2019-05-29] MEDS: CHOLECALCIFEROL 1,000 UNIT TABLET PO SCH (10:14)
[2019-05-29] MEDS: ASPIRIN EC 81 MG TABLET PO SCH (10:15)
[2019-05-29] MEDS: QUEtiapine 100 MG TABLET PO SCH ×2 (10:15→22:01)
[2019-05-29] MEDS: VERAPAMIL 120 MG TABLET PO SCH ×3 (10:15→22:01)
[2019-05-29] MEDS: methIMAzole 5 MG TABLET PO SCH ×3 (10:15→22:02)
[2019-05-29] MEDS: PAROXETINE HCL 30 MG PO SCH ×2 (10:16→22:01)
[2019-05-29] MEDS: busPIRone 5 MG TABLET PO SCH ×3 (10:16→22:01)
[2019-05-29] MEDS: methylPREDNISolone SOD SUC 40 MG/1 ML VIAL IV SCH ×2 (10:17→22:05)
[2019-05-29] MEDS: PANTOPRAZOLE 40 MG VIAL IV SCH (10:17)
[2019-05-29] MEDS: MULTIVITAMIN LIQUID (CENTRUM) 60 ML BOTTLE PO SCH (10:37)
[2019-05-29] MEDS: NYSTATIN 500,000 UNIT/5 ML UDCUP SWISH/SWAL SCH ×4 (10:41→22:01)
[2019-05-29] MEDS: FUROSEMIDE 40 MG/4 ML VIAL IV SCH (10:57)
[2019-05-29] MEDS: INSULIN REGULAR 100 UNIT/ML SUBCUT SCH (18:04)
[2019-05-29] MEDS: MONTELUKAST 10 MG TABLET PO SCH (22:02)
[2019-05-30] MEDS: ALBUTEROL 0.63 MG/3 ML NEB RESP TX SCH ×6 (00:41→20:04)
[2019-05-30] MEDS: INSULIN REGULAR 100 UNIT/ML SUBCUT SCH ×4 (01:20→17:59)
[2019-05-30] MEDS: MEROPENEM 500 MG in SODIUM CHLORIDE 0.9% 100 ML IV SCH ×4 (04:15→21:00)
[2019-05-30 04:30] LABS: ABG Base Excess 9.3 MMOL/L (-2.5-2.5); ABG HCO3 33.1 MMOL/L (20-26); ABG Oxygen Saturation 99.6 % (95-100); ABG PCO2 63.4 MM HG (35-48); ABG PH 7.372 (7.35-7.45); ABG TCO2 33.3 MMOL/L (23-27); Allen Test Positive; Pt O2 Delivery Device Ventilator
[2019-05-30] MEDS: SULFAMETH/TRIMETH INJ 160 MG in DEXTROSE 5% 250 ML IV SCH ×4 (05:06→22:57)
[2019-05-30 05:36] LABS: Basophils % 0.1 % (0.0-0.8); Eosinophils % 0.2 % (0.00-10.9); Hemoglobin 10.2 GM/DL (12.0-16.0); Immature Granulocytes % 1.2 %; Immature Granulocytes Absolute 0.14 #; Lymphocytes # 0.4 10*3/uL (1.4-4.0); Lymphocytes % 3.1 % (21.3-54.2); Mean Corpuscular HGB Conc 28.7 GM/DL (32-36); Mean Corpuscular Volume 99.4 FL (87-102); Mean Platelet Volume 11.4 FL (9.6-12.0); Monocytes % 4.2 % (1.7-12.7); Neutrophils % 91.2 % (38.7-73.9); Platelet Count 159 T/CUMM (130-400); Red Blood Count 3.57 MC/CUMM (3.8-5.5); Red Cell Distribution Width 16.3 % (9.3-17.3); White Blood Count 11.2 T/CUMM (4-12)
[2019-05-30 05:55] LABS: Osmolality,Calculated 283.7 MOS/KG (273-304)
[2019-05-30 06:15] LABS: Hematocrit 33.8 VOL% (35.7-47.0)
[2019-05-30] MEDS: ENOXAPARIN 40 MG/0.4 ML SYRINGE SUBCUT SCH (08:21)
[2019-05-30] MEDS: NYSTATIN 500,000 UNIT/5 ML UDCUP SWISH/SWAL SCH ×4 (08:21→20:59)
[2019-05-30] MEDS: CHOLECALCIFEROL 1,000 UNIT TABLET PO SCH (08:22)
[2019-05-30] MEDS: MULTIVITAMIN LIQUID (CENTRUM) 60 ML BOTTLE PO SCH (08:22)
[2019-05-30] MEDS: busPIRone 5 MG TABLET PO SCH ×3 (08:23→21:00)
[2019-05-30] MEDS: QUEtiapine 100 MG TABLET PO SCH ×2 (08:23→21:00)
[2019-05-30] MEDS: ASPIRIN EC 81 MG TABLET PO SCH (08:23)
[2019-05-30] MEDS: GABAPENTIN 100 MG CAPSULE PO SCH ×2 (08:23→20:59)
[2019-05-30] MEDS: PAROXETINE HCL 30 MG PO SCH ×2 (08:24→20:59)
[2019-05-30] MEDS: methIMAzole 5 MG TABLET PO SCH ×3 (08:24→21:00)
[2019-05-30] MEDS: methylPREDNISolone SOD SUC 40 MG/1 ML VIAL IV SCH ×2 (08:24→21:00)
[2019-05-30] MEDS: VERAPAMIL 120 MG TABLET PO SCH ×3 (08:24→21:00)
[2019-05-30] MEDS: PANTOPRAZOLE 40 MG VIAL IV SCH (08:24)
[2019-05-30 08:33] LABS: Band Neutrophils 1 % (0-10); Hypochromasia Slight; Lymphocytes 3 % (20-55); Platelet Estimate Adequate; Reactive Lymphocytes Slight; Schistocytes Slight; Segmented Neutrophils 93 % (50-85); Total Cells Counted 100
[2019-05-30] MEDS: fentaNYL INJ 2,500 MCG in SODIUM CHLORIDE 0.9% 450 ML IV PRN ×2 (08:40→16:25)
[2019-05-30] MEDS: MONTELUKAST 10 MG TABLET PO SCH (21:00)
[2019-05-30] MEDS ORDERED: VECURONIUM 10 MG VIAL IV ONE ×2 (23:45→23:47)
[2019-05-31] MEDS: ALBUTEROL 0.63 MG/3 ML NEB RESP TX SCH ×7 (00:15→23:30)
[2019-05-31] MEDS: INSULIN REGULAR 100 UNIT/ML SUBCUT SCH ×4 (01:23→18:05)
[2019-05-31] MEDS: SULFAMETH/TRIMETH INJ 160 MG in DEXTROSE 5% 250 ML IV SCH ×4 (04:05→22:20)
[2019-05-31] MEDS: fentaNYL INJ 2,500 MCG in SODIUM CHLORIDE 0.9% 450 ML IV PRN ×3 (04:13→20:51)
[2019-05-31] MEDS: MEROPENEM 500 MG in SODIUM CHLORIDE 0.9% 100 ML IV SCH ×4 (04:17→23:04)
[2019-05-31 04:39] LABS: Immature Granulocytes % 1.5 %; Immature Granulocytes Absolute 0.16 #; Lymphocytes # 0.4 10*3/uL (1.4-4.0); Lymphocytes % 3.5 % (21.3-54.2); Mean Corpuscular HGB Conc 28.8 GM/DL (32-36); Mean Corpuscular Volume 98.9 FL (87-102); Mean Platelet Volume 10.7 FL (9.6-12.0); Monocytes % 5.2 % (1.7-12.7); Neutrophils % 89.8 % (38.7-73.9); Platelet Count 176 T/CUMM (130-400); Red Blood Count 3.68 MC/CUMM (3.8-5.5); Red Cell Distribution Width 16.3 % (9.3-17.3); White Blood Count 10.4 T/CUMM (4-12)
[2019-05-31 04:58] LABS: Calcium 8.4 MG/DL (8.5-10.1); Osmolality,Calculated 280.8 MOS/KG (273-304)
[2019-05-31 04:59] LABS: Hematocrit 35.8 VOL% (35.7-47.0); Hemoglobin 10.5 GM/DL (12.0-16.0)
[2019-05-31 05:55] LABS: Anisocytosis 1+; Band Neutrophils 3 % (0-10); Lymphocytes 4 % (20-55); Segmented Neutrophils 90 % (50-85); Total Cells Counted 100
[2019-05-31 05:56] LABS: Platelet Estimate Normal; Target Cells Few; Tear Drop Cells Few
[2019-05-31 07:34] LABS: ABG Base Excess 8.5 MMOL/L (-2.5-2.5); ABG HCO3 32.2 MMOL/L (20-26); ABG Oxygen Saturation 94.2 % (95-100); ABG PH 7.308 (7.35-7.45); ABG PO2 73.7 MM HG (80-95); ABG TCO2 34.4 MMOL/L (23-27); Allen Test Positive; Pt O2 Delivery Device Ventilator
[2019-05-31 07:42] LABS: ABG PCO2 74.6 MM HG (35-48)
[2019-05-31] MEDS: methIMAzole 5 MG TABLET PO SCH ×3 (08:30→21:08)
[2019-05-31] MEDS: busPIRone 5 MG TABLET PO SCH ×3 (08:30→21:40)
[2019-05-31] MEDS: PANTOPRAZOLE 40 MG VIAL IV SCH (08:30)
[2019-05-31] MEDS: CHOLECALCIFEROL 1,000 UNIT TABLET PO SCH (08:31)
[2019-05-31] MEDS: PAROXETINE HCL 30 MG PO SCH ×2 (08:31→21:07)
[2019-05-31] MEDS: ASPIRIN EC 81 MG TABLET PO SCH (08:31)
[2019-05-31] MEDS: QUEtiapine 100 MG TABLET PO SCH ×2 (08:31→21:39)
[2019-05-31] MEDS: methylPREDNISolone SOD SUC 40 MG/1 ML VIAL IV SCH ×2 (08:32→21:36)
[2019-05-31] MEDS: NYSTATIN 500,000 UNIT/5 ML UDCUP SWISH/SWAL SCH ×4 (08:32→21:06)
[2019-05-31] MEDS: ENOXAPARIN 40 MG/0.4 ML SYRINGE SUBCUT SCH (08:32)
[2019-05-31] MEDS: VERAPAMIL 120 MG TABLET PO SCH ×3 (08:32→21:08)
[2019-05-31] MEDS: GABAPENTIN 100 MG CAPSULE PO SCH ×2 (08:32→21:08)
[2019-05-31] MEDS: MULTIVITAMIN LIQUID (CENTRUM) 60 ML BOTTLE PO SCH (08:47)
[2019-05-31] MEDS: FUROSEMIDE 40 MG/4 ML VIAL IV SCH (16:53)
[2019-05-31] MEDS: MONTELUKAST 10 MG TABLET PO SCH (21:08)
[2019-05-31] MEDS: ACETAMINOPHEN 325 MG TABLET PO PRN (22:56)
[2019-06-01] MEDS ORDERED: PHENYLEPHRINE DRIP 40 MG/250 ML PREMIX IV PRN (00:12)
[2019-06-01] MEDS: INSULIN REGULAR 100 UNIT/ML SUBCUT SCH ×4 (01:01→17:55)
[2019-06-01] MEDS: ALBUTEROL 0.63 MG/3 ML NEB RESP TX SCH ×6 (03:00→22:32)
[2019-06-01 03:42] LABS: ABG Base Excess 7.8 MMOL/L (-2.5-2.5); ABG HCO3 31.6 MMOL/L (20-26); ABG Oxygen Saturation 97.6 % (95-100); ABG PCO2 66.8 MM HG (35-48); ABG PH 7.336 (7.35-7.45); ABG PO2 96.5 MM HG (80-95); ABG TCO2 32.8 MMOL/L (23-27); Allen Test Positive; Pt O2 Delivery Device Ventilator
[2019-06-01] MEDS: MEROPENEM 500 MG in SODIUM CHLORIDE 0.9% 100 ML IV SCH ×4 (04:33→22:06)
[2019-06-01] MEDS: SULFAMETH/TRIMETH INJ 160 MG in DEXTROSE 5% 250 ML IV SCH ×4 (04:34→22:05)
[2019-06-01] MEDS: fentaNYL INJ 2,500 MCG in SODIUM CHLORIDE 0.9% 450 ML IV PRN ×3 (05:25→23:29)
[2019-06-01 05:33] LABS: Basophils % 0.1 % (0.0-0.8); Eosinophils % 0.2 % (0.00-10.9); Hematocrit 30.8 VOL% (35.7-47.0); Hemoglobin 9.4 GM/DL (12.0-16.0); Immature Granulocytes % 1.8 %; Immature Granulocytes Absolute 0.19 #; Lymphocytes # 0.5 10*3/uL (1.4-4.0); Lymphocytes % 4.5 % (21.3-54.2); Mean Corpuscular HGB Conc 30.5 GM/DL (32-36); Mean Platelet Volume 11.3 FL (9.6-12.0); Monocytes % 6.9 % (1.7-12.7); Neutrophils % 86.5 % (38.7-73.9); Platelet Count 167 T/CUMM (130-400); Red Blood Count 3.21 MC/CUMM (3.8-5.5); Red Cell Distribution Width 16.9 % (9.3-17.3); White Blood Count 10.4 T/CUMM (4-12)
[2019-06-01 05:55] LABS: Calcium 8.5 MG/DL (8.5-10.1); Osmolality,Calculated 283.8 MOS/KG (273-304)
[2019-06-01 06:06] LABS: Hypochromasia 1+; Lymphocytes 5 % (20-55); Platelet Estimate Adequate; Segmented Neutrophils 92 % (50-85); Total Cells Counted 100
[2019-06-01] MEDS ORDERED: MAGNESIUM SULF RIDER 2 GM in PREMIX 1 EACH IV PRN (06:20)
[2019-06-01] MEDS ORDERED: MAGNESIUM SULF RIDER 4 GM in PREMIX 1 EACH IV PRN (06:20)
[2019-06-01 06:31] LABS: Prealbumin 23.5 MG/DL (20-40)
[2019-06-01] MEDS ORDERED: MAGNESIUM SULF RIDER 0 ML IV ONE (06:38)
[2019-06-01] MEDS: FUROSEMIDE 40 MG/4 ML VIAL IV SCH ×2 (09:20→15:40)
[2019-06-01] MEDS: PANTOPRAZOLE 40 MG VIAL IV SCH (09:25)
[2019-06-01] MEDS: methIMAzole 5 MG TABLET PO SCH ×3 (09:30→22:12)
[2019-06-01] MEDS: CHOLECALCIFEROL 1,000 UNIT TABLET PO SCH (09:30)
[2019-06-01] MEDS: NYSTATIN 500,000 UNIT/5 ML UDCUP SWISH/SWAL SCH ×4 (09:30→22:14)
[2019-06-01] MEDS: busPIRone 5 MG TABLET PO SCH ×3 (09:30→22:11)
[2019-06-01] MEDS: PAROXETINE HCL 30 MG PO SCH ×2 (09:30→22:12)
[2019-06-01] MEDS: ENOXAPARIN 40 MG/0.4 ML SYRINGE SUBCUT SCH (09:30)
[2019-06-01] MEDS: QUEtiapine 100 MG TABLET PO SCH ×2 (09:30→22:12)
[2019-06-01] MEDS: methylPREDNISolone SOD SUC 40 MG/1 ML VIAL IV SCH ×2 (09:30→22:05)
[2019-06-01] MEDS: ASPIRIN EC 81 MG TABLET PO SCH (09:30)
[2019-06-01] MEDS: GABAPENTIN 100 MG CAPSULE PO SCH ×2 (09:30→22:12)
[2019-06-01] MEDS: VERAPAMIL 120 MG TABLET PO SCH ×3 (09:30→22:12)
[2019-06-01] MEDS: MULTIVITAMIN LIQUID (CENTRUM) 60 ML BOTTLE PO SCH (09:30)
[2019-06-01] MEDS: MONTELUKAST 10 MG TABLET PO SCH (22:12)
[2019-06-02] MEDS: ALBUTEROL 0.63 MG/3 ML NEB RESP TX SCH ×6 (02:28→22:12)
[2019-06-02 04:00] LABS: ABG Base Excess 11.7 MMOL/L (-2.5-2.5); ABG HCO3 35.5 MMOL/L (20-26); ABG Oxygen Saturation 98.1 % (95-100); ABG PH 7.386 (7.35-7.45); Allen Test Positive; Pt O2 Delivery Device Ventilator
[2019-06-02] MEDS: SULFAMETH/TRIMETH INJ 160 MG in DEXTROSE 5% 250 ML IV SCH ×4 (04:31→22:27)
[2019-06-02 04:48] LABS: Eosinophils % 0.2 % (0.00-10.9); Hematocrit 27.3 VOL% (35.7-47.0); Hemoglobin 8.4 GM/DL (12.0-16.0); Immature Granulocytes % 1.5 %; Immature Granulocytes Absolute 0.08 #; Lymphocytes # 0.5 10*3/uL (1.4-4.0); Lymphocytes % 8.4 % (21.3-54.2); Mean Corpuscular HGB Conc 30.8 GM/DL (32-36); Mean Corpuscular Volume 93.5 FL (87-102); Mean Platelet Volume 11.6 FL (9.6-12.0); Monocytes % 6.6 % (1.7-12.7); Neutrophils % 83.3 % (38.7-73.9); Platelet Count 143 T/CUMM (130-400); Red Blood Count 2.92 MC/CUMM (3.8-5.5); Red Cell Distribution Width 16.5 % (9.3-17.3); White Blood Count 5.3 T/CUMM (4-12)
[2019-06-02 05:03] LABS: Calcium 8.2 MG/DL (8.5-10.1)
[2019-06-02] MEDS: INSULIN REGULAR 100 UNIT/ML SUBCUT SCH ×5 (05:12→23:14)
[2019-06-02] MEDS: PANTOPRAZOLE 40 MG VIAL IV SCH (07:45)
[2019-06-02] MEDS: fentaNYL INJ 2,500 MCG in SODIUM CHLORIDE 0.9% 450 ML IV PRN ×2 (07:45→16:15)
[2019-06-02] MEDS: methylPREDNISolone SOD SUC 40 MG/1 ML VIAL IV SCH ×2 (07:45→20:38)
[2019-06-02] MEDS: FUROSEMIDE 40 MG/4 ML VIAL IV SCH ×2 (07:50→16:15)
[2019-06-02] MEDS: ENOXAPARIN 40 MG/0.4 ML SYRINGE SUBCUT SCH (07:50)
[2019-06-02] MEDS: QUEtiapine 100 MG TABLET PO SCH ×2 (08:45→20:38)
[2019-06-02] MEDS: busPIRone 5 MG TABLET PO SCH ×3 (08:45→20:39)
[2019-06-02] MEDS: GABAPENTIN 100 MG CAPSULE PO SCH ×2 (08:45→20:39)
[2019-06-02] MEDS: MULTIVITAMIN LIQUID (CENTRUM) 60 ML BOTTLE PO SCH (08:45)
[2019-06-02] MEDS: PAROXETINE HCL 30 MG PO SCH ×2 (08:45→20:38)
[2019-06-02] MEDS: CHOLECALCIFEROL 1,000 UNIT TABLET PO SCH (08:45)
[2019-06-02] MEDS: methIMAzole 5 MG TABLET PO SCH ×3 (08:45→20:38)
[2019-06-02] MEDS: VERAPAMIL 120 MG TABLET PO SCH ×3 (08:45→20:40)
[2019-06-02] MEDS: ASPIRIN EC 81 MG TABLET PO SCH (08:45)
[2019-06-02] MEDS: NYSTATIN 500,000 UNIT/5 ML UDCUP SWISH/SWAL SCH ×4 (08:50→20:39)
[2019-06-02] MEDS: FLUCONAZOLE INJ 200 MG in PREMIX 1 EACH IV SCH (09:55)
[2019-06-02] MEDS: MONTELUKAST 10 MG TABLET PO SCH (20:39)
[2019-06-03] MEDS: fentaNYL INJ 2,500 MCG in SODIUM CHLORIDE 0.9% 450 ML IV PRN ×2 (00:14→13:03)
[2019-06-03] MEDS: ALBUTEROL 0.63 MG/3 ML NEB RESP TX SCH ×6 (02:05→23:35)
[2019-06-03 03:21] LABS: ABG HCO3 36.8 MMOL/L (20-26); ABG Oxygen Saturation 97.9 % (95-100); ABG PH 7.373 (7.35-7.45); ABG PO2 99.5 MM HG (80-95); ABG TCO2 37.8 MMOL/L (23-27); Allen Test Positive; Pt O2 Delivery Device Ventilator
[2019-06-03 03:25] LABS: ABG PCO2 70.1 MM HG (35-48)
[2019-06-03] MEDS: SULFAMETH/TRIMETH INJ 160 MG in DEXTROSE 5% 250 ML IV SCH ×4 (03:58→21:06)
[2019-06-03] MEDS: INSULIN REGULAR 100 UNIT/ML SUBCUT SCH ×4 (05:22→23:58)
[2019-06-03 05:25] LABS: Hemoglobin 8.4 GM/DL (12.0-16.0); Immature Granulocytes % 1.3 %; Immature Granulocytes Absolute 0.05 #; Lymphocytes # 0.4 10*3/uL (1.4-4.0); Lymphocytes % 10.1 % (21.3-54.2); Mean Corpuscular Volume 96.2 FL (87-102); Mean Platelet Volume 11.1 FL (9.6-12.0); Monocytes % 7.2 % (1.7-12.7); Neutrophils % 81.4 % (38.7-73.9); Platelet Count 124 T/CUMM (130-400); Red Blood Count 2.91 MC/CUMM (3.8-5.5); Red Cell Distribution Width 16.6 % (9.3-17.3); White Blood Count 3.8 T/CUMM (4-12)
[2019-06-03 05:49] LABS: Calcium 8.4 MG/DL (8.5-10.1); Osmolality,Calculated 290.4 MOS/KG (273-304)
[2019-06-03] MEDS: POTASSIUM CHLORIDE 20 MEQ TABLET PO PRN (06:07)
[2019-06-03 07:45] LABS: Pneumocystis jiroveci Result Negative (Negative); Pneumocystis jiroveci Source SPUTUM
[2019-06-03] MEDS: ENOXAPARIN 40 MG/0.4 ML SYRINGE SUBCUT SCH (08:00)
[2019-06-03] MEDS: PANTOPRAZOLE 40 MG VIAL IV SCH (08:00)
[2019-06-03] MEDS: FUROSEMIDE 40 MG/4 ML VIAL IV SCH ×2 (08:00→17:07)
[2019-06-03] MEDS: methylPREDNISolone SOD SUC 40 MG/1 ML VIAL IV SCH ×2 (08:00→20:14)
[2019-06-03] MEDS: PAROXETINE HCL 30 MG PO SCH ×2 (08:01→20:12)
[2019-06-03] MEDS: QUEtiapine 100 MG TABLET PO SCH ×2 (08:01→20:13)
[2019-06-03] MEDS: busPIRone 5 MG TABLET PO SCH ×3 (08:01→20:13)
[2019-06-03] MEDS: methIMAzole 5 MG TABLET PO SCH ×3 (08:02→20:13)
[2019-06-03] MEDS: CHOLECALCIFEROL 1,000 UNIT TABLET PO SCH (08:02)
[2019-06-03] MEDS: ASPIRIN EC 81 MG TABLET PO SCH (08:02)
[2019-06-03] MEDS: NYSTATIN 500,000 UNIT/5 ML UDCUP SWISH/SWAL SCH ×4 (08:02→20:14)
[2019-06-03] MEDS: MULTIVITAMIN LIQUID (CENTRUM) 60 ML BOTTLE PO SCH (08:02)
[2019-06-03] MEDS: GABAPENTIN 100 MG CAPSULE PO SCH ×2 (08:02→20:13)
[2019-06-03] MEDS: VERAPAMIL 120 MG TABLET PO SCH ×3 (08:02→20:13)
[2019-06-03] MEDS: FLUCONAZOLE INJ 200 MG in PREMIX 1 EACH IV SCH (09:00)
[2019-06-03] MEDS: MONTELUKAST 10 MG TABLET PO SCH (20:13)
[2019-06-04] MEDS: ALBUTEROL 0.63 MG/3 ML NEB RESP TX SCH ×6 (02:05→23:17)
[2019-06-04] MEDS: fentaNYL INJ 2,500 MCG in SODIUM CHLORIDE 0.9% 450 ML IV PRN ×2 (03:13→19:15)
[2019-06-04 03:15] LABS: ABG Base Excess 12.6 MMOL/L (-2.5-2.5); ABG HCO3 36.3 MMOL/L (20-26); ABG Oxygen Saturation 93.1 % (95-100); ABG PH 7.345 (7.35-7.45); ABG PO2 71.1 MM HG (80-95); ABG TCO2 37.8 MMOL/L (23-27)
[2019-06-04 03:18] LABS: ABG PCO2 76.7 MM HG (35-48)
[2019-06-04] MEDS: SULFAMETH/TRIMETH INJ 160 MG in DEXTROSE 5% 250 ML IV SCH ×4 (03:28→22:43)
[2019-06-04 04:56] LABS: Prealbumin 31.7 MG/DL (20-40)
[2019-06-04] MEDS: INSULIN REGULAR 100 UNIT/ML SUBCUT SCH ×3 (05:46→18:10)
[2019-06-04] MEDS: ENOXAPARIN 40 MG/0.4 ML SYRINGE SUBCUT SCH (09:02)
[2019-06-04] MEDS: NYSTATIN 500,000 UNIT/5 ML UDCUP SWISH/SWAL SCH ×4 (09:03→22:41)
[2019-06-04] MEDS: PAROXETINE HCL 30 MG PO SCH ×2 (09:03→22:42)
[2019-06-04] MEDS: FUROSEMIDE 40 MG/4 ML VIAL IV SCH ×2 (09:03→16:09)
[2019-06-04] MEDS: methIMAzole 5 MG TABLET PO SCH ×3 (09:04→22:42)
[2019-06-04] MEDS: ASPIRIN EC 81 MG TABLET PO SCH (09:04)
[2019-06-04] MEDS: busPIRone 5 MG TABLET PO SCH ×3 (09:04→22:41)
[2019-06-04] MEDS: GABAPENTIN 100 MG CAPSULE PO SCH ×2 (09:04→22:41)
[2019-06-04] MEDS: CHOLECALCIFEROL 1,000 UNIT TABLET PO SCH (09:04)
[2019-06-04] MEDS: methylPREDNISolone SOD SUC 40 MG/1 ML VIAL IV SCH ×2 (09:08→22:43)
[2019-06-04] MEDS: PANTOPRAZOLE 40 MG VIAL IV SCH (09:08)
[2019-06-04] MEDS: QUEtiapine 100 MG TABLET PO SCH ×2 (09:08→22:42)
[2019-06-04] MEDS: VERAPAMIL 120 MG TABLET PO SCH ×3 (12:11→22:41)
[2019-06-04] MEDS: FLUCONAZOLE INJ 200 MG in PREMIX 1 EACH IV SCH (12:14)
[2019-06-04] MEDS: LORazepam 2 MG/1 ML VIAL IV PRN ×2 (12:40→17:09)
[2019-06-04] MEDS: MULTIVITAMIN LIQUID (CENTRUM) 60 ML BOTTLE PO SCH (14:08)
[2019-06-04] MEDS: POLYETHYLENE GLYCOL POWDER 17 GM PACK PO SCH (22:41)
[2019-06-04] MEDS: MONTELUKAST 10 MG TABLET PO SCH (22:42)
[2019-06-05] MEDS: INSULIN REGULAR 100 UNIT/ML SUBCUT SCH ×4 (00:04→18:56)
[2019-06-05] MEDS: fentaNYL INJ 2,500 MCG in SODIUM CHLORIDE 0.9% 450 ML IV PRN ×3 (02:18→21:58)
[2019-06-05] MEDS: ALBUTEROL 0.63 MG/3 ML NEB RESP TX SCH ×6 (02:45→23:10)
[2019-06-05 03:51] LABS: Allen Test Positive; Pt O2 Delivery Device Ventilator
[2019-06-05 03:52] LABS: ABG Base Excess 14.1 MMOL/L (-2.5-2.5); ABG HCO3 40.1 MMOL/L (20-26); ABG Oxygen Saturation 98.5 % (95-100); ABG PH 7.443 (7.35-7.45); ABG PO2 153.7 MM HG (80-95)
[2019-06-05 04:08] LABS: Hematocrit 28.9 VOL% (35.7-47.0); Hemoglobin 8.5 GM/DL (12.0-16.0); Red Blood Count 2.94 MC/CUMM (3.8-5.5); White Blood Count 7.4 T/CUMM (4-12)
[2019-06-05 04:09] LABS: Basophils % 0.1 % (0.0-0.8); Immature Granulocytes % 5.4 %; Lymphocytes # 0.7 10*3/uL (1.4-4.0); Lymphocytes % 9.3 % (21.3-54.2); Mean Corpuscular HGB Conc 29.4 GM/DL (32-36); Mean Corpuscular Volume 98.3 FL (87-102); Mean Platelet Volume 11.6 FL (9.6-12.0); Monocytes % 6.5 % (1.7-12.7); NRBC # 0.07 10*3/uL; Neutrophils % 78.7 % (38.7-73.9); Platelet Count 115 T/CUMM (130-400); Red Cell Distribution Width 17.2 % (9.3-17.3)
[2019-06-05 04:30] LABS: Calcium 8.2 MG/DL (8.5-10.1); Osmolality,Calculated 293.7 MOS/KG (273-304)
[2019-06-05 04:42] LABS: Anisocytosis 1+; Band Neutrophils 3 % (0-10); Hypochromasia 1+; Lymphocytes 9 % (20-55); Nucleated Red Blood Cells 1 (0-5); Platelet Estimate Adequate; Segmented Neutrophils 85 % (50-85); Total Cells Counted 100
[2019-06-05] MEDS: SULFAMETH/TRIMETH INJ 160 MG in DEXTROSE 5% 250 ML IV SCH ×4 (05:17→21:48)
[2019-06-05] MEDS: busPIRone 5 MG TABLET PO SCH ×3 (09:44→21:27)
[2019-06-05] MEDS: NYSTATIN 500,000 UNIT/5 ML UDCUP SWISH/SWAL SCH ×4 (09:45→21:31)
[2019-06-05] MEDS: methylPREDNISolone SOD SUC 40 MG/1 ML VIAL IV SCH ×2 (09:45→21:30)
[2019-06-05] MEDS: methIMAzole 5 MG TABLET PO SCH ×3 (09:45→21:29)
[2019-06-05] MEDS: PAROXETINE HCL 30 MG PO SCH ×2 (09:45→21:28)
[2019-06-05] MEDS: GABAPENTIN 100 MG CAPSULE PO SCH ×2 (09:45→21:28)
[2019-06-05] MEDS: ASPIRIN EC 81 MG TABLET PO SCH (09:45)
[2019-06-05] MEDS: CHOLECALCIFEROL 1,000 UNIT TABLET PO SCH (09:45)
[2019-06-05] MEDS: QUEtiapine 100 MG TABLET PO SCH ×2 (09:45→21:27)
[2019-06-05] MEDS: POLYETHYLENE GLYCOL POWDER 17 GM PACK PO SCH ×2 (09:46→21:30)
[2019-06-05] MEDS: VERAPAMIL 120 MG TABLET PO SCH ×3 (09:46→22:40)
[2019-06-05] MEDS: ENOXAPARIN 40 MG/0.4 ML SYRINGE SUBCUT SCH (09:46)
[2019-06-05] MEDS: MULTIVITAMIN LIQUID (CENTRUM) 60 ML BOTTLE PO SCH (09:47)
[2019-06-05] MEDS: PANTOPRAZOLE 40 MG VIAL IV SCH (09:48)
[2019-06-05] MEDS: FUROSEMIDE 40 MG/4 ML VIAL IV SCH ×2 (09:52→15:17)
[2019-06-05] MEDS: FLUCONAZOLE INJ 200 MG in PREMIX 1 EACH IV SCH (09:57)
[2019-06-05] MEDS: MONTELUKAST 10 MG TABLET PO SCH (21:27)
[2019-06-06] MEDS: INSULIN REGULAR 100 UNIT/ML SUBCUT SCH ×5 (00:41→23:48)
[2019-06-06 03:14] LABS: ABG Base Excess 14.9 MMOL/L (-2.5-2.5); ABG HCO3 38.7 MMOL/L (20-26); ABG Oxygen Saturation 94.8 % (95-100); ABG PH 7.391 (7.35-7.45); ABG PO2 74.8 MM HG (80-95); ABG TCO2 39.1 MMOL/L (23-27); Allen Test Positive; Pt O2 Delivery Device Ventilator
[2019-06-06] MEDS: ALBUTEROL 0.63 MG/3 ML NEB RESP TX SCH ×6 (03:15→23:57)
[2019-06-06] MEDS: SULFAMETH/TRIMETH INJ 160 MG in DEXTROSE 5% 250 ML IV SCH ×4 (03:43→20:11)
[2019-06-06 03:47] LABS: ABG PCO2 71.1 MM HG (35-48)
[2019-06-06 04:41] LABS: Basophils % 0.2 % (0.0-0.8); Eosinophils % 0.1 % (0.00-10.9); Hematocrit 31.5 VOL% (35.7-47.0); Hemoglobin 9.4 GM/DL (12.0-16.0); Immature Granulocytes % 3.3 %; Immature Granulocytes Absolute 0.31 #; Lymphocytes # 0.6 10*3/uL (1.4-4.0); Lymphocytes % 5.8 % (21.3-54.2); Mean Corpuscular HGB Conc 29.8 GM/DL (32-36); Mean Corpuscular Volume 97.8 FL (87-102); Mean Platelet Volume 11.8 FL (9.6-12.0); Monocytes % 6.9 % (1.7-12.7); NRBC # 0.06 10*3/uL; Neutrophils % 83.7 % (38.7-73.9); Platelet Count 117 T/CUMM (130-400); Red Blood Count 3.22 MC/CUMM (3.8-5.5); Red Cell Distribution Width 17.3 % (9.3-17.3); White Blood Count 9.5 T/CUMM (4-12)
[2019-06-06 04:55] LABS: Calcium 8.7 MG/DL (8.5-10.1); Osmolality,Calculated 286.8 MOS/KG (273-304)
[2019-06-06] MEDS: fentaNYL INJ 2,500 MCG in SODIUM CHLORIDE 0.9% 450 ML IV PRN (05:00)
[2019-06-06] MEDS: PAROXETINE HCL 30 MG PO SCH ×2 (08:50→20:11)
[2019-06-06] MEDS: QUEtiapine 100 MG TABLET PO SCH ×2 (08:50→20:11)
[2019-06-06] MEDS: POLYETHYLENE GLYCOL POWDER 17 GM PACK PO SCH ×2 (08:50→20:11)
[2019-06-06] MEDS: ASPIRIN EC 81 MG TABLET PO SCH (08:51)
[2019-06-06] MEDS: VERAPAMIL 80 MG TABLET PO SCH ×3 (08:51→20:12)
[2019-06-06] MEDS: CHOLECALCIFEROL 1,000 UNIT TABLET PO SCH (08:51)
[2019-06-06] MEDS: NYSTATIN 500,000 UNIT/5 ML UDCUP SWISH/SWAL SCH ×2 (08:51→13:49)
[2019-06-06] MEDS: ENOXAPARIN 40 MG/0.4 ML SYRINGE SUBCUT SCH (08:51)
[2019-06-06] MEDS: busPIRone 5 MG TABLET PO SCH ×3 (08:51→20:12)
[2019-06-06] MEDS: methIMAzole 5 MG TABLET PO SCH ×3 (08:51→20:11)
[2019-06-06] MEDS: PANTOPRAZOLE 40 MG VIAL IV SCH (08:54)
[2019-06-06] MEDS: methylPREDNISolone SOD SUC 40 MG/1 ML VIAL IV SCH ×2 (09:04→20:12)
[2019-06-06] MEDS: GABAPENTIN 100 MG CAPSULE PO SCH ×2 (09:04→20:11)
[2019-06-06] MEDS: FUROSEMIDE 40 MG/4 ML VIAL IV SCH (09:07)
[2019-06-06 09:29] LABS: ABG Base Excess 13.6 MMOL/L (-2.5-2.5); ABG HCO3 37.5 MMOL/L (20-26); ABG TCO2 38.8 MMOL/L (23-27); Allen Test Positive; Pt O2 Delivery Device Ventilator
[2019-06-06 09:31] LABS: ABG Oxygen Saturation 99.5 % (95-100)
[2019-06-06] MEDS: MULTIVITAMIN LIQUID (CENTRUM) 60 ML BOTTLE PO SCH (09:45)
[2019-06-06] MEDS: FLUCONAZOLE INJ 200 MG in PREMIX 1 EACH IV SCH (09:45)
[2019-06-06] MEDS: MIDAZOLAM 100 MG in SODIUM CHLORIDE 0.9% 80 ML IV PRN (10:01)
[2019-06-06 11:38] LABS: ABG Base Excess 14.2 MMOL/L (-2.5-2.5); ABG Oxygen Saturation 97.6 % (95-100); ABG PH 7.345 (7.35-7.45); ABG PO2 98.8 MM HG (80-95); ABG TCO2 39.7 MMOL/L (23-27); Allen Test Positive; Pt O2 Delivery Device Ventilator
[2019-06-06 11:41] LABS: ABG PCO2 79.3 MM HG (35-48)
[2019-06-06] MEDS: ACETAMINOPHEN 325 MG TABLET PO PRN (20:11)
[2019-06-06] MEDS: MONTELUKAST 10 MG TABLET PO SCH (20:11)
[2019-06-07] MEDS: ALBUTEROL 0.63 MG/3 ML NEB RESP TX SCH ×6 (03:12→23:15)
[2019-06-07 03:30] LABS: ABG Oxygen Saturation 98.2 % (95-100); ABG PH 7.416 (7.35-7.45); ABG PO2 97.8 MM HG (80-95); ABG TCO2 41.4 MMOL/L (23-27); Allen Test Positive; Pt O2 Delivery Device Ventilator
[2019-06-07 03:32] LABS: ABG PCO2 69.3 MM HG (35-48)
[2019-06-07] MEDS: SULFAMETH/TRIMETH INJ 160 MG in DEXTROSE 5% 250 ML IV SCH ×4 (03:37→20:22)
[2019-06-07 04:44] LABS: Calcium 8.4 MG/DL (8.5-10.1); Osmolality,Calculated 281.8 MOS/KG (273-304)
[2019-06-07] MEDS: INSULIN REGULAR 100 UNIT/ML SUBCUT SCH ×3 (05:24→18:11)
[2019-06-07] MEDS: QUEtiapine 100 MG TABLET PO SCH ×2 (08:10→20:23)
[2019-06-07] MEDS: POLYETHYLENE GLYCOL POWDER 17 GM PACK PO SCH ×2 (08:16→20:24)
[2019-06-07] MEDS: PAROXETINE HCL 30 MG PO SCH ×2 (08:22→20:23)
[2019-06-07] MEDS: GABAPENTIN 100 MG CAPSULE PO SCH ×2 (08:22→20:23)
[2019-06-07] MEDS: VERAPAMIL 80 MG TABLET PO SCH ×3 (08:23→20:23)
[2019-06-07] MEDS: methIMAzole 5 MG TABLET PO SCH ×3 (08:23→20:24)
[2019-06-07] MEDS: ASPIRIN EC 81 MG TABLET PO SCH (08:23)
[2019-06-07] MEDS: busPIRone 5 MG TABLET PO SCH ×3 (08:23→20:23)
[2019-06-07] MEDS: CHOLECALCIFEROL 1,000 UNIT TABLET PO SCH (08:23)
[2019-06-07] MEDS: methylPREDNISolone SOD SUC 40 MG/1 ML VIAL IV SCH (08:25)
[2019-06-07] MEDS: ENOXAPARIN 40 MG/0.4 ML SYRINGE SUBCUT SCH (08:25)
[2019-06-07] MEDS: PANTOPRAZOLE 40 MG VIAL IV SCH (08:28)
[2019-06-07] MEDS: MULTIVITAMIN LIQUID (CENTRUM) 60 ML BOTTLE PO SCH (08:40)
[2019-06-07] MEDS ORDERED: FUROSEMIDE 40 MG/4 ML VIAL IV SCH (09:00)
[2019-06-07 09:14] LABS: ABG PCO2 77.2 MM HG (35-48)
[2019-06-07] MEDS: FLUCONAZOLE INJ 200 MG in PREMIX 1 EACH IV SCH (10:37)
[2019-06-07] MEDS: methylPREDNISolone SOD SUC 125 MG/2 ML VIAL IV SCH ×3 (11:05→22:25)
[2019-06-07] MEDS: FUROSEMIDE 40 MG/4 ML VIAL IV SCH ×2 (11:20→19:15)
[2019-06-07 12:10] LABS: Allen Test Positive; Pt O2 Delivery Device Ventilator
[2019-06-07 12:12] LABS: ABG Base Excess 17.3 MMOL/L (-2.5-2.5); ABG HCO3 41.3 MMOL/L (20-26); ABG Oxygen Saturation 96.3 % (95-100); ABG PH 7.415 (7.35-7.45); ABG TCO2 41.6 MMOL/L (23-27)
[2019-06-07 12:17] LABS: ABG PCO2 70.2 MM HG (35-48)
[2019-06-07] MEDS: fentaNYL INJ 2,500 MCG in SODIUM CHLORIDE 0.9% 450 ML IV PRN (12:30)
[2019-06-07] MEDS: MIDAZOLAM 100 MG in SODIUM CHLORIDE 0.9% 80 ML IV PRN (16:20)
[2019-06-07] MEDS: MONTELUKAST 10 MG TABLET PO SCH (20:22)
[2019-06-08] MEDS: INSULIN REGULAR 100 UNIT/ML SUBCUT SCH ×5 (00:52→23:55)
[2019-06-08] MEDS: ALBUTEROL 0.63 MG/3 ML NEB RESP TX SCH ×6 (02:37→23:30)
[2019-06-08] MEDS: SULFAMETH/TRIMETH INJ 160 MG in DEXTROSE 5% 250 ML IV SCH ×2 (03:53→09:36)
[2019-06-08] MEDS: FUROSEMIDE 40 MG/4 ML VIAL IV SCH ×3 (03:53→18:03)
[2019-06-08 03:55] LABS: ABG HCO3 44.5 MMOL/L (20-26); ABG Oxygen Saturation 93.2 % (95-100); ABG PH 7.417 (7.35-7.45); ABG PO2 68.4 MM HG (80-95); ABG TCO2 46.6 MMOL/L (23-27); Allen Test Positive; Pt O2 Delivery Device Ventilator
[2019-06-08 04:00] LABS: ABG PCO2 70.6 MM HG (35-48)
[2019-06-08 04:22] LABS: Basophils % 0.2 % (0.0-0.8); Hematocrit 34.2 VOL% (35.7-47.0); Hemoglobin 10.2 GM/DL (12.0-16.0); Immature Granulocytes % 2.4 %; Immature Granulocytes Absolute 0.22 #; Lymphocytes # 0.5 10*3/uL (1.4-4.0); Mean Corpuscular HGB Conc 29.8 GM/DL (32-36); Mean Corpuscular Volume 97.7 FL (87-102); Mean Platelet Volume 11.8 FL (9.6-12.0); NRBC # 0.04 10*3/uL; Neutrophils % 89.4 % (38.7-73.9); Platelet Count 106 T/CUMM (130-400); Red Cell Distribution Width 17.2 % (9.3-17.3); White Blood Count 9.4 T/CUMM (4-12)
[2019-06-08 04:38] LABS: Calcium 9.1 MG/DL (8.5-10.1); Osmolality,Calculated 277.1 MOS/KG (273-304)
[2019-06-08] MEDS: methylPREDNISolone SOD SUC 125 MG/2 ML VIAL IV SCH ×4 (04:43→23:54)
[2019-06-08 04:52] LABS: Prealbumin 40.4 MG/DL (20-40)
[2019-06-08] MEDS: QUEtiapine 100 MG TABLET PO SCH (08:07)
[2019-06-08] MEDS: PAROXETINE HCL 30 MG PO SCH ×2 (08:07→21:17)
[2019-06-08] MEDS: PANTOPRAZOLE 40 MG VIAL IV SCH (08:07)
[2019-06-08] MEDS: GABAPENTIN 100 MG CAPSULE PO SCH ×2 (08:08→21:16)
[2019-06-08] MEDS: VERAPAMIL 80 MG TABLET PO SCH ×3 (08:08→21:16)
[2019-06-08] MEDS: methIMAzole 5 MG TABLET PO SCH ×3 (08:08→21:16)
[2019-06-08] MEDS: CHOLECALCIFEROL 1,000 UNIT TABLET PO SCH (08:08)
[2019-06-08] MEDS: busPIRone 5 MG TABLET PO SCH ×3 (08:09→21:17)
[2019-06-08] MEDS: ASPIRIN EC 81 MG TABLET PO SCH (08:09)
[2019-06-08] MEDS: ENOXAPARIN 40 MG/0.4 ML SYRINGE SUBCUT SCH (08:23)
[2019-06-08] MEDS: MULTIVITAMIN LIQUID (CENTRUM) 60 ML BOTTLE PO SCH (08:24)
[2019-06-08] MEDS: POLYETHYLENE GLYCOL POWDER 17 GM PACK PO SCH ×2 (08:24→21:23)
[2019-06-08] MEDS: fentaNYL INJ 2,500 MCG in SODIUM CHLORIDE 0.9% 450 ML IV PRN (09:58)
[2019-06-08] MEDS: MONTELUKAST 10 MG TABLET PO SCH (21:16)
[2019-06-08] MEDS: HydrOXYzine PAMOATE 50 MG CAPSULE PO PRN (21:16)
[2019-06-09] MEDS: FUROSEMIDE 40 MG/4 ML VIAL IV SCH ×3 (03:23→17:56)
[2019-06-09] MEDS: MIDAZOLAM 100 MG in SODIUM CHLORIDE 0.9% 80 ML IV PRN (03:30)
[2019-06-09] MEDS: ALBUTEROL 0.63 MG/3 ML NEB RESP TX SCH ×6 (04:31→23:50)
[2019-06-09 04:41] LABS: ABG Base Excess 19.1 MMOL/L (-2.5-2.5); ABG HCO3 43.4 MMOL/L (20-26); ABG Oxygen Saturation 95.7 % (95-100); ABG PCO2 68.6 MM HG (35-48); ABG PH 7.446 (7.35-7.45); ABG PO2 76.9 MM HG (80-95); ABG TCO2 42.2 MMOL/L (23-27); Allen Test Positive; Pt O2 Delivery Device Ventilator
[2019-06-09 05:07] LABS: Basophils % 0.2 % (0.0-0.8); Hematocrit 35.2 VOL% (35.7-47.0); Hemoglobin 10.7 GM/DL (12.0-16.0); Immature Granulocytes % 1.4 %; Immature Granulocytes Absolute 0.16 #; Lymphocytes # 0.7 10*3/uL (1.4-4.0); Lymphocytes % 5.7 % (21.3-54.2); Mean Corpuscular HGB Conc 30.4 GM/DL (32-36); Mean Corpuscular Volume 97.5 FL (87-102); Mean Platelet Volume 11.3 FL (9.6-12.0); NRBC # 0.02 10*3/uL; Neutrophils % 85.7 % (38.7-73.9); Platelet Count 115 T/CUMM (130-400); Red Blood Count 3.61 MC/CUMM (3.8-5.5); Red Cell Distribution Width 17.3 % (9.3-17.3); White Blood Count 11.7 T/CUMM (4-12)
[2019-06-09] MEDS: fentaNYL INJ 2,500 MCG in SODIUM CHLORIDE 0.9% 450 ML IV PRN ×2 (06:03→17:33)
[2019-06-09] MEDS: methylPREDNISolone SOD SUC 125 MG/2 ML VIAL IV SCH ×4 (06:14→23:54)
[2019-06-09] MEDS: INSULIN REGULAR 100 UNIT/ML SUBCUT SCH ×4 (06:14→23:54)
[2019-06-09] MEDS: methIMAzole 5 MG TABLET PO SCH ×3 (08:29→21:38)
[2019-06-09] MEDS: busPIRone 5 MG TABLET PO SCH ×3 (08:29→21:52)
[2019-06-09] MEDS: CHOLECALCIFEROL 1,000 UNIT TABLET PO SCH (08:29)
[2019-06-09] MEDS: PANTOPRAZOLE 40 MG VIAL IV SCH (08:29)
[2019-06-09] MEDS: GABAPENTIN 100 MG CAPSULE PO SCH ×2 (08:29→21:40)
[2019-06-09] MEDS: PAROXETINE HCL 30 MG PO SCH ×2 (08:29→21:43)
[2019-06-09] MEDS: VERAPAMIL 80 MG TABLET PO SCH ×2 (08:30→21:39)
[2019-06-09] MEDS: POLYETHYLENE GLYCOL POWDER 17 GM PACK PO SCH ×2 (08:30→21:38)
[2019-06-09] MEDS: MULTIVITAMIN LIQUID (CENTRUM) 60 ML BOTTLE PO SCH (08:30)
[2019-06-09] MEDS: ASPIRIN EC 81 MG TABLET PO SCH (08:40)
[2019-06-09] MEDS: LORazepam 2 MG/1 ML VIAL IV PRN (15:51)
[2019-06-09] MEDS: HydrOXYzine PAMOATE 50 MG CAPSULE PO PRN (21:39)
[2019-06-09] MEDS: MONTELUKAST 10 MG TABLET PO SCH (21:40)
[2019-06-10] MEDS: FUROSEMIDE 40 MG/4 ML VIAL IV SCH (01:21)
[2019-06-10] MEDS: ALBUTEROL 0.63 MG/3 ML NEB RESP TX SCH ×6 (02:35→22:33)
[2019-06-10] MEDS: fentaNYL INJ 2,500 MCG in SODIUM CHLORIDE 0.9% 450 ML IV PRN ×3 (02:37→19:42)
[2019-06-10 03:40] LABS: Allen Test Positive; Pt O2 Delivery Device Ventilator
[2019-06-10 03:41] LABS: ABG HCO3 50.5 MMOL/L (20-26); ABG Oxygen Saturation 97.6 % (95-100); ABG PH 7.463 (7.35-7.45); ABG PO2 100.5 MM HG (80-95); ABG TCO2 52.8 MMOL/L (23-27)
[2019-06-10 03:42] LABS: ABG PCO2 72.2 MM HG (35-48)
[2019-06-10 04:29] LABS: Basophils % 0.1 % (0.0-0.8); Hematocrit 33.9 VOL% (35.7-47.0); Hemoglobin 10.1 GM/DL (12.0-16.0); Immature Granulocytes % 0.7 %; Immature Granulocytes Absolute 0.09 #; Lymphocytes # 0.4 10*3/uL (1.4-4.0); Lymphocytes % 3.5 % (21.3-54.2); Mean Corpuscular HGB Conc 29.8 GM/DL (32-36); Mean Corpuscular Volume 97.1 FL (87-102); Monocytes % 6.3 % (1.7-12.7); Neutrophils % 89.4 % (38.7-73.9); Platelet Count 117 T/CUMM (130-400); Red Blood Count 3.49 MC/CUMM (3.8-5.5); White Blood Count 12.6 T/CUMM (4-12)
[2019-06-10 04:57] LABS: Anisocytosis 2+; Band Neutrophils 2 % (0-10); Hypochromasia 2+; Lymphocytes 3 % (20-55); Macrocytosis 1+; Microcytosis 1+; Platelet Estimate Decreased; Segmented Neutrophils 90 % (50-85); Total Cells Counted 100
[2019-06-10 05:20] LABS: Blood Urea Nitrogen 26 MG/DL (7-18); Calcium 8.5 MG/DL (8.5-10.1); Estimated Glom Filtration Rate 183 ML/MIN; Glucose 125 MG/DL (74-106); Osmolality,Calculated 282.5 MOS/KG (273-304)
[2019-06-10] MEDS: methylPREDNISolone SOD SUC 125 MG/2 ML VIAL IV SCH ×3 (05:30→16:29)
[2019-06-10] MEDS: POTASSIUM CHLORIDE RIDER 20 MEQ in PREMIX 1 EACH IV PRN (05:34)
[2019-06-10] MEDS: INSULIN REGULAR 100 UNIT/ML SUBCUT SCH ×3 (06:10→19:56)
[2019-06-10] MEDS ORDERED: MIDAZOLAM 2 MG/2 ML VIAL IV ONE (07:15)
[2019-06-10] MEDS ORDERED: MIDAZOLAM 2 MG/2 ML VIAL ONE (07:21)
[2019-06-10] MEDS ORDERED: MIDAZOLAM 10 MG/2 ML VIAL ONE (07:29)
[2019-06-10] MEDS: VERAPAMIL 80 MG TABLET PO SCH ×2 (09:46→20:04)
[2019-06-10] MEDS: busPIRone 5 MG TABLET PO SCH ×3 (09:46→20:04)
[2019-06-10] MEDS: ASPIRIN EC 81 MG TABLET PO SCH (09:46)
[2019-06-10] MEDS: PAROXETINE HCL 30 MG PO SCH ×2 (09:47→20:04)
[2019-06-10] MEDS: GABAPENTIN 100 MG CAPSULE PO SCH ×2 (09:47→20:04)
[2019-06-10] MEDS: FUROSEMIDE 40 MG TABLET PO SCH (09:47)
[2019-06-10] MEDS: POLYETHYLENE GLYCOL POWDER 17 GM PACK PO SCH ×2 (09:47→20:05)
[2019-06-10] MEDS: PANTOPRAZOLE 40 MG VIAL IV SCH (09:48)
[2019-06-10] MEDS: CHOLECALCIFEROL 1,000 UNIT TABLET PO SCH (09:48)
[2019-06-10] MEDS: methIMAzole 5 MG TABLET PO SCH ×3 (09:48→20:05)
[2019-06-10] MEDS: MULTIVITAMIN LIQUID (CENTRUM) 60 ML BOTTLE PO SCH (09:51)
[2019-06-10] MEDS ORDERED: POTASSIUM CHLORIDE 20 MEQ TABLET PO ONE (16:15)
[2019-06-10] MEDS: MONTELUKAST 10 MG TABLET PO SCH (20:05)
[2019-06-10] MEDS: MIDAZOLAM 100 MG in SODIUM CHLORIDE 0.9% 80 ML IV PRN (20:55)
[2019-06-11] MEDS: methylPREDNISolone SOD SUC 125 MG/2 ML VIAL IV SCH ×5 (00:05→19:31)
[2019-06-11] MEDS: INSULIN REGULAR 100 UNIT/ML SUBCUT SCH ×4 (00:08→17:56)
[2019-06-11] MEDS: ALBUTEROL 0.63 MG/3 ML NEB RESP TX SCH ×6 (02:35→23:20)
[2019-06-11 03:31] LABS: ABG Base Excess 10.6 MMOL/L (-2.5-2.5); ABG HCO3 34.3 MMOL/L (20-26); ABG Oxygen Saturation 97.3 % (95-100); ABG PCO2 57.4 MM HG (35-48); ABG PH 7.419 (7.35-7.45); ABG PO2 92.5 MM HG (80-95); ABG TCO2 33.5 MMOL/L (23-27); Allen Test Positive; Pt O2 Delivery Device Ventilator
[2019-06-11 04:23] LABS: Basophils % 0.1 % (0.0-0.8); Hematocrit 35.4 VOL% (35.7-47.0); Hemoglobin 10.8 GM/DL (12.0-16.0); Immature Granulocytes % 0.8 %; Immature Granulocytes Absolute 0.13 #; Lymphocytes # 0.4 10*3/uL (1.4-4.0); Lymphocytes % 2.4 % (21.3-54.2); Mean Corpuscular HGB Conc 30.5 GM/DL (32-36); Mean Corpuscular Volume 96.7 FL (87-102); Mean Platelet Volume 12.1 FL (9.6-12.0); Monocytes % 4.9 % (1.7-12.7); Neutrophils % 91.8 % (38.7-73.9); Platelet Count 129 T/CUMM (130-400); Red Blood Count 3.66 MC/CUMM (3.8-5.5); Red Cell Distribution Width 16.6 % (9.3-17.3); White Blood Count 16.1 T/CUMM (4-12)
[2019-06-11 04:26] LABS: Osmolality,Calculated 284.4 MOS/KG (273-304)
[2019-06-11 04:31] LABS: Prealbumin 50.3 MG/DL (20-40)
[2019-06-11 04:34] LABS: Band Neutrophils 1 % (0-10); Hypochromasia 1+; Lymphocytes 2 % (20-55); Macrocytosis 1+; Segmented Neutrophils 95 % (50-85); Total Cells Counted 100
[2019-06-11 04:35] LABS: Platelet Estimate Adequate
[2019-06-11] MEDS: fentaNYL INJ 2,500 MCG in SODIUM CHLORIDE 0.9% 450 ML IV PRN ×3 (05:22→21:31)
[2019-06-11] MEDS: POTASSIUM CHLORIDE RIDER 20 MEQ in PREMIX 1 EACH IV PRN ×2 (05:36→10:05)
[2019-06-11] MEDS ORDERED: ceFAZolin 1,000 MG in SYRINGE 1 EACH IV ONE (07:00)
[2019-06-11] MEDS ORDERED: fentaNYL 100 MCG/2 ML VIAL ONE (07:58)
[2019-06-11] MEDS ORDERED: MIDAZOLAM 2 MG/2 ML VIAL ONE ×2 (07:58)
[2019-06-11] MEDS: LORazepam 2 MG/1 ML VIAL IV PRN ×2 (09:09→22:05)
[2019-06-11] MEDS: POLYETHYLENE GLYCOL POWDER 17 GM PACK PO SCH (11:11)
[2019-06-11] MEDS: PAROXETINE HCL 30 MG PO SCH ×2 (11:20→21:26)
[2019-06-11] MEDS: GABAPENTIN 100 MG CAPSULE PO SCH ×2 (11:21→21:27)
[2019-06-11] MEDS: ASPIRIN EC 81 MG TABLET PO SCH (11:21)
[2019-06-11] MEDS: methIMAzole 5 MG TABLET PO SCH ×3 (11:21→21:26)
[2019-06-11] MEDS: VERAPAMIL 80 MG TABLET PO SCH ×2 (11:21→21:26)
[2019-06-11] MEDS: FUROSEMIDE 40 MG TABLET PO SCH (11:21)
[2019-06-11] MEDS: busPIRone 5 MG TABLET PO SCH ×3 (11:21→21:27)
[2019-06-11] MEDS: CHOLECALCIFEROL 1,000 UNIT TABLET PO SCH (11:21)
[2019-06-11] MEDS: PANTOPRAZOLE 40 MG VIAL IV SCH (11:24)
[2019-06-11 12:33] LABS: Amorphous Crystals,Urine Occasional /HPF (Few); Apearance,Urine CLOUDY (Clear); Bilirubin,Urine Negative (Negative); Blood, Urine Moderate mg/dL (Negative); Glucose,Urine (UA) Negative (Negative); Ketones,Urine Negative (Negative); Mucus,Urine Occasional /LPF (Occasional); Nitrite,Urine Negative (Negative); Protein,Urine 30 MG/DL; RBC,Urine 100 /HPF (0-4); Urine Color Yellow (Yellow); Urine Specific Gravity 1.015 (1.001-1.035); WBC,Urine 12 /HPF (0-6)
[2019-06-11] MEDS: MULTIVITAMIN LIQUID (CENTRUM) 60 ML BOTTLE PO SCH (13:53)
[2019-06-11] MEDS: cefTRIAXone 1,000 MG in SYRINGE 1 EACH IV SCH (13:53)
[2019-06-11] MEDS: MONTELUKAST 10 MG TABLET PO SCH (21:27)
[2019-06-11] MEDS ORDERED: LORazepam 2 MG/1 ML VIAL ONE (22:03)
[2019-06-12] MEDS: INSULIN REGULAR 100 UNIT/ML SUBCUT SCH ×4 (00:29→17:53)
[2019-06-12] MEDS: methylPREDNISolone SOD SUC 125 MG/2 ML VIAL IV SCH ×4 (00:29→17:59)
[2019-06-12] MEDS: ALBUTEROL 0.63 MG/3 ML NEB RESP TX SCH ×5 (03:28→20:11)
[2019-06-12 03:35] LABS: ABG Base Excess 7.3 MMOL/L (-2.5-2.5); ABG HCO3 31.1 MMOL/L (20-26); ABG Oxygen Saturation 97.8 % (95-100); ABG PCO2 64.2 MM HG (35-48); ABG PH 7.342 (7.35-7.45); ABG PO2 97.3 MM HG (80-95); ABG TCO2 32.1 MMOL/L (23-27); Allen Test Positive; Pt O2 Delivery Device Ventilator
[2019-06-12 04:13] LABS: Calcium 8.5 MG/DL (8.5-10.1); Osmolality,Calculated 290.1 MOS/KG (273-304)
[2019-06-12 04:31] LABS: Basophils % 0.1 % (0.0-0.8); Hematocrit 31.4 VOL% (35.7-47.0); Hemoglobin 9.1 GM/DL (12.0-16.0); Immature Granulocytes % 0.9 %; Immature Granulocytes Absolute 0.13 #; Lymphocytes # 0.3 10*3/uL (1.4-4.0); Mean Platelet Volume 11.3 FL (9.6-12.0); Platelet Count 107 T/CUMM (130-400); Red Blood Count 3.14 MC/CUMM (3.8-5.5); Red Cell Distribution Width 16.8 % (9.3-17.3); White Blood Count 14.5 T/CUMM (4-12)
[2019-06-12 04:40] LABS: Anisocytosis 1+; Eosinophils 1 % (0-10); Lymphocytes 3 % (20-55); Platelet Estimate Decreased; Segmented Neutrophils 91 % (50-85); Total Cells Counted 100
[2019-06-12] MEDS: fentaNYL INJ 2,500 MCG in SODIUM CHLORIDE 0.9% 450 ML IV PRN ×2 (07:08→18:48)
[2019-06-12] MEDS: PANTOPRAZOLE 40 MG VIAL IV SCH (08:32)
[2019-06-12] MEDS: PAROXETINE HCL 30 MG PO SCH ×2 (08:35→21:25)
[2019-06-12] MEDS: VERAPAMIL 80 MG TABLET PO SCH ×2 (08:35→21:26)
[2019-06-12] MEDS: GABAPENTIN 100 MG CAPSULE PO SCH ×2 (08:36→21:26)
[2019-06-12] MEDS: ASPIRIN EC 81 MG TABLET PO SCH (08:36)
[2019-06-12] MEDS: CHOLECALCIFEROL 1,000 UNIT TABLET PO SCH (08:36)
[2019-06-12] MEDS: busPIRone 5 MG TABLET PO SCH ×3 (08:36→21:26)
[2019-06-12] MEDS: FUROSEMIDE 40 MG TABLET PO SCH (08:36)
[2019-06-12] MEDS: POTASSIUM CHLORIDE 20 MEQ TABLET PO PRN ×2 (08:36→11:36)
[2019-06-12] MEDS: MULTIVITAMIN LIQUID (CENTRUM) 60 ML BOTTLE PO SCH (08:37)
[2019-06-12] MEDS: POLYETHYLENE GLYCOL POWDER 17 GM PACK PO SCH (08:37)
[2019-06-12] MEDS: ONDANSETRON 4 MG/2 ML VIAL IV PRN (08:53)
[2019-06-12] MEDS: MIDAZOLAM 100 MG in SODIUM CHLORIDE 0.9% 80 ML IV PRN (10:02)
[2019-06-12] MEDS: methIMAzole 5 MG TABLET PO SCH ×3 (11:36→21:26)
[2019-06-12] MEDS: cefTRIAXone 1,000 MG in SYRINGE 1 EACH IV SCH (12:33)
[2019-06-12] MEDS: MONTELUKAST 10 MG TABLET PO SCH (21:26)
[2019-06-13] MEDS: ALBUTEROL 0.63 MG/3 ML NEB RESP TX SCH ×7 (00:12→23:45)
[2019-06-13] MEDS: INSULIN REGULAR 100 UNIT/ML SUBCUT SCH ×4 (00:51→18:41)
[2019-06-13] MEDS: methylPREDNISolone SOD SUC 125 MG/2 ML VIAL IV SCH ×4 (01:45→21:01)
[2019-06-13] MEDS: MIDAZOLAM 100 MG in SODIUM CHLORIDE 0.9% 80 ML IV PRN ×2 (02:35→18:03)
[2019-06-13 05:03] LABS: ABG Base Excess 6.7 MMOL/L (-2.5-2.5); ABG HCO3 30.5 MMOL/L (20-26); ABG PCO2 59.8 MM HG (35-48); ABG PH 7.362 (7.35-7.45); ABG PO2 77.3 MM HG (80-95); ABG TCO2 30.7 MMOL/L (23-27); Allen Test Positive; Pt O2 Delivery Device Ventilator
[2019-06-13 06:06] LABS: Basophils % 0.2 % (0.0-0.8); Hematocrit 34.6 VOL% (35.7-47.0); Immature Granulocytes % 1.3 %; Immature Granulocytes Absolute 0.21 #; Lymphocytes # 0.3 10*3/uL (1.4-4.0); Lymphocytes % 1.8 % (21.3-54.2); Mean Corpuscular HGB Conc 29.2 GM/DL (32-36); Mean Corpuscular Volume 99.4 FL (87-102); Mean Platelet Volume 12.1 FL (9.6-12.0); Monocytes % 4.2 % (1.7-12.7); Neutrophils % 92.5 % (38.7-73.9); Platelet Count 123 T/CUMM (130-400); Red Blood Count 3.48 MC/CUMM (3.8-5.5); Red Cell Distribution Width 16.5 % (9.3-17.3); White Blood Count 16.8 T/CUMM (4-12)
[2019-06-13 06:07] LABS: Hemoglobin 10.1 GM/DL (12.0-16.0)
[2019-06-13 06:15] LABS: Anisocytosis Slight; Band Neutrophils 1 % (0-10); Lymphocytes 3 % (20-55); Platelet Estimate Adequate; Segmented Neutrophils 92 % (50-85); Total Cells Counted 100
[2019-06-13 06:16] LABS: Macrocytosis Slight
[2019-06-13 07:14] LABS: Allen Test Positive; Pt O2 Delivery Device Ventilator
[2019-06-13 07:16] LABS: ABG HCO3 30.8 MMOL/L (20-26); ABG Oxygen Saturation 96.9 % (95-100); ABG PCO2 58.7 MM HG (35-48); ABG PO2 87.7 MM HG (80-95); ABG TCO2 30.9 MMOL/L (23-27)
[2019-06-13] MEDS: MULTIVITAMIN LIQUID (CENTRUM) 60 ML BOTTLE PO SCH (08:39)
[2019-06-13] MEDS: PANTOPRAZOLE 40 MG VIAL IV SCH (08:39)
[2019-06-13] MEDS: POLYETHYLENE GLYCOL POWDER 17 GM PACK PO SCH (08:39)
[2019-06-13] MEDS: POTASSIUM CHLORIDE 20 MEQ/15 ML UDCUP PER TUBE PRN ×2 (08:39→12:51)
[2019-06-13] MEDS: ASPIRIN EC 81 MG TABLET PO SCH (08:40)
[2019-06-13] MEDS: busPIRone 5 MG TABLET PO SCH ×3 (08:40→21:07)
[2019-06-13] MEDS: FUROSEMIDE 40 MG TABLET PO SCH (08:40)
[2019-06-13] MEDS: GABAPENTIN 100 MG CAPSULE PO SCH ×2 (08:40→21:02)
[2019-06-13] MEDS: PAROXETINE HCL 30 MG PO SCH ×2 (08:40→21:07)
[2019-06-13] MEDS: methIMAzole 5 MG TABLET PO SCH ×3 (08:40→21:02)
[2019-06-13] MEDS: CHOLECALCIFEROL 1,000 UNIT TABLET PO SCH (08:40)
[2019-06-13] MEDS: VERAPAMIL 80 MG TABLET PO SCH ×2 (08:40→21:02)
[2019-06-13] MEDS: fentaNYL INJ 2,500 MCG in SODIUM CHLORIDE 0.9% 450 ML IV PRN (12:03)
[2019-06-13] MEDS ORDERED: SODIUM CHLORIDE 0.9% 500 ML IV ONE (12:35)
[2019-06-13] MEDS: cefTRIAXone 1,000 MG in SYRINGE 1 EACH IV SCH (13:19)
[2019-06-13] MEDS ORDERED: NOREPINEPHRINE 8 MG in SODIUM CHLORIDE 0.9% 242 ML IV PRN (17:51)
[2019-06-13] MEDS ORDERED: NOREPINEPHRINE 4 MG/4 ML VIAL IV ONE (17:54)
[2019-06-13] MEDS: MONTELUKAST 10 MG TABLET PO SCH (21:02)
[2019-06-13] MEDS: GENTAMICIN INJ 600 MG in SODIUM CHLORIDE 0.9% 100 ML IV SCH (21:02)
[2019-06-14] MEDS: INSULIN REGULAR 100 UNIT/ML SUBCUT SCH ×4 (00:30→17:12)
[2019-06-14] MEDS: methylPREDNISolone SOD SUC 125 MG/2 ML VIAL IV SCH ×4 (00:34→20:39)
[2019-06-14] MEDS: fentaNYL INJ 2,500 MCG in SODIUM CHLORIDE 0.9% 450 ML IV PRN ×2 (02:40→17:25)
[2019-06-14] MEDS: ALBUTEROL 0.63 MG/3 ML NEB RESP TX SCH ×5 (03:01→19:41)
[2019-06-14 04:41] LABS: Allen Test Positive; Pt O2 Delivery Device Ventilator
[2019-06-14 04:42] LABS: ABG Base Excess 4.7 MMOL/L (-2.5-2.5); ABG HCO3 28.6 MMOL/L (20-26); ABG Oxygen Saturation 96.9 % (95-100); ABG PCO2 59.3 MM HG (35-48); ABG PO2 84.8 MM HG (80-95); ABG TCO2 29.1 MMOL/L (23-27)
[2019-06-14] MEDS: MIDAZOLAM 100 MG in SODIUM CHLORIDE 0.9% 80 ML IV PRN (07:05)
[2019-06-14 07:22] LABS: Basophils % 0.1 % (0.0-0.8); Hematocrit 32.8 VOL% (35.7-47.0); Hemoglobin 9.6 GM/DL (12.0-16.0); Immature Granulocytes % 1.6 %; Immature Granulocytes Absolute 0.25 #; Lymphocytes # 0.3 10*3/uL (1.4-4.0); Lymphocytes % 1.9 % (21.3-54.2); Mean Corpuscular HGB Conc 29.3 GM/DL (32-36); Mean Platelet Volume 12.1 FL (9.6-12.0); Monocytes % 2.5 % (1.7-12.7); Neutrophils % 93.9 % (38.7-73.9); Platelet Count 112 T/CUMM (130-400); Red Blood Count 3.28 MC/CUMM (3.8-5.5); Red Cell Distribution Width 16.6 % (9.3-17.3); White Blood Count 15.7 T/CUMM (4-12)
[2019-06-14] MEDS ORDERED: MIDAZOLAM 100 MG in SODIUM CHLORIDE 0.9% 80 ML IV PRN (07:30)
[2019-06-14 07:31] LABS: Calcium 8.6 MG/DL (8.5-10.1); Osmolality,Calculated 290.1 MOS/KG (273-304)
[2019-06-14 07:45] LABS: Anisocytosis 2+; Band Neutrophils 1 % (0-10); Lymphocytes 2 % (20-55); Macrocytosis 2+; Platelet Estimate Adequate; Segmented Neutrophils 95 % (50-85); Total Cells Counted 100
[2019-06-14 07:48] LABS: Basophilic Stippling Slight
[2019-06-14] MEDS: PANTOPRAZOLE 40 MG VIAL IV SCH (08:49)
[2019-06-14] MEDS: MULTIVITAMIN LIQUID (CENTRUM) 60 ML BOTTLE PO SCH (08:50)
[2019-06-14] MEDS: ENOXAPARIN 40 MG/0.4 ML SYRINGE SUBCUT SCH (08:50)
[2019-06-14] MEDS: POTASSIUM CHLORIDE 20 MEQ/15 ML UDCUP PER TUBE PRN (08:50)
[2019-06-14] MEDS: methIMAzole 5 MG TABLET PO SCH ×3 (08:54→20:40)
[2019-06-14] MEDS: ASPIRIN EC 81 MG TABLET PO SCH (08:54)
[2019-06-14] MEDS: CHOLECALCIFEROL 1,000 UNIT TABLET PO SCH (08:54)
[2019-06-14] MEDS: VERAPAMIL 80 MG TABLET PO SCH ×2 (08:54→20:40)
[2019-06-14] MEDS: GABAPENTIN 100 MG CAPSULE PO SCH ×2 (08:54→20:40)
[2019-06-14] MEDS: busPIRone 5 MG TABLET PO SCH ×3 (08:55→20:40)
[2019-06-14] MEDS: FUROSEMIDE 40 MG TABLET PO SCH (08:55)
[2019-06-14] MEDS: PAROXETINE HCL 30 MG PO SCH ×2 (08:55→20:40)
[2019-06-14] MEDS: POLYETHYLENE GLYCOL POWDER 17 GM PACK PO SCH (08:55)
[2019-06-14] MEDS: LORazepam 2 MG/1 ML VIAL IV PRN (09:16)
[2019-06-14] MEDS: MONTELUKAST 10 MG TABLET PO SCH (20:40)
[2019-06-14] MEDS: GENTAMICIN INJ 600 MG in SODIUM CHLORIDE 0.9% 100 ML IV SCH (20:48)
[2019-06-15] MEDS: ALBUTEROL 0.63 MG/3 ML NEB RESP TX SCH ×6 (00:21→20:07)
[2019-06-15] MEDS ORDERED: LORazepam 2 MG/1 ML VIAL ONE ×3 (00:57→23:44)
[2019-06-15] MEDS: LORazepam 2 MG/1 ML VIAL IV PRN ×5 (01:06→23:49)
[2019-06-15] MEDS: HYDROcod/ACETAMIN 7.5-325 MG/15 ML UDCUP PO PRN ×3 (01:06→20:22)
[2019-06-15] MEDS: INSULIN REGULAR 100 UNIT/ML SUBCUT SCH ×4 (01:12→17:25)
[2019-06-15] MEDS: methylPREDNISolone SOD SUC 125 MG/2 ML VIAL IV SCH ×4 (01:12→18:02)
[2019-06-15] MEDS: MORPHINE 4 MG/1 ML VIAL IV PRN ×3 (03:44→17:49)
[2019-06-15 04:34] LABS: ABG Base Excess 7.7 MMOL/L (-2.5-2.5); ABG HCO3 33.7 MMOL/L (20-26); ABG Oxygen Saturation 96.2 % (95-100); ABG PCO2 55.4 MM HG (35-48); ABG PH 7.402 (7.35-7.45); ABG PO2 81.7 MM HG (80-95); ABG TCO2 35.4 MMOL/L (23-27); Allen Test Positive; Pt O2 Delivery Device Ventilator
[2019-06-15 04:34] LABS: Basophils % 0.2 % (0.0-0.8); Hematocrit 31.4 VOL% (35.7-47.0); Hemoglobin 9.5 GM/DL (12.0-16.0); Immature Granulocytes % 1.9 %; Immature Granulocytes Absolute 0.38 #; Lymphocytes # 0.3 10*3/uL (1.4-4.0); Lymphocytes % 1.7 % (21.3-54.2); Mean Corpuscular HGB Conc 30.3 GM/DL (32-36); Mean Corpuscular Volume 97.5 FL (87-102); Mean Platelet Volume 11.4 FL (9.6-12.0); Monocytes % 3.5 % (1.7-12.7); Neutrophils % 92.7 % (38.7-73.9); Platelet Count 116 T/CUMM (130-400); Red Blood Count 3.22 MC/CUMM (3.8-5.5); Red Cell Distribution Width 16.4 % (9.3-17.3); White Blood Count 19.9 T/CUMM (4-12)
[2019-06-15 04:51] LABS: Calcium 8.5 MG/DL (8.5-10.1); Osmolality,Calculated 292.1 MOS/KG (273-304)
[2019-06-15 04:55] LABS: Prealbumin 38.8 MG/DL (20-40)
[2019-06-15 05:00] LABS: Eosinophils 1 % (0-10); Lymphocytes 1 % (20-55); Platelet Estimate Decreased; Segmented Neutrophils 90 % (50-85); Total Cells Counted 100
[2019-06-15 05:01] LABS: Hypochromasia 1+; Macrocytosis Slight; Ovalocytes Slight
[2019-06-15] MEDS ORDERED: LORazepam 2 MG/1 ML VIAL IV ONE (07:27)
[2019-06-15] MEDS: DEXMEDETOMIDINE 200 MCG in SODIUM CHLORIDE 0.9% 48 ML IV PRN ×4 (07:37→23:50)
[2019-06-15] MEDS: MULTIVITAMIN LIQUID (CENTRUM) 60 ML BOTTLE PO SCH (09:16)
[2019-06-15] MEDS: PANTOPRAZOLE 40 MG VIAL IV SCH (09:16)
[2019-06-15] MEDS: ENOXAPARIN 40 MG/0.4 ML SYRINGE SUBCUT SCH (09:21)
[2019-06-15] MEDS: FUROSEMIDE 40 MG TABLET PO SCH (09:21)
[2019-06-15] MEDS: POLYETHYLENE GLYCOL POWDER 17 GM PACK PO SCH (09:21)
[2019-06-15] MEDS: PAROXETINE HCL 30 MG PO SCH ×2 (09:21→21:40)
[2019-06-15] MEDS: ASPIRIN EC 81 MG TABLET PO SCH (09:21)
[2019-06-15] MEDS: VERAPAMIL 80 MG TABLET PO SCH ×2 (09:21→21:40)
[2019-06-15] MEDS: GABAPENTIN 100 MG CAPSULE PO SCH ×2 (09:22→21:40)
[2019-06-15] MEDS: CHOLECALCIFEROL 1,000 UNIT TABLET PO SCH (09:22)
[2019-06-15] MEDS: busPIRone 5 MG TABLET PO SCH ×3 (09:22→21:40)
[2019-06-15] MEDS: methIMAzole 5 MG TABLET PO SCH ×3 (09:22→22:05)
[2019-06-15] MEDS: AMPICILLIN INJ 1,000 MG in SODIUM CHLORIDE 0.9% 100 ML IV SCH ×3 (12:01→23:56)
[2019-06-15] MEDS: GENTAMICIN INJ 600 MG in SODIUM CHLORIDE 0.9% 100 ML IV SCH (21:40)
[2019-06-15] MEDS: MONTELUKAST 10 MG TABLET PO SCH (21:40)
[2019-06-15] MEDS: ONDANSETRON 4 MG/2 ML VIAL IV PRN (23:54)
[2019-06-16] MEDS ORDERED: LOPERAMIDE 1 MG/7.5 ML 30 ML BOTTLE PO PRN (00:01)
[2019-06-16] MEDS: ALBUTEROL 0.63 MG/3 ML NEB RESP TX SCH ×7 (00:15→23:45)
[2019-06-16] MEDS ORDERED: SIMETHICONE DROPS 40 MG/0.6 ML 30 ML BOTTLE PO PRN (00:33)
[2019-06-16] MEDS ORDERED: SIMETHICONE DROPS 40 MG/0.6 ML 30 ML BOTTLE PEG ONE (00:34)
[2019-06-16] MEDS: INSULIN REGULAR 100 UNIT/ML SUBCUT SCH ×4 (00:57→17:36)
[2019-06-16] MEDS: DEXMEDETOMIDINE 200 MCG in SODIUM CHLORIDE 0.9% 48 ML IV PRN ×4 (03:22→16:45)
[2019-06-16] MEDS: methylPREDNISolone SOD SUC 125 MG/2 ML VIAL IV SCH ×5 (03:26→23:04)
[2019-06-16] MEDS ORDERED: SIMETHICONE DROPS 40 MG/0.6 ML 30 ML BOTTLE ONE (03:31)
[2019-06-16] MEDS: MORPHINE 4 MG/1 ML VIAL IV PRN ×2 (03:52→08:53)
[2019-06-16] MEDS: AMPICILLIN INJ 1,000 MG in SODIUM CHLORIDE 0.9% 100 ML IV SCH ×4 (04:19→23:05)
[2019-06-16 04:20] LABS: ABG Base Excess 10.1 MMOL/L (-2.5-2.5); ABG HCO3 33.9 MMOL/L (20-26); ABG PCO2 59.8 MM HG (35-48); ABG PH 7.399 (7.35-7.45); ABG TCO2 33.6 MMOL/L (23-27); Allen Test Positive; Pt O2 Delivery Device Ventilator
[2019-06-16 04:31] LABS: Basophils % 0.2 % (0.0-0.8); Hematocrit 30.7 VOL% (35.7-47.0); Hemoglobin 9.6 GM/DL (12.0-16.0); Immature Granulocytes Absolute 0.38 #; Lymphocytes # 1.3 10*3/uL (1.4-4.0); Lymphocytes % 7.1 % (21.3-54.2); Mean Corpuscular HGB Conc 31.3 GM/DL (32-36); Mean Corpuscular Volume 95.6 FL (87-102); Mean Platelet Volume 12.2 FL (9.6-12.0); Monocytes % 5.9 % (1.7-12.7); NRBC # 0.03 10*3/uL; Neutrophils % 84.8 % (38.7-73.9); Platelet Count 131 T/CUMM (130-400); Red Blood Count 3.21 MC/CUMM (3.8-5.5); Red Cell Distribution Width 16.4 % (9.3-17.3); White Blood Count 18.7 T/CUMM (4-12)
[2019-06-16] MEDS ORDERED: LORazepam 2 MG/1 ML VIAL ONE ×2 (06:28→23:25)
[2019-06-16] MEDS: LORazepam 2 MG/1 ML VIAL IV PRN ×4 (06:32→23:29)
[2019-06-16] MEDS: busPIRone 5 MG TABLET PO SCH ×3 (09:05→21:15)
[2019-06-16] MEDS: PANTOPRAZOLE 40 MG VIAL IV SCH (09:05)
[2019-06-16] MEDS: PAROXETINE HCL 30 MG PO SCH ×2 (09:05→21:12)
[2019-06-16] MEDS: methIMAzole 5 MG TABLET PO SCH ×3 (09:05→21:17)
[2019-06-16] MEDS: VERAPAMIL 80 MG TABLET PO SCH ×2 (09:06→21:13)
[2019-06-16] MEDS: ASPIRIN EC 81 MG TABLET PO SCH (09:06)
[2019-06-16] MEDS: GABAPENTIN 100 MG CAPSULE PO SCH ×2 (09:06→21:14)
[2019-06-16] MEDS: ENOXAPARIN 40 MG/0.4 ML SYRINGE SUBCUT SCH (09:06)
[2019-06-16] MEDS: CHOLECALCIFEROL 1,000 UNIT TABLET PO SCH (09:06)
[2019-06-16] MEDS: FUROSEMIDE 40 MG TABLET PO SCH (09:06)
[2019-06-16] MEDS: POLYETHYLENE GLYCOL POWDER 17 GM PACK PO SCH (09:10)
[2019-06-16] MEDS: MULTIVITAMIN LIQUID (CENTRUM) 60 ML BOTTLE PO SCH (09:28)
[2019-06-16] MEDS: hydrALAZINE 20 MG/1 ML VIAL IV PRN (09:50)
[2019-06-16] MEDS ORDERED: hydrALAZINE 20 MG/1 ML VIAL IV ONE (10:28)
[2019-06-16] MEDS ORDERED: LORazepam 2 MG/1 ML VIAL IV ONE (11:31)
[2019-06-16] MEDS ORDERED: POTASSIUM PHOSPHATE 30 MMOL in SODIUM CHLORIDE 0.9% 250 ML IV ONE (18:30)
[2019-06-16] MEDS: HYDROcod/ACETAMIN 7.5-325 MG/15 ML UDCUP PO PRN (21:12)
[2019-06-16] MEDS: GENTAMICIN INJ 600 MG in SODIUM CHLORIDE 0.9% 100 ML IV SCH (21:15)
[2019-06-16] MEDS: MONTELUKAST 10 MG TABLET PO SCH (21:15)
[2019-06-16] MEDS ORDERED: DEXMEDETOMIDINE 200 MCG in SODIUM CHLORIDE 0.9% 48 ML IV PRN (22:34)
[2019-06-16] MEDS: SIMETHICONE CHEW 125 MG TABLET PO PRN (23:29)
[2019-06-17] MEDS: hydrALAZINE 20 MG/1 ML VIAL IV PRN (00:30)
[2019-06-17] MEDS ORDERED: LORazepam 2 MG/1 ML VIAL ONE ×2 (01:06→09:36)
[2019-06-17] MEDS: INSULIN REGULAR 100 UNIT/ML SUBCUT SCH ×5 (01:08→23:38)
[2019-06-17] MEDS: LORazepam 2 MG/1 ML VIAL IV PRN ×4 (01:09→18:16)
[2019-06-17] MEDS: DEXMEDETOMIDINE 200 MCG in SODIUM CHLORIDE 0.9% 48 ML IV PRN ×2 (01:15→03:28)
[2019-06-17 03:10] LABS: Apearance,Urine Slightly Hazy (Clear); Bacteria,Urine Few /HPF (Few); Bilirubin,Urine Negative (Negative); Blood, Urine Large mg/dL (Negative); Glucose,Urine (UA) Negative (Negative); Ketones,Urine Negative (Negative); Mucus,Urine Occasional /LPF (Occasional); Nitrite,Urine Negative (Negative); Protein,Urine 100 MG/DL; RBC,Urine 391 /HPF (0-4); Urine Color Red (Yellow); Urine Specific Gravity 1.015 (1.001-1.035); Urine Urobilinogen < 2.0 EU/DL (0.2-1.0); WBC,Urine 66 /HPF (0-6)
[2019-06-17 03:36] LABS: ABG Base Excess 10.1 MMOL/L (-2.5-2.5); ABG HCO3 36.5 MMOL/L (20-26); ABG Oxygen Saturation 95.6 % (95-100); ABG PCO2 60.6 MM HG (35-48); ABG PH 7.398 (7.35-7.45); ABG PO2 80.2 MM HG (80-95); ABG TCO2 38.4 MMOL/L (23-27); Allen Test Positive; Pt O2 Delivery Device Ventilator
[2019-06-17] MEDS: ALBUTEROL 0.63 MG/3 ML NEB RESP TX SCH ×5 (03:41→19:05)
[2019-06-17 04:49] LABS: Basophils % 0.1 % (0.0-0.8); Hematocrit 27.2 VOL% (35.7-47.0); Hemoglobin 8.3 GM/DL (12.0-16.0); Immature Granulocytes % 2.3 %; Immature Granulocytes Absolute 0.29 #; Lymphocytes # 0.3 10*3/uL (1.4-4.0); Lymphocytes % 2.5 % (21.3-54.2); Mean Corpuscular HGB Conc 30.5 GM/DL (32-36); Mean Corpuscular Volume 97.1 FL (87-102); Mean Platelet Volume 11.4 FL (9.6-12.0); Monocytes % 4.6 % (1.7-12.7); Neutrophils % 90.5 % (38.7-73.9); Platelet Count 103 T/CUMM (130-400); Red Cell Distribution Width 16.9 % (9.3-17.3); White Blood Count 12.7 T/CUMM (4-12)
[2019-06-17 05:07] LABS: Calcium 8.7 MG/DL (8.5-10.1); Osmolality,Calculated 286.3 MOS/KG (273-304)
[2019-06-17 05:21] LABS: Band Neutrophils 2 % (0-10); Hypochromasia 1+; Lymphocytes 6 % (20-55); Segmented Neutrophils 87 % (50-85); Total Cells Counted 100
[2019-06-17 05:22] LABS: Macrocytosis 1+; Platelet Estimate Decreased
[2019-06-17] MEDS: AMPICILLIN INJ 1,000 MG in SODIUM CHLORIDE 0.9% 100 ML IV SCH ×4 (05:50→23:39)
[2019-06-17] MEDS: DEXMEDETOMIDINE 400 MCG in SODIUM CHLORIDE 0.9% 96 ML IV PRN ×3 (08:00→21:03)
[2019-06-17] MEDS: ENOXAPARIN 40 MG/0.4 ML SYRINGE SUBCUT SCH (08:53)
[2019-06-17] MEDS: POLYETHYLENE GLYCOL POWDER 17 GM PACK PO SCH (08:53)
[2019-06-17] MEDS: methylPREDNISolone SOD SUC 125 MG/2 ML VIAL IV SCH ×3 (08:53→23:35)
[2019-06-17] MEDS: PANTOPRAZOLE 40 MG VIAL IV SCH (08:54)
[2019-06-17] MEDS: FUROSEMIDE 40 MG TABLET PO SCH (08:54)
[2019-06-17] MEDS: methIMAzole 5 MG TABLET PO SCH ×3 (08:54→21:41)
[2019-06-17] MEDS: busPIRone 5 MG TABLET PO SCH ×3 (08:54→21:41)
[2019-06-17] MEDS: PAROXETINE HCL 30 MG PO SCH ×2 (08:54→21:41)
[2019-06-17] MEDS: ASPIRIN EC 81 MG TABLET PO SCH (08:55)
[2019-06-17] MEDS: GABAPENTIN 100 MG CAPSULE PO SCH ×2 (08:55→21:42)
[2019-06-17] MEDS: CHOLECALCIFEROL 1,000 UNIT TABLET PO SCH (08:55)
[2019-06-17] MEDS: VERAPAMIL 80 MG TABLET PO SCH ×2 (08:55→21:41)
[2019-06-17] MEDS: MULTIVITAMIN LIQUID (CENTRUM) 60 ML BOTTLE PO SCH (09:01)
[2019-06-17] MEDS: POTASSIUM CHLORIDE 20 MEQ/15 ML UDCUP PER TUBE PRN (09:12)
[2019-06-17] MEDS: MORPHINE 4 MG/1 ML VIAL IV PRN (09:42)
[2019-06-17] MEDS ORDERED: FUROSEMIDE 40 MG/4 ML VIAL ONE (14:53)
[2019-06-17] MEDS: FUROSEMIDE 40 MG/4 ML VIAL IV SCH (15:00)
[2019-06-17] MEDS: MONTELUKAST 10 MG TABLET PO SCH (21:41)
[2019-06-17] MEDS: GENTAMICIN INJ 600 MG in SODIUM CHLORIDE 0.9% 100 ML IV SCH (21:44)
[2019-06-18] MEDS: DEXMEDETOMIDINE 400 MCG in SODIUM CHLORIDE 0.9% 96 ML IV PRN ×6 (00:42→23:13)
[2019-06-18] MEDS: ALBUTEROL 0.63 MG/3 ML NEB RESP TX SCH ×7 (01:05→23:50)
[2019-06-18] MEDS: LORazepam 2 MG/1 ML VIAL IV PRN ×2 (04:04→16:59)
[2019-06-18 04:26] LABS: ABG Base Excess 13.6 MMOL/L (-2.5-2.5); ABG HCO3 37.4 MMOL/L (20-26); ABG Oxygen Saturation 98.1 % (95-100); ABG PCO2 47.4 MM HG (35-48); ABG PH 7.517 (7.35-7.45); ABG TCO2 34.8 MMOL/L (23-27)
[2019-06-18 04:56] LABS: Basophils % 0.2 % (0.0-0.8); Hematocrit 29.9 VOL% (35.7-47.0); Hemoglobin 9.5 GM/DL (12.0-16.0); Immature Granulocytes % 1.8 %; Immature Granulocytes Absolute 0.23 #; Lymphocytes # 0.4 10*3/uL (1.4-4.0); Lymphocytes % 3.4 % (21.3-54.2); Mean Corpuscular HGB Conc 31.8 GM/DL (32-36); Mean Corpuscular Volume 94.9 FL (87-102); Mean Platelet Volume 12.2 FL (9.6-12.0); Monocytes % 3.7 % (1.7-12.7); NRBC # 0.02 10*3/uL; Neutrophils % 90.9 % (38.7-73.9); Platelet Count 118 T/CUMM (130-400); Red Blood Count 3.15 MC/CUMM (3.8-5.5); Red Cell Distribution Width 17.2 % (9.3-17.3)
[2019-06-18 05:08] LABS: Calcium 8.4 MG/DL (8.5-10.1); Osmolality,Calculated 288.3 MOS/KG (273-304)
[2019-06-18] MEDS: INSULIN REGULAR 100 UNIT/ML SUBCUT SCH ×3 (05:20→19:06)
[2019-06-18 05:21] LABS: Hypochromasia 1+; Lymphocytes 2 % (20-55); Ovalocytes Slight; Platelet Estimate Decreased; Segmented Neutrophils 96 % (50-85); Total Cells Counted 100
[2019-06-18 05:22] LABS: Macrocytosis Slight
[2019-06-18] MEDS: AMPICILLIN INJ 1,000 MG in SODIUM CHLORIDE 0.9% 100 ML IV SCH ×4 (05:22→23:04)
[2019-06-18] MEDS: methylPREDNISolone SOD SUC 125 MG/2 ML VIAL IV SCH ×2 (06:06→16:58)
[2019-06-18] MEDS: POTASSIUM CHLORIDE 20 MEQ/15 ML UDCUP PER TUBE PRN (06:10)
[2019-06-18] MEDS: CHOLECALCIFEROL 1,000 UNIT TABLET PO SCH (11:00)
[2019-06-18] MEDS: ENOXAPARIN 40 MG/0.4 ML SYRINGE SUBCUT SCH (11:00)
[2019-06-18] MEDS: methIMAzole 5 MG TABLET PO SCH ×3 (11:00→21:19)
[2019-06-18] MEDS: MULTIVITAMIN LIQUID (CENTRUM) 60 ML BOTTLE PO SCH (11:00)
[2019-06-18] MEDS: busPIRone 5 MG TABLET PO SCH ×3 (11:00→21:19)
[2019-06-18] MEDS: ASPIRIN EC 81 MG TABLET PO SCH (11:00)
[2019-06-18] MEDS: PAROXETINE HCL 30 MG PO SCH ×2 (11:00→21:18)
[2019-06-18] MEDS: POLYETHYLENE GLYCOL POWDER 17 GM PACK PO SCH (11:00)
[2019-06-18] MEDS: GABAPENTIN 100 MG CAPSULE PO SCH ×2 (11:00→21:18)
[2019-06-18] MEDS: FUROSEMIDE 40 MG/4 ML VIAL IV SCH ×2 (11:58→16:58)
[2019-06-18] MEDS: VERAPAMIL 80 MG TABLET PO SCH ×2 (11:59→21:13)
[2019-06-18] MEDS: PANTOPRAZOLE 40 MG VIAL IV SCH (12:00)
[2019-06-18] MEDS: MONTELUKAST 10 MG TABLET PO SCH (21:18)
[2019-06-18] MEDS: GENTAMICIN INJ 600 MG in SODIUM CHLORIDE 0.9% 100 ML IV SCH (21:24)
[2019-06-18] MEDS: methylPREDNISolone SOD SUC 40 MG/1 ML VIAL IV SCH (23:01)
[2019-06-19] MEDS: INSULIN REGULAR 100 UNIT/ML SUBCUT SCH ×4 (00:09→18:06)
[2019-06-19] MEDS: LORazepam 2 MG/1 ML VIAL IV PRN ×2 (01:40→11:27)
[2019-06-19] MEDS: DEXMEDETOMIDINE 400 MCG in SODIUM CHLORIDE 0.9% 96 ML IV PRN ×4 (03:10→20:36)
[2019-06-19] MEDS: ALBUTEROL 0.63 MG/3 ML NEB RESP TX SCH ×5 (03:45→19:06)
[2019-06-19 04:16] LABS: Basophils % 0.2 % (0.0-0.8); Eosinophils % 0.1 % (0.00-10.9); Hematocrit 29.2 VOL% (35.7-47.0); Immature Granulocytes % 1.8 %; Immature Granulocytes Absolute 0.18 #; Lymphocytes # 0.3 10*3/uL (1.4-4.0); Mean Corpuscular HGB Conc 30.8 GM/DL (32-36); Mean Corpuscular Volume 95.4 FL (87-102); Mean Platelet Volume 12.4 FL (9.6-12.0); Monocytes % 3.1 % (1.7-12.7); NRBC # 0.03 10*3/uL; Neutrophils % 91.8 % (38.7-73.9); Platelet Count 103 T/CUMM (130-400); Red Blood Count 3.06 MC/CUMM (3.8-5.5); Red Cell Distribution Width 17.4 % (9.3-17.3); White Blood Count 10.2 T/CUMM (4-12)
[2019-06-19 04:22] LABS: Calcium 8.2 MG/DL (8.5-10.1); Osmolality,Calculated 290.3 MOS/KG (273-304)
[2019-06-19 04:31] LABS: Allen Test Positive; Pt O2 Delivery Device Ventilator
[2019-06-19 04:32] LABS: ABG Base Excess 14.9 MMOL/L (-2.5-2.5); ABG HCO3 40.5 MMOL/L (20-26); ABG Oxygen Saturation 97.4 % (95-100); ABG PCO2 55.7 MM HG (35-48); ABG PH 7.479 (7.35-7.45); ABG PO2 99.4 MM HG (80-95); ABG TCO2 42.2 MMOL/L (23-27)
[2019-06-19 04:40] LABS: Band Neutrophils 1 % (0-10); Hypochromasia 1+; Lymphocytes 3 % (20-55); Platelet Estimate Decreased; Segmented Neutrophils 89 % (50-85); Total Cells Counted 100
[2019-06-19 04:41] LABS: Macrocytosis Slight
[2019-06-19] MEDS: methylPREDNISolone SOD SUC 40 MG/1 ML VIAL IV SCH ×3 (05:36→21:22)
[2019-06-19] MEDS: AMPICILLIN INJ 1,000 MG in SODIUM CHLORIDE 0.9% 100 ML IV SCH ×3 (05:38→16:37)
[2019-06-19] MEDS: ENOXAPARIN 40 MG/0.4 ML SYRINGE SUBCUT SCH (08:43)
[2019-06-19] MEDS: busPIRone 5 MG TABLET PO SCH ×3 (08:44→21:17)
[2019-06-19] MEDS: ASPIRIN EC 81 MG TABLET PO SCH (08:44)
[2019-06-19] MEDS: POLYETHYLENE GLYCOL POWDER 17 GM PACK PO SCH (08:45)
[2019-06-19] MEDS: VERAPAMIL 80 MG TABLET PO SCH ×2 (08:45→21:18)
[2019-06-19] MEDS: GABAPENTIN 100 MG CAPSULE PO SCH ×2 (08:45→21:18)
[2019-06-19] MEDS: PAROXETINE HCL 30 MG PO SCH ×2 (08:46→21:18)
[2019-06-19] MEDS: methIMAzole 5 MG TABLET PO SCH ×3 (08:47→21:17)
[2019-06-19] MEDS: CHOLECALCIFEROL 1,000 UNIT TABLET PO SCH (08:47)
[2019-06-19] MEDS: FUROSEMIDE 40 MG/4 ML VIAL IV SCH ×2 (08:47→16:44)
[2019-06-19] MEDS: PANTOPRAZOLE 40 MG VIAL IV SCH (08:49)
[2019-06-19] MEDS: MULTIVITAMIN LIQUID (CENTRUM) 60 ML BOTTLE PO SCH (08:55)
[2019-06-19] MEDS: INSULIN GLARGINE 100 UNIT/ML SUBCUT SCH (11:29)
[2019-06-19] MEDS: POTASSIUM CHLORIDE 20 MEQ/15 ML UDCUP PER TUBE PRN (11:35)
[2019-06-19] MEDS: MONTELUKAST 10 MG TABLET PO SCH (21:18)
[2019-06-19] MEDS: GENTAMICIN INJ 600 MG in SODIUM CHLORIDE 0.9% 100 ML IV SCH (21:28)
[2019-06-19] MEDS: MORPHINE 4 MG/1 ML VIAL IV PRN (21:37)
[2019-06-20] MEDS: ALBUTEROL 0.63 MG/3 ML NEB RESP TX SCH ×7 (00:03→23:47)
[2019-06-20] MEDS: AMPICILLIN INJ 1,000 MG in SODIUM CHLORIDE 0.9% 100 ML IV SCH ×4 (00:18→17:14)
[2019-06-20] MEDS: INSULIN REGULAR 100 UNIT/ML SUBCUT SCH ×4 (00:20→18:48)
[2019-06-20] MEDS: DEXMEDETOMIDINE 400 MCG in SODIUM CHLORIDE 0.9% 96 ML IV PRN ×6 (00:22→21:23)
[2019-06-20 03:52] LABS: ABG Base Excess 17.1 MMOL/L (-2.5-2.5); ABG HCO3 42.7 MMOL/L (20-26); ABG Oxygen Saturation 98.1 % (95-100); ABG PCO2 56.1 MM HG (35-48); ABG PH 7.499 (7.35-7.45); ABG PO2 120.1 MM HG (80-95); ABG TCO2 44.4 MMOL/L (23-27); Allen Test Positive; Pt O2 Delivery Device Ventilator
[2019-06-20] MEDS: MORPHINE 4 MG/1 ML VIAL IV PRN ×2 (04:53→23:58)
[2019-06-20 05:02] LABS: Eosinophils % 0.1 % (0.00-10.9); Hematocrit 29.3 VOL% (35.7-47.0); Hemoglobin 8.7 GM/DL (12.0-16.0); Immature Granulocytes % 1.8 %; Lymphocytes # 0.5 10*3/uL (1.4-4.0); Lymphocytes % 4.6 % (21.3-54.2); Mean Corpuscular HGB Conc 29.7 GM/DL (32-36); Mean Platelet Volume 12.6 FL (9.6-12.0); Monocytes % 3.8 % (1.7-12.7); NRBC # 0.03 10*3/uL; Neutrophils % 89.7 % (38.7-73.9); Platelet Count 110 T/CUMM (130-400); Red Blood Count 2.99 MC/CUMM (3.8-5.5); Red Cell Distribution Width 17.8 % (9.3-17.3); White Blood Count 11.3 T/CUMM (4-12)
[2019-06-20 05:25] LABS: Lymphocytes 6 % (20-55); Segmented Neutrophils 93 % (50-85); Total Cells Counted 100
[2019-06-20 05:26] LABS: Hypochromasia 1+; Macrocytosis 1+; Platelet Estimate Adequate
[2019-06-20] MEDS: methylPREDNISolone SOD SUC 40 MG/1 ML VIAL IV SCH ×3 (05:31→21:17)
[2019-06-20 05:48] LABS: Calcium 8.2 MG/DL (8.5-10.1)
[2019-06-20 06:42] LABS: Osmolality,Calculated 285.4 MOS/KG (273-304)
[2019-06-20] MEDS: INSULIN GLARGINE 100 UNIT/ML SUBCUT SCH (09:10)
[2019-06-20] MEDS: busPIRone 5 MG TABLET PO SCH ×3 (09:11→21:14)
[2019-06-20] MEDS: GABAPENTIN 100 MG CAPSULE PO SCH ×2 (09:11→21:14)
[2019-06-20] MEDS: PAROXETINE HCL 30 MG PO SCH ×2 (09:11→21:14)
[2019-06-20] MEDS: VERAPAMIL 80 MG TABLET PO SCH ×2 (09:11→21:14)
[2019-06-20] MEDS: ASPIRIN EC 81 MG TABLET PO SCH (09:11)
[2019-06-20] MEDS: methIMAzole 5 MG TABLET PO SCH ×3 (09:12→21:14)
[2019-06-20] MEDS: CHOLECALCIFEROL 1,000 UNIT TABLET PO SCH (09:12)
[2019-06-20] MEDS: PANTOPRAZOLE 40 MG VIAL IV SCH (09:12)
[2019-06-20] MEDS: POTASSIUM CHLORIDE 20 MEQ/15 ML UDCUP PER TUBE PRN (09:16)
[2019-06-20] MEDS: FUROSEMIDE 40 MG/4 ML VIAL IV SCH ×2 (09:17→15:42)
[2019-06-20] MEDS: ENOXAPARIN 40 MG/0.4 ML SYRINGE SUBCUT SCH (09:18)
[2019-06-20] MEDS: POLYETHYLENE GLYCOL POWDER 17 GM PACK PO SCH (09:19)
[2019-06-20] MEDS: MULTIVITAMIN LIQUID (CENTRUM) 60 ML BOTTLE PO SCH (09:34)
[2019-06-20] MEDS: LORazepam 2 MG/1 ML VIAL IV PRN (12:58)
[2019-06-20] MEDS: MONTELUKAST 10 MG TABLET PO SCH (21:14)
[2019-06-20] MEDS: GENTAMICIN INJ 600 MG in SODIUM CHLORIDE 0.9% 100 ML IV SCH (21:20)
[2019-06-21] MEDS: AMPICILLIN INJ 1,000 MG in SODIUM CHLORIDE 0.9% 100 ML IV SCH ×4 (00:01→17:36)
[2019-06-21] MEDS: INSULIN REGULAR 100 UNIT/ML SUBCUT SCH ×4 (00:23→20:19)
[2019-06-21] MEDS: DEXMEDETOMIDINE 400 MCG in SODIUM CHLORIDE 0.9% 96 ML IV PRN ×5 (02:03→22:34)
[2019-06-21 03:37] LABS: Allen Test Positive; Pt O2 Delivery Device Ventilator
[2019-06-21 03:38] LABS: ABG Base Excess 15.4 MMOL/L (-2.5-2.5); ABG HCO3 40.1 MMOL/L (20-26); ABG Oxygen Saturation 96.3 % (95-100); ABG PCO2 50.8 MM HG (35-48); ABG PH 7.515 (7.35-7.45); ABG PO2 81.9 MM HG (80-95); ABG TCO2 41.6 MMOL/L (23-27)
[2019-06-21] MEDS: methylPREDNISolone SOD SUC 40 MG/1 ML VIAL IV SCH ×3 (05:36→22:22)
[2019-06-21] MEDS: MORPHINE 4 MG/1 ML VIAL IV PRN (05:59)
[2019-06-21] MEDS: ALBUTEROL 0.63 MG/3 ML NEB RESP TX SCH ×6 (06:30→23:48)
[2019-06-21] MEDS: GABAPENTIN 100 MG CAPSULE PO SCH ×2 (08:55→22:21)
[2019-06-21] MEDS: busPIRone 5 MG TABLET PO SCH ×3 (08:56→22:21)
[2019-06-21] MEDS: CHOLECALCIFEROL 1,000 UNIT TABLET PO SCH (08:57)
[2019-06-21] MEDS: methIMAzole 5 MG TABLET PO SCH ×3 (08:57→22:21)
[2019-06-21] MEDS: ASPIRIN EC 81 MG TABLET PO SCH (08:58)
[2019-06-21] MEDS: VERAPAMIL 80 MG TABLET PO SCH ×2 (08:58→22:21)
[2019-06-21] MEDS: INSULIN GLARGINE 100 UNIT/ML SUBCUT SCH (08:59)
[2019-06-21] MEDS: ENOXAPARIN 40 MG/0.4 ML SYRINGE SUBCUT SCH (08:59)
[2019-06-21] MEDS: FUROSEMIDE 40 MG/4 ML VIAL IV SCH ×2 (09:00→17:32)
[2019-06-21] MEDS: POLYETHYLENE GLYCOL POWDER 17 GM PACK PO SCH (09:02)
[2019-06-21] MEDS: MULTIVITAMIN LIQUID (CENTRUM) 60 ML BOTTLE PO SCH (09:02)
[2019-06-21] MEDS: PANTOPRAZOLE 40 MG VIAL IV SCH (09:04)
[2019-06-21] MEDS: HYDROcod/ACETAMIN 7.5-325 MG/15 ML UDCUP PO PRN (09:13)
[2019-06-21] MEDS: LORazepam 2 MG/1 ML VIAL IV PRN ×3 (10:05→22:43)
[2019-06-21] MEDS: PAROXETINE HCL 30 MG PO SCH (10:50)
[2019-06-21] MEDS: QUEtiapine 100 MG TABLET PO SCH ×2 (13:50→22:22)
[2019-06-21] MEDS: MONTELUKAST 10 MG TABLET PO SCH (22:21)
[2019-06-22] MEDS: AMPICILLIN INJ 1,000 MG in SODIUM CHLORIDE 0.9% 100 ML IV SCH ×2 (00:06→06:19)
[2019-06-22] MEDS: INSULIN REGULAR 100 UNIT/ML SUBCUT SCH ×4 (00:06→17:06)
[2019-06-22 03:23] LABS: ABG Base Excess 15.1 MMOL/L (-2.5-2.5); ABG Oxygen Saturation 97.7 % (95-100); ABG PCO2 55.1 MM HG (35-48); ABG PH 7.481 (7.35-7.45); ABG PO2 89.8 MM HG (80-95); ABG TCO2 37.5 MMOL/L (23-27); Allen Test Positive; Pt O2 Delivery Device Ventilator
[2019-06-22 04:00] LABS: Basophils % 0.1 % (0.0-0.8); Hematocrit 29.5 VOL% (35.7-47.0); Hemoglobin 8.9 GM/DL (12.0-16.0); Immature Granulocytes Absolute 0.27 #; Lymphocytes % 7.2 % (21.3-54.2); Mean Corpuscular HGB Conc 30.2 GM/DL (32-36); Mean Corpuscular Volume 99.3 FL (87-102); Mean Platelet Volume 11.9 FL (9.6-12.0); Monocytes % 3.9 % (1.7-12.7); NRBC # 0.02 10*3/uL; Neutrophils % 86.8 % (38.7-73.9); Platelet Count 107 T/CUMM (130-400); Red Blood Count 2.97 MC/CUMM (3.8-5.5); Red Cell Distribution Width 17.6 % (9.3-17.3); White Blood Count 13.7 T/CUMM (4-12)
[2019-06-22 04:21] LABS: Calcium 8.3 MG/DL (8.5-10.1); Osmolality,Calculated 286.4 MOS/KG (273-304)
[2019-06-22] MEDS: DEXMEDETOMIDINE 400 MCG in SODIUM CHLORIDE 0.9% 96 ML IV PRN ×3 (04:44→17:07)
[2019-06-22] MEDS: QUEtiapine 100 MG TABLET PO SCH ×3 (06:20→22:54)
[2019-06-22] MEDS: methylPREDNISolone SOD SUC 40 MG/1 ML VIAL IV SCH ×2 (06:20→17:42)
[2019-06-22] MEDS: ALBUTEROL 0.63 MG/3 ML NEB RESP TX SCH ×5 (06:25→19:14)
[2019-06-22] MEDS: POTASSIUM CHLORIDE RIDER 20 MEQ in PREMIX 1 EACH IV PRN (07:02)
[2019-06-22] MEDS: VERAPAMIL 80 MG TABLET PO SCH ×2 (08:30→20:58)
[2019-06-22] MEDS: GABAPENTIN 100 MG CAPSULE PO SCH ×2 (08:30→20:57)
[2019-06-22] MEDS: busPIRone 5 MG TABLET PO SCH ×3 (08:31→20:57)
[2019-06-22] MEDS: PANTOPRAZOLE 40 MG VIAL IV SCH (08:31)
[2019-06-22] MEDS: methIMAzole 5 MG TABLET PO SCH ×3 (08:31→20:57)
[2019-06-22] MEDS: ASPIRIN EC 81 MG TABLET PO SCH (08:31)
[2019-06-22] MEDS: INSULIN GLARGINE 100 UNIT/ML SUBCUT SCH (08:31)
[2019-06-22] MEDS: CHOLECALCIFEROL 1,000 UNIT TABLET PO SCH (08:31)
[2019-06-22] MEDS: MULTIVITAMIN LIQUID (CENTRUM) 60 ML BOTTLE PO SCH (08:31)
[2019-06-22] MEDS: FUROSEMIDE 40 MG/4 ML VIAL IV SCH ×2 (08:32→17:06)
[2019-06-22] MEDS: ENOXAPARIN 40 MG/0.4 ML SYRINGE SUBCUT SCH (08:32)
[2019-06-22] MEDS: POLYETHYLENE GLYCOL POWDER 17 GM PACK PO SCH (08:33)
[2019-06-22] MEDS: POTASSIUM CHLORIDE 20 MEQ/15 ML UDCUP PER TUBE SCH ×3 (08:51→17:06)
[2019-06-22] MEDS: MONTELUKAST 10 MG TABLET PO SCH (20:57)
[2019-06-23] MEDS: ALBUTEROL 0.63 MG/3 ML NEB RESP TX SCH ×7 (00:23→23:22)
[2019-06-23] MEDS: INSULIN REGULAR 100 UNIT/ML SUBCUT SCH ×4 (00:30→17:05)
[2019-06-23] MEDS: DEXMEDETOMIDINE 400 MCG in SODIUM CHLORIDE 0.9% 96 ML IV PRN ×2 (02:57→22:20)
[2019-06-23 04:45] LABS: ABG HCO3 36.8 MMOL/L (20-26); ABG Oxygen Saturation 99.6 % (95-100); ABG PCO2 51.6 MM HG (35-48); ABG TCO2 35.2 MMOL/L (23-27); Allen Test Positive; Pt O2 Delivery Device Ventilator
[2019-06-23 04:46] LABS: Basophils % 0.1 % (0.0-0.8); Eosinophils # 0.1 10*3/uL (0.0-0.87); Eosinophils % 0.4 % (0.00-10.9); Hematocrit 29.3 VOL% (35.7-47.0); Hemoglobin 8.9 GM/DL (12.0-16.0); Immature Granulocytes % 2.4 %; Immature Granulocytes Absolute 0.33 #; Lymphocytes # 1.6 10*3/uL (1.4-4.0); Lymphocytes % 11.5 % (21.3-54.2); Mean Corpuscular HGB Conc 30.4 GM/DL (32-36); NRBC # 0.06 10*3/uL; Neutrophils % 79.6 % (38.7-73.9); Platelet Count 112 T/CUMM (130-400); Red Blood Count 3.02 MC/CUMM (3.8-5.5); Red Cell Distribution Width 17.7 % (9.3-17.3); White Blood Count 13.6 T/CUMM (4-12)
[2019-06-23 05:22] LABS: Calcium 8.3 MG/DL (8.5-10.1); Osmolality,Calculated 291.3 MOS/KG (273-304)
[2019-06-23] MEDS: methylPREDNISolone SOD SUC 40 MG/1 ML VIAL IV SCH ×2 (06:22→17:08)
[2019-06-23] MEDS: QUEtiapine 100 MG TABLET PO SCH ×3 (06:22→21:46)
[2019-06-23] MEDS: POTASSIUM CHLORIDE 20 MEQ/15 ML UDCUP PER TUBE PRN ×2 (06:23→08:24)
[2019-06-23] MEDS: ENOXAPARIN 40 MG/0.4 ML SYRINGE SUBCUT SCH (08:24)
[2019-06-23] MEDS: INSULIN GLARGINE 100 UNIT/ML SUBCUT SCH (08:24)
[2019-06-23] MEDS: PANTOPRAZOLE 40 MG VIAL IV SCH (08:24)
[2019-06-23] MEDS: FUROSEMIDE 40 MG/4 ML VIAL IV SCH ×2 (08:24→16:49)
[2019-06-23] MEDS: ASPIRIN EC 81 MG TABLET PO SCH (08:25)
[2019-06-23] MEDS: busPIRone 5 MG TABLET PO SCH ×3 (08:25→20:28)
[2019-06-23] MEDS: MULTIVITAMIN LIQUID (CENTRUM) 60 ML BOTTLE PO SCH (08:25)
[2019-06-23] MEDS: GABAPENTIN 100 MG CAPSULE PO SCH ×2 (08:25→20:28)
[2019-06-23] MEDS: VERAPAMIL 80 MG TABLET PO SCH ×2 (08:25→20:28)
[2019-06-23] MEDS: methIMAzole 5 MG TABLET PO SCH ×3 (08:36→20:28)
[2019-06-23] MEDS: POLYETHYLENE GLYCOL POWDER 17 GM PACK PO SCH (08:36)
[2019-06-23] MEDS: CHOLECALCIFEROL 1,000 UNIT TABLET PO SCH (08:36)
[2019-06-23] MEDS: POTASSIUM CHLORIDE 20 MEQ/15 ML UDCUP PER TUBE SCH ×4 (10:01→20:27)
[2019-06-23] MEDS: LORazepam 2 MG/1 ML VIAL IV PRN (13:56)
[2019-06-23] MEDS: MONTELUKAST 10 MG TABLET PO SCH (20:27)
[2019-06-24] MEDS: INSULIN REGULAR 100 UNIT/ML SUBCUT SCH ×4 (00:15→18:29)
[2019-06-24] MEDS: DEXMEDETOMIDINE 400 MCG in SODIUM CHLORIDE 0.9% 96 ML IV PRN ×5 (03:15→23:13)
[2019-06-24] MEDS: ALBUTEROL 0.63 MG/3 ML NEB RESP TX SCH ×5 (03:26→19:17)
[2019-06-24 03:36] LABS: Allen Test Positive; Pt O2 Delivery Device Ventilator
[2019-06-24 03:37] LABS: ABG HCO3 36.8 MMOL/L (20-26); ABG Oxygen Saturation 98.9 % (95-100); ABG PCO2 55.3 MM HG (35-48); ABG PH 7.457 (7.35-7.45); ABG TCO2 35.7 MMOL/L (23-27)
[2019-06-24 04:26] LABS: Basophils % 0.1 % (0.0-0.8); Eosinophils % 0.3 % (0.00-10.9); Immature Granulocytes % 3.1 %; Immature Granulocytes Absolute 0.38 #; Lymphocytes # 1.4 10*3/uL (1.4-4.0); Lymphocytes % 11.7 % (21.3-54.2); Mean Platelet Volume 11.9 FL (9.6-12.0); Monocytes % 6.3 % (1.7-12.7); NRBC # 0.05 10*3/uL; Neutrophils % 78.5 % (38.7-73.9); Platelet Count 111 T/CUMM (130-400); Red Blood Count 2.99 MC/CUMM (3.8-5.5); Red Cell Distribution Width 17.9 % (9.3-17.3); White Blood Count 12.3 T/CUMM (4-12)
[2019-06-24 04:41] LABS: Calcium 8.4 MG/DL (8.5-10.1); Osmolality,Calculated 295.4 MOS/KG (273-304)
[2019-06-24] MEDS: methylPREDNISolone SOD SUC 40 MG/1 ML VIAL IV SCH ×2 (06:25→14:27)
[2019-06-24] MEDS: QUEtiapine 100 MG TABLET PO SCH ×2 (06:25→20:39)
[2019-06-24] MEDS: VERAPAMIL 80 MG TABLET PO SCH ×2 (08:08→20:39)
[2019-06-24] MEDS: ENOXAPARIN 40 MG/0.4 ML SYRINGE SUBCUT SCH (08:08)
[2019-06-24] MEDS: FUROSEMIDE 40 MG/4 ML VIAL IV SCH ×2 (08:09→15:56)
[2019-06-24] MEDS: methIMAzole 5 MG TABLET PO SCH ×3 (08:09→20:39)
[2019-06-24] MEDS: ASPIRIN EC 81 MG TABLET PO SCH (08:09)
[2019-06-24] MEDS: busPIRone 5 MG TABLET PO SCH ×3 (08:09→20:39)
[2019-06-24] MEDS: POTASSIUM CHLORIDE 20 MEQ/15 ML UDCUP PER TUBE PRN ×2 (08:09→09:57)
[2019-06-24] MEDS: GABAPENTIN 100 MG CAPSULE PO SCH ×2 (08:09→20:39)
[2019-06-24] MEDS: CHOLECALCIFEROL 1,000 UNIT TABLET PO SCH (08:09)
[2019-06-24] MEDS: PANTOPRAZOLE 40 MG VIAL IV SCH (08:14)
[2019-06-24] MEDS: INSULIN GLARGINE 100 UNIT/ML SUBCUT SCH (08:19)
[2019-06-24] MEDS: POLYETHYLENE GLYCOL POWDER 17 GM PACK PO SCH (08:20)
[2019-06-24] MEDS: MULTIVITAMIN LIQUID (CENTRUM) 60 ML BOTTLE PO SCH (09:48)
[2019-06-24] MEDS: MONTELUKAST 10 MG TABLET PO SCH (20:39)
[2019-06-25] MEDS: ALBUTEROL 0.63 MG/3 ML NEB RESP TX SCH ×7 (00:04→23:33)
[2019-06-25] MEDS: methylPREDNISolone SOD SUC 40 MG/1 ML VIAL IV SCH ×2 (01:04→13:46)
[2019-06-25 03:31] LABS: ABG HCO3 36.8 MMOL/L (20-26); ABG Oxygen Saturation 97.9 % (95-100); ABG PH 7.485 (7.35-7.45); ABG PO2 90.6 MM HG (80-95); ABG TCO2 35.1 MMOL/L (23-27); Allen Test Positive
[2019-06-25 03:39] LABS: Basophils % 0.2 % (0.0-0.8); Eosinophils % 0.3 % (0.00-10.9); Hematocrit 29.6 VOL% (35.7-47.0); Hemoglobin 9.1 GM/DL (12.0-16.0); Immature Granulocytes % 2.1 %; Immature Granulocytes Absolute 0.28 #; Lymphocytes % 7.8 % (21.3-54.2); Mean Corpuscular HGB Conc 30.7 GM/DL (32-36); Mean Corpuscular Volume 98.3 FL (87-102); Mean Platelet Volume 11.6 FL (9.6-12.0); Monocytes % 5.2 % (1.7-12.7); NRBC # 0.04 10*3/uL; Neutrophils % 84.4 % (38.7-73.9); Platelet Count 114 T/CUMM (130-400); Red Blood Count 3.01 MC/CUMM (3.8-5.5); Red Cell Distribution Width 17.6 % (9.3-17.3); White Blood Count 13.3 T/CUMM (4-12)
[2019-06-25 03:59] LABS: Calcium 8.6 MG/DL (8.5-10.1)
[2019-06-25 04:02] LABS: Prealbumin 31.8 MG/DL (20-40)
[2019-06-25] MEDS: POTASSIUM CHLORIDE RIDER 20 MEQ in PREMIX 1 EACH IV PRN ×2 (04:53→06:40)
[2019-06-25] MEDS: INSULIN REGULAR 100 UNIT/ML SUBCUT SCH ×4 (05:53→18:58)
[2019-06-25] MEDS: FUROSEMIDE 40 MG/4 ML VIAL IV SCH ×2 (07:34→16:09)
[2019-06-25] MEDS: HYDROcod/ACETAMIN 7.5-325 MG/15 ML UDCUP PO PRN ×2 (09:14→14:32)
[2019-06-25] MEDS: QUEtiapine 100 MG TABLET PO SCH ×2 (09:15→20:39)
[2019-06-25] MEDS: GABAPENTIN 100 MG CAPSULE PO SCH ×2 (09:15→20:39)
[2019-06-25] MEDS: methIMAzole 5 MG TABLET PO SCH ×3 (09:15→20:38)
[2019-06-25] MEDS: POLYETHYLENE GLYCOL POWDER 17 GM PACK PO SCH (09:15)
[2019-06-25] MEDS: busPIRone 5 MG TABLET PO SCH ×3 (09:16→20:38)
[2019-06-25] MEDS: CHOLECALCIFEROL 1,000 UNIT TABLET PO SCH (09:16)
[2019-06-25] MEDS: ASPIRIN EC 81 MG TABLET PO SCH (09:16)
[2019-06-25] MEDS: VERAPAMIL 80 MG TABLET PO SCH ×2 (09:17→20:38)
[2019-06-25] MEDS: INSULIN GLARGINE 100 UNIT/ML SUBCUT SCH (09:17)
[2019-06-25] MEDS: PANTOPRAZOLE 40 MG VIAL IV SCH (09:18)
[2019-06-25] MEDS: MULTIVITAMIN LIQUID (CENTRUM) 60 ML BOTTLE PO SCH (09:18)
[2019-06-25] MEDS: ENOXAPARIN 40 MG/0.4 ML SYRINGE SUBCUT SCH (09:24)
[2019-06-25] MEDS: HydrOXYzine PAMOATE 50 MG CAPSULE PO PRN ×2 (09:38→20:45)
[2019-06-25] MEDS: CLORAZEPATE 3.75 MG TABLET PER TUBE SCH ×2 (14:32→20:39)
[2019-06-25] MEDS: MONTELUKAST 10 MG TABLET PO SCH (20:38)
[2019-06-26] MEDS: INSULIN REGULAR 100 UNIT/ML SUBCUT SCH ×4 (00:12→17:56)
[2019-06-26] MEDS: CLORAZEPATE 3.75 MG TABLET PER TUBE SCH ×4 (02:06→21:36)
[2019-06-26] MEDS: methylPREDNISolone SOD SUC 40 MG/1 ML VIAL IV SCH ×2 (02:06→14:51)
[2019-06-26] MEDS: ALBUTEROL 0.63 MG/3 ML NEB RESP TX SCH ×5 (05:34→20:11)
[2019-06-26 06:04] LABS: Calcium 8.8 MG/DL (8.5-10.1)
[2019-06-26 06:17] LABS: Basophils % 0.1 % (0.0-0.8); Eosinophils % 0.2 % (0.00-10.9); Hematocrit 30.6 VOL% (35.7-47.0); Hemoglobin 9.6 GM/DL (12.0-16.0); Immature Granulocytes % 1.4 %; Immature Granulocytes Absolute 0.23 #; Lymphocytes # 0.8 10*3/uL (1.4-4.0); Lymphocytes % 5.2 % (21.3-54.2); Mean Corpuscular HGB Conc 31.4 GM/DL (32-36); Mean Corpuscular Volume 97.5 FL (87-102); Mean Platelet Volume 11.7 FL (9.6-12.0); Monocytes % 4.4 % (1.7-12.7); NRBC # 0.03 10*3/uL; Neutrophils % 88.7 % (38.7-73.9); Platelet Count 127 T/CUMM (130-400); Red Blood Count 3.14 MC/CUMM (3.8-5.5); Red Cell Distribution Width 18.2 % (9.3-17.3); White Blood Count 15.9 T/CUMM (4-12)
[2019-06-26] MEDS: POTASSIUM CHLORIDE 20 MEQ/15 ML UDCUP PER TUBE PRN ×2 (06:21→08:03)
[2019-06-26] MEDS: ENOXAPARIN 40 MG/0.4 ML SYRINGE SUBCUT SCH (08:01)
[2019-06-26] MEDS: QUEtiapine 100 MG TABLET PO SCH ×2 (08:02→21:36)
[2019-06-26] MEDS: VERAPAMIL 80 MG TABLET PO SCH ×2 (08:02→23:48)
[2019-06-26] MEDS: PANTOPRAZOLE 40 MG VIAL IV SCH (08:02)
[2019-06-26] MEDS: FUROSEMIDE 40 MG/4 ML VIAL IV SCH ×2 (08:02→15:38)
[2019-06-26] MEDS: busPIRone 5 MG TABLET PO SCH ×3 (08:02→21:35)
[2019-06-26] MEDS: methIMAzole 5 MG TABLET PO SCH ×3 (08:02→21:35)
[2019-06-26] MEDS: ASPIRIN EC 81 MG TABLET PO SCH (08:03)
[2019-06-26] MEDS: CHOLECALCIFEROL 1,000 UNIT TABLET PO SCH (08:03)
[2019-06-26] MEDS: INSULIN GLARGINE 100 UNIT/ML SUBCUT SCH (08:08)
[2019-06-26] MEDS: GABAPENTIN 100 MG CAPSULE PO SCH ×2 (08:34→21:37)
[2019-06-26] MEDS: MULTIVITAMIN LIQUID (CENTRUM) 60 ML BOTTLE PO SCH (08:34)
[2019-06-26] MEDS: MONTELUKAST 10 MG TABLET PO SCH (21:37)
[2019-06-26] MEDS: HydrOXYzine PAMOATE 50 MG CAPSULE PO PRN (23:48)
[2019-06-27] MEDS: ALBUTEROL 0.63 MG/3 ML NEB RESP TX SCH ×8 (00:08→23:30)
[2019-06-27] MEDS: ONDANSETRON 4 MG/2 ML VIAL IV PRN (01:58)
[2019-06-27] MEDS: HYDROcod/ACETAMIN 7.5-325 MG/15 ML UDCUP PO PRN (02:05)
[2019-06-27] MEDS: methylPREDNISolone SOD SUC 40 MG/1 ML VIAL IV SCH ×2 (02:12→15:19)
[2019-06-27] MEDS: CLORAZEPATE 3.75 MG TABLET PER TUBE SCH ×3 (02:26→15:20)
[2019-06-27] MEDS: INSULIN REGULAR 100 UNIT/ML SUBCUT SCH ×4 (02:26→18:20)
[2019-06-27 06:19] LABS: Basophils # 0.1 10*3/uL (0.0-0.2); Basophils % 0.2 % (0.0-0.8); Hematocrit 31.7 VOL% (35.7-47.0); Hemoglobin 9.8 GM/DL (12.0-16.0); Immature Granulocytes % 2.7 %; Immature Granulocytes Absolute 0.67 #; Lymphocytes % 3.9 % (21.3-54.2); Mean Corpuscular HGB Conc 30.9 GM/DL (32-36); Mean Corpuscular Volume 97.8 FL (87-102); Mean Platelet Volume 11.6 FL (9.6-12.0); Monocytes % 4.3 % (1.7-12.7); Neutrophils % 88.9 % (38.7-73.9); Platelet Count 147 T/CUMM (130-400); Red Blood Count 3.24 MC/CUMM (3.8-5.5); Red Cell Distribution Width 18.1 % (9.3-17.3); White Blood Count 25.2 T/CUMM (4-12)
[2019-06-27 06:25] LABS: Calcium 8.8 MG/DL (8.5-10.1); Osmolality,Calculated 301.5 MOS/KG (273-304)
[2019-06-27 08:56] LABS: Band Neutrophils 2 % (0-10); Lymphocytes 6 % (20-55); Myelocytes 1 %; Platelet Estimate Adequate; Schistocytes Slight; Segmented Neutrophils 89 % (50-85); Total Cells Counted 100
[2019-06-27] MEDS: CHOLECALCIFEROL 1,000 UNIT TABLET PO SCH (09:23)
[2019-06-27] MEDS: busPIRone 5 MG TABLET PO SCH ×3 (09:23→22:20)
[2019-06-27] MEDS: ASPIRIN EC 81 MG TABLET PO SCH (09:23)
[2019-06-27] MEDS: FUROSEMIDE 40 MG/4 ML VIAL IV SCH ×2 (09:24→16:15)
[2019-06-27] MEDS: QUEtiapine 100 MG TABLET PO SCH ×2 (09:24→22:20)
[2019-06-27] MEDS: ENOXAPARIN 40 MG/0.4 ML SYRINGE SUBCUT SCH (09:24)
[2019-06-27] MEDS: GABAPENTIN 100 MG CAPSULE PO SCH ×2 (09:24→22:21)
[2019-06-27] MEDS: VERAPAMIL 80 MG TABLET PO SCH ×2 (09:24→22:19)
[2019-06-27] MEDS: PANTOPRAZOLE 40 MG VIAL IV SCH (09:24)
[2019-06-27] MEDS: MULTIVITAMIN LIQUID (CENTRUM) 60 ML BOTTLE PO SCH (09:24)
[2019-06-27] MEDS: INSULIN GLARGINE 100 UNIT/ML SUBCUT SCH (09:25)
[2019-06-27] MEDS: methIMAzole 5 MG TABLET PO SCH ×3 (09:29→22:21)
[2019-06-27] MEDS: METOPROLOL TARTRATE 50 MG TABLET PO SCH (12:38)
[2019-06-27] MEDS: POTASSIUM CHLORIDE RIDER 20 MEQ in PREMIX 1 EACH IV PRN ×2 (12:48→15:17)
[2019-06-27] MEDS: MONTELUKAST 10 MG TABLET PO SCH (22:20)
[2019-06-28] MEDS: CLORAZEPATE 3.75 MG TABLET PER TUBE SCH ×4 (01:06→17:04)
[2019-06-28] MEDS: INSULIN REGULAR 100 UNIT/ML SUBCUT SCH ×4 (01:06→17:19)
[2019-06-28] MEDS: METOPROLOL TARTRATE 50 MG TABLET PO SCH ×2 (01:06→09:24)
[2019-06-28] MEDS: methylPREDNISolone SOD SUC 40 MG/1 ML VIAL IV SCH (02:47)
[2019-06-28] MEDS: ALBUTEROL 0.63 MG/3 ML NEB RESP TX SCH ×6 (03:33→22:15)
[2019-06-28 05:15] LABS: Basophils # 0.1 10*3/uL (0.0-0.2); Basophils % 0.2 % (0.0-0.8); Hemoglobin 9.9 GM/DL (12.0-16.0); Immature Granulocytes % 3.5 %; Immature Granulocytes Absolute 0.89 #; Lymphocytes # 2.2 10*3/uL (1.4-4.0); Lymphocytes % 8.7 % (21.3-54.2); Mean Corpuscular Volume 99.4 FL (87-102); Monocytes % 3.1 % (1.7-12.7); NRBC # 0.15 10*3/uL; Neutrophils % 84.5 % (38.7-73.9); Platelet Count 112 T/CUMM (130-400); Red Blood Count 3.32 MC/CUMM (3.8-5.5); Red Cell Distribution Width 19.1 % (9.3-17.3); White Blood Count 25.2 T/CUMM (4-12)
[2019-06-28 05:33] LABS: Calcium 9.6 MG/DL (8.5-10.1)
[2019-06-28 06:19] LABS: Anisocytosis 1+; Atypical Lymphocytes Few; Band Neutrophils 2 % (0-10); Eosinophils 2 % (0-10); Hypochromasia 1+; Lymphocytes 9 % (20-55); Microcytosis 1+; Nucleated Red Blood Cells 1 (0-5); Platelet Estimate Decreased; Polychromasia 1+; Segmented Neutrophils 87 % (50-85); Total Cells Counted 100
[2019-06-28] MEDS: INSULIN GLARGINE 100 UNIT/ML SUBCUT SCH (07:30)
[2019-06-28] MEDS: FUROSEMIDE 40 MG/4 ML VIAL IV SCH (08:40)
[2019-06-28] MEDS: PANTOPRAZOLE 40 MG VIAL IV SCH (09:14)
[2019-06-28] MEDS ORDERED: HYDROCORTISONE 100 MG VIAL IV ONE (09:16)
[2019-06-28] MEDS ORDERED: predniSONE 20 MG TABLET PEG SCH (09:17)
[2019-06-28] MEDS: VERAPAMIL 80 MG TABLET PO SCH (09:24)
[2019-06-28] MEDS: METOCLOPRAMIDE 10 MG/10 ML UDCUP PEG SCH ×3 (11:10→21:38)
[2019-06-28] MEDS: busPIRone 5 MG TABLET PO SCH ×3 (11:10→21:37)
[2019-06-28] MEDS: GABAPENTIN 100 MG CAPSULE PO SCH ×2 (11:10→21:37)
[2019-06-28] MEDS: QUEtiapine 100 MG TABLET PO SCH ×2 (11:11→21:36)
[2019-06-28] MEDS: ASPIRIN EC 81 MG TABLET PO SCH (11:12)
[2019-06-28] MEDS: CHOLECALCIFEROL 1,000 UNIT TABLET PO SCH (11:12)
[2019-06-28] MEDS: methIMAzole 5 MG TABLET PO SCH ×3 (11:12→21:37)
[2019-06-28] MEDS: ENOXAPARIN 40 MG/0.4 ML SYRINGE SUBCUT SCH (11:13)
[2019-06-28] MEDS: MULTIVITAMIN LIQUID (CENTRUM) 60 ML BOTTLE PO SCH (13:14)
[2019-06-28] MEDS: FUROSEMIDE 40 MG/5 ML UDCUP PEG SCH (17:04)
[2019-06-28] MEDS: METOPROLOL TARTRATE 50 MG TABLET PEG SCH (21:37)
[2019-06-28] MEDS: MONTELUKAST 10 MG TABLET PO SCH (21:37)
[2019-06-28] MEDS: predniSONE 20 MG TABLET PEG SCH (21:37)
[2019-06-28] MEDS: ACETAMINOPHEN 325 MG TABLET PO PRN (21:38)
[2019-06-29] MEDS: CLORAZEPATE 3.75 MG TABLET PER TUBE SCH ×6 (00:07→21:18)
[2019-06-29] MEDS: INSULIN REGULAR 100 UNIT/ML SUBCUT SCH ×4 (00:30→18:42)
[2019-06-29] MEDS: ALBUTEROL 0.63 MG/3 ML NEB RESP TX SCH ×5 (02:24→19:20)
[2019-06-29] MEDS: METOCLOPRAMIDE 10 MG/10 ML UDCUP PEG SCH ×4 (05:05→21:18)
[2019-06-29] MEDS: FUROSEMIDE 40 MG/5 ML UDCUP PEG SCH ×2 (10:04→15:37)
[2019-06-29] MEDS: INSULIN GLARGINE 100 UNIT/ML SUBCUT SCH (10:04)
[2019-06-29] MEDS: GABAPENTIN 100 MG CAPSULE PO SCH ×2 (10:06→21:19)
[2019-06-29] MEDS: OMEPRAZOLE ODT 20 MG TABLET PEG SCH (10:06)
[2019-06-29] MEDS: methIMAzole 5 MG TABLET PO SCH ×3 (10:06→21:19)
[2019-06-29] MEDS: CHOLECALCIFEROL 1,000 UNIT TABLET PO SCH (10:06)
[2019-06-29] MEDS: METOPROLOL TARTRATE 50 MG TABLET PEG SCH ×2 (10:09→21:19)
[2019-06-29] MEDS: QUEtiapine 100 MG TABLET PO SCH ×2 (10:10→21:19)
[2019-06-29] MEDS: ASPIRIN EC 81 MG TABLET PO SCH (10:10)
[2019-06-29] MEDS: predniSONE 20 MG TABLET PEG SCH ×2 (10:12→21:19)
[2019-06-29] MEDS: busPIRone 5 MG TABLET PO SCH ×3 (10:13→21:18)
[2019-06-29] MEDS: MULTIVITAMIN LIQUID (CENTRUM) 60 ML BOTTLE PO SCH (10:26)
[2019-06-29 17:48] LABS: Basophils # 0.1 10*3/uL (0.0-0.2); Basophils % 0.2 % (0.0-0.8); Hematocrit 30.9 VOL% (35.7-47.0); Hemoglobin 9.5 GM/DL (12.0-16.0); Immature Granulocytes % 4.8 %; Lymphocytes # 2.1 10*3/uL (1.4-4.0); Lymphocytes % 10.2 % (21.3-54.2); Mean Corpuscular HGB Conc 30.7 GM/DL (32-36); Mean Corpuscular Volume 96.6 FL (87-102); Monocytes % 3.8 % (1.7-12.7); NRBC # 0.59 10*3/uL; Platelet Count 131 T/CUMM (130-400); Red Cell Distribution Width 20.2 % (9.3-17.3)
[2019-06-29 18:56] LABS: Lymphocytes 18 % (20-55); Nucleated Red Blood Cells 3 (0-5); Segmented Neutrophils 80 % (50-85); Total Cells Counted 100
[2019-06-29 18:57] LABS: Platelet Estimate Adequate
[2019-06-29 18:58] LABS: Apearance,Urine CLOUDY (Clear); Bacteria,Urine Many /HPF (Few); Blood, Urine Moderate mg/dL (Negative); Calcium Oxalate Crystals,Urine Few /HPF (Few); Glucose,Urine (UA) Negative (Negative); Ketones,Urine Negative (Negative); Mucus,Urine Many /LPF (Occasional); Nitrite,Urine Negative (Negative); Protein,Urine 30 MG/DL; RBC,Urine 71 /HPF (0-4); Urine Color Amber (Yellow); Urine Specific Gravity 1.019 (1.001-1.035); WBC,Urine 40 /HPF (0-6)
[2019-06-29 18:59] LABS: Bilirubin,Urine Small mg/dL (Negative)
[2019-06-29 19:01] LABS: Hypochromasia Slight; Polychromasia Slight
[2019-06-29] MEDS: MONTELUKAST 10 MG TABLET PO SCH (21:18)
[2019-06-30] MEDS: ALBUTEROL 0.63 MG/3 ML NEB RESP TX SCH ×6 (00:01→19:54)
[2019-06-30] MEDS: INSULIN REGULAR 100 UNIT/ML SUBCUT SCH ×5 (01:03→23:47)
[2019-06-30] MEDS: ACETAMINOPHEN 325 MG TABLET PO PRN ×3 (01:04→17:28)
[2019-06-30] MEDS: CLORAZEPATE 3.75 MG TABLET PER TUBE SCH ×4 (04:29→20:26)
[2019-06-30] MEDS: METOCLOPRAMIDE 10 MG/10 ML UDCUP PEG SCH (04:29)
[2019-06-30 05:59] LABS: Basophils % 0.2 % (0.0-0.8); Eosinophils % 0.1 % (0.00-10.9); Hematocrit 30.1 VOL% (35.7-47.0); Hemoglobin 9.2 GM/DL (12.0-16.0); Immature Granulocytes % 5.2 %; Immature Granulocytes Absolute 0.89 #; Lymphocytes # 1.8 10*3/uL (1.4-4.0); Lymphocytes % 10.6 % (21.3-54.2); Mean Corpuscular HGB Conc 30.6 GM/DL (32-36); Mean Corpuscular Volume 98.7 FL (87-102); Mean Platelet Volume 11.8 FL (9.6-12.0); Monocytes % 4.4 % (1.7-12.7); NRBC # 0.45 10*3/uL; Neutrophils % 79.5 % (38.7-73.9); Platelet Count 134 T/CUMM (130-400); Red Blood Count 3.05 MC/CUMM (3.8-5.5); Red Cell Distribution Width 21.2 % (9.3-17.3); White Blood Count 17.2 T/CUMM (4-12)
[2019-06-30 06:23] LABS: Band Neutrophils 5 % (0-10); Lymphocytes 9 % (20-55); Nucleated Red Blood Cells 2 (0-5); Segmented Neutrophils 81 % (50-85); Total Cells Counted 100
[2019-06-30 06:24] LABS: Hypochromasia 1+; Microcytosis Slight; Platelet Estimate Normal
[2019-06-30 06:29] LABS: Calcium 9.1 MG/DL (8.5-10.1)
[2019-06-30] MEDS: predniSONE 20 MG TABLET PEG SCH ×2 (08:12→20:27)
[2019-06-30] MEDS: QUEtiapine 100 MG TABLET PO SCH ×2 (08:12→20:26)
[2019-06-30] MEDS: SIMETHICONE CHEW 125 MG TABLET PO PRN (08:13)
[2019-06-30] MEDS: OMEPRAZOLE ODT 20 MG TABLET PEG SCH (08:13)
[2019-06-30] MEDS: busPIRone 5 MG TABLET PO SCH ×3 (08:13→20:26)
[2019-06-30] MEDS: GABAPENTIN 100 MG CAPSULE PO SCH ×2 (08:13→20:27)
[2019-06-30] MEDS: MULTIVITAMIN LIQUID (CENTRUM) 60 ML BOTTLE PO SCH (08:13)
[2019-06-30] MEDS: METOPROLOL TARTRATE 50 MG TABLET PEG SCH ×2 (08:13→20:27)
[2019-06-30] MEDS: methIMAzole 5 MG TABLET PO SCH ×3 (08:14→20:26)
[2019-06-30] MEDS: CHOLECALCIFEROL 1,000 UNIT TABLET PO SCH (08:14)
[2019-06-30] MEDS: ASPIRIN EC 81 MG TABLET PO SCH (08:14)
[2019-06-30 09:14] LABS: Albumin 2.6 G/DL (3.4-5.0); Bilirubin,Direct 3.94 MG/DL (0.0-0.20); Bilirubin,Indirect 0.4 MG/DL (0.0-1.0); Bilirubin,Total 4.3 MG/DL (0.2-1.0); Total Protein 6.1 G/DL (6.4-8.3)
[2019-06-30] MEDS: cefTRIAXone 1,000 MG in SYRINGE 1 EACH IV SCH (12:15)
[2019-06-30] MEDS: INSULIN GLARGINE 100 UNIT/ML SUBCUT SCH (12:15)
[2019-06-30] MEDS: SODIUM CHLORIDE 0.9% 1,000 ML IV SCH ×2 (12:15→23:45)
[2019-06-30] MEDS: FUROSEMIDE 40 MG/5 ML UDCUP PEG SCH (13:57)
[2019-06-30] MEDS: MENTHOL/ZINC OXIDE OINT 71 GM JAR TOP SCH ×2 (18:25→23:46)
[2019-06-30] MEDS: MONTELUKAST 10 MG TABLET PO SCH (20:26)
[2019-07-01] MEDS: ALBUTEROL 0.63 MG/3 ML NEB RESP TX SCH ×7 (00:03→23:51)
[2019-07-01] MEDS: CLORAZEPATE 3.75 MG TABLET PER TUBE SCH ×4 (04:46→21:18)
[2019-07-01 06:03] LABS: Basophils % 0.2 % (0.0-0.8); Eosinophils % 0.4 % (0.00-10.9); Hematocrit 27.8 VOL% (35.7-47.0); Hemoglobin 8.6 GM/DL (12.0-16.0); Immature Granulocytes % 6.2 %; Immature Granulocytes Absolute 0.68 #; Lymphocytes # 1.3 10*3/uL (1.4-4.0); Lymphocytes % 12.3 % (21.3-54.2); Mean Corpuscular HGB Conc 30.9 GM/DL (32-36); Mean Corpuscular Volume 96.2 FL (87-102); Mean Platelet Volume 11.8 FL (9.6-12.0); NRBC # 0.17 10*3/uL; Neutrophils % 73.9 % (38.7-73.9); Platelet Count 123 T/CUMM (130-400); Red Blood Count 2.89 MC/CUMM (3.8-5.5); Red Cell Distribution Width 21.1 % (9.3-17.3); White Blood Count 10.9 T/CUMM (4-12)
[2019-07-01] MEDS: INSULIN REGULAR 100 UNIT/ML SUBCUT SCH ×3 (06:15→18:11)
[2019-07-01] MEDS: ONDANSETRON 4 MG/2 ML VIAL IV PRN (06:32)
[2019-07-01 06:33] LABS: Band Neutrophils 2 % (0-10); Lymphocytes 11 % (20-55); Nucleated Red Blood Cells 3 (0-5); Segmented Neutrophils 82 % (50-85); Total Cells Counted 100
[2019-07-01 06:34] LABS: Hypochromasia 2+; Microcytosis Slight; Ovalocytes Slight; Platelet Estimate Normal
[2019-07-01 06:48] LABS: Albumin 2.2 G/DL (3.4-5.0); Bilirubin,Total 2.8 MG/DL (0.2-1.0); Calcium 8.7 MG/DL (8.5-10.1); Osmolality,Calculated 319.8 MOS/KG (273-304); Total Protein 5.8 G/DL (6.4-8.3)
[2019-07-01] MEDS: MULTIVITAMIN LIQUID (CENTRUM) 60 ML BOTTLE PO SCH (10:17)
[2019-07-01] MEDS: INSULIN GLARGINE 100 UNIT/ML SUBCUT SCH (10:17)
[2019-07-01] MEDS: busPIRone 5 MG TABLET PO SCH ×4 (10:17→21:18)
[2019-07-01] MEDS: METOPROLOL TARTRATE 50 MG TABLET PEG SCH ×2 (10:17→21:18)
[2019-07-01] MEDS: GABAPENTIN 100 MG CAPSULE PO SCH ×2 (10:17→21:18)
[2019-07-01] MEDS: ASPIRIN EC 81 MG TABLET PO SCH (10:17)
[2019-07-01] MEDS: predniSONE 20 MG TABLET PEG SCH ×2 (10:18→21:19)
[2019-07-01] MEDS: OMEPRAZOLE ODT 20 MG TABLET PEG SCH (10:18)
[2019-07-01] MEDS: CHOLECALCIFEROL 1,000 UNIT TABLET PO SCH (10:18)
[2019-07-01] MEDS: QUEtiapine 100 MG TABLET PO SCH ×2 (10:18→21:19)
[2019-07-01] MEDS: methIMAzole 5 MG TABLET PO SCH ×4 (10:18→21:18)
[2019-07-01] MEDS: MENTHOL/ZINC OXIDE OINT 71 GM JAR TOP SCH ×2 (10:52→21:19)
[2019-07-01] MEDS: cefTRIAXone 1,000 MG in SYRINGE 1 EACH IV SCH (10:52)
[2019-07-01 11:43] LABS: Hepatitis B Core IgM Quant < 0.05 Index; Hepatitis B Surface Ag Quant < 0.10 Index; Hepatitis B Surface Ag Result Negative (Negative); Hepatitis C Virus Ab Quant 0.09 Index; Hepatitis C Virus Ab Result Negative (Negative)
[2019-07-01] MEDS: SODIUM CHLORIDE 0.9% 1,000 ML IV SCH (14:50)
[2019-07-01] MEDS: MONTELUKAST 10 MG TABLET PO SCH (21:18)
[2019-07-02] MEDS: INSULIN REGULAR 100 UNIT/ML SUBCUT SCH ×4 (00:19→18:39)
[2019-07-02] MEDS: CLORAZEPATE 3.75 MG TABLET PER TUBE SCH ×4 (01:54→21:40)
[2019-07-02] MEDS: SODIUM CHLORIDE 0.9% 1,000 ML IV SCH ×3 (05:38→18:39)
[2019-07-02 06:06] LABS: Basophils % 0.3 % (0.0-0.8); Eosinophils # 0.1 10*3/uL (0.0-0.87); Eosinophils % 0.6 % (0.00-10.9); Hemoglobin 8.3 GM/DL (12.0-16.0); Immature Granulocytes % 8.5 %; Immature Granulocytes Absolute 0.94 #; Lymphocytes # 1.5 10*3/uL (1.4-4.0); Lymphocytes % 13.8 % (21.3-54.2); Mean Corpuscular HGB Conc 30.7 GM/DL (32-36); Mean Corpuscular Volume 97.5 FL (87-102); Mean Platelet Volume 11.7 FL (9.6-12.0); Monocytes % 6.4 % (1.7-12.7); NRBC # 0.08 10*3/uL; Neutrophils % 70.4 % (38.7-73.9); Platelet Count 110 T/CUMM (130-400); Red Blood Count 2.77 MC/CUMM (3.8-5.5); White Blood Count 11.1 T/CUMM (4-12)
[2019-07-02 06:24] LABS: Band Neutrophils 3 % (0-10); Lymphocytes 18 % (20-55); Nucleated Red Blood Cells 2 (0-5); Segmented Neutrophils 73 % (50-85); Total Cells Counted 100
[2019-07-02 06:25] LABS: Hypochromasia 1+; Platelet Estimate Decreased
[2019-07-02 06:26] LABS: Microcytosis Slight
[2019-07-02 06:38] LABS: Prealbumin 20.5 MG/DL (20-40)
[2019-07-02 06:41] LABS: Albumin 2.2 G/DL (3.4-5.0); Bilirubin,Total 1.8 MG/DL (0.2-1.0); Calcium 8.4 MG/DL (8.5-10.1); Osmolality,Calculated 330.1 MOS/KG (273-304); Total Protein 5.6 G/DL (6.4-8.3)
[2019-07-02] MEDS: ALBUTEROL 0.63 MG/3 ML NEB RESP TX SCH ×5 (07:30→23:45)
[2019-07-02] MEDS: INSULIN GLARGINE 100 UNIT/ML SUBCUT SCH (09:55)
[2019-07-02] MEDS: cefTRIAXone 1,000 MG in SYRINGE 1 EACH IV SCH (09:56)
[2019-07-02] MEDS: QUEtiapine 100 MG TABLET PO SCH ×2 (09:57→21:41)
[2019-07-02] MEDS: predniSONE 20 MG TABLET PEG SCH ×2 (09:57→21:41)
[2019-07-02] MEDS: OMEPRAZOLE ODT 20 MG TABLET PEG SCH (09:58)
[2019-07-02] MEDS: ASPIRIN EC 81 MG TABLET PO SCH (09:58)
[2019-07-02] MEDS: CHOLECALCIFEROL 1,000 UNIT TABLET PO SCH (09:58)
[2019-07-02] MEDS: METOPROLOL TARTRATE 50 MG TABLET PEG SCH ×2 (09:58→21:41)
[2019-07-02] MEDS: methIMAzole 5 MG TABLET PO SCH ×3 (09:58→21:41)
[2019-07-02] MEDS: GABAPENTIN 100 MG CAPSULE PO SCH ×2 (09:58→21:41)
[2019-07-02] MEDS: MULTIVITAMIN LIQUID (CENTRUM) 60 ML BOTTLE PO SCH (09:59)
[2019-07-02] MEDS: busPIRone 5 MG TABLET PO SCH ×3 (09:59→21:40)
[2019-07-02] MEDS: MENTHOL/ZINC OXIDE OINT 71 GM JAR TOP SCH ×2 (09:59→21:41)
[2019-07-02] MEDS: MONTELUKAST 10 MG TABLET PO SCH (21:41)
[2019-07-02] MEDS: cloNIDine 0.1 MG TABLET PEG SCH (21:41)
[2019-07-03] MEDS: INSULIN REGULAR 100 UNIT/ML SUBCUT SCH ×4 (00:47→18:07)
[2019-07-03] MEDS: CLORAZEPATE 3.75 MG TABLET PER TUBE SCH ×4 (03:02→21:24)
[2019-07-03] MEDS: ALBUTEROL 0.63 MG/3 ML NEB RESP TX SCH ×7 (03:25→23:52)
[2019-07-03] MEDS: SODIUM CHLORIDE 0.9% 1,000 ML IV SCH ×2 (05:38→08:20)
[2019-07-03 06:38] LABS: Albumin 2.1 G/DL (3.4-5.0); Bilirubin,Total 1.8 MG/DL (0.2-1.0); Calcium 8.6 MG/DL (8.5-10.1); Osmolality,Calculated 333.3 MOS/KG (273-304); Total Protein 5.3 G/DL (6.4-8.3)
[2019-07-03 08:04] LABS: Basophils % 0.2 % (0.0-0.8); Eosinophils % 0.3 % (0.00-10.9); Hematocrit 25.8 VOL% (35.7-47.0); Hemoglobin 7.4 GM/DL (12.0-16.0); Immature Granulocytes % 12.5 %; Immature Granulocytes Absolute 1.56 #; Lymphocytes # 1.7 10*3/uL (1.4-4.0); Lymphocytes % 13.6 % (21.3-54.2); Mean Corpuscular HGB Conc 28.7 GM/DL (32-36); Mean Corpuscular Volume 102.4 FL (87-102); Mean Platelet Volume 11.2 FL (9.6-12.0); Monocytes % 7.6 % (1.7-12.7); NRBC # 0.06 10*3/uL; Neutrophils % 65.8 % (38.7-73.9); Platelet Count 115 T/CUMM (130-400); Red Blood Count 2.52 MC/CUMM (3.8-5.5); Red Cell Distribution Width 19.9 % (9.3-17.3); White Blood Count 12.5 T/CUMM (4-12)
[2019-07-03 08:48] LABS: Band Neutrophils 9 % (0-10); Lymphocytes 12 % (20-55); Metamyelocytes 1 %; Nucleated Red Blood Cells 2 (0-5); Platelet Estimate Adequate; Segmented Neutrophils 70 % (50-85); Total Cells Counted 100
[2019-07-03 08:49] LABS: Anisocytosis 1+; Basophilic Stippling 1+
[2019-07-03 08:50] LABS: Macrocytosis Slight
[2019-07-03] MEDS: MENTHOL/ZINC OXIDE OINT 71 GM JAR TOP SCH ×2 (09:56→21:25)
[2019-07-03] MEDS: ASPIRIN EC 81 MG TABLET PO SCH (09:56)
[2019-07-03] MEDS: cloNIDine 0.1 MG TABLET PEG SCH ×2 (09:57→21:25)
[2019-07-03] MEDS: GABAPENTIN 100 MG CAPSULE PO SCH ×2 (10:04→21:25)
[2019-07-03] MEDS: busPIRone 5 MG TABLET PO SCH ×3 (10:22→21:25)
[2019-07-03] MEDS: INSULIN GLARGINE 100 UNIT/ML SUBCUT SCH (10:22)
[2019-07-03] MEDS: OMEPRAZOLE ODT 20 MG TABLET PEG SCH (10:23)
[2019-07-03] MEDS: METOPROLOL TARTRATE 50 MG TABLET PEG SCH ×2 (10:23→21:24)
[2019-07-03] MEDS: QUEtiapine 100 MG TABLET PO SCH ×2 (10:23→21:24)
[2019-07-03] MEDS: CHOLECALCIFEROL 1,000 UNIT TABLET PO SCH (10:24)
[2019-07-03] MEDS: methIMAzole 5 MG TABLET PO SCH ×3 (10:24→21:24)
[2019-07-03] MEDS: cefTRIAXone 1,000 MG in SYRINGE 1 EACH IV SCH (10:28)
[2019-07-03] MEDS: MULTIVITAMIN LIQUID (CENTRUM) 60 ML BOTTLE PO SCH (10:36)
[2019-07-03] MEDS: predniSONE 20 MG TABLET PEG SCH ×2 (11:40→21:23)
[2019-07-03 13:08] LABS: INR 1.1; PT Patient Result 11.8 SECS (9.8-11.9); Partial Thromboplastin Time 21.3 SECS (23.9-33.8)
[2019-07-03] MEDS: MONTELUKAST 10 MG TABLET PO SCH (21:24)
[2019-07-04] MEDS: CLORAZEPATE 3.75 MG TABLET PER TUBE SCH ×4 (03:13→21:28)
[2019-07-04] MEDS: SODIUM CHLORIDE 0.45% 1,000 ML IV SCH ×3 (03:13→19:45)
[2019-07-04] MEDS: ALBUTEROL 0.63 MG/3 ML NEB RESP TX SCH ×5 (03:52→20:00)
[2019-07-04 05:08] LABS: Basophils # 0.1 10*3/uL (0.0-0.2); Basophils % 0.4 % (0.0-0.8); Eosinophils # 0.1 10*3/uL (0.0-0.87); Eosinophils % 0.8 % (0.00-10.9); Hematocrit 25.4 VOL% (35.7-47.0); Hemoglobin 7.4 GM/DL (12.0-16.0); Immature Granulocytes % 13.7 %; Immature Granulocytes Absolute 1.81 #; Lymphocytes # 1.5 10*3/uL (1.4-4.0); Lymphocytes % 11.2 % (21.3-54.2); Mean Corpuscular HGB Conc 29.1 GM/DL (32-36); Mean Corpuscular Volume 103.7 FL (87-102); NRBC # 0.14 10*3/uL; Neutrophils % 67.9 % (38.7-73.9); Platelet Count 128 T/CUMM (130-400); Red Blood Count 2.45 MC/CUMM (3.8-5.5); Red Cell Distribution Width 19.7 % (9.3-17.3); White Blood Count 13.2 T/CUMM (4-12)
[2019-07-04] MEDS: HydrOXYzine PAMOATE 50 MG CAPSULE PO PRN (06:04)
[2019-07-04] MEDS: INSULIN REGULAR 100 UNIT/ML SUBCUT SCH ×4 (06:16→19:33)
[2019-07-04 06:23] LABS: Band Neutrophils 7 % (0-10); Eosinophils 2 % (0-10); Hypochromasia 2+; Lymphocytes 14 % (20-55); Metamyelocytes 1 %; Myelocytes 1 %; Nucleated Red Blood Cells 1 (0-5); Platelet Estimate Normal; Segmented Neutrophils 69 % (50-85); Total Cells Counted 100
[2019-07-04 06:24] LABS: Microcytosis Slight
[2019-07-04] MEDS ORDERED: predniSONE 20 MG TABLET PEG SCH (09:00)
[2019-07-04] MEDS: predniSONE 20 MG TABLET PEG SCH ×2 (09:25→21:29)
[2019-07-04] MEDS: OMEPRAZOLE ODT 20 MG TABLET PEG SCH (09:25)
[2019-07-04] MEDS: methIMAzole 5 MG TABLET PO SCH ×3 (09:25→21:29)
[2019-07-04] MEDS: QUEtiapine 100 MG TABLET PO SCH ×2 (09:25→21:28)
[2019-07-04] MEDS: METOPROLOL TARTRATE 50 MG TABLET PEG SCH ×2 (09:25→21:29)
[2019-07-04] MEDS: MULTIVITAMIN LIQUID (CENTRUM) 60 ML BOTTLE PO SCH (09:26)
[2019-07-04] MEDS: cefTRIAXone 1,000 MG in SYRINGE 1 EACH IV SCH (09:26)
[2019-07-04] MEDS: MENTHOL/ZINC OXIDE OINT 71 GM JAR TOP SCH ×2 (09:26→21:28)
[2019-07-04] MEDS: ASPIRIN EC 81 MG TABLET PO SCH (09:26)
[2019-07-04] MEDS: CHOLECALCIFEROL 1,000 UNIT TABLET PO SCH (09:26)
[2019-07-04] MEDS: INSULIN GLARGINE 100 UNIT/ML SUBCUT SCH (09:26)
[2019-07-04] MEDS: cloNIDine 0.1 MG TABLET PEG SCH (09:26)
[2019-07-04] MEDS: busPIRone 5 MG TABLET PO SCH ×3 (09:26→21:29)
[2019-07-04] MEDS: GABAPENTIN 100 MG CAPSULE PO SCH ×2 (09:26→21:28)
[2019-07-04 10:21] LABS: Albumin 2.1 G/DL (3.4-5.0); Bilirubin,Total 1.1 MG/DL (0.2-1.0); Calcium 8.2 MG/DL (8.5-10.1); Osmolality,Calculated 327.3 MOS/KG (273-304); Total Protein 5.4 G/DL (6.4-8.3)
[2019-07-04] MEDS: PIPERACILLIN/TAZOBACTAM 3,375 MG in SODIUM CHLORIDE 0.9% 100 ML IV SCH ×2 (14:16→21:38)
[2019-07-04] MEDS: MONTELUKAST 10 MG TABLET PO SCH (21:29)
[2019-07-05] MEDS: INSULIN REGULAR 100 UNIT/ML SUBCUT SCH ×5 (00:48→23:57)
[2019-07-05] MEDS: CLORAZEPATE 3.75 MG TABLET PER TUBE SCH ×4 (03:16→21:15)
[2019-07-05] MEDS: ALBUTEROL 0.63 MG/3 ML NEB RESP TX SCH ×7 (04:05→23:37)
[2019-07-05] MEDS: PIPERACILLIN/TAZOBACTAM 3,375 MG in SODIUM CHLORIDE 0.9% 100 ML IV SCH ×3 (06:45→21:16)
[2019-07-05 08:01] LABS: Basophils % 0.2 % (0.0-0.8); Eosinophils # 0.1 10*3/uL (0.0-0.87); Eosinophils % 0.4 % (0.00-10.9); Hematocrit 25.9 VOL% (35.7-47.0); Hemoglobin 7.4 GM/DL (12.0-16.0); Immature Granulocytes % 12.3 %; Lymphocytes # 3.6 10*3/uL (1.4-4.0); Lymphocytes % 18.2 % (21.3-54.2); Mean Corpuscular HGB Conc 28.6 GM/DL (32-36); Mean Corpuscular Volume 105.3 FL (87-102); Mean Platelet Volume 11.1 FL (9.6-12.0); Monocytes % 6.9 % (1.7-12.7); NRBC # 0.17 10*3/uL; Platelet Count 145 T/CUMM (130-400); Red Blood Count 2.46 MC/CUMM (3.8-5.5); Red Cell Distribution Width 18.4 % (9.3-17.3); White Blood Count 19.5 T/CUMM (4-12)
[2019-07-05 08:21] LABS: Band Neutrophils 3 % (0-10); Hypochromasia 2+; Lymphocytes 17 % (20-55); Microcytosis Slight; Nucleated Red Blood Cells 2 (0-5); Ovalocytes Slight; Platelet Estimate Adequate; Segmented Neutrophils 71 % (50-85); Total Cells Counted 100
[2019-07-05 08:31] LABS: Albumin 2.2 G/DL (3.4-5.0); Bilirubin,Total 1.1 MG/DL (0.2-1.0); Calcium 8.3 MG/DL (8.5-10.1); Osmolality,Calculated 318.4 MOS/KG (273-304); Total Protein 5.6 G/DL (6.4-8.3)
[2019-07-05] MEDS: busPIRone 5 MG TABLET PO SCH ×3 (09:24→21:15)
[2019-07-05] MEDS: OMEPRAZOLE ODT 20 MG TABLET PEG SCH (09:24)
[2019-07-05] MEDS: POTASSIUM CHLORIDE 20 MEQ TABLET PO PRN (09:24)
[2019-07-05] MEDS: CHOLECALCIFEROL 1,000 UNIT TABLET PO SCH (09:24)
[2019-07-05] MEDS: GABAPENTIN 100 MG CAPSULE PO SCH ×2 (09:24→21:15)
[2019-07-05] MEDS: predniSONE 20 MG TABLET PEG SCH ×2 (09:24→21:16)
[2019-07-05] MEDS: methIMAzole 5 MG TABLET PO SCH ×3 (09:24→21:15)
[2019-07-05] MEDS: QUEtiapine 100 MG TABLET PO SCH ×2 (09:24→21:15)
[2019-07-05] MEDS: INSULIN GLARGINE 100 UNIT/ML SUBCUT SCH (09:25)
[2019-07-05] MEDS: MENTHOL/ZINC OXIDE OINT 71 GM JAR TOP SCH ×2 (09:25→21:16)
[2019-07-05] MEDS: ASPIRIN EC 81 MG TABLET PO SCH (09:25)
[2019-07-05] MEDS: METOPROLOL TARTRATE 50 MG TABLET PEG SCH ×2 (09:25→21:15)
[2019-07-05] MEDS: MULTIVITAMIN LIQUID (CENTRUM) 60 ML BOTTLE PO SCH (09:29)
[2019-07-05] MEDS: ACETAMINOPHEN 500 MG TABLET PO PRN ×2 (11:25→21:14)
[2019-07-05] MEDS: POTASSIUM CHLORIDE 20 MEQ/15 ML UDCUP PER TUBE PRN ×2 (11:26→14:37)
[2019-07-05] MEDS: HydrOXYzine PAMOATE 50 MG CAPSULE PO PRN (11:26)
[2019-07-05] MEDS: SODIUM CHLORIDE 0.45% 1,000 ML IV SCH ×2 (15:06→21:19)
[2019-07-05] MEDS: ACETYLCYSTEINE 20% 800 MG/4 ML VIAL RESP TX SCH ×2 (15:16→20:35)
[2019-07-05] MEDS: MONTELUKAST 10 MG TABLET PO SCH (21:15)
[2019-07-06] MEDS: ALBUTEROL 0.63 MG/3 ML NEB RESP TX SCH ×6 (02:53→23:57)
[2019-07-06] MEDS: CLORAZEPATE 3.75 MG TABLET PER TUBE SCH ×4 (03:02→21:00)
[2019-07-06 05:47] LABS: Basophils # 0.1 10*3/uL (0.0-0.2); Basophils % 0.2 % (0.0-0.8); Eosinophils % 0.2 % (0.00-10.9); Hematocrit 23.4 VOL% (35.7-47.0); Hemoglobin 6.9 GM/DL (12.0-16.0); Immature Granulocytes Absolute 2.22 #; Lymphocytes # 2.1 10*3/uL (1.4-4.0); Lymphocytes % 10.2 % (21.3-54.2); Mean Corpuscular HGB Conc 29.5 GM/DL (32-36); Mean Corpuscular Volume 102.6 FL (87-102); Mean Platelet Volume 11.3 FL (9.6-12.0); Monocytes % 5.9 % (1.7-12.7); NRBC # 0.31 10*3/uL; Neutrophils % 72.5 % (38.7-73.9); Platelet Count 148 T/CUMM (130-400); Red Blood Count 2.28 MC/CUMM (3.8-5.5); Red Cell Distribution Width 18.3 % (9.3-17.3); White Blood Count 20.2 T/CUMM (4-12)
[2019-07-06 05:55] LABS: Calcium 8.3 MG/DL (8.5-10.1); Osmolality,Calculated 316.4 MOS/KG (273-304)
[2019-07-06 05:57] LABS: Albumin 2.4 G/DL (3.4-5.0); Bilirubin,Total 1.3 MG/DL (0.2-1.0); Calcium 8.4 MG/DL (8.5-10.1); Osmolality,Calculated 318.3 MOS/KG (273-304); Total Protein 5.7 G/DL (6.4-8.3)
[2019-07-06 05:59] LABS: Lymphocytes 10 % (20-55); Metamyelocytes 1 %; Myelocytes 1 %; Pappenheimer Bodies Few; Platelet Estimate Decreased; Segmented Neutrophils 78 % (50-85); Total Cells Counted 100
[2019-07-06] MEDS: INSULIN REGULAR 100 UNIT/ML SUBCUT SCH ×3 (06:56→19:05)
[2019-07-06] MEDS: PIPERACILLIN/TAZOBACTAM 3,375 MG in SODIUM CHLORIDE 0.9% 100 ML IV SCH ×3 (06:56→22:04)
[2019-07-06 07:25] LABS: Prealbumin 26.4 MG/DL (20-40)
[2019-07-06] MEDS: CHOLECALCIFEROL 1,000 UNIT TABLET PO SCH (08:43)
[2019-07-06] MEDS: METOPROLOL TARTRATE 50 MG TABLET PEG SCH ×2 (08:43→21:01)
[2019-07-06] MEDS: QUEtiapine 100 MG TABLET PO SCH ×2 (08:43→21:00)
[2019-07-06] MEDS: ASPIRIN EC 81 MG TABLET PO SCH (08:43)
[2019-07-06] MEDS: OMEPRAZOLE ODT 20 MG TABLET PEG SCH (08:43)
[2019-07-06] MEDS: GABAPENTIN 100 MG CAPSULE PO SCH ×2 (08:44→21:00)
[2019-07-06] MEDS: predniSONE 20 MG TABLET PEG SCH ×2 (08:44→21:01)
[2019-07-06] MEDS: MULTIVITAMIN LIQUID (CENTRUM) 60 ML BOTTLE PO SCH (08:44)
[2019-07-06] MEDS: busPIRone 5 MG TABLET PO SCH ×3 (08:44→21:00)
[2019-07-06] MEDS: methIMAzole 5 MG TABLET PO SCH ×3 (08:44→21:01)
[2019-07-06] MEDS: MENTHOL/ZINC OXIDE OINT 71 GM JAR TOP SCH ×2 (08:44→21:04)
[2019-07-06] MEDS: INSULIN GLARGINE 100 UNIT/ML SUBCUT SCH (08:45)
[2019-07-06] MEDS ORDERED: SODIUM CHLORIDE 0.9% 1,000 ML IV PRN (10:33)
[2019-07-06] MEDS: MONTELUKAST 10 MG TABLET PO SCH (21:04)
[2019-07-06 22:11] LABS: Hematocrit 31.2 VOL% (35.7-47.0); Hemoglobin 9.1 GM/DL (12.0-16.0)
[2019-07-07] MEDS: INSULIN REGULAR 100 UNIT/ML SUBCUT SCH ×4 (02:43→18:27)
[2019-07-07] MEDS: CLORAZEPATE 3.75 MG TABLET PER TUBE SCH ×4 (02:51→20:56)
[2019-07-07] MEDS: ALBUTEROL 0.63 MG/3 ML NEB RESP TX SCH ×6 (04:14→23:50)
[2019-07-07] MEDS: PIPERACILLIN/TAZOBACTAM 3,375 MG in SODIUM CHLORIDE 0.9% 100 ML IV SCH ×3 (05:32→22:11)
[2019-07-07] MEDS: SODIUM CHLORIDE 0.45% 1,000 ML IV SCH (05:34)
[2019-07-07] MEDS: predniSONE 20 MG TABLET PEG SCH ×2 (08:16→20:56)
[2019-07-07] MEDS: CHOLECALCIFEROL 1,000 UNIT TABLET PO SCH (08:16)
[2019-07-07] MEDS: OMEPRAZOLE ODT 20 MG TABLET PEG SCH (08:16)
[2019-07-07] MEDS: QUEtiapine 100 MG TABLET PO SCH ×2 (08:17→20:59)
[2019-07-07] MEDS: METOPROLOL TARTRATE 50 MG TABLET PEG SCH ×2 (08:18→20:59)
[2019-07-07] MEDS: GABAPENTIN 100 MG CAPSULE PO SCH ×2 (08:18→20:59)
[2019-07-07] MEDS: ASPIRIN EC 81 MG TABLET PO SCH (08:18)
[2019-07-07] MEDS: busPIRone 5 MG TABLET PO SCH ×3 (08:18→20:58)
[2019-07-07] MEDS: methIMAzole 5 MG TABLET PO SCH ×3 (08:18→20:58)
[2019-07-07] MEDS: MULTIVITAMIN LIQUID (CENTRUM) 60 ML BOTTLE PO SCH (08:21)
[2019-07-07] MEDS: INSULIN GLARGINE 100 UNIT/ML SUBCUT SCH (08:21)
[2019-07-07] MEDS: MENTHOL/ZINC OXIDE OINT 71 GM JAR TOP SCH ×2 (08:21→20:55)
[2019-07-07 08:31] LABS: Basophils # 0.1 10*3/uL (0.0-0.2); Basophils % 0.4 % (0.0-0.8); Eosinophils % 0.2 % (0.00-10.9); Hematocrit 29.3 VOL% (35.7-47.0); Hemoglobin 8.6 GM/DL (12.0-16.0); Immature Granulocytes % 8.8 %; Immature Granulocytes Absolute 2.31 #; Lymphocytes # 3.5 10*3/uL (1.4-4.0); Lymphocytes % 13.1 % (21.3-54.2); Mean Corpuscular HGB Conc 29.4 GM/DL (32-36); Mean Corpuscular Volume 103.2 FL (87-102); Mean Platelet Volume 10.7 FL (9.6-12.0); Monocytes % 5.9 % (1.7-12.7); NRBC # 1.37 10*3/uL; Neutrophils % 71.6 % (38.7-73.9); Platelet Count 159 T/CUMM (130-400); Red Blood Count 2.84 MC/CUMM (3.8-5.5); Red Cell Distribution Width 18.3 % (9.3-17.3); White Blood Count 26.4 T/CUMM (4-12)
[2019-07-07 08:46] LABS: Calcium 8.3 MG/DL (8.5-10.1); Osmolality,Calculated 304.6 MOS/KG (273-304)
[2019-07-07 08:50] LABS: Band Neutrophils 2 % (0-10); Lymphocytes 20 % (20-55); Nucleated Red Blood Cells 3 (0-5); Segmented Neutrophils 72 % (50-85); Total Cells Counted 100
[2019-07-07 08:51] LABS: Hypochromasia 1+; Macrocytosis Slight; Platelet Estimate Adequate; Polychromasia Slight
[2019-07-07] MEDS: MICAFUNGIN 100 MG in SODIUM CHLORIDE 0.9% 100 ML IV SCH (09:38)
[2019-07-07] MEDS: MONTELUKAST 10 MG TABLET PO SCH (20:59)
[2019-07-08] MEDS: INSULIN REGULAR 100 UNIT/ML SUBCUT SCH ×4 (01:02→17:13)
[2019-07-08] MEDS: CLORAZEPATE 3.75 MG TABLET PER TUBE SCH ×3 (02:05→15:25)
[2019-07-08] MEDS: ALBUTEROL 0.63 MG/3 ML NEB RESP TX SCH ×4 (03:20→15:50)
[2019-07-08] MEDS: PIPERACILLIN/TAZOBACTAM 3,375 MG in SODIUM CHLORIDE 0.9% 100 ML IV SCH ×2 (07:13→15:25)
[2019-07-08 08:01] LABS: Basophils # 0.1 10*3/uL (0.0-0.2); Basophils % 0.4 % (0.0-0.8); Eosinophils # 0.1 10*3/uL (0.0-0.87); Eosinophils % 0.2 % (0.00-10.9); Hematocrit 28.5 VOL% (35.7-47.0); Hemoglobin 8.5 GM/DL (12.0-16.0); Immature Granulocytes % 5.6 %; Immature Granulocytes Absolute 1.41 #; Lymphocytes # 3.7 10*3/uL (1.4-4.0); Lymphocytes % 14.5 % (21.3-54.2); Mean Corpuscular HGB Conc 29.8 GM/DL (32-36); Mean Corpuscular Volume 102.9 FL (87-102); Mean Platelet Volume 11.1 FL (9.6-12.0); Monocytes % 3.6 % (1.7-12.7); NRBC # 1.34 10*3/uL; Neutrophils % 75.7 % (38.7-73.9); Platelet Count 169 T/CUMM (130-400); Red Blood Count 2.77 MC/CUMM (3.8-5.5); Red Cell Distribution Width 17.8 % (9.3-17.3); White Blood Count 25.3 T/CUMM (4-12)
[2019-07-08 08:18] LABS: Calcium 8.4 MG/DL (8.5-10.1)
[2019-07-08 08:25] LABS: Band Neutrophils 3 % (0-10); Hypochromasia 1+; Lymphocytes 11 % (20-55); Myelocytes 1 %; Nucleated Red Blood Cells 6 (0-5); Segmented Neutrophils 81 % (50-85); Total Cells Counted 100
[2019-07-08 08:26] LABS: Macrocytosis 1+; Polychromasia Slight
[2019-07-08 08:43] LABS: Albumin 2.5 G/DL (3.4-5.0); Bilirubin,Direct 0.57 MG/DL (0.0-0.20); Bilirubin,Indirect 0.5 MG/DL (0.0-1.0); Bilirubin,Total 1.1 MG/DL (0.2-1.0); Total Protein 5.8 G/DL (6.4-8.3)
[2019-07-08] MEDS: ASPIRIN EC 81 MG TABLET PO SCH (09:30)
[2019-07-08] MEDS: MENTHOL/ZINC OXIDE OINT 71 GM JAR TOP SCH (09:30)
[2019-07-08] MEDS: INSULIN GLARGINE 100 UNIT/ML SUBCUT SCH (09:30)
[2019-07-08] MEDS: MULTIVITAMIN LIQUID (CENTRUM) 60 ML BOTTLE PO SCH (09:30)
[2019-07-08] MEDS: busPIRone 5 MG TABLET PO SCH ×2 (09:30→15:25)
[2019-07-08] MEDS: predniSONE 20 MG TABLET PEG SCH (09:31)
[2019-07-08] MEDS: GABAPENTIN 100 MG CAPSULE PO SCH (09:31)
[2019-07-08] MEDS: METOPROLOL TARTRATE 50 MG TABLET PEG SCH (09:31)
[2019-07-08] MEDS: CHOLECALCIFEROL 1,000 UNIT TABLET PO SCH (09:32)
[2019-07-08] MEDS: OMEPRAZOLE ODT 20 MG TABLET PEG SCH (09:32)
[2019-07-08] MEDS: QUEtiapine 100 MG TABLET PO SCH (09:32)
[2019-07-08] MEDS: methIMAzole 5 MG TABLET PO SCH ×2 (09:32→15:25)
[2019-07-08] MEDS: MICAFUNGIN 100 MG in SODIUM CHLORIDE 0.9% 100 ML IV SCH (13:03)
[2019-07-08 16:48] VITALS: BP 150/90
[2019-07-08] MEDS ORDERED: EPINEPHrine 1 MG/ML VIAL ONE (19:19)
== END 2019-07-08 19:28 | disposition expired | DRG 5 ==
LOC: N.ED 04:29 → SUPCPDRO 08:29 → N.EDINP 08:29 → SUATTDRO 08:29 → N.EDINP 15:45 → N.CC 16:15 → N.ICU 05-17 18:46 → N.5E 05-19 14:25 → N.ICU 05-28 01:46 → N.5E 06-27 13:33 → N.3E 07-04 11:57
PROVIDERS: ADMIT Internal Medicine; ATTEND Family Medicine
PROC: EGDWPEG (ICD-10-PCS; 2019-06-11 08:05)